=== PATIENT | male | born 1945 | race Caucasian/White ===

== ENCOUNTER → 2016-05-13 | Outpatient (CLI) | payer OTHER ==
[2016-04-17 11:00] VITALS: BP 135/79
[~2016-05-13] MED LIST: ALLO300T PO; AMLO5TAB2 PO; ASPI325T4 PO; ASPI81TA2 PO; ASPI81TA44 PO; CLOP75TA PO; COD1CAPS2 PO; ERGO500012 PO; EZET10TA3 PO; FAMO-63 PO; FURO-68 PO; FURO20TA3 PO; GABA-586 PO; GEMF600T3 PO; HYDR100E2 RC; INSU100V SQ; INSU100V8 SQ; LEVO25TA4 PO; LEVO500T38 PO; LISI-334 PO; MELO-150 PO; MESA1.2T PO; METF100010 PO; METF500T9 PO; METO25TA2 PO; METO25TA4 PO; MULT-658 PO; OMEG1CAP38 PO; POTA20TA12 PO; PRAV20TA2 PO; PRED-220 PO; REGADENOSON 0.4 MG/5 ML DISP.SYRIN. IV ONE; SIMV40TA3 PO; SULF500T7 PO; TAMS0.4C2 PO; TIZA2TAB PO; VITA400C6 PO; ZINC50TA2 PO
--- NOTE | 2016-05-13 13:18 | RAD ---
APPROVED REPORT Test Type: Pharmacological Stress Nurse/Tech: Nupur Wellington R.N. Test Indications: cad, chf Cardiac History: cad, chf, CABG x 2, last in 2003, dm, tia x 3 Medications: see attached Medical History: see ehr Resting ECG: Sr, wide qrs, old changes Resting Heart Rate: 84 bpm Resting Blood Pressure: 141/76mmHg Pretest Chest Pain: No chest pain Nurse/Tech Notes lungs cta, on Home O2 at 3L/nc, diminished, heart tones regular Consent: The procedure was explained to the patient in lay terms. Informed consent was witnessed. Claudio eout was entered into [employer]. History and Stress Test performed by Nupur Wellington R.N. Pharm. Details Pharmacologic stress testing was performed using 0.4mg per 5ml of regadenoson given intravenously ove r 7-10 seconds. Stress Symptoms No chest pain or symptoms. POST EXERCISE Reason for Termination: Infusion complete Target HR: No Max HR: 92 bpm Max Blood Pressure: 137/66mmHg Chest Pain: No. Arrhythmia: Yes. multi focal PVCs noted ST Change: No. INTERPRETATION Stress EKG Conclusion: Resting EKG shows a sinus rhythm and EKGs changes consistent with an old anter ior septal infarct. Stress EKG shows no significant changes from baseline. Abnormal baseline EKG but no EKG changes suggestive of stress-induced ischemia. Imaging Protocol IMAGE PROTOCOL: Rest Tc-99m/stress Tc-99m 1 day Rest: Stress: Viability: Radiopharm.Tc99m [id number] Sestamibi Dose10.5mCi 34.1mCi Duration 15min. 10min. Img Date 05/13/2016 05/13/2016 Inj-Img [id number]. 60min. Rest Admin Site:IV - Left AntecubitalAdministrator:RT Romario (R)(N) Stress Admin Site: IV - Left AntecubitalAdministrator: CORY Martínez STRESS DATA End Diast. Vol.191.0mlAv. Heart Rate74.0bpm End Syst. Vol.118.0mlCO Index BSA5.4L/min Myocardial Xzxp798.0gEject. Iksjwbve97.0% Stress Rates Pk. Fill Rate1.88EDV/secLVtime Pk. Fill 85.93msec Pk. Empty Rate2.41ESV/secLVtime Pk. Eject99.40msec /3 Pk. Fill1.29EDV/sec Stress Scores Regional WT2.00Summed WT30.00 Regional WM0.00Summed WM27.00 LV Perfusion The stress scans show an apical septal defect. The rest scans showed mild inferior wall thinning. Nuclear imaging is positive for reversible ischemia in the apical septal wall. Wall Motion Left ventricular ejection fraction is decreased at 38% with a septal wall motion abnormality. LV Perf. Quant 17 Seg. SSS5.00 17 Seg. SRS1.00 17 Seg. SDS5.00 Stress Defect Extent (% LAD)26.30Rest Defect Extent (% LAD)2.50Rev. Defect Extent (% LAD)25.60 Stress Defect Extent (% LCX) 0.00Rest Defect Extent (% LCX)5.00Rev. Defect Extent (% LCX)0.00 Stress Defect Extent (% RCA)0.00Rest Defect Extent (% RCA)0.00Rev. Defect Extent (% RCA)0.00 Stress Defect Extent (% CARLO)12.40Rest Defect Extent (% CARLO)2.20Rev. Defect Extent (% CARLO)12.20 Conclusion 1. No EKG evidence of stress-induced ischemia. 2. Nuclear imaging is positive for reversible ischemia in the apical septal wall. 3. Decreased ejection fraction at 38%. 4. Moderately high risk study.
== END | disposition home or self-care (01) ==
LOC: NM 08:33
PROVIDERS: ATTEND Internal Medicine Cardiovascular Disease
DX: I25.10 Atherosclerotic heart disease of native coronary artery without angina pectoris (principal); I50.22 Chronic systolic (congestive) heart failure; Z82.49 Family history of ischemic heart disease and other diseases of the circulatory system; I10 Essential (primary) hypertension; Z79.01 Long term (current) use of anticoagulants; Z86.69 Personal history of other diseases of the nervous system and sense organs; E11.9 Type 2 diabetes mellitus without complications
CPT/HCPCS: 78452; 93017; 96374; 96375; 96376; A9500; J2785

== ENCOUNTER 2016-05-20 06:32 | Observation (INO) | payer OTHER ==
[~2016-05-20] VITALS: Ht 185.4 cm; Wt 108.9 kg
[~2016-05-20 06:32] MED LIST changes: -REGADENOSON 0.4 MG/5 ML DISP.SYRIN. IV ONE
[2016-05-20 07:55] LABS: PROTHROMBIN TIME PATIENT 12.2 SEC (11.7-14.0)
[2016-05-20 08:07] LABS: CALCIUM 9.1 mg/dL (8.5-10.1); CREATININE 1.2 mg/dL (0.7-1.3); GFR 59.3; POTASSIUM 3.7 mmol/L (3.5-5.1)
[2016-05-20] MEDS ORDERED: LIDOCAINE 2% 20 ML VIAL. ONE (08:11)
[2016-05-20] MEDS ORDERED: IODIXANOL 320 MG/ML 100 ML VIAL. ONE ×2 (08:11→09:18)
[2016-05-20 08:22] VITALS: BP 141/82
[2016-05-20] MEDS ORDERED: FAMOTIDINE 20 MG/2 ML VIAL IVP ONE (08:30)
[2016-05-20] MEDS ORDERED: methylPREDNISolone SOD SUCC PF 125 MG/2 ML VIAL. IV ONE (08:30)
[2016-05-20] MEDS ORDERED: DIPHENHYDRAMINE 50 MG/ML VIAL IVP ONE (08:30)
[2016-05-20] MEDS ORDERED: FAMOTIDINE 20 MG/2 ML VIAL ONE (08:44)
[2016-05-20] MEDS ORDERED: DIPHENHYDRAMINE 50 MG/ML VIAL ONE (08:44)
[2016-05-20] MEDS ORDERED: methylPREDNISolone SOD SUCC PF 125 MG/2 ML VIAL. ONE (08:44)
[2016-05-20] MEDS ORDERED: FENTANYL PF 100 MCG/2 ML VIAL. ONE (08:50)
[2016-05-20] MEDS ORDERED: MIDAZOLAM HCL 2 MG/2 ML VIAL. ONE (08:50)
[2016-05-20] MEDS ORDERED: BIVALIRUDIN 250 MG VIAL IV ONE ×2 (09:13→09:30)
[2016-05-20] MEDS ORDERED: FENTANYL PF 100 MCG/2 ML VIAL. IV ONE (09:15)
[2016-05-20] MEDS ORDERED: MIDAZOLAM HCL 2 MG/2 ML VIAL. IV ONE (09:15)
[2016-05-20] MEDS ORDERED: CONTRAST GIVEN MC PRN (09:15)
[2016-05-20] MEDS ORDERED: IODIXANOL 320 MG/ML 100 ML VIAL. IART ONE (09:15)
[2016-05-20] MEDS ORDERED: LIDOCAINE 2% 20 ML VIAL. IJ ONE (09:15)
[2016-05-20] MEDS ORDERED: ATROPINE 0.5 MG/5 ML DISP.SYRIN. ONE (09:45)
[2016-05-20] MEDS ORDERED: CLOPIDOGREL BISULFATE 75 MG TABLET ONE (09:55)
[2016-05-20] MEDS ORDERED: CLOPIDOGREL BISULFATE 75 MG TABLET PO ONE (10:00)
[2016-05-20 10:02] VITALS: BP 141/78
[2016-05-20] MEDS: IV 1/2 NORMAL SALINE 1,000 ML IV SCH ×2 (10:12→22:12)
--- NOTE | 2016-05-20 10:12 | PDOC ---
MODERATE SEDATION ASSESSMENT RISKS/ALTERNATIVES Risks/Alternatives Risks and alternatives of this type of sedation and procedure discussed with: RISK/ALTERNATIVES: Patient H & P ON CHART H & P H & P on chart and reviewed for co-morbid conditions and appropriate labs. H&P ON CHART: Yes STATUS PREG STATUS ASSESSED: N/A MEDS/ALLERGIES REVIEWED Meds/Allergies Reviewed Medications and Allergies including time and route of recently administered narcotics and sedatives. MEDS/ALLERGIES REVIEWED: Yes ASA RATING ASA RATING: II AIRWAY ASSESSMENT Airway Assessment Airway patency, oral function limitations, presence of caps, crowns, dentures, partials, and ability to extend neck assessed. AIRWAY ASSESSMENT: Yes MALLAMPATI SCORE MALLAMPATI SCORE: II PRE-SEDATION ASSESSMENT PRE-SEDATION ASSESSMENT: Yes CORINE RUSSO MD May 20, 2016 10:12
[2016-05-20] MEDS ORDERED: NITROGLYCERIN SUBLINGUAL 0.4 MG BOTTLE OF 25. SL PRN (10:15)
[2016-05-20] MEDS ORDERED: ASPIRIN 81 MG TAB.CHEW PO ONE (10:15)
[2016-05-20] MEDS ORDERED: ACETAMINOPHEN 325 MG TABLET. PO PRN (10:15)
[2016-05-20] MEDS ORDERED: NITROGLYCERIN 200 MCG/2 ML SYRINGE FOR CATH/VASC LAB. IART ONE (10:15)
[2016-05-20 11:00] VITALS: BP 147/76
[2016-05-20] MEDS: GEMFIBROZIL 600 MG TABLET. PO SCH ×2 (11:00→17:21)
[2016-05-20] MEDS: LEVOTHYROXINE 25 MCG TABLET. PO SCH (11:00)
[2016-05-20] MEDS ORDERED: EZETIMIBE 10 MG TABLET PO SCH (11:00)
[2016-05-20] MEDS: FUROSEMIDE 40 MG TABLET PO SCH (11:00)
[2016-05-20] MEDS: METOPROLOL SUCC 24HR ER 25 MG TAB.ER.24H. PO SCH (11:00)
[2016-05-20] MEDS: GABAPENTIN 300 MG CAPSULE. PO SCH ×2 (11:00→17:22)
[2016-05-20] MEDS: AMLODIPINE BESYLATE 10 MG TABLET PO SCH (11:00)
[2016-05-20] MEDS ORDERED: INSULIN GLARGINE HUM REC ANLOG 16 UNIT SQ SCH (12:00)
[2016-05-20] MEDS: INSULIN ASPART 300 UNITS/3 ML INSULN.PEN SQ SCH ×2 (12:06→17:24)
--- NOTE | 2016-05-20 12:52 | CARD ---
APPROVED REPORT Procedure(s) performed: 1. Left heart catheterization, selective coronary angiography, selective ang iography of the bypass grafts 2. Successful PCI/drug eluting stent placement to the saphenous vein graft to the right coronary art rosalio INDICATION The indication(s) include : Unstable angina, coronary artery disease, positive stress test. PROCEDURE NARRATIVE After explaining the risks, benefits and alternative options, informed consent was obtained from stacey ent. Patient was brought to the cardiac Home Care Manager and his right groin was prepped and draped in the us ual fashion. 20 mL of 2% lidocaine was infiltrated into the skin and subcutaneous tissues for local a nesthesia. Arterial access was obtained in the right common femoral artery and a 6 Amharic sheath was inserted. 6 Amharic JL 4 and 6 Amharic JR4 catheters were used to perform selective angiography of the left and right coronary arteries. The 6 Amharic JR4 catheter was then used to perform selective angiog qi of the saphenous vein and internal mammary 'Y' graft to the ramus intermedius and left anterior descending arteries. The same catheter was used to perform selective angiography of the saphenous ve in graft to the right coronary artery and also the left internal mammary artery. LVEDP and Transaorti c gradient was measured. The following findings were noted. FINDINGS 1. Hemodynamics: Left ventricle end-diastolic pressure 30 mmHg. No pullback gradient across the aor tic valve. 2. Coronary and bypass graft angiography: a. The left main coronary artery arose from the left sinus of Valsalva, gave rise to the left anteri or descending, ramus intermedius and left circumflex arteries and showed mild diffuse disease without any significant stenosis. b. The left anterior descending artery showed 100% occlusion in the proximal segment. c. The left circumflex artery was 100% occluded proximally. d. The ramus intermedius artery showed 40% stenosis followed by 80% stenosis in the proximal segment . e. The right coronary artery arose from the right sinus of Valsalva that showed 90% stenosis in the proximal segment and 100% occlusion in the mid segment. f. The saphenous vein graft to the right coronary artery showed 90-95% stenosis in the proximal segm ent. g. Patient has a saphenous vein and internal mammary artery 'Y' graft with the saphenous vein anasto mosing with the ramus intermedius artery and internal mammary artery graft anastomosing with the left anterior descending artery, both of which were patent. Distal to the anastomosis, the ramus intermed ius artery did not show any significant stenosis. The left anterior descending artery showed moderate diffuse disease in the very apical segment. The obtuse marginal branches of left circumflex artery r econstituted from left to left collaterals and the posterolateral branch of right coronary artery rec onstituted from left to right collaterals. h. The left internal mammary artery showed signs of having been harvested for the 'Y' graft. INTERVENTION The saphenous vein graft to the right coronary artery was engaged with a 6 Amharic multipurpose guide catheter. The stenosis in the proximal segment was crossed with a Filterwire was deployed in the dist al segment of the graft for distal embolic protection. The stenosis was predilated with 3.0 x 15 mm t rek balloon following which this was successfully treated by overlapping 4.0 x 38 and 4.0 x 12 mm Ellie nce Alpine drug-eluting stents. There was slow flow noted but improved with intragraft nitroglycerin injections and successful retrieval filter wire. Final angiography showed resolution of the stenosis to 0% with FRANCISCO-3 distal flow. Patient tolerated the procedure well. Hemostasis in the right groin wa s achieved using Angio-Seal. There were no immediate complications. Conclusion 1. Severe [place] vessel disease s/p coronary artery bypass surgery with 90-95% stenosis involving th e saphenous vein graft to the right coronary artery and patent saphenous vein and internal mammary ar ashley 'Y' graft to the ramus intermedius and left anterior descending arteries 2. Successful PCI/drug eluting stents placement to the saphenous vein graft to the right coronary ar ashley. Recommendations 1. Aspirin 325 mg daily 2. Plavix 75 mg daily for preferably one year 3. Cardiovascular risk factor modification.
[2016-05-20 15:00] VITALS: BP 135/82
[2016-05-20 19:30] VITALS: BP 151/77
[2016-05-20] MEDS ORDERED: TAMSULOSIN 0.4 MG CAP.ER.24H. PO SCH (21:00)
[2016-05-20] MEDS: INSULIN DETEMIR 300 UNITS/3 ML INSULN.PEN. SQ SCH (21:00)
[2016-05-20 22:30] VITALS: BP 161/89
[2016-05-21 03:10] VITALS: BP 127/72
[2016-05-21] MEDS: LEVOTHYROXINE 25 MCG TABLET. PO SCH (06:12)
[2016-05-21] MEDS: GEMFIBROZIL 600 MG TABLET. PO SCH (06:12)
[2016-05-21] MEDS: GABAPENTIN 300 MG CAPSULE. PO SCH (06:13)
[2016-05-21 07:00] VITALS: BP 140/82
[2016-05-21] MEDS ORDERED: CLOPIDOGREL BISULFATE 75 MG TABLET PO SCH (08:00)
[2016-05-21] MEDS ORDERED: ASPIRIN ENTERIC COATED 325 MG TABLET.DR. PO SCH (08:00)
[2016-05-21] MEDS: FUROSEMIDE 40 MG TABLET PO SCH (08:10)
[2016-05-21] MEDS: METOPROLOL SUCC 24HR ER 25 MG TAB.ER.24H. PO SCH (08:10)
[2016-05-21 08:12] VITALS: BP 140/82
[2016-05-21] MEDS: AMLODIPINE BESYLATE 10 MG TABLET PO SCH (08:12)
[2016-05-21] MEDS: INSULIN DETEMIR 300 UNITS/3 ML INSULN.PEN. SQ SCH (08:20)
[2016-05-21] MEDS: INSULIN ASPART 300 UNITS/3 ML INSULN.PEN SQ SCH (08:21)
--- NOTE | 2016-05-21 10:36 | PDOC3 ---
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 chronic systolic heart failure, compensated 3. venous insufficiency 4. hypertension 5. hyperlipidemia 6. stroke, etiology unclear 7. 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 chronic systolic heart failure, compensated 3. venous insufficiency 4. hypertension 5. hyperlipidemia 6. stroke, etiology unclear 7. DM, II CONSULTS none Procedures 05/20/2016: 1. Severe redding vessel disease s/p coronary artery bypass surgery with 90-95% stenosis involving the saphenous vein graft to the right coronary artery and patent saphenous vein and internal mammary artery 'Y' graft to the ramus intermedius and left anterior descending arteries 2. Successful PCI/drug eluting stents placement to the saphenous vein graft to the right coronary artery. Brief Hospital Course Mr. Bustos is a 71 old male with a history of CAD and CABG in 1992 and 2003, as well as stroke of uncertain etiology and chronic venous insufficiency with previous RF ablation of greater and lesser saphenous veins. He was hospitalized in early April with CHF exacerbation and noted to have wall motion abnormalities on echo. He subsequently underwent MPI as an outpatient and was found to have reversible ischemia in the apical septal wall. Cardiac catheterization was advised and patient was agreeable with procedure which was completed on 05/20/2016. Monitored overnight without cardiac dysrhythmias or anginal symptoms. LINQ interrogated without significant findings. Discharge on DAPT for the next 12 months. Disposition/Orders: D/C to Home CONDITION AT DISCHARGE: Improved Diet: Cardiac (& diabetic) Scheduled Allopurinol (Allopurinol) 300 MG PO BID (Reported) Amlodipine Besylate (Amlodipine Besylate) 10 MG PO DAILY Aspirin (Aspirin) 1 TAB PO DAILY (Reported) Clopidogrel Bisulfate (Clopidogrel) 75 MG PO DAILY (Reported) Cod Liver Oil (Cod Liver Oil) 1 EACH PO BID76 (Reported) Ergocalciferol (Vitamin D2) (Vitamin D2) 50,000 UNIT PO WEEKLY (Reported) Ezetimibe (Zetia) 10 MG PO QODAY (Reported) Famotidine (Pepcid) 20 MG PO BID76 (Reported) Furosemide (Lasix) 1 TAB PO DAILY Gabapentin (Gabapentin) 600 MG PO BID76 (Reported) Gemfibrozil (Gemfibrozil) 600 MG PO BID76 (Reported) Insulin Glargine,Hum.rec.anlog (Lantus) 16 UNIT SQ TIDWMEALS (Reported) Insulin Glargine,Hum.rec.anlog (Lantus) 25 UNIT SQ BID76 (Reported) Insulin Lispro (Humalog) 16 UNIT SQ TIDAC (Reported) Levothyroxine Sodium (Levothyroxine Sodium) 25 MCG PO DAILYAC (Reported) Metformin Hcl (Metformin Hcl Er) 1 TAB PO BID76 (Reported) Metoprolol Succinate (Toprol Xl) 25 MG PO DAILY (Reported) Multivits-Min/Fa/Lycopene/Lut (Centrum Silver Tablet) 1 EACH PO DAILY (Reported ) [place]-3 Fatty Acids/Fish Oil ([place] 3 Fish Oil Softgel) 1 EACH PO DAILY ( Reported) Prednisone (Prednisone) 10 MG PO BID (Reported) Sulfasalazine (Sulfasalazine) 1,000 MG PO BID (Reported) Tamsulosin Hcl (Tamsulosin Hcl) 0.4 MG PO HS (Reported) Tizanidine Hcl (Tizanidine Hcl) 4 MG PO HS (Reported) Vitamin E (Dl,Tocopheryl Acet) (Vitamin E) 400 UNIT PO DAILY18 (Reported) Zinc Gluconate (Zinc) 50 MG PO DAILY (Reported) FOLLOW UP APPOINTMENT: as scheduled with Dr. Long on 06/19/2016 PCP 7-10 days Time Spent Total time spent with patient 30 minutes for coordination of care, counseling, and education. NINOSKA SALDANA APRN May 21, 2016 10:36
[2016-05-21 11:25] LABS: CREATININE 1.1 mg/dL (0.7-1.3); GFR 65.6; POTASSIUM 3.1 mmol/L (3.5-5.1)
== END 2016-05-21 11:30 | disposition home or self-care (01) ==
LOC: CCL 06:32 → 2 NORTH 09:42 → INTOOBSV 09:42
PROVIDERS: ADMIT Internal Medicine Cardiovascular Disease; ATTEND Internal Medicine Cardiovascular Disease
DX: I25.110 Atherosclerotic heart disease of native coronary artery with unstable angina pectoris (principal); I50.22 Chronic systolic (congestive) heart failure; I87.2 Venous insufficiency (chronic) (peripheral); I11.0 Hypertensive heart disease with heart failure; E78.5 Hyperlipidemia, unspecified; E11.9 Type 2 diabetes mellitus without complications; I63.9 Cerebral infarction, unspecified
CPT/HCPCS: 36415; 80048; 82947; 85610; 85730; 92937; 93458; 96372; 96374; 96375; C1725; C1769; C1771; C1874; C1887; C1892; G0269; G0378; G0379; J0583; J1200; J1815; J2250; J2930; J3010; J3490; S0028

== ENCOUNTER 2017-02-01 14:04 | Inpatient (IN) | payer OTHER ==
[~2017-02-01] VITALS: Ht 185.4 cm; Wt 107.1 kg
[~2017-02-01 14:04] MED LIST changes: +ASPI-630 PO; -ASPI325T4 PO; +ASPI325T8 PO; -ASPI81TA2 PO; -ERGO500012 PO; +ERGO500027 PO; +EZET10TA18 PO; -EZET10TA3 PO; -LEVO500T38 PO; +LEVO500T59 PO; -MELO-150 PO; +MELO15TA23 PO
[2017-02-01 14:27] LABS: BASO # 0.2 x10^3/uL (0.0-0.2); BASO % 2 % (0-3); EOS % 3 % (0-3); HEMATOCRIT 40.7 % (39.0-53.0); HEMOGLOBIN 13.1 g/dL (13.0-17.5); LYMPH # 1.1 x10^3/uL (1.0-4.8); LYMPH % 10 % (24-48); MEAN CORPUSCULAR HEMOGLOBIN 31 pg (25-35); MEAN CORPUSCULAR HGB CONC 32 g/dL (31-37); MEAN CORPUSCULAR VOLUME 97 fL (79-100); MONO % 7 % (0-9); NEUT % 77 % (31-73); PLATELET COUNT 254 x10^3/uL (140-400); RED BLOOD COUNT 4.21 x10^6/uL (4.30-5.70); RED CELL DISTRIBUTION WIDTH 17.3 % (11.5-14.5); WHITE BLOOD COUNT 10.4 x10^3/uL (4.0-11.0)
[2017-02-01 14:38] LABS: CALCIUM 9.1 mg/dL (8.5-10.1); CREATININE 1.4 mg/dL (0.7-1.3); GFR 49.7; POTASSIUM 4.3 mmol/L (3.5-5.1)
[2017-02-01 14:43] LABS: ALBUMIN 3.7 g/dL (3.4-5.0); ALBUMIN/GLOBULIN RATIO 1.1 (1.0-1.7); TOTAL BILIRUBIN 0.3 mg/dL (0.2-1.0); TOTAL PROTEIN 7.2 g/dL (6.4-8.2)
--- NOTE | 2017-02-01 14:47 | RAD ---
AP PORTABLE CHEST Clinical Indication: SOA. CHF. Comparison: 2 view chest 04/15/2016. Findings: Median sternotomy wires and changes of CABG. There is left chest cardiac event monitor. Stable cardiomegaly. Trace bilateral pleural effusions. Mild pulmonary vascular congestion, less apparent than on prior study. Lungs are clear. There is no pneumothorax. There is no acute bone abnormality. IMPRESSION: 1. Mild pulmonary vascular congestion. 2. Trace bilateral pleural effusions. 3. Stable cardiomegaly.
[2017-02-01] MEDS ORDERED: IPRATRPIUM/ALBUTEROL 0.5/2.5MG 3 ML NEBU. NEB ONE (15:00)
[2017-02-01] MEDS ORDERED: FUROSEMIDE 40 MG/4 ML VIAL. IVP ONE ×2 (15:15→16:15)
[2017-02-01] MEDS ORDERED: ASPIRIN CHEWABLE 81 MG TABLET. PO ONE (15:30)
--- NOTE | 2017-02-01 15:50 | PHYS DOC ---
Past Medical History Past Medical History: Arrhythmia, CAD, CHF, Diabetes-Type II, High Cholesterol , Hypertension, Hypothyroid Additional Past Medical Histor: gout, left hip pain, prostate, ulcerative colitis Past Surgical History: Appendectomy, Cholecystectomy, Coronary Bypass Surgery, Other Additional Past Surgical Histo: 2 open heart surgeries, bilat lower extremity "ablasions" 08/2015 Additional Information: quit smoking 1993 Alcohol Use: Occasionally Drug Use: None Adult General Chief Complaint Chief Complaint: SHORTNESS OF BREATH HPI HPI Patient is a 71 year old male with history of CAD, congestive heart failure who presents with progressive dyspnea for the past 3 days with weight gain over night. Patient reports orthopnea and dyspnea with exertion. States he is increased peripheral edema. Patient took an extra dose of Lasix yesterday without improvement. Denies chest pain, chest tightness. No nausea vomiting or sweats. No other acute symptoms or complaints. [] Review of Systems Review of Systems ROS as per HPI. [] All other systems were reviewed and found to be within normal limits, except as documented in this note. Current Medications Current Medications Current Medications Medications (Trade) Dose Ordered Sig/Nickie Start Time Stop Time Status Last Admin Dose Admin Albuterol/ Ipratropium (Duoneb) 3 ml 1X ONCE 02/01/17 15:00 02/01/17 15:01 DC 02/01/17 15:34 3 ML Aspirin (Children'S Aspirin) 162 mg 1X ONCE 02/01/17 15:30 02/01/17 15:31 DC Furosemide (Lasix) 40 mg 1X ONCE 02/01/17 15:15 02/01/17 15:16 DC 02/01/17 15:15 40 MG Allergies Allergies Allergies Coded Allergies Type Severity Reaction Last Updated Verified Iodinated Contrast- Oral and IV Dye Allergy Intermediate Hives 09/14/13 Yes pravastatin Allergy Intermediate 01/06/14 Yes Tmfyrly-Mzh-Yre Reductase Inhibitor Adverse Reaction Intermediate 05/20/16 No Physical Exam Physical Exam Constitutional: Well developed, well nourished, no acute distress, non-toxic appearance. [] HENT: Normocephalic, atraumatic, bilateral external ears normal, oropharynx moist, no oral exudates, nose normal. [] Eyes: PERRLA, EOMI, conjunctiva normal, no discharge. [] Neck: Normal range of motion, no tenderness, supple, no stridor. [] Cardiovascular:Heart rate regular rhythm, no murmur [] Lungs & Thorax: Respirations nonlabored, coarse lung sounds in bases. [] Extremities: No tenderness, ROM intact, peripheral edema.[] Neurologic: Alert and oriented X 3, normal motor function, normal sensory function, no focal deficits noted. [] Psychologic: Affect normal, judgement normal, mood normal. [] Current Patient Data Vital Signs Vital Signs Date Time Temp Pulse Resp B/P (MAP) Pulse Ox O2 Delivery O2 Flow Rate FiO2 02/01/17 15:13 73 20 122/70 (87) 93 Nasal Cannula 2.0 02/01/17 14:08 97.5 97.5 Lab Values Laboratory Tests Test 02/01/17 14:15 White Blood Count 10.4 x10^3/uL (4.0-11.0) Red Blood Count 4.21 x10^6/uL (4.30-5.70) L Hemoglobin 13.1 g/dL (13.0-17.5) Hematocrit 40.7 % (39.0-53.0) Mean Corpuscular Volume 97 fL (79-100) Mean Corpuscular Hemoglobin 31 pg (25-35) Mean Corpuscular Hemoglobin Concent 32 g/dL (31-37) Red Cell Distribution Width 17.3 % (11.5-14.5) H Platelet Count 254 x10^3/uL (140-400) Neutrophils (%) (Auto) 77 % (31-73) H Lymphocytes (%) (Auto) 10 % (24-48) L Monocytes (%) (Auto) 7 % (0-9) Eosinophils (%) (Auto) 3 % (0-3) Basophils (%) (Auto) 2 % (0-3) Neutrophils # (Auto) 8.1 x10^3uL (1.8-7.7) H Lymphocytes # (Auto) 1.1 x10^3/uL (1.0-4.8) Monocytes # (Auto) 0.8 x10^3/uL (0.0-1.1) Eosinophils # (Auto) 0.3 x10^3/uL (0.0-0.7) Basophils # (Auto) 0.2 x10^3/uL (0.0-0.2) Sodium Level 141 mmol/L (136-145) Potassium Level 4.3 mmol/L (3.5-5.1) Chloride Level 102 mmol/L (98-107) Carbon Dioxide Level 30 mmol/L (21-32) Anion Gap 9 (6-14) Blood Urea Nitrogen 24 mg/dL (8-26) Creatinine 1.4 mg/dL (0.7-1.3) H Estimated GFR (Cockcroft-Gault) 49.7 BUN/Creatinine Ratio 17 (6-20) Glucose Level 53 mg/dL (70-99) L Calcium Level 9.1 mg/dL (8.5-10.1) Total Bilirubin 0.3 mg/dL (0.2-1.0) Aspartate Amino Transferase (AST) 23 U/L (15-37) Alanine Aminotransferase (ALT) 23 U/L (16-63) Alkaline Phosphatase 133 U/L (46-116) H Creatine Kinase 69 U/L (39-308) Troponin I Quantitative 0.568 ng/mL (0.000-0.055) NS-Niy-F-Type Natriuretic Peptide 5121 pg/mL (0-124) H Total Protein 7.2 g/dL (6.4-8.2) Albumin 3.7 g/dL (3.4-5.0) Albumin/Globulin Ratio 1.1 (1.0-1.7) Laboratory Tests 02/01/17 14:15 Laboratory Tests 02/01/17 14:15 EKG EKG [EKG: A. fib, rate, 79, no acute ST-T wave changes, QTC 439. Interpretation by this physician.] Radiology/Procedures Radiology/Procedures [Chest x-ray: Pulmonary edema per radiology report.] Course & Med Decision Making Course & Med Decision Making Pertinent Labs and Imaging studies reviewed. (See chart for details) [Patient acute congestive heart failure. Noted to be hypoxic on ED arrival. Patient placed on oxygen, breathing treatment and Lasix given with symptomatic improvement. Patient denies chest pain/chest tightness. EKG has A. fib but otherwise nondiagnostic. Troponin elevated but likely to be acting very due to supply demand mismatch. Dr. Hoffman to admit. Cardiology consulted.] Dragon Disclaimer Dragon Disclaimer This electronic medical record was generated, in whole or in part, using a voice recognition dictation system. Departure Departure Impression: Primary Impression: CHF exacerbation Additional Impression: Elevated troponin Disposition: 09 ADMITTED INPATIENT Admitting Physician: Jane Hoffman Condition: STABLE Referrals: GARCÍA CONTI MD (PCP) Problem Qualifiers YARIEL ADAME DO Feb 01, 2017 15:50
[2017-02-01] MEDS ORDERED: ONDANSETRON PF 4 MG/2 ML VIAL. IV PRN (16:00)
[2017-02-01] MEDS: IPRATRPIUM/ALBUTEROL 0.5/2.5MG 3 ML NEBU. NEB SCH ×2 (16:00→20:24)
[2017-02-01 17:00] VITALS: BP 140/70
[2017-02-01] MEDS: FUROSEMIDE 40 MG/4 ML VIAL. IVP SCH (17:56)
[2017-02-01] MEDS: HEPARIN for IV BOLUS 10,000 UNIT/10 ML VIAL. IV PRN (17:59)
[2017-02-01] MEDS: HEPARIN 25,000UTS/500ML PREMIX 500 ML IV PRN (18:04)
[2017-02-01] MEDS ORDERED: VITA400C36 PO (18:25)
[2017-02-01] MEDS ORDERED: PRED-220 PO (18:25)
[2017-02-01] MEDS ORDERED: COD1CAPS2 PO (18:29)
[2017-02-01] MEDS ORDERED: ZINC50TA29 PO (18:29)
[2017-02-01] MEDS ORDERED: INSU100I17 SQ (18:30)
--- NOTE | 2017-02-01 18:56 | PDOC1 ---
History and Physical Date of Admission Date of Admission DATE: 02/01/17 TIME: 18:54 Identification/Chief Complaint Chief Complaint orthopnea, " I cant lie flat" Problems: Source Source: Chart review, Patient History of Present Illness History of Present Illness Mr. Bustos, is a 71 year old male admit from ER, for marked and progressive dyspnea for the past 3 days with weight gain over night. 2 lbs weight gain yesterday, 4 lbs gained the day before that. he doubled up his Lasix, minimal change in urine output he could not sleep last night, marked Patient reports orthopnea and dyspnea with exertion no travel, no new leg pain, swelling is symmetrical, IV lasix given in the ER , he reports not much substantial output Past Medical History Past Medical History CAD, congestive heart failure Cardiovascular: CAD, CHF, HTN, Hyperlipidemia, Other Pulmonary: COPD CENTRAL NERVOUS SYSTEM: CVA GI: GERD, Irritable bowel disease Heme/Onc: No pertinent hx Hepatobiliary: No pertinent hx Psych: No pertinent hx Musculoskeletal: Osteoarthritis Rheumatologic: Gout Infectious disease: No pertinent hx Renal/: Chronic renal insuff Endocrine: Diabetes, Hypothyroidism Past Surgical History Past Surgical History: Cholecystectomy, CABG Family History Family History: Coronary Artery Disease, Hypertension, Stroke Social History ALCOHOL: none Drugs: None Current Problem List Problem List Problems Medical Problems: (1) CHF exacerbation Status: Acute (2) Elevated troponin Status: Acute Problems: Current Medications Current Medications Current Medications Albuterol/ Ipratropium (Duoneb) 3 ml 1X ONCE NEB Last administered on 15:34; Start 02/01/17 at 15:00; Stop 02/01/17 at 15:01; Status DC Furosemide (Lasix) 40 mg 1X ONCE IVP Last administered on 02/01/17 15:15; Start 02/01/17 at 15:15; Stop 02/01/17 at 15:16; Status DC Aspirin (Children'S Aspirin) 162 mg 1X ONCE PO Last administered on 16:42; Start 02/01/17 at 15:30; Stop 02/01/17 at 15:31; Status DC Ondansetron HCl (Zofran) 4 mg PRN Q8HRS PRN IV NAUSEA/VOMITING; Start at 16:00; Stop 02/02/17 at 15:59 Albuterol/ Ipratropium (Duoneb) 3 ml RTQID NEB ; Start 02/01/17 at 16:00; Stop 02/02/17 at 15:59 Furosemide (Lasix) 40 mg BID92 IVP Last administered on 02/01/17 17:56; Start 02/02/17 at 16:30 Furosemide (Lasix) 40 mg 1X ONCE IVP Last administered on 02/01/17 16:39; Start 02/01/17 at 16:15; Stop 02/01/17 at 16:16; Status DC Heparin Sodium/ Dextrose 500 ml @ 0 mls/hr CONT PRN IV SEE I/O RECORD Last administered on 02/01/17 18:04; Start 02/01/17 at 16:30 Heparin Sodium (Porcine) (Heparin Sodium) 2,700 unit PRN Q6HRS PRN IV FOR UFH LEVEL LESS THAN 0.2 Last administered on 02/01/17 17:59; Start 02/01/17 at 16 :30 Active Scripts Active Lasix (Furosemide) 40 Mg Tablet 1 Tab PO DAILY Amlodipine Besylate 5 Mg Tablet 10 Mg PO DAILY Reported Novolog Flexpen (Insulin Aspart) 100 Unit/1 Ml Insuln.pen 20 Unit SQ TIDACHC Zinc 50 Mg Tablet 50 Mg PO DAILY08 Cod Liver Oil 1 Each Capsule 1 Each PO DAILY08 Vitamin E (Vitamin E Mixed) 400 Unit Capsule 400 Unit PO DAILY16 Prednisone 10 Mg Tablet 10 Mg PO BID Sulfasalazine 500 Mg Tablet 1,000 Mg PO BID Aspirin 81 Mg Tab.chew 1 Tab PO DAILY Clopidogrel (Clopidogrel Bisulfate) 75 Mg Tablet 75 Mg PO DAILY Brightwood 3 Fish Oil Softgel (Brightwood-3 Fatty Acids/Fish Oil) 1 Each Capsule.dr 1 Each PO DAILY Vitamin D2 (Ergocalciferol (Vitamin D2)) 50,000 Unit Capsule 50,000 Unit PO WEEKLY Toprol Xl (Metoprolol Succinate) 25 Mg Tab.er.24h 25 Mg PO DAILY Metformin Hcl Er (Metformin Hcl) 500 Mg Tab.er.24h 1 Tab PO BID76 Lantus (Insulin Glargine,Hum.rec.anlog) 100 Unit/1 Ml Vial 25 Unit SQ BID76 Centrum Silver Tablet (Multivits-Min/Fa/Lycopene/Lut) 1 Each Tablet 1 Each PO DAILY Pepcid (Famotidine) 20 Mg Tablet 20 Mg PO BID76 Tamsulosin Hcl 0.4 Mg Cap.er.24h 0.4 Mg PO HS Allopurinol 300 Mg Tablet 300 Mg PO BID Zetia (Ezetimibe) 10 Mg Tablet 10 Mg PO QODAY Levothyroxine Sodium 25 Mcg Tablet 25 Mcg PO DAILYAC Allergies Allergies: Coded Allergies: Iodinated Contrast- Oral and IV Dye (Verified Allergy, Intermediate, Hives , 09/14/13) pravastatin (Verified Allergy, Intermediate, 01/06/14) Eadgtfu-Oic-Oji Reductase Inhibitor (Unverified Adverse Reaction, Intermediate, 05/20/16) ROS General: No: Chills, Night Sweats, Fatigue, Malaise, Appetite, Other PSYCHOLOGICAL ROS: No: Anxiety, Behavioral Disorder, Concentration difficultie , Decreased libido, Depression, Disorientation, Hallucinations, Hostility, Irritablity, Memory difficulties, Mood Swings, Obsessive thoughts, Physical abuse, Sexual abuse, Sleep disturbances, Suicidal ideation, Other Eyes: No Blurry vision, No Decreased vision, No Double vision, No Dry eyes, No Excessive tearing, No Eye Pain, No Itchy Eyes, No Loss of vision, No Photophobia , No Scotomata, No Uses contacts, No Uses glasses, No Other HEENT: No: Heacaches, Visual Changes, Hearing change, Nasal congestion, Nasal discharge, Oral lesions, Sinus pain, Sore Throat, Epistaxis, Sneezing, Snoring, Tinnitus, Vertigo, Vocal changes, Other Respiratory: No: Cough, Hemoptysis, Orthopnea, Pleuritic Pain, Shortness of breath, SOB with excertion, Sputum Changes, Stridor, Tachypnea, Wheezing, Other Cardiovascular: No Chest Pain, No Palpitations, No Orthopnea, No Paroxysmal Noc. Dyspnea, No Edema, No Lt Headedness, No Other Gastrointestinal: No Nausea, No Vomiting, No Abdominal Pain, No Diarrhea, No Constipation, No Melena, No Hematochezia, No Other Genitourinary: No Dysuria, No Frequency, No Incontinence, No Hematuria, No Retention, No Discharge, No Urgency, No Pain, No Flank Pain, No Other, No , No , No , No , No , No , No Musculoskeletal: No Gait Disturbance, No Joint Pain, No Joint Stiffness, No Joint Swelling, No Muscle Pain, No Muscular Weakness, No Pain In:, No Swelling In:, No Other Neurological: No Behavorial Changes, No Bowel/Bladder ControlChng, No Confusion , No Dizziness, No Gait Disturbance, No Headaches, No Impaired Coord/balance, No Memory Loss, No Numbness/Tingling, No Seizures, No Speech Problems, No Tremors, No Visual Changes, No Weakness, No Other Skin: No Dry Skin, No Eczema, No Hair Changes, No Lumps, No Mole Changes, No Mottling, No Nail Changes, No Pruritus, No Rash, No Skin Lesion Changes, No Other, No Acne Physical Exam General: Cooperative, No acute distress HEENT: EOMI, Mucous membr. moist/pink Lungs: Normal air movement Heart: no murmurs Abdomen: Normal bowel sounds, Soft, Other (tender LLQ, mild guarding only, no rebound) Rectal Exam: not examined Extremities: Normal pulses, Other (2+ Le edema, ) Skin: No breakdown Neuro: Normal speech, Normal tone, Sensation intact Psych/Mental Status: Mood NL Vitals Vitals Vital Signs Date Time Temp Pulse Resp B/P (MAP) Pulse Ox O2 Delivery O2 Flow Rate FiO2 02/01/17 17:00 98.2 80 20 140/70 (93) 97 Nasal Cannula 2.0 98.2 Labs Labs Laboratory Tests Test 02/01/17 14:15 White Blood Count 10.4 x10^3/uL (4.0-11.0) Red Blood Count 4.21 x10^6/uL (4.30-5.70) Hemoglobin 13.1 g/dL (13.0-17.5) Hematocrit 40.7 % (39.0-53.0) Mean Corpuscular Volume 97 fL (79-100) Mean Corpuscular Hemoglobin 31 pg (25-35) Mean Corpuscular Hemoglobin Concent 32 g/dL (31-37) Red Cell Distribution Width 17.3 % (11.5-14.5) Platelet Count 254 x10^3/uL (140-400) Neutrophils (%) (Auto) 77 % (31-73) Lymphocytes (%) (Auto) 10 % (24-48) Monocytes (%) (Auto) 7 % (0-9) Eosinophils (%) (Auto) 3 % (0-3) Basophils (%) (Auto) 2 % (0-3) Neutrophils # (Auto) 8.1 x10^3uL (1.8-7.7) Lymphocytes # (Auto) 1.1 x10^3/uL (1.0-4.8) Monocytes # (Auto) 0.8 x10^3/uL (0.0-1.1) Eosinophils # (Auto) 0.3 x10^3/uL (0.0-0.7) Basophils # (Auto) 0.2 x10^3/uL (0.0-0.2) Sodium Level 141 mmol/L (136-145) Potassium Level 4.3 mmol/L (3.5-5.1) Chloride Level 102 mmol/L (98-107) Carbon Dioxide Level 30 mmol/L (21-32) Anion Gap 9 (6-14) Blood Urea Nitrogen 24 mg/dL (8-26) Creatinine 1.4 mg/dL (0.7-1.3) Estimated GFR (Cockcroft-Gault) 49.7 BUN/Creatinine Ratio 17 (6-20) Glucose Level 53 mg/dL (70-99) Calcium Level 9.1 mg/dL (8.5-10.1) Total Bilirubin 0.3 mg/dL (0.2-1.0) Aspartate Amino Transf (AST/SGOT) 23 U/L (15-37) Alanine Aminotransferase (ALT/SGPT) 23 U/L (16-63) Alkaline Phosphatase 133 U/L (46-116) Creatine Kinase 69 U/L (39-308) Troponin I Quantitative 0.568 ng/mL (0.000-0.055) TE-Pbu-B-Type Natriuretic Peptide 5121 pg/mL (0-124) Total Protein 7.2 g/dL (6.4-8.2) Albumin 3.7 g/dL (3.4-5.0) Albumin/Globulin Ratio 1.1 (1.0-1.7) Laboratory Tests Test 02/01/17 14:15 White Blood Count 10.4 x10^3/uL (4.0-11.0) Red Blood Count 4.21 x10^6/uL (4.30-5.70) Hemoglobin 13.1 g/dL (13.0-17.5) Hematocrit 40.7 % (39.0-53.0) Mean Corpuscular Volume 97 fL (79-100) Mean Corpuscular Hemoglobin 31 pg (25-35) Mean Corpuscular Hemoglobin Concent 32 g/dL (31-37) Red Cell Distribution Width 17.3 % (11.5-14.5) Platelet Count 254 x10^3/uL (140-400) Neutrophils (%) (Auto) 77 % (31-73) Lymphocytes (%) (Auto) 10 % (24-48) Monocytes (%) (Auto) 7 % (0-9) Eosinophils (%) (Auto) 3 % (0-3) Basophils (%) (Auto) 2 % (0-3) Neutrophils # (Auto) 8.1 x10^3uL (1.8-7.7) Lymphocytes # (Auto) 1.1 x10^3/uL (1.0-4.8) Monocytes # (Auto) 0.8 x10^3/uL (0.0-1.1) Eosinophils # (Auto) 0.3 x10^3/uL (0.0-0.7) Basophils # (Auto) 0.2 x10^3/uL (0.0-0.2) Sodium Level 141 mmol/L (136-145) Potassium Level 4.3 mmol/L (3.5-5.1) Chloride Level 102 mmol/L (98-107) Carbon Dioxide Level 30 mmol/L (21-32) Anion Gap 9 (6-14) Blood Urea Nitrogen 24 mg/dL (8-26) Creatinine 1.4 mg/dL (0.7-1.3) Estimated GFR (Cockcroft-Gault) 49.7 BUN/Creatinine Ratio 17 (6-20) Glucose Level 53 mg/dL (70-99) Calcium Level 9.1 mg/dL (8.5-10.1) Total Bilirubin 0.3 mg/dL (0.2-1.0) Aspartate Amino Transf (AST/SGOT) 23 U/L (15-37) Alanine Aminotransferase (ALT/SGPT) 23 U/L (16-63) Alkaline Phosphatase 133 U/L (46-116) Creatine Kinase 69 U/L (39-308) Troponin I Quantitative 0.568 ng/mL (0.000-0.055) CL-Crq-R-Type Natriuretic Peptide 5121 pg/mL (0-124) Total Protein 7.2 g/dL (6.4-8.2) Albumin 3.7 g/dL (3.4-5.0) Albumin/Globulin Ratio 1.1 (1.0-1.7) VTE Prophylaxis Ordered VTE Prophylaxis Devices: Yes VTE Pharmacological Prophylaxi: Yes Assessment/Plan Assessment/Plan CHF, acute systolic exacerbation LE edema, IV lasix consult CV angina, r/o ACS, troponin elevation of unstable angina, heparin gtt started CKD 3 abd pain, some Ulcerative colitis symptoms of exacerbation, pt of Dr. Menchaca, cont prednisone and sulfasalazine concern for blood with blood thinner and anti platelet meds given symptoms reported are constipation JACK VALENTINE MD Feb 01, 2017 18:56
[2017-02-01 19:25] VITALS: BP 121/72
[2017-02-01] MEDS: predniSONE 10 MG TABLET PO SCH (20:02)
[2017-02-01] MEDS: INSULIN ASPART 300 UNITS/3 ML INSULN.PEN SQ SCH (20:56)
[2017-02-01] MEDS: sulfaSALAzine 500 MG TABLET PO SCH (20:57)
[2017-02-01] MEDS: TAMSULOSIN 0.4 MG CAP.ER.24H. PO SCH (20:57)
[2017-02-01] MEDS: ALLOPURINOL 300 MG TABLET. PO SCH (20:57)
[2017-02-01 23:00] VITALS: BP 134/71
[2017-02-02] VITALS (7 sets, daily range): BP systolic 124–154; BP diastolic 71–82
[2017-02-02 03:32] LABS: BASO # 0.1 x10^3/uL (0.0-0.2); BASO % 1 % (0-3); EOS % 3 % (0-3); HEMOGLOBIN 12.1 g/dL (13.0-17.5); LYMPH # 0.9 x10^3/uL (1.0-4.8); LYMPH % 11 % (24-48); MEAN CORPUSCULAR HEMOGLOBIN 31 pg (25-35); MEAN CORPUSCULAR HGB CONC 32 g/dL (31-37); MEAN CORPUSCULAR VOLUME 97 fL (79-100); MONO % 6 % (0-9); NEUT % 80 % (31-73); PLATELET COUNT 200 x10^3/uL (140-400); RED BLOOD COUNT 3.94 x10^6/uL (4.30-5.70); RED CELL DISTRIBUTION WIDTH 16.4 % (11.5-14.5); WHITE BLOOD COUNT 8.3 x10^3/uL (4.0-11.0)
[2017-02-02 03:47] LABS: CALCIUM 8.7 mg/dL (8.5-10.1); CREATININE 1.4 mg/dL (0.7-1.3); GFR 49.7; POTASSIUM 3.9 mmol/L (3.5-5.1)
[2017-02-02] MEDS: HEPARIN for IV BOLUS 10,000 UNIT/10 ML VIAL. IV PRN (04:01)
[2017-02-02] MEDS: CLOPIDOGREL BISULFATE 75 MG TABLET PO SCH (06:38)
[2017-02-02] MEDS: predniSONE 10 MG TABLET PO SCH (06:38)
[2017-02-02] MEDS: FAMOTIDINE 20 MG TABLET. PO SCH ×2 (06:38→17:38)
[2017-02-02] MEDS: INSULIN DETEMIR 300 UNITS/3 ML INSULN.PEN. SQ SCH ×2 (06:40→17:43)
[2017-02-02] MEDS: metFORMIN XR 500 MG TAB.ER.24H PO SCH ×2 (06:44→17:37)
[2017-02-02] MEDS: IPRATRPIUM/ALBUTEROL 0.5/2.5MG 3 ML NEBU. NEB SCH ×3 (08:10→19:25)
[2017-02-02] MEDS: LEVOTHYROXINE 25 MCG TABLET. PO SCH (08:23)
[2017-02-02] MEDS: ASPIRIN CHEWABLE 81 MG TABLET. PO SCH (08:23)
[2017-02-02] MEDS: sulfaSALAzine 500 MG TABLET PO SCH ×2 (08:24→21:26)
[2017-02-02] MEDS: INSULIN ASPART 300 UNITS/3 ML INSULN.PEN SQ SCH ×4 (08:26→21:31)
--- NOTE | 2017-02-02 08:49 | EKG ---
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
[2017-02-02] MEDS: ALLOPURINOL 300 MG TABLET. PO SCH ×2 (09:52→21:25)
[2017-02-02] MEDS: METOPROLOL SUCC 24HR ER 25 MG TAB.ER.24H. PO SCH (09:52)
[2017-02-02] MEDS: amLODIPine BESYLATE 10 MG TABLET PO SCH (09:52)
[2017-02-02] MEDS ORDERED: ANTI-COAG MONITOR BY PHARMACY. MC PRN (10:15)
--- NOTE | 2017-02-02 13:14 | PDOC2 ---
CONSULT Date of Consult Date of Consult DATE: 02/02/17 TIME: 13:12 Reason for Consult Reason for Consult: Ulcerative colitis/change in bowel habits Past Medical History Cardiovascular: CAD, CHF, HTN, Hyperlipidemia, Other Pulmonary: COPD CENTRAL NERVOUS SYSTEM: CVA GI: GERD, Irritable bowel disease Heme/Onc: No pertinent hx Hepatobiliary: No pertinent hx Psych: No pertinent hx Musculoskeletal: Osteoarthritis Rheumatologic: Gout Infectious disease: No pertinent hx Renal/: Chronic renal insuff Endocrine: Diabetes, Hypothyroidism Past Surgical History Past Surgical History: Cholecystectomy, CABG Family History Family History: Coronary Artery Disease, Hypertension, Stroke Social History ALCOHOL: none Drugs: None Lives: with Family Domestic Violence: Neg Current Problem List Problem List Problems Medical Problems: (1) CHF exacerbation Status: Acute (2) Elevated troponin Status: Acute Current Medications Current Medications Current Medications Albuterol/ Ipratropium (Duoneb) 3 ml 1X ONCE NEB Last administered on 15:34; Start 02/01/17 at 15:00; Stop 02/01/17 at 15:01; Status DC Furosemide (Lasix) 40 mg 1X ONCE IVP Last administered on 02/01/17 15:15; Start 02/01/17 at 15:15; Stop 02/01/17 at 15:16; Status DC Aspirin (Children'S Aspirin) 162 mg 1X ONCE PO Last administered on 16:42; Start 02/01/17 at 15:30; Stop 02/01/17 at 15:31; Status DC Ondansetron HCl (Zofran) 4 mg PRN Q8HRS PRN IV NAUSEA/VOMITING; Start at 16:00; Stop 02/02/17 at 15:59 Albuterol/ Ipratropium (Duoneb) 3 ml RTQID NEB Last administered on 02/02/17 11:39; Start 02/01/17 at 16:00; Stop 02/02/17 at 15:59 Furosemide (Lasix) 40 mg BID92 IVP Last administered on 02/01/17 17:56; Start 02/02/17 at 16:30 Furosemide (Lasix) 40 mg 1X ONCE IVP Last administered on 02/01/17 16:39; Start 02/01/17 at 16:15; Stop 02/01/17 at 16:16; Status DC Heparin Sodium/ Dextrose 500 ml @ 0 mls/hr CONT PRN IV SEE I/O RECORD Last administered on 02/01/17 18:04; Start 02/01/17 at 16:30 Heparin Sodium (Porcine) (Heparin Sodium) 2,700 unit PRN Q6HRS PRN IV FOR UFH LEVEL LESS THAN 0.2 Last administered on 02/02/17 04:01; Start 02/01/17 at 16 :30 Allopurinol (Zyloprim) 300 mg BID PO Last administered on 02/02/17 09:52; Start 02/01/17 at 21:00 Amlodipine Besylate (Norvasc) 10 mg DAILY PO Last administered on 02/02/17 09 :52; Start 02/02/17 at 09:00 Aspirin (Children'S Aspirin) 81 mg DAILY08 PO Last administered on 02/02/17 08:23; Start 02/02/17 at 08:00 Clopidogrel Bisulfate (Plavix) 75 mg DAILY07 PO Last administered on 06:38; Start 02/02/17 at 07:00 EZETIMIBE (Zetia) 10 mg QODAY PO ; Start 02/03/17 at 09:00 Famotidine (Pepcid) 20 mg BID76 PO Last administered on 02/02/17 06:38; Start 02/02/17 at 07:00 Insulin Aspart (NovoLOG) 20 units TIDACHC SQ Last administered on 02/02/17 08 :26; Start 02/01/17 at 21:00 Levothyroxine Sodium (Synthroid) 25 mcg DAILYAC PO Last administered on 08:23; Start 02/02/17 at 07:30 Metformin HCl (Glucophage Xr) 500 mg BID76 PO ; Start 02/02/17 at 07:00 Metoprolol Succinate (Toprol Xl) 25 mg DAILY PO Last administered on 09:52; Start 02/02/17 at 09:00 Prednisone (Prednisone) 10 mg BID76 PO Last administered on 02/02/17 06:38; Start 02/01/17 at 19:30 Sulfasalazine (Azulfidine) 1,000 mg BID PO Last administered on 02/02/17 08: 24; Start 02/01/17 at 21:00 Tamsulosin HCl (Flomax) 0.4 mg HS PO Last administered on 02/01/17 20:57; Start 02/01/17 at 21:00 Insulin Detemir (Levemir) 25 units BID76 SQ Last administered on 02/02/17 06: 40; Start 02/02/17 at 07:00 Info (Anti-Coagulation Monitoring By Pharmacy) 1 each PRN DAILY PRN MC SEE COMMENTS Last administered on 02/02/17 10:19; Start 02/02/17 at 10:15 Active Scripts Active Lasix (Furosemide) 40 Mg Tablet 1 Tab PO DAILY Amlodipine Besylate 5 Mg Tablet 10 Mg PO DAILY Reported Novolog Flexpen (Insulin Aspart) 100 Unit/1 Ml Insuln.pen 20 Unit SQ TIDACHC Zinc 50 Mg Tablet 50 Mg PO DAILY08 Cod Liver Oil 1 Each Capsule 1 Each PO DAILY08 Vitamin E (Vitamin E Mixed) 400 Unit Capsule 400 Unit PO DAILY16 Prednisone 10 Mg Tablet 10 Mg PO BID Sulfasalazine 500 Mg Tablet 1,000 Mg PO BID Aspirin 81 Mg Tab.chew 1 Tab PO DAILY Clopidogrel (Clopidogrel Bisulfate) 75 Mg Tablet 75 Mg PO DAILY Bison 3 Fish Oil Softgel (Bison-3 Fatty Acids/Fish Oil) 1 Each Capsule. 1 Each PO DAILY Vitamin D2 (Ergocalciferol (Vitamin D2)) 50,000 Unit Capsule 50,000 Unit PO WEEKLY Toprol Xl (Metoprolol Succinate) 25 Mg Tab.er.24h 25 Mg PO DAILY Metformin Hcl Er (Metformin Hcl) 500 Mg Tab.er.24h 1 Tab PO BID76 Lantus (Insulin Glargine,Hum.rec.anlog) 100 Unit/1 Ml Vial 25 Unit SQ BID76 Centrum Silver Tablet (Multivits-Min/Fa/Lycopene/Lut) 1 Each Tablet 1 Each PO DAILY Pepcid (Famotidine) 20 Mg Tablet 20 Mg PO BID76 Tamsulosin Hcl 0.4 Mg Cap.er.24h 0.4 Mg PO HS Allopurinol 300 Mg Tablet 300 Mg PO BID Zetia (Ezetimibe) 10 Mg Tablet 10 Mg PO QODAY Levothyroxine Sodium 25 Mcg Tablet 25 Mcg PO DAILYAC Allergies Allergies: Coded Allergies: Iodinated Contrast- Oral and IV Dye (Verified Allergy, Intermediate, Hives , 09/14/13) pravastatin (Verified Allergy, Intermediate, 01/06/14) Fnwvypj-Upu-Isy Reductase Inhibitor (Unverified Adverse Reaction, Intermediate, 05/20/16) Vitals VITALS Vital Signs Date Time Temp Pulse Resp B/P (MAP) Pulse Ox O2 Delivery O2 Flow Rate FiO2 02/02/17 11:40 Nasal Cannula 2.0 02/02/17 11:00 97.8 95 19 154/82 (106) 92 97.8 Labs Labs Laboratory Tests Test 02/01/17 14:15 02/01/17 20:41 02/01/17 22:30 02/02/17 03:15 White Blood Count 10.4 x10^3/uL (4.0-11.0) 8.3 x10^3/uL (4.0-11.0) Red Blood Count 4.21 x10^6/uL (4.30-5.70) 3.94 x10^6/uL (4.30-5.70) Hemoglobin 13.1 g/dL (13.0-17.5) 12.1 g/dL (13.0-17.5) Hematocrit 40.7 % (39.0-53.0) 38.0 % (39.0-53.0) Mean Corpuscular Volume 97 fL (79-100) 97 fL (79-100) Mean Corpuscular Hemoglobin 31 pg (25-35) 31 pg (25-35) Mean Corpuscular Hemoglobin Concent 32 g/dL (31-37) 32 g/dL (31-37) Red Cell Distribution Width 17.3 % (11.5-14.5) 16.4 % (11.5-14.5) Platelet Count 254 x10^3/uL (140-400) 200 x10^3/uL (140-400) Neutrophils (%) (Auto) 77 % (31-73) 80 % (31-73) Lymphocytes (%) (Auto) 10 % (24-48) 11 % (24-48) Monocytes (%) (Auto) 7 % (0-9) 6 % (0-9) Eosinophils (%) (Auto) 3 % (0-3) 3 % (0-3) Basophils (%) (Auto) 2 % (0-3) 1 % (0-3) Neutrophils # (Auto) 8.1 x10^3uL (1.8-7.7) 6.6 x10^3uL (1.8-7.7) Lymphocytes # (Auto) 1.1 x10^3/uL (1.0-4.8) 0.9 x10^3/uL (1.0-4.8) Monocytes # (Auto) 0.8 x10^3/uL (0.0-1.1) 0.5 x10^3/uL (0.0-1.1) Eosinophils # (Auto) 0.3 x10^3/uL (0.0-0.7) 0.2 x10^3/uL (0.0-0.7) Basophils # (Auto) 0.2 x10^3/uL (0.0-0.2) 0.1 x10^3/uL (0.0-0.2) Sodium Level 141 mmol/L (136-145) 139 mmol/L (136-145) Potassium Level 4.3 mmol/L (3.5-5.1) 3.9 mmol/L (3.5-5.1) Chloride Level 102 mmol/L (98-107) 101 mmol/L (98-107) Carbon Dioxide Level 30 mmol/L (21-32) 28 mmol/L (21-32) Anion Gap 9 (6-14) 10 (6-14) Blood Urea Nitrogen 24 mg/dL (8-26) 25 mg/dL (8-26) Creatinine 1.4 mg/dL (0.7-1.3) 1.4 mg/dL (0.7-1.3) Estimated GFR (Cockcroft-Gault) 49.7 49.7 BUN/Creatinine Ratio 17 (6-20) Glucose Level 53 mg/dL (70-99) 164 mg/dL (70-99) Calcium Level 9.1 mg/dL (8.5-10.1) 8.7 mg/dL (8.5-10.1) Total Bilirubin 0.3 mg/dL (0.2-1.0) Aspartate Amino Transf (AST/SGOT) 23 U/L (15-37) Alanine Aminotransferase (ALT/SGPT) 23 U/L (16-63) Alkaline Phosphatase 133 U/L (46-116) Creatine Kinase 69 U/L (39-308) Troponin I Quantitative 0.568 ng/mL (0.000-0.055) 0.517 ng/mL (0.000-0.055) 0.480 ng/mL (0.000-0.055) XJ-Mtk-Y-Type Natriuretic Peptide 5121 pg/mL (0-124) Total Protein 7.2 g/dL (6.4-8.2) Albumin 3.7 g/dL (3.4-5.0) Albumin/Globulin Ratio 1.1 (1.0-1.7) Glucose (Fingerstick) 101 mg/dL (70-99) Heparin Anti-Xa Act, Unfractionated 0.15 IU/mL (0.30-0.70) Test 02/02/17 07:50 02/02/17 08:55 02/02/17 12:13 Glucose (Fingerstick) 184 mg/dL (70-99) 170 mg/dL (70-99) Heparin Anti-Xa Act, Unfractionated 0.37 IU/mL (0.30-0.70) Laboratory Tests Test 02/01/17 14:15 02/01/17 20:41 02/01/17 22:30 02/02/17 03:15 White Blood Count 10.4 x10^3/uL (4.0-11.0) 8.3 x10^3/uL (4.0-11.0) Red Blood Count 4.21 x10^6/uL (4.30-5.70) 3.94 x10^6/uL (4.30-5.70) Hemoglobin 13.1 g/dL (13.0-17.5) 12.1 g/dL (13.0-17.5) Hematocrit 40.7 % (39.0-53.0) 38.0 % (39.0-53.0) Mean Corpuscular Volume 97 fL (79-100) 97 fL (79-100) Mean Corpuscular Hemoglobin 31 pg (25-35) 31 pg (25-35) Mean Corpuscular Hemoglobin Concent 32 g/dL (31-37) 32 g/dL (31-37) Red Cell Distribution Width 17.3 % (11.5-14.5) 16.4 % (11.5-14.5) Platelet Count 254 x10^3/uL (140-400) 200 x10^3/uL (140-400) Neutrophils (%) (Auto) 77 % (31-73) 80 % (31-73) Lymphocytes (%) (Auto) 10 % (24-48) 11 % (24-48) Monocytes (%) (Auto) 7 % (0-9) 6 % (0-9) Eosinophils (%) (Auto) 3 % (0-3) 3 % (0-3) Basophils (%) (Auto) 2 % (0-3) 1 % (0-3) Neutrophils # (Auto) 8.1 x10^3uL (1.8-7.7) 6.6 x10^3uL (1.8-7.7) Lymphocytes # (Auto) 1.1 x10^3/uL (1.0-4.8) 0.9 x10^3/uL (1.0-4.8) Monocytes # (Auto) 0.8 x10^3/uL (0.0-1.1) 0.5 x10^3/uL (0.0-1.1) Eosinophils # (Auto) 0.3 x10^3/uL (0.0-0.7) 0.2 x10^3/uL (0.0-0.7) Basophils # (Auto) 0.2 x10^3/uL (0.0-0.2) 0.1 x10^3/uL (0.0-0.2) Sodium Level 141 mmol/L (136-145) 139 mmol/L (136-145) Potassium Level 4.3 mmol/L (3.5-5.1) 3.9 mmol/L (3.5-5.1) Chloride Level 102 mmol/L (98-107) 101 mmol/L (98-107) Carbon Dioxide Level 30 mmol/L (21-32) 28 mmol/L (21-32) Anion Gap 9 (6-14) 10 (6-14) Blood Urea Nitrogen 24 mg/dL (8-26) 25 mg/dL (8-26) Creatinine 1.4 mg/dL (0.7-1.3) 1.4 mg/dL (0.7-1.3) Estimated GFR (Cockcroft-Gault) 49.7 49.7 BUN/Creatinine Ratio 17 (6-20) Glucose Level 53 mg/dL (70-99) 164 mg/dL (70-99) Calcium Level 9.1 mg/dL (8.5-10.1) 8.7 mg/dL (8.5-10.1) Total Bilirubin 0.3 mg/dL (0.2-1.0) Aspartate Amino Transf (AST/SGOT) 23 U/L (15-37) Alanine Aminotransferase (ALT/SGPT) 23 U/L (16-63) Alkaline Phosphatase 133 U/L (46-116) Creatine Kinase 69 U/L (39-308) Troponin I Quantitative 0.568 ng/mL (0.000-0.055) 0.517 ng/mL (0.000-0.055) 0.480 ng/mL (0.000-0.055) NF-Toj-T-Type Natriuretic Peptide 5121 pg/mL (0-124) Total Protein 7.2 g/dL (6.4-8.2) Albumin 3.7 g/dL (3.4-5.0) Albumin/Globulin Ratio 1.1 (1.0-1.7) Glucose (Fingerstick) 101 mg/dL (70-99) Heparin Anti-Xa Act, Unfractionated 0.15 IU/mL (0.30-0.70) Test 02/02/17 07:50 02/02/17 08:55 02/02/17 12:13 Glucose (Fingerstick) 184 mg/dL (70-99) 170 mg/dL (70-99) Heparin Anti-Xa Act, Unfractionated 0.37 IU/mL (0.30-0.70) Assessment/Plan Assessment/Plan Ulcerative colitis- with constipation on medical therpay with prednisone and sulfasalazine, etiology to be determined. Plan hold prednisone but continue sulfasalazine consider o/p colonoscopy if symptoms don't improve with above Full note dictated JOSE HUA MD Feb 02, 2017 13:14
[2017-02-02] MEDS: HEPARIN 25,000UTS/500ML PREMIX 500 ML IV PRN (13:25)
--- NOTE | 2017-02-02 14:11 | PDOC2 ---
CONSULT Date of Consult Date of Consult DATE: 02/02/17 TIME: 14:11 Reason for Consult Reason for Consult: Congestive heart failure and atrial fibrillation Referring Physician Referring Physician: Dr. Hoffman Identification/Chief Complaint Chief Complaint Dyspnea Problems: Source Source: Chart review, Patient History of Present Illness Reason for Visit: 71-year-old male with history of coronary artery disease s/p coronary artery bypass surgery and PCI thereafter presented complaining of progressive shortness of breath, orthopnea and lower extremity edema since one week. He had one episode of retrosternal chest pressure but denied any palpitations or syncope. He claimed compliance with medications and oral fluids/salt intake. Past Medical History Cardiovascular: CAD (s/p coronary artery bypass surgery twice in 1992 and 2003 and PCI/stent to SVG to RCA in May 2016.), CHF, HTN, Hyperlipidemia, Other ( chronic venous insufficiency s/p RF ablation of bilateral greater and lesser saphenous veins.) Pulmonary: COPD CENTRAL NERVOUS SYSTEM: CVA GI: GERD, Irritable bowel disease Heme/Onc: No pertinent hx Hepatobiliary: No pertinent hx Psych: No pertinent hx Musculoskeletal: Osteoarthritis Rheumatologic: Gout Infectious disease: No pertinent hx Renal/: Chronic renal insuff Endocrine: Diabetes, Hypothyroidism Past Surgical History Past Surgical History: Cholecystectomy, CABG, Other (Linq loop recorder implantation) Family History Family History: Coronary Artery Disease, Hypertension, Stroke Social History ALCOHOL: none Drugs: None Lives: with Family Domestic Violence: Neg Current Problem List Problem List Problems Medical Problems: (1) CHF exacerbation Status: Acute (2) Elevated troponin Status: Acute Current Medications Current Medications Current Medications Albuterol/ Ipratropium (Duoneb) 3 ml 1X ONCE NEB Last administered on 15:34; Start 02/01/17 at 15:00; Stop 02/01/17 at 15:01; Status DC Furosemide (Lasix) 40 mg 1X ONCE IVP Last administered on 02/01/17 15:15; Start 02/01/17 at 15:15; Stop 02/01/17 at 15:16; Status DC Aspirin (Children'S Aspirin) 162 mg 1X ONCE PO Last administered on 16:42; Start 02/01/17 at 15:30; Stop 02/01/17 at 15:31; Status DC Ondansetron HCl (Zofran) 4 mg PRN Q8HRS PRN IV NAUSEA/VOMITING; Start at 16:00; Stop 02/02/17 at 15:59 Albuterol/ Ipratropium (Duoneb) 3 ml RTQID NEB Last administered on 02/02/17 11:39; Start 02/01/17 at 16:00; Stop 02/02/17 at 15:59 Furosemide (Lasix) 40 mg BID92 IVP Last administered on 02/01/17 17:56; Start 02/02/17 at 16:30 Furosemide (Lasix) 40 mg 1X ONCE IVP Last administered on 02/01/17 16:39; Start 02/01/17 at 16:15; Stop 02/01/17 at 16:16; Status DC Heparin Sodium/ Dextrose 500 ml @ 0 mls/hr CONT PRN IV SEE I/O RECORD Last administered on 02/02/17 13:25; Start 02/01/17 at 16:30 Heparin Sodium (Porcine) (Heparin Sodium) 2,700 unit PRN Q6HRS PRN IV FOR UFH LEVEL LESS THAN 0.2 Last administered on 02/02/17 04:01; Start 02/01/17 at 16 :30 Allopurinol (Zyloprim) 300 mg BID PO Last administered on 02/02/17 09:52; Start 02/01/17 at 21:00 Amlodipine Besylate (Norvasc) 10 mg DAILY PO Last administered on 02/02/17 09 :52; Start 02/02/17 at 09:00 Aspirin (Children'S Aspirin) 81 mg DAILY08 PO Last administered on 02/02/17 08:23; Start 02/02/17 at 08:00 Clopidogrel Bisulfate (Plavix) 75 mg DAILY07 PO Last administered on 06:38; Start 02/02/17 at 07:00 EZETIMIBE (Zetia) 10 mg QODAY PO ; Start 02/03/17 at 09:00 Famotidine (Pepcid) 20 mg BID76 PO Last administered on 02/02/17 06:38; Start 02/02/17 at 07:00 Insulin Aspart (NovoLOG) 20 units TIDACHC SQ Last administered on 02/02/17 13 :18; Start 02/01/17 at 21:00 Levothyroxine Sodium (Synthroid) 25 mcg DAILYAC PO Last administered on 08:23; Start 02/02/17 at 07:30 Metformin HCl (Glucophage Xr) 500 mg BID76 PO ; Start 02/02/17 at 07:00 Metoprolol Succinate (Toprol Xl) 25 mg DAILY PO Last administered on 09:52; Start 02/02/17 at 09:00 Prednisone (Prednisone) 10 mg BID76 PO Last administered on 02/02/17 06:38; Start 02/01/17 at 19:30; Stop 02/02/17 at 13:12; Status DC Sulfasalazine (Azulfidine) 1,000 mg BID PO Last administered on 02/02/17 08: 24; Start 02/01/17 at 21:00 Tamsulosin HCl (Flomax) 0.4 mg HS PO Last administered on 02/01/17 20:57; Start 02/01/17 at 21:00 Insulin Detemir (Levemir) 25 units BID76 SQ Last administered on 02/02/17 06: 40; Start 02/02/17 at 07:00 Info (Anti-Coagulation Monitoring By Pharmacy) 1 each PRN DAILY PRN MC SEE COMMENTS Last administered on 02/02/17 10:19; Start 02/02/17 at 10:15 Active Scripts Active Lasix (Furosemide) 40 Mg Tablet 1 Tab PO DAILY Amlodipine Besylate 5 Mg Tablet 10 Mg PO DAILY Reported Novolog Flexpen (Insulin Aspart) 100 Unit/1 Ml Insuln.pen 20 Unit SQ TIDACHC Zinc 50 Mg Tablet 50 Mg PO DAILY08 Cod Liver Oil 1 Each Capsule 1 Each PO DAILY08 Vitamin E (Vitamin E Mixed) 400 Unit Capsule 400 Unit PO DAILY16 Prednisone 10 Mg Tablet 10 Mg PO BID Sulfasalazine 500 Mg Tablet 1,000 Mg PO BID Aspirin 81 Mg Tab.chew 1 Tab PO DAILY Clopidogrel (Clopidogrel Bisulfate) 75 Mg Tablet 75 Mg PO DAILY [place] 3 Fish Oil Softgel ([place]-3 Fatty Acids/Fish Oil) 1 Each Capsule.dr 1 Each PO DAILY Vitamin D2 (Ergocalciferol (Vitamin D2)) 50,000 Unit Capsule 50,000 Unit PO WEEKLY Toprol Xl (Metoprolol Succinate) 25 Mg Tab.er.24h 25 Mg PO DAILY Metformin Hcl Er (Metformin Hcl) 500 Mg Tab.er.24h 1 Tab PO BID76 Lantus (Insulin Glargine,Hum.rec.anlog) 100 Unit/1 Ml Vial 25 Unit SQ BID76 Centrum Silver Tablet (Multivits-Min/Fa/Lycopene/Lut) 1 Each Tablet 1 Each PO DAILY Pepcid (Famotidine) 20 Mg Tablet 20 Mg PO BID76 Tamsulosin Hcl 0.4 Mg Cap.er.24h 0.4 Mg PO HS Allopurinol 300 Mg Tablet 300 Mg PO BID Zetia (Ezetimibe) 10 Mg Tablet 10 Mg PO QODAY Levothyroxine Sodium 25 Mcg Tablet 25 Mcg PO DAILYAC Allergies Allergies: Coded Allergies: Iodinated Contrast- Oral and IV Dye (Verified Allergy, Intermediate, Hives , 09/14/13) pravastatin (Verified Allergy, Intermediate, 01/06/14) Tvstuyp-Rzd-Dor Reductase Inhibitor (Unverified Adverse Reaction, Intermediate, 05/20/16) ROS PSYCHOLOGICAL ROS: No: Hallucinations Eyes: No Loss of vision HEENT: No: Epistaxis Respiratory: YES: Orthopnea, Shortness of breath, No: Hemoptysis Cardiovascular: yes Chest Pain, No Palpitations Gastrointestinal: No Vomiting, No Diarrhea Genitourinary: No Hematuria Neurological: No Memory Loss, No Seizures Skin: No Rash Physical Exam General: Alert, mild distress HEENT: Atraumatic, PERRLA Lungs: Other (bilateral basal crepitations) Heart: Regular rate Abdomen: Soft, No tenderness Extremities: Other (1-2+ pitting pedal edema) Vitals VITALS Vital Signs Date Time Temp Pulse Resp B/P (MAP) Pulse Ox O2 Delivery O2 Flow Rate FiO2 02/02/17 11:40 Nasal Cannula 2.0 02/02/17 11:00 97.8 95 19 154/82 (106) 92 97.8 Labs Labs Laboratory Tests Test 02/01/17 14:15 02/01/17 20:41 02/01/17 22:30 02/02/17 03:15 White Blood Count 10.4 x10^3/uL (4.0-11.0) 8.3 x10^3/uL (4.0-11.0) Red Blood Count 4.21 x10^6/uL (4.30-5.70) 3.94 x10^6/uL (4.30-5.70) Hemoglobin 13.1 g/dL (13.0-17.5) 12.1 g/dL (13.0-17.5) Hematocrit 40.7 % (39.0-53.0) 38.0 % (39.0-53.0) Mean Corpuscular Volume 97 fL (79-100) 97 fL (79-100) Mean Corpuscular Hemoglobin 31 pg (25-35) 31 pg (25-35) Mean Corpuscular Hemoglobin Concent 32 g/dL (31-37) 32 g/dL (31-37) Red Cell Distribution Width 17.3 % (11.5-14.5) 16.4 % (11.5-14.5) Platelet Count 254 x10^3/uL (140-400) 200 x10^3/uL (140-400) Neutrophils (%) (Auto) 77 % (31-73) 80 % (31-73) Lymphocytes (%) (Auto) 10 % (24-48) 11 % (24-48) Monocytes (%) (Auto) 7 % (0-9) 6 % (0-9) Eosinophils (%) (Auto) 3 % (0-3) 3 % (0-3) Basophils (%) (Auto) 2 % (0-3) 1 % (0-3) Neutrophils # (Auto) 8.1 x10^3uL (1.8-7.7) 6.6 x10^3uL (1.8-7.7) Lymphocytes # (Auto) 1.1 x10^3/uL (1.0-4.8) 0.9 x10^3/uL (1.0-4.8) Monocytes # (Auto) 0.8 x10^3/uL (0.0-1.1) 0.5 x10^3/uL (0.0-1.1) Eosinophils # (Auto) 0.3 x10^3/uL (0.0-0.7) 0.2 x10^3/uL (0.0-0.7) Basophils # (Auto) 0.2 x10^3/uL (0.0-0.2) 0.1 x10^3/uL (0.0-0.2) Sodium Level 141 mmol/L (136-145) 139 mmol/L (136-145) Potassium Level 4.3 mmol/L (3.5-5.1) 3.9 mmol/L (3.5-5.1) Chloride Level 102 mmol/L (98-107) 101 mmol/L (98-107) Carbon Dioxide Level 30 mmol/L (21-32) 28 mmol/L (21-32) Anion Gap 9 (6-14) 10 (6-14) Blood Urea Nitrogen 24 mg/dL (8-26) 25 mg/dL (8-26) Creatinine 1.4 mg/dL (0.7-1.3) 1.4 mg/dL (0.7-1.3) Estimated GFR (Cockcroft-Gault) 49.7 49.7 BUN/Creatinine Ratio 17 (6-20) Glucose Level 53 mg/dL (70-99) 164 mg/dL (70-99) Calcium Level 9.1 mg/dL (8.5-10.1) 8.7 mg/dL (8.5-10.1) Total Bilirubin 0.3 mg/dL (0.2-1.0) Aspartate Amino Transf (AST/SGOT) 23 U/L (15-37) Alanine Aminotransferase (ALT/SGPT) 23 U/L (16-63) Alkaline Phosphatase 133 U/L (46-116) Creatine Kinase 69 U/L (39-308) Troponin I Quantitative 0.568 ng/mL (0.000-0.055) 0.517 ng/mL (0.000-0.055) 0.480 ng/mL (0.000-0.055) TT-Ycb-Y-Type Natriuretic Peptide 5121 pg/mL (0-124) Total Protein 7.2 g/dL (6.4-8.2) Albumin 3.7 g/dL (3.4-5.0) Albumin/Globulin Ratio 1.1 (1.0-1.7) Glucose (Fingerstick) 101 mg/dL (70-99) Heparin Anti-Xa Act, Unfractionated 0.15 IU/mL (0.30-0.70) Test 02/02/17 07:50 02/02/17 08:55 02/02/17 12:13 Glucose (Fingerstick) 184 mg/dL (70-99) 170 mg/dL (70-99) Heparin Anti-Xa Act, Unfractionated 0.37 IU/mL (0.30-0.70) Laboratory Tests Test 02/01/17 14:15 02/01/17 20:41 02/01/17 22:30 02/02/17 03:15 White Blood Count 10.4 x10^3/uL (4.0-11.0) 8.3 x10^3/uL (4.0-11.0) Red Blood Count 4.21 x10^6/uL (4.30-5.70) 3.94 x10^6/uL (4.30-5.70) Hemoglobin 13.1 g/dL (13.0-17.5) 12.1 g/dL (13.0-17.5) Hematocrit 40.7 % (39.0-53.0) 38.0 % (39.0-53.0) Mean Corpuscular Volume 97 fL (79-100) 97 fL (79-100) Mean Corpuscular Hemoglobin 31 pg (25-35) 31 pg (25-35) Mean Corpuscular Hemoglobin Concent 32 g/dL (31-37) 32 g/dL (31-37) Red Cell Distribution Width 17.3 % (11.5-14.5) 16.4 % (11.5-14.5) Platelet Count 254 x10^3/uL (140-400) 200 x10^3/uL (140-400) Neutrophils (%) (Auto) 77 % (31-73) 80 % (31-73) Lymphocytes (%) (Auto) 10 % (24-48) 11 % (24-48) Monocytes (%) (Auto) 7 % (0-9) 6 % (0-9) Eosinophils (%) (Auto) 3 % (0-3) 3 % (0-3) Basophils (%) (Auto) 2 % (0-3) 1 % (0-3) Neutrophils # (Auto) 8.1 x10^3uL (1.8-7.7) 6.6 x10^3uL (1.8-7.7) Lymphocytes # (Auto) 1.1 x10^3/uL (1.0-4.8) 0.9 x10^3/uL (1.0-4.8) Monocytes # (Auto) 0.8 x10^3/uL (0.0-1.1) 0.5 x10^3/uL (0.0-1.1) Eosinophils # (Auto) 0.3 x10^3/uL (0.0-0.7) 0.2 x10^3/uL (0.0-0.7) Basophils # (Auto) 0.2 x10^3/uL (0.0-0.2) 0.1 x10^3/uL (0.0-0.2) Sodium Level 141 mmol/L (136-145) 139 mmol/L (136-145) Potassium Level 4.3 mmol/L (3.5-5.1) 3.9 mmol/L (3.5-5.1) Chloride Level 102 mmol/L (98-107) 101 mmol/L (98-107) Carbon Dioxide Level 30 mmol/L (21-32) 28 mmol/L (21-32) Anion Gap 9 (6-14) 10 (6-14) Blood Urea Nitrogen 24 mg/dL (8-26) 25 mg/dL (8-26) Creatinine 1.4 mg/dL (0.7-1.3) 1.4 mg/dL (0.7-1.3) Estimated GFR (Cockcroft-Gault) 49.7 49.7 BUN/Creatinine Ratio 17 (6-20) Glucose Level 53 mg/dL (70-99) 164 mg/dL (70-99) Calcium Level 9.1 mg/dL (8.5-10.1) 8.7 mg/dL (8.5-10.1) Total Bilirubin 0.3 mg/dL (0.2-1.0) Aspartate Amino Transf (AST/SGOT) 23 U/L (15-37) Alanine Aminotransferase (ALT/SGPT) 23 U/L (16-63) Alkaline Phosphatase 133 U/L (46-116) Creatine Kinase 69 U/L (39-308) Troponin I Quantitative 0.568 ng/mL (0.000-0.055) 0.517 ng/mL (0.000-0.055) 0.480 ng/mL (0.000-0.055) DD-Kdu-P-Type Natriuretic Peptide 5121 pg/mL (0-124) Total Protein 7.2 g/dL (6.4-8.2) Albumin 3.7 g/dL (3.4-5.0) Albumin/Globulin Ratio 1.1 (1.0-1.7) Glucose (Fingerstick) 101 mg/dL (70-99) Heparin Anti-Xa Act, Unfractionated 0.15 IU/mL (0.30-0.70) Test 02/02/17 07:50 02/02/17 08:55 02/02/17 12:13 Glucose (Fingerstick) 184 mg/dL (70-99) 170 mg/dL (70-99) Heparin Anti-Xa Act, Unfractionated 0.37 IU/mL (0.30-0.70) Assessment/Plan Assessment/Plan 1. Acute on chronic systolic heart failure. LVEF 40-45%. Symptoms improving with diuresis. 2. Atrial fibrillation, newly diagnosed. Presently back in sinus rhythm. Stop heparin and start Eliquis for stroke prophylaxis 3. CAD s/p CABG twice 1992 and redo 2003 and PCI/stent to SVG to RCA 05/2016, appears stable. Patient had one episode of chest pain last week that appears to be atypical. Continue current secondary prevention measures. 4. Hyperlipidemia: Continue statin therapy 5. Diabetes mellitus type 2: Treated per IM 6. Venous insufficiency: s/p RF ablation of bilateral greater and lesser saphenous veins 7. History of CVA s/p Linq loop recorder implantation. Since we have a diagnosis of atrial fibrillation that could have, contributed to his CVA, we will consider explantation prior to discharge. Thank you for your consultation. CORINE RUSSO MD Feb 02, 2017 14:11
[2017-02-02 16:09] LABS: BILIRUBIN,URINE NEGATIVE (NEG); GLUCOSE,URINE NEGATIVE (NEG); NITRITE,URINE NEGATIVE (NEG); PROTEIN,URINE 100 mg/dL (NEG-TRACE); UROBILINOGEN,URINE 0.2 mg/dL (0.2 mg/dL)
[2017-02-02 16:35] LABS: BACTERIA,URINE 0 /HPF (0-FEW); RBC,URINE 0 /HPF (0-2); SQUAMOUS EPITHELIAL CELL,UR OCC /LPF; WBC,URINE 0 /HPF (0-4)
[2017-02-02] MEDS: APIXABAN 5 MG TABLET. PO SCH (17:38)
[2017-02-02] MEDS: TAMSULOSIN 0.4 MG CAP.ER.24H. PO SCH (21:26)
--- NOTE | 2017-02-03 03:10 | CONS ---
DATE OF CONSULTATION: 02/02/2017 GASTROENTEROLOGY CONSULTATION REASON FOR CONSULTATION: Ulcerative colitis, change in bowel habits. HISTORY OF PRESENT ILLNESS: A 71-year-old male who is admitted to [facility] with congestive heart failure, CAD, was found to have progressive dyspnea and orthopnea, has been on prednisone 10 mg b.i.d. and sulfasalazine 1 g p.o. b.i.d. for his ulcerative colitis. He presently is having hard small stools without evidence of bleeding and/or flare of the ulcerative colitis. Therefore, we will continue sulfasalazine and discontinue the prednisone and assess for complications, i.e., either steroid withdrawal and/or brief flare of his colitis. He is concerned that he may need an interval colonoscopy due to potential obstruction; however, ____ dyspnea at the present time, he is not a candidate for this. PAST MEDICAL HISTORY: Heart disease, CHF, CAD, diabetes, hyperlipidemia, hypertension, status post appendectomy, cholecystectomy, CABG. MEDICATIONS: IODINE, HMG-COA REDUCTASE INHIBITORS, PRAVASTATIN. FAMILY AND SOCIAL HISTORY: He is a drinker. He is retired. He is a former smoker. MEDICATIONS: Presently include Zetia, Lasix, metoprolol, Norvasc, aspirin, Synthroid, Levemir, Glucophage, Pepcid, Plavix, Flomax, Azulfidine, ____, prednisone, heparin. REVIEW OF SYSTEMS: Per records. PHYSICAL EXAMINATION: GENERAL: Reveals a heavyset male. VITAL SIGNS: Temperature is 97.8, pulse 95, respirations 19, blood pressure 154/82. HEENT: Normocephalic and atraumatic head. Pupils and extraocular muscles are not tested. Sclerae anicteric. EXTREMITIES not tested. Anicteric. NECK: Supple. LUNGS: Reveals decreased breath sounds. CARDIOVASCULAR: Reveals S1, S2 without S3, S4 or appreciable murmur. ABDOMEN: Soft abdomen, normal bowel sounds without appreciable hepatosplenomegaly. EXTREMITIES: Reveals 1+ edema. LABORATORY STUDIES: Sodium is 139, potassium 3.9, chloride 101, bicarb 28, BUN 25, creatinine 1.4, glucose 164. Troponin is 0.517, 0.488. Hemoglobin is 12.1, hematocrit 38.0, white count is 8.3, platelet count is 200,000. Chest x-ray reveals mild pulmonary vascular congestion and trace bilateral pleural effusion, stable cardiomegaly. IMPRESSION: Ulcerative colitis, change in bowel habits with near constipation. Discontinue the prednisone and continue the sulfasalazine 1 g b.i.d. If no improvement in symptoms, interval colonoscopy would be recommended once the patient's congestive heart failure with dyspnea is improved. JOSE HUA MD DR: COLEMAN/dave JOB#: [id number] / [id number] JACK Manzo MD
[2017-02-03 03:13] VITALS: BP 170/81
[2017-02-03 07:00] VITALS: BP 136/86
[2017-02-03] MEDS: sulfaSALAzine 500 MG TABLET PO SCH ×2 (08:37→20:04)
[2017-02-03] MEDS: LEVOTHYROXINE 25 MCG TABLET. PO SCH (08:37)
[2017-02-03] MEDS: metFORMIN XR 500 MG TAB.ER.24H PO SCH ×2 (08:38→17:35)
[2017-02-03] MEDS: FAMOTIDINE 20 MG TABLET. PO SCH ×2 (08:39→17:35)
[2017-02-03] MEDS: CLOPIDOGREL BISULFATE 75 MG TABLET PO SCH (08:39)
[2017-02-03] MEDS: ALLOPURINOL 300 MG TABLET. PO SCH ×2 (08:40→20:04)
[2017-02-03] MEDS: amLODIPine BESYLATE 10 MG TABLET PO SCH (08:40)
[2017-02-03] MEDS: FUROSEMIDE 40 MG/4 ML VIAL. IVP SCH ×2 (08:40→14:33)
[2017-02-03] MEDS: EZETIMIBE 10 MG TABLET. PO SCH (08:40)
[2017-02-03] MEDS: APIXABAN 5 MG TABLET. PO SCH ×2 (08:41→20:04)
[2017-02-03] MEDS: METOPROLOL SUCC 24HR ER 25 MG TAB.ER.24H. PO SCH (08:41)
[2017-02-03] MEDS: ASPIRIN CHEWABLE 81 MG TABLET. PO SCH (08:41)
[2017-02-03] MEDS: INSULIN DETEMIR 300 UNITS/3 ML INSULN.PEN. SQ SCH ×2 (08:54→17:37)
[2017-02-03] MEDS: INSULIN ASPART 300 UNITS/3 ML INSULN.PEN SQ SCH ×4 (08:55→20:07)
--- NOTE | 2017-02-03 09:29 | PDOC ---
Subjective: Subjective: A little discomfort/"upset stomach" No BM (last on Sat), would like something for constipation. No n/v. Objective: Vital Signs: Vital Signs Date Time Temp Pulse Resp B/P (MAP) Pulse Ox O2 Delivery O2 Flow Rate FiO2 02/03/17 08:41 91 136/86 02/03/17 07:00 97.4 20 93 Nasal Cannula 2.0 97.4 Labs: Laboratory Tests Test 02/02/17 12:13 02/02/17 13:00 02/02/17 14:52 02/02/17 16:26 Glucose (Fingerstick) 170 mg/dL 223 mg/dL Urine Collection Type Unknown Urine Color Yellow Urine Clarity Clear Urine pH 6.0 Urine Specific [place] 1.010 Urine Protein 100 mg/dL Urine Glucose (UA) Negative mg/dL Urine Ketones (Stick) Negative mg/dL Urine Blood Negative Urine Nitrite Negative Urine Bilirubin Negative Urine Urobilinogen Dipstick 0.2 mg/dL Urine Leukocyte Esterase Negative Urine RBC 0 /HPF Urine WBC 0 /HPF Urine Squamous Epithelial Cells Occ /LPF Urine Bacteria 0 /HPF Urine Mucus Slight /LPF Heparin Anti-Xa Act, Unfractionated 0.25 IU/mL Test 02/02/17 20:54 02/03/17 07:51 Glucose (Fingerstick) 164 mg/dL 127 mg/dL PE: GEN: NAD, sitting on edge of bed LUNGS: off nasal cannula when I saw HEART: tachycardic ABD: BS+, soft, non-tender NEURO/PSYCH: A & O 3, flat A/P: UC w/ constipation -prednisone stopped, on sulfasalazine 1g BID CHF, CKD A Fib, CAD s/p CABG, h/o CVA -now on Eliquis, Plavix, ASA -on H2 marion BID -- Add Miralax PRN, consider outpt colonoscopy. 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 TWILA FREEMAN Feb 03, 2017 09:29
[2017-02-03] MEDS ORDERED: POLYETHYLENE GLYCOL 3350 17 GM PACKET. PO PRN (09:30)
[2017-02-03 11:00] VITALS: BP 124/84
--- NOTE | 2017-02-03 11:43 | PDOC2 ---
CONSULT Date of Consult Date of Consult DATE: 02/03/17 TIME: 11:43 Reason for Consult Reason for Consult: CKD III Referring Physician Referring Physician: Dr Hoffman Identification/Chief Complaint Chief Complaint SOB, CHF Exac Problems: Source Source: Chart review, Patient History of Present Illness Reason for Visit: as dictated Past Medical History Cardiovascular: CAD (s/p coronary artery bypass surgery twice in 1992 and 2003 and PCI/stent to SVG to RCA in May 2016.), CHF, HTN, Hyperlipidemia, Other ( chronic venous insufficiency s/p RF ablation of bilateral greater and lesser saphenous veins.) Pulmonary: COPD CENTRAL NERVOUS SYSTEM: CVA GI: GERD, Irritable bowel disease Heme/Onc: No pertinent hx Hepatobiliary: No pertinent hx Psych: No pertinent hx Musculoskeletal: Osteoarthritis Rheumatologic: Gout Infectious disease: No pertinent hx Renal/: Chronic renal insuff Endocrine: Diabetes, Hypothyroidism Past Surgical History Past Surgical History: Cholecystectomy, CABG, Other (Linq loop recorder implantation) Family History Family History: Coronary Artery Disease, Hypertension, Stroke Social History ALCOHOL: none Drugs: None Lives: with Family Domestic Violence: Neg Current Problem List Problem List Problems Medical Problems: (1) CHF exacerbation Status: Acute (2) Elevated troponin Status: Acute Current Medications Current Medications Current Medications Albuterol/ Ipratropium (Duoneb) 3 ml 1X ONCE NEB Last administered on 15:34; Start 02/01/17 at 15:00; Stop 02/01/17 at 15:01; Status DC Furosemide (Lasix) 40 mg 1X ONCE IVP Last administered on 02/01/17 15:15; Start 02/01/17 at 15:15; Stop 02/01/17 at 15:16; Status DC Aspirin (Children'S Aspirin) 162 mg 1X ONCE PO Last administered on 16:42; Start 02/01/17 at 15:30; Stop 02/01/17 at 15:31; Status DC Ondansetron HCl (Zofran) 4 mg PRN Q8HRS PRN IV NAUSEA/VOMITING; Start at 16:00; Stop 02/02/17 at 15:59; Status DC Albuterol/ Ipratropium (Duoneb) 3 ml RTQID NEB Last administered on 02/02/17 19:25; Start 02/01/17 at 16:00; Stop 02/02/17 at 15:59; Status DC Furosemide (Lasix) 40 mg BID92 IVP Last administered on 02/03/17 08:40; Start 02/02/17 at 16:30 Furosemide (Lasix) 40 mg 1X ONCE IVP Last administered on 02/01/17 16:39; Start 02/01/17 at 16:15; Stop 02/01/17 at 16:16; Status DC Heparin Sodium/ Dextrose 500 ml @ 0 mls/hr CONT PRN IV SEE I/O RECORD Last administered on 02/02/17 13:25; Start 02/01/17 at 16:30; Stop 02/02/17 at 15 :51; Status DC Heparin Sodium (Porcine) (Heparin Sodium) 2,700 unit PRN Q6HRS PRN IV FOR UFH LEVEL LESS THAN 0.2 Last administered on 02/02/17 04:01; Start 02/01/17 at 16 :30; Stop 02/02/17 at 15:51; Status DC Allopurinol (Zyloprim) 300 mg BID PO Last administered on 02/03/17 08:40; Start 02/01/17 at 21:00 Amlodipine Besylate (Norvasc) 10 mg DAILY PO Last administered on 02/03/17 08 :40; Start 02/02/17 at 09:00 Aspirin (Children'S Aspirin) 81 mg DAILY08 PO Last administered on 02/03/17 08:41; Start 02/02/17 at 08:00 Clopidogrel Bisulfate (Plavix) 75 mg DAILY07 PO Last administered on 08:39; Start 02/02/17 at 07:00 EZETIMIBE (Zetia) 10 mg QODAY PO Last administered on 02/03/17 08:40; Start 02/03/17 at 09:00 Famotidine (Pepcid) 20 mg BID76 PO Last administered on 02/03/17 08:39; Start 02/02/17 at 07:00 Insulin Aspart (NovoLOG) 20 units TIDACHC SQ Last administered on 02/03/17 08 :55; Start 02/01/17 at 21:00 Levothyroxine Sodium (Synthroid) 25 mcg DAILYAC PO Last administered on 08:37; Start 02/02/17 at 07:30 Metformin HCl (Glucophage Xr) 500 mg BID76 PO Last administered on 02/03/17 08:38; Start 02/02/17 at 07:00 Metoprolol Succinate (Toprol Xl) 25 mg DAILY PO Last administered on 08:41; Start 02/02/17 at 09:00 Prednisone (Prednisone) 10 mg BID76 PO Last administered on 02/02/17 06:38; Start 02/01/17 at 19:30; Stop 02/02/17 at 13:12; Status DC Sulfasalazine (Azulfidine) 1,000 mg BID PO Last administered on 02/03/17 08: 37; Start 02/01/17 at 21:00 Tamsulosin HCl (Flomax) 0.4 mg HS PO Last administered on 02/02/17 21:26; Start 02/01/17 at 21:00 Insulin Detemir (Levemir) 25 units BID76 SQ Last administered on 02/03/17 08: 54; Start 02/02/17 at 07:00 Info (Anti-Coagulation Monitoring By Pharmacy) 1 each PRN DAILY PRN MC SEE COMMENTS Last administered on 02/02/17 10:19; Start 02/02/17 at 10:15 Apixaban (Eliquis) 5 mg BID PO Last administered on 02/03/17 08:41; Start at 17:00 Polyethylene Glycol (miraLAX PACKET) 17 gm PRN DAILY PRN PO CONSTIPATION; Start 02/03/17 at 09:30 Active Scripts Active Lasix (Furosemide) 40 Mg Tablet 1 Tab PO DAILY Amlodipine Besylate 5 Mg Tablet 10 Mg PO DAILY Reported Novolog Flexpen (Insulin Aspart) 100 Unit/1 Ml Insuln.pen 20 Unit SQ TIDACHC Zinc 50 Mg Tablet 50 Mg PO DAILY08 Cod Liver Oil 1 Each Capsule 1 Each PO DAILY08 Vitamin E (Vitamin E Mixed) 400 Unit Capsule 400 Unit PO DAILY16 Prednisone 10 Mg Tablet 10 Mg PO BID Sulfasalazine 500 Mg Tablet 1,000 Mg PO BID Aspirin 81 Mg Tab.chew 1 Tab PO DAILY Clopidogrel (Clopidogrel Bisulfate) 75 Mg Tablet 75 Mg PO DAILY [place] 3 Fish Oil Softgel ([place]-3 Fatty Acids/Fish Oil) 1 Each Capsule.dr 1 Each PO DAILY Vitamin D2 (Ergocalciferol (Vitamin D2)) 50,000 Unit Capsule 50,000 Unit PO WEEKLY Toprol Xl (Metoprolol Succinate) 25 Mg Tab.er.24h 25 Mg PO DAILY Metformin Hcl Er (Metformin Hcl) 500 Mg Tab.er.24h 1 Tab PO BID76 Lantus (Insulin Glargine,Hum.rec.anlog) 100 Unit/1 Ml Vial 25 Unit SQ BID76 Centrum Silver Tablet (Multivits-Min/Fa/Lycopene/Lut) 1 Each Tablet 1 Each PO DAILY Pepcid (Famotidine) 20 Mg Tablet 20 Mg PO BID76 Tamsulosin Hcl 0.4 Mg Cap.er.24h 0.4 Mg PO HS Allopurinol 300 Mg Tablet 300 Mg PO BID Zetia (Ezetimibe) 10 Mg Tablet 10 Mg PO QODAY Levothyroxine Sodium 25 Mcg Tablet 25 Mcg PO DAILYAC Allergies Allergies: Coded Allergies: Iodinated Contrast- Oral and IV Dye (Verified Allergy, Intermediate, Hives , 09/14/13) pravastatin (Verified Allergy, Intermediate, 01/06/14) Rxlwprw-Gef-Sjm Reductase Inhibitor (Verified Adverse Reaction, Intermediate, 02/03/17) ROS Review of System GEN: no Fevers no Chills EYES: no Visual Complaints ENT: no EN Drainage no Hearing deficiets CVS: ? Orthopnea no CP RESP: + SOB + AZAR GI: occ Nausea no Vomiting : no Dysuria no Urgency HEME: no easy bruising no Palp Ly Nodes NEURO no Focal Weakness no Sz PSYCH: no Suicidal Ideation no Depression SKIN: no Rashes ENDO: no Polyuria or Polydipsia no Hot/Cold Intolerance MU SK: Ch Arthraigia on Myalgia Physical Exam Physical Exam General Appearance: Awake Alert Oriented x 3 In no Distress Eyes: VIsion Unchanged Conjunctiva Normal EN: No EN Drainage Mucous Memb. moist Neck: no JVD no JVP Supple no Thyromegaly CVS: S1 S2 soft Murmur No Gallop No Rub no Edema Resp: no Rales no Rhonchi no Acc. Muscle use GI: BAS +ve NO Bruit Non Tender Non Distended : no CVA tenderness; no Suprapubic Tenderness SKIN: no Rashes Breast Exam deferred Mu.Sk: Adequate ROM no Muscle Atrophy Heme: Unable to palpate Obvious LAD no Splenomegaly NEURO: Good Strength and Tone Cranial Nerves II - XII grossly intact Psych: no Depressed no Active hallucination Vital Signs Vital Signs Date Time Temp Pulse Resp B/P (MAP) Pulse Ox O2 Delivery O2 Flow Rate FiO2 02/03/17 11:00 98.0 82 20 124/84 (97) 92 Nasal Cannula 2.0 98.0 Assessment & Plan CKD III - stable creat. Labs for today pending. Current FLuid and E-lyte status does not necessitate emergent need for Dialysis. Will re-evaluate for Dialysis in am DM nephropathy - (Insulin use care home) - ? Try RAAS Blockade instead of CCB Proteinuria - RAAS Blockade trial as above Ac/ Ch Sys CHF - better with Diuresis - await cardio eval HTN: Current BP meds reviewed. See orders for changes. Discussed Plan of Care and prognosis etc. at length with family. Labs Labs Laboratory Tests Test 02/01/17 14:15 02/01/17 20:41 02/01/17 22:30 02/02/17 03:15 White Blood Count 10.4 x10^3/uL (4.0-11.0) 8.3 x10^3/uL (4.0-11.0) Red Blood Count 4.21 x10^6/uL (4.30-5.70) 3.94 x10^6/uL (4.30-5.70) Hemoglobin 13.1 g/dL (13.0-17.5) 12.1 g/dL (13.0-17.5) Hematocrit 40.7 % (39.0-53.0) 38.0 % (39.0-53.0) Mean Corpuscular Volume 97 fL (79-100) 97 fL (79-100) Mean Corpuscular Hemoglobin 31 pg (25-35) 31 pg (25-35) Mean Corpuscular Hemoglobin Concent 32 g/dL (31-37) 32 g/dL (31-37) Red Cell Distribution Width 17.3 % (11.5-14.5) 16.4 % (11.5-14.5) Platelet Count 254 x10^3/uL (140-400) 200 x10^3/uL (140-400) Neutrophils (%) (Auto) 77 % (31-73) 80 % (31-73) Lymphocytes (%) (Auto) 10 % (24-48) 11 % (24-48) Monocytes (%) (Auto) 7 % (0-9) 6 % (0-9) Eosinophils (%) (Auto) 3 % (0-3) 3 % (0-3) Basophils (%) (Auto) 2 % (0-3) 1 % (0-3) Neutrophils # (Auto) 8.1 x10^3uL (1.8-7.7) 6.6 x10^3uL (1.8-7.7) Lymphocytes # (Auto) 1.1 x10^3/uL (1.0-4.8) 0.9 x10^3/uL (1.0-4.8) Monocytes # (Auto) 0.8 x10^3/uL (0.0-1.1) 0.5 x10^3/uL (0.0-1.1) Eosinophils # (Auto) 0.3 x10^3/uL (0.0-0.7) 0.2 x10^3/uL (0.0-0.7) Basophils # (Auto) 0.2 x10^3/uL (0.0-0.2) 0.1 x10^3/uL (0.0-0.2) Sodium Level 141 mmol/L (136-145) 139 mmol/L (136-145) Potassium Level 4.3 mmol/L (3.5-5.1) 3.9 mmol/L (3.5-5.1) Chloride Level 102 mmol/L (98-107) 101 mmol/L (98-107) Carbon Dioxide Level 30 mmol/L (21-32) 28 mmol/L (21-32) Anion Gap 9 (6-14) 10 (6-14) Blood Urea Nitrogen 24 mg/dL (8-26) 25 mg/dL (8-26) Creatinine 1.4 mg/dL (0.7-1.3) 1.4 mg/dL (0.7-1.3) Estimated GFR (Cockcroft-Gault) 49.7 49.7 BUN/Creatinine Ratio 17 (6-20) Glucose Level 53 mg/dL (70-99) 164 mg/dL (70-99) Calcium Level 9.1 mg/dL (8.5-10.1) 8.7 mg/dL (8.5-10.1) Total Bilirubin 0.3 mg/dL (0.2-1.0) Aspartate Amino Transf (AST/SGOT) 23 U/L (15-37) Alanine Aminotransferase (ALT/SGPT) 23 U/L (16-63) Alkaline Phosphatase 133 U/L (46-116) Creatine Kinase 69 U/L (39-308) Troponin I Quantitative 0.568 ng/mL (0.000-0.055) 0.517 ng/mL (0.000-0.055) 0.480 ng/mL (0.000-0.055) MY-Jcs-K-Type Natriuretic Peptide 5121 pg/mL (0-124) Total Protein 7.2 g/dL (6.4-8.2) Albumin 3.7 g/dL (3.4-5.0) Albumin/Globulin Ratio 1.1 (1.0-1.7) Glucose (Fingerstick) 101 mg/dL (70-99) Heparin Anti-Xa Act, Unfractionated 0.15 IU/mL (0.30-0.70) Test 02/02/17 07:50 02/02/17 08:55 02/02/17 12:13 02/02/17 13:00 Glucose (Fingerstick) 184 mg/dL (70-99) 170 mg/dL (70-99) Heparin Anti-Xa Act, Unfractionated 0.37 IU/mL (0.30-0.70) Urine Collection Type Unknown Urine Color Yellow Urine Clarity Clear Urine pH 6.0 Urine Specific [place] 1.010 Urine Protein 100 mg/dL (NEG-TRACE) Urine Glucose (UA) Negative mg/dL (NEG) Urine Ketones (Stick) Negative mg/dL (NEG) Urine Blood Negative (NEG) Urine Nitrite Negative (NEG) Urine Bilirubin Negative (NEG) Urine Urobilinogen Dipstick 0.2 mg/dL (0.2 mg/dL) Urine Leukocyte Esterase Negative (NEG) Urine RBC 0 /HPF (0-2) Urine WBC 0 /HPF (0-4) Urine Squamous Epithelial Cells Occ /LPF Urine Bacteria 0 /HPF (0-FEW) Urine Mucus Slight /LPF Test 02/02/17 14:52 02/02/17 16:26 02/02/17 20:54 02/03/17 07:51 Heparin Anti-Xa Act, Unfractionated 0.25 IU/mL (0.30-0.70) Glucose (Fingerstick) 223 mg/dL (70-99) 164 mg/dL (70-99) 127 mg/dL (70-99) Laboratory Tests Test 02/02/17 12:13 02/02/17 13:00 02/02/17 14:52 02/02/17 16:26 Glucose (Fingerstick) 170 mg/dL (70-99) 223 mg/dL (70-99) Urine Collection Type Unknown Urine Color Yellow Urine Clarity Clear Urine pH 6.0 Urine Specific [place] 1.010 Urine Protein 100 mg/dL (NEG-TRACE) Urine Glucose (UA) Negative mg/dL (NEG) Urine Ketones (Stick) Negative mg/dL (NEG) Urine Blood Negative (NEG) Urine Nitrite Negative (NEG) Urine Bilirubin Negative (NEG) Urine Urobilinogen Dipstick 0.2 mg/dL (0.2 mg/dL) Urine Leukocyte Esterase Negative (NEG) Urine RBC 0 /HPF (0-2) Urine WBC 0 /HPF (0-4) Urine Squamous Epithelial Cells Occ /LPF Urine Bacteria 0 /HPF (0-FEW) Urine Mucus Slight /LPF Heparin Anti-Xa Act, Unfractionated 0.25 IU/mL (0.30-0.70) Test 02/02/17 20:54 02/03/17 07:51 Glucose (Fingerstick) 164 mg/dL (70-99) 127 mg/dL (70-99) Images Images Renal ultrasound Indication: Reason: ACUTE KIDNEY FAILURE / Spl. Instructions: / History: TECHNIQUE Multiple real-time grayscale sonographic images were obtained over the kidneys and bladder. FINDINGS The right kidney is normal in size measuring 13.1 x 5.7 x 6.9centimeters. There is no evidence for mass, hydronephrosis, or nephrolithiasis. The left kidney is normal in size measuring 13.2 x 6.8 x 5.5 centimeters. There is a cyst arising from the superior pole measuring 1.6 centimeters. Urinary bladder is within normal limits. The prostate gland is mildly enlarged. IMPRESSION Normal appearance of the kidneys. Prostate gland hypertrophy. Electronically signed by: Quinn Dennis (Oct 06, 2015 16:11:36) IMPRESSION: CXR OA 1. Mild pulmonary vascular congestion. 2. Trace bilateral pleural effusions. 3. Stable cardiomegaly. ANNA GOMEZ MD Feb 03, 2017 11:43
[2017-02-03 12:16] LABS: BASO # 0.1 x10^3/uL (0.0-0.2); BASO % 1 % (0-3); EOS % 5 % (0-3); HEMATOCRIT 42.2 % (39.0-53.0); HEMOGLOBIN 13.4 g/dL (13.0-17.5); LYMPH # 1.1 x10^3/uL (1.0-4.8); LYMPH % 10 % (24-48); MEAN CORPUSCULAR HEMOGLOBIN 31 pg (25-35); MEAN CORPUSCULAR HGB CONC 32 g/dL (31-37); MEAN CORPUSCULAR VOLUME 97 fL (79-100); MONO % 10 % (0-9); NEUT % 75 % (31-73); PLATELET COUNT 252 x10^3/uL (140-400); RED BLOOD COUNT 4.34 x10^6/uL (4.30-5.70); RED CELL DISTRIBUTION WIDTH 16.9 % (11.5-14.5); WHITE BLOOD COUNT 11.5 x10^3/uL (4.0-11.0)
[2017-02-03 12:25] LABS: CALCIUM 9.6 mg/dL (8.5-10.1); CREATININE 1.2 mg/dL (0.7-1.3); GFR 59.3; POTASSIUM 3.7 mmol/L (3.5-5.1)
--- NOTE | 2017-02-03 13:17 | PDOC ---
PROGRESS NOTES Chief Complaint Chief Complaint Dyspnea Arrhythmia CAD CHF Diabetes-Type II High Cholesterol Hypertension Hypothyroid Gout Left hip pain Ulcerative colitis Vitals Vitals Vital Signs Date Time Temp Pulse Resp B/P (MAP) Pulse Ox O2 Delivery O2 Flow Rate FiO2 02/03/17 11:00 98.0 82 20 124/84 (97) 92 Nasal Cannula 2.0 98.0 Physical Exam General: Alert, mild distress Labs LABS Laboratory Tests Test 02/02/17 14:52 02/02/17 16:26 02/02/17 20:54 02/03/17 07:51 Heparin Anti-Xa Act, Unfractionated 0.25 IU/mL (0.30-0.70) Glucose (Fingerstick) 223 mg/dL (70-99) 164 mg/dL (70-99) 127 mg/dL (70-99) Test 02/03/17 11:51 02/03/17 12:05 Glucose (Fingerstick) 77 mg/dL (70-99) White Blood Count 11.5 x10^3/uL (4.0-11.0) Red Blood Count 4.34 x10^6/uL (4.30-5.70) Hemoglobin 13.4 g/dL (13.0-17.5) Hematocrit 42.2 % (39.0-53.0) Mean Corpuscular Volume 97 fL (79-100) Mean Corpuscular Hemoglobin 31 pg (25-35) Mean Corpuscular Hemoglobin Concent 32 g/dL (31-37) Red Cell Distribution Width 16.9 % (11.5-14.5) Platelet Count 252 x10^3/uL (140-400) Neutrophils (%) (Auto) 75 % (31-73) Lymphocytes (%) (Auto) 10 % (24-48) Monocytes (%) (Auto) 10 % (0-9) Eosinophils (%) (Auto) 5 % (0-3) Basophils (%) (Auto) 1 % (0-3) Neutrophils # (Auto) 8.6 x10^3uL (1.8-7.7) Lymphocytes # (Auto) 1.1 x10^3/uL (1.0-4.8) Monocytes # (Auto) 1.1 x10^3/uL (0.0-1.1) Eosinophils # (Auto) 0.5 x10^3/uL (0.0-0.7) Basophils # (Auto) 0.1 x10^3/uL (0.0-0.2) Sodium Level 143 mmol/L (136-145) Potassium Level 3.7 mmol/L (3.5-5.1) Chloride Level 101 mmol/L (98-107) Carbon Dioxide Level 35 mmol/L (21-32) Anion Gap 7 (6-14) Blood Urea Nitrogen 16 mg/dL (8-26) Creatinine 1.2 mg/dL (0.7-1.3) Estimated GFR (Cockcroft-Gault) 59.3 Glucose Level 62 mg/dL (70-99) Calcium Level 9.6 mg/dL (8.5-10.1) Assessment and Plan Assessmemt and Plan Problems Medical Problems: (1) CHF exacerbation Status: Acute (2) Elevated troponin Status: Acute ASSESSMENT Dyspnea Arrhythmia CAD CHF Diabetes-Type II High Cholesterol Hypertension Hypothyroid Gout Left hip pain Ulcerative colitis PLAN Continue diuresis Continue cardiac monitoring Await cardiac input on dyspnea Await GI input on diarrhea Continue home meds after discharge Followup with PCP after discharge Problems: Comment Review of Relevant I have reviewed the following items margarita (where applicable) has been applied. Labs Laboratory Tests Test 02/01/17 14:15 02/01/17 20:41 02/01/17 22:30 02/02/17 03:15 White Blood Count 10.4 x10^3/uL (4.0-11.0) 8.3 x10^3/uL (4.0-11.0) Red Blood Count 4.21 x10^6/uL (4.30-5.70) 3.94 x10^6/uL (4.30-5.70) Hemoglobin 13.1 g/dL (13.0-17.5) 12.1 g/dL (13.0-17.5) Hematocrit 40.7 % (39.0-53.0) 38.0 % (39.0-53.0) Mean Corpuscular Volume 97 fL (79-100) 97 fL (79-100) Mean Corpuscular Hemoglobin 31 pg (25-35) 31 pg (25-35) Mean Corpuscular Hemoglobin Concent 32 g/dL (31-37) 32 g/dL (31-37) Red Cell Distribution Width 17.3 % (11.5-14.5) 16.4 % (11.5-14.5) Platelet Count 254 x10^3/uL (140-400) 200 x10^3/uL (140-400) Neutrophils (%) (Auto) 77 % (31-73) 80 % (31-73) Lymphocytes (%) (Auto) 10 % (24-48) 11 % (24-48) Monocytes (%) (Auto) 7 % (0-9) 6 % (0-9) Eosinophils (%) (Auto) 3 % (0-3) 3 % (0-3) Basophils (%) (Auto) 2 % (0-3) 1 % (0-3) Neutrophils # (Auto) 8.1 x10^3uL (1.8-7.7) 6.6 x10^3uL (1.8-7.7) Lymphocytes # (Auto) 1.1 x10^3/uL (1.0-4.8) 0.9 x10^3/uL (1.0-4.8) Monocytes # (Auto) 0.8 x10^3/uL (0.0-1.1) 0.5 x10^3/uL (0.0-1.1) Eosinophils # (Auto) 0.3 x10^3/uL (0.0-0.7) 0.2 x10^3/uL (0.0-0.7) Basophils # (Auto) 0.2 x10^3/uL (0.0-0.2) 0.1 x10^3/uL (0.0-0.2) Sodium Level 141 mmol/L (136-145) 139 mmol/L (136-145) Potassium Level 4.3 mmol/L (3.5-5.1) 3.9 mmol/L (3.5-5.1) Chloride Level 102 mmol/L (98-107) 101 mmol/L (98-107) Carbon Dioxide Level 30 mmol/L (21-32) 28 mmol/L (21-32) Anion Gap 9 (6-14) 10 (6-14) Blood Urea Nitrogen 24 mg/dL (8-26) 25 mg/dL (8-26) Creatinine 1.4 mg/dL (0.7-1.3) 1.4 mg/dL (0.7-1.3) Estimated GFR (Cockcroft-Gault) 49.7 49.7 BUN/Creatinine Ratio 17 (6-20) Glucose Level 53 mg/dL (70-99) 164 mg/dL (70-99) Calcium Level 9.1 mg/dL (8.5-10.1) 8.7 mg/dL (8.5-10.1) Total Bilirubin 0.3 mg/dL (0.2-1.0) Aspartate Amino Transf (AST/SGOT) 23 U/L (15-37) Alanine Aminotransferase (ALT/SGPT) 23 U/L (16-63) Alkaline Phosphatase 133 U/L (46-116) Creatine Kinase 69 U/L (39-308) Troponin I Quantitative 0.568 ng/mL (0.000-0.055) 0.517 ng/mL (0.000-0.055) 0.480 ng/mL (0.000-0.055) DI-Obg-S-Type Natriuretic Peptide 5121 pg/mL (0-124) Total Protein 7.2 g/dL (6.4-8.2) Albumin 3.7 g/dL (3.4-5.0) Albumin/Globulin Ratio 1.1 (1.0-1.7) Glucose (Fingerstick) 101 mg/dL (70-99) Heparin Anti-Xa Act, Unfractionated 0.15 IU/mL (0.30-0.70) Test 02/02/17 07:50 02/02/17 08:55 02/02/17 12:13 02/02/17 13:00 Glucose (Fingerstick) 184 mg/dL (70-99) 170 mg/dL (70-99) Heparin Anti-Xa Act, Unfractionated 0.37 IU/mL (0.30-0.70) Urine Collection Type Unknown Urine Color Yellow Urine Clarity Clear Urine pH 6.0 Urine Specific [place] 1.010 Urine Protein 100 mg/dL (NEG-TRACE) Urine Glucose (UA) Negative mg/dL (NEG) Urine Ketones (Stick) Negative mg/dL (NEG) Urine Blood Negative (NEG) Urine Nitrite Negative (NEG) Urine Bilirubin Negative (NEG) Urine Urobilinogen Dipstick 0.2 mg/dL (0.2 mg/dL) Urine Leukocyte Esterase Negative (NEG) Urine RBC 0 /HPF (0-2) Urine WBC 0 /HPF (0-4) Urine Squamous Epithelial Cells Occ /LPF Urine Bacteria 0 /HPF (0-FEW) Urine Mucus Slight /LPF Test 02/02/17 14:52 02/02/17 16:26 02/02/17 20:54 02/03/17 07:51 Heparin Anti-Xa Act, Unfractionated 0.25 IU/mL (0.30-0.70) Glucose (Fingerstick) 223 mg/dL (70-99) 164 mg/dL (70-99) 127 mg/dL (70-99) Test 02/03/17 11:51 02/03/17 12:05 Glucose (Fingerstick) 77 mg/dL (70-99) White Blood Count 11.5 x10^3/uL (4.0-11.0) Red Blood Count 4.34 x10^6/uL (4.30-5.70) Hemoglobin 13.4 g/dL (13.0-17.5) Hematocrit 42.2 % (39.0-53.0) Mean Corpuscular Volume 97 fL (79-100) Mean Corpuscular Hemoglobin 31 pg (25-35) Mean Corpuscular Hemoglobin Concent 32 g/dL (31-37) Red Cell Distribution Width 16.9 % (11.5-14.5) Platelet Count 252 x10^3/uL (140-400) Neutrophils (%) (Auto) 75 % (31-73) Lymphocytes (%) (Auto) 10 % (24-48) Monocytes (%) (Auto) 10 % (0-9) Eosinophils (%) (Auto) 5 % (0-3) Basophils (%) (Auto) 1 % (0-3) Neutrophils # (Auto) 8.6 x10^3uL (1.8-7.7) Lymphocytes # (Auto) 1.1 x10^3/uL (1.0-4.8) Monocytes # (Auto) 1.1 x10^3/uL (0.0-1.1) Eosinophils # (Auto) 0.5 x10^3/uL (0.0-0.7) Basophils # (Auto) 0.1 x10^3/uL (0.0-0.2) Sodium Level 143 mmol/L (136-145) Potassium Level 3.7 mmol/L (3.5-5.1) Chloride Level 101 mmol/L (98-107) Carbon Dioxide Level 35 mmol/L (21-32) Anion Gap 7 (6-14) Blood Urea Nitrogen 16 mg/dL (8-26) Creatinine 1.2 mg/dL (0.7-1.3) Estimated GFR (Cockcroft-Gault) 59.3 Glucose Level 62 mg/dL (70-99) Calcium Level 9.6 mg/dL (8.5-10.1) Laboratory Tests Test 02/02/17 14:52 02/02/17 16:26 02/02/17 20:54 02/03/17 07:51 Heparin Anti-Xa Act, Unfractionated 0.25 IU/mL (0.30-0.70) Glucose (Fingerstick) 223 mg/dL (70-99) 164 mg/dL (70-99) 127 mg/dL (70-99) Test 02/03/17 11:51 02/03/17 12:05 Glucose (Fingerstick) 77 mg/dL (70-99) White Blood Count 11.5 x10^3/uL (4.0-11.0) Red Blood Count 4.34 x10^6/uL (4.30-5.70) Hemoglobin 13.4 g/dL (13.0-17.5) Hematocrit 42.2 % (39.0-53.0) Mean Corpuscular Volume 97 fL (79-100) Mean Corpuscular Hemoglobin 31 pg (25-35) Mean Corpuscular Hemoglobin Concent 32 g/dL (31-37) Red Cell Distribution Width 16.9 % (11.5-14.5) Platelet Count 252 x10^3/uL (140-400) Neutrophils (%) (Auto) 75 % (31-73) Lymphocytes (%) (Auto) 10 % (24-48) Monocytes (%) (Auto) 10 % (0-9) Eosinophils (%) (Auto) 5 % (0-3) Basophils (%) (Auto) 1 % (0-3) Neutrophils # (Auto) 8.6 x10^3uL (1.8-7.7) Lymphocytes # (Auto) 1.1 x10^3/uL (1.0-4.8) Monocytes # (Auto) 1.1 x10^3/uL (0.0-1.1) Eosinophils # (Auto) 0.5 x10^3/uL (0.0-0.7) Basophils # (Auto) 0.1 x10^3/uL (0.0-0.2) Sodium Level 143 mmol/L (136-145) Potassium Level 3.7 mmol/L (3.5-5.1) Chloride Level 101 mmol/L (98-107) Carbon Dioxide Level 35 mmol/L (21-32) Anion Gap 7 (6-14) Blood Urea Nitrogen 16 mg/dL (8-26) Creatinine 1.2 mg/dL (0.7-1.3) Estimated GFR (Cockcroft-Gault) 59.3 Glucose Level 62 mg/dL (70-99) Calcium Level 9.6 mg/dL (8.5-10.1) Medications Current Medications Albuterol/ Ipratropium (Duoneb) 3 ml 1X ONCE NEB Last administered on 15:34; Start 02/01/17 at 15:00; Stop 02/01/17 at 15:01; Status DC Furosemide (Lasix) 40 mg 1X ONCE IVP Last administered on 02/01/17 15:15; Start 02/01/17 at 15:15; Stop 02/01/17 at 15:16; Status DC Aspirin (Children'S Aspirin) 162 mg 1X ONCE PO Last administered on 16:42; Start 02/01/17 at 15:30; Stop 02/01/17 at 15:31; Status DC Ondansetron HCl (Zofran) 4 mg PRN Q8HRS PRN IV NAUSEA/VOMITING; Start at 16:00; Stop 02/02/17 at 15:59; Status DC Albuterol/ Ipratropium (Duoneb) 3 ml RTQID NEB Last administered on 02/02/17 19:25; Start 02/01/17 at 16:00; Stop 02/02/17 at 15:59; Status DC Furosemide (Lasix) 40 mg BID92 IVP Last administered on 02/03/17 08:40; Start 02/02/17 at 16:30 Furosemide (Lasix) 40 mg 1X ONCE IVP Last administered on 02/01/17 16:39; Start 02/01/17 at 16:15; Stop 02/01/17 at 16:16; Status DC Heparin Sodium/ Dextrose 500 ml @ 0 mls/hr CONT PRN IV SEE I/O RECORD Last administered on 02/02/17 13:25; Start 02/01/17 at 16:30; Stop 02/02/17 at 15 :51; Status DC Heparin Sodium (Porcine) (Heparin Sodium) 2,700 unit PRN Q6HRS PRN IV FOR UFH LEVEL LESS THAN 0.2 Last administered on 02/02/17 04:01; Start 02/01/17 at 16 :30; Stop 02/02/17 at 15:51; Status DC Allopurinol (Zyloprim) 300 mg BID PO Last administered on 02/03/17 08:40; Start 02/01/17 at 21:00 Amlodipine Besylate (Norvasc) 10 mg DAILY PO Last administered on 02/03/17 08 :40; Start 02/02/17 at 09:00 Aspirin (Children'S Aspirin) 81 mg DAILY08 PO Last administered on 02/03/17 08:41; Start 02/02/17 at 08:00 Clopidogrel Bisulfate (Plavix) 75 mg DAILY07 PO Last administered on 08:39; Start 02/02/17 at 07:00 EZETIMIBE (Zetia) 10 mg QODAY PO Last administered on 02/03/17 08:40; Start 02/03/17 at 09:00 Famotidine (Pepcid) 20 mg BID76 PO Last administered on 02/03/17 08:39; Start 02/02/17 at 07:00 Insulin Aspart (NovoLOG) 20 units TIDACHC SQ Last administered on 02/03/17 08 :55; Start 02/01/17 at 21:00 Levothyroxine Sodium (Synthroid) 25 mcg DAILYAC PO Last administered on 08:37; Start 02/02/17 at 07:30 Metformin HCl (Glucophage Xr) 500 mg BID76 PO Last administered on 02/03/17 08:38; Start 02/02/17 at 07:00 Metoprolol Succinate (Toprol Xl) 25 mg DAILY PO Last administered on 08:41; Start 02/02/17 at 09:00 Prednisone (Prednisone) 10 mg BID76 PO Last administered on 02/02/17 06:38; Start 02/01/17 at 19:30; Stop 02/02/17 at 13:12; Status DC Sulfasalazine (Azulfidine) 1,000 mg BID PO Last administered on 02/03/17 08: 37; Start 02/01/17 at 21:00 Tamsulosin HCl (Flomax) 0.4 mg HS PO Last administered on 02/02/17 21:26; Start 02/01/17 at 21:00 Insulin Detemir (Levemir) 25 units BID76 SQ Last administered on 02/03/17 08: 54; Start 02/02/17 at 07:00 Info (Anti-Coagulation Monitoring By Pharmacy) 1 each PRN DAILY PRN MC SEE COMMENTS Last administered on 02/02/17 10:19; Start 02/02/17 at 10:15 Apixaban (Eliquis) 5 mg BID PO Last administered on 02/03/17 08:41; Start at 17:00 Polyethylene Glycol (miraLAX PACKET) 17 gm PRN DAILY PRN PO CONSTIPATION Last administered on 02/03/17 11:58; Start 02/03/17 at 09:30 Active Scripts Active Lasix (Furosemide) 40 Mg Tablet 1 Tab PO DAILY Amlodipine Besylate 5 Mg Tablet 10 Mg PO DAILY Reported Novolog Flexpen (Insulin Aspart) 100 Unit/1 Ml Insuln.pen 20 Unit SQ TIDACHC Zinc 50 Mg Tablet 50 Mg PO DAILY08 Cod Liver Oil 1 Each Capsule 1 Each PO DAILY08 Vitamin E (Vitamin E Mixed) 400 Unit Capsule 400 Unit PO DAILY16 Prednisone 10 Mg Tablet 10 Mg PO BID Sulfasalazine 500 Mg Tablet 1,000 Mg PO BID Aspirin 81 Mg Tab.chew 1 Tab PO DAILY Clopidogrel (Clopidogrel Bisulfate) 75 Mg Tablet 75 Mg PO DAILY [place] 3 Fish Oil Softgel ([place]-3 Fatty Acids/Fish Oil) 1 Each Capsule.dr 1 Each PO DAILY Vitamin D2 (Ergocalciferol (Vitamin D2)) 50,000 Unit Capsule 50,000 Unit PO WEEKLY Toprol Xl (Metoprolol Succinate) 25 Mg Tab.er.24h 25 Mg PO DAILY Metformin Hcl Er (Metformin Hcl) 500 Mg Tab.er.24h 1 Tab PO BID76 Lantus (Insulin Glargine,Hum.rec.anlog) 100 Unit/1 Ml Vial 25 Unit SQ BID76 Centrum Silver Tablet (Multivits-Min/Fa/Lycopene/Lut) 1 Each Tablet 1 Each PO DAILY Pepcid (Famotidine) 20 Mg Tablet 20 Mg PO BID76 Tamsulosin Hcl 0.4 Mg Cap.er.24h 0.4 Mg PO HS Allopurinol 300 Mg Tablet 300 Mg PO BID Zetia (Ezetimibe) 10 Mg Tablet 10 Mg PO QODAY Levothyroxine Sodium 25 Mcg Tablet 25 Mcg PO DAILYAC Vitals/I & O Vital Sign - Last 24 Hours 02/02/17 02/02/17 02/02/17 02/02/17 15:00 16:09 19:20 19:26 Temp 97.9 97.9 Pulse 91 Resp 19 B/P (MAP) 136/78 (97) Pulse Ox 92 97 O2 Delivery Nasal Cannula Nasal Cannula Room Air Nasal Cannula O2 Flow Rate 2.0 2.0 2.0 02/02/17 02/02/17 02/03/17 02/03/17 19:45 22:45 03:13 07:00 Temp 97.2 97.6 98.1 97.4 97.2 97.6 98.1 97.4 Pulse 100 106 98 91 Resp 20 20 20 B/P (MAP) 128/79 (95) 124/82 (96) 170/81 (110) 136/86 (103) Pulse Ox 93 93 93 93 O2 Delivery Nasal Cannula Nasal Cannula Nasal Cannula Nasal Cannula O2 Flow Rate 2.0 2.0 2.0 2.0 02/03/17 02/03/17 02/03/17 02/03/17 08:10 08:30 08:40 08:41 Pulse 91 91 B/P (MAP) 136/86 136/86 O2 Delivery Nasal Cannula Nasal Cannula O2 Flow Rate 2.0 2.0 02/03/17 11:00 Temp 98.0 98.0 Pulse 82 Resp 20 B/P (MAP) 124/84 (97) Pulse Ox 92 O2 Delivery Nasal Cannula O2 Flow Rate 2.0 Intake and Output 02/02/17 02/02/17 02/03/17 15:00 23:00 07:00 Intake Total 1250 ml 1953 ml 500 ml Output Total 0 ml 950 ml 600 ml Balance 1250 ml 1003 ml -100 ml RAFI KOHLER III DO Feb 03, 2017 13:17
--- NOTE | 2017-02-03 13:30 | PDOC ---
KESHAI FERNANDEZ DINING ROOM HOST/HOSTESS 02/03/17 1330: CARDIO Progress Notes Date and Time Date of Service 02/03/2017 Time of Evaluation 1330 Subjective Subjective: No Chest Pain, No Palpitations, No Dizziness, Other (SOA much better today) Vitals Vitals Vital Signs Date Time Temp Pulse Resp B/P (MAP) Pulse Ox O2 Delivery O2 Flow Rate FiO2 02/03/17 11:00 98.0 82 20 124/84 (97) 92 Nasal Cannula 2.0 98.0 Weight Weight [ ] Input and Output Intake and Output Intake and Output 02/03/17 07:00 Intake Total 3703 ml Output Total 1550 ml Balance 2153 ml Intake Oral 3075 ml IV Total 628 ml Output Urine Total 1550 ml # Voids 1 Laboratory Labs Laboratory Tests Test 02/02/17 14:52 02/02/17 16:26 02/02/17 20:54 02/03/17 07:51 Heparin Anti-Xa Act, Unfractionated 0.25 IU/mL (0.30-0.70) Glucose (Fingerstick) 223 mg/dL (70-99) 164 mg/dL (70-99) 127 mg/dL (70-99) Test 02/03/17 11:51 02/03/17 12:05 Glucose (Fingerstick) 77 mg/dL (70-99) White Blood Count 11.5 x10^3/uL (4.0-11.0) Red Blood Count 4.34 x10^6/uL (4.30-5.70) Hemoglobin 13.4 g/dL (13.0-17.5) Hematocrit 42.2 % (39.0-53.0) Mean Corpuscular Volume 97 fL (79-100) Mean Corpuscular Hemoglobin 31 pg (25-35) Mean Corpuscular Hemoglobin Concent 32 g/dL (31-37) Red Cell Distribution Width 16.9 % (11.5-14.5) Platelet Count 252 x10^3/uL (140-400) Neutrophils (%) (Auto) 75 % (31-73) Lymphocytes (%) (Auto) 10 % (24-48) Monocytes (%) (Auto) 10 % (0-9) Eosinophils (%) (Auto) 5 % (0-3) Basophils (%) (Auto) 1 % (0-3) Neutrophils # (Auto) 8.6 x10^3uL (1.8-7.7) Lymphocytes # (Auto) 1.1 x10^3/uL (1.0-4.8) Monocytes # (Auto) 1.1 x10^3/uL (0.0-1.1) Eosinophils # (Auto) 0.5 x10^3/uL (0.0-0.7) Basophils # (Auto) 0.1 x10^3/uL (0.0-0.2) Sodium Level 143 mmol/L (136-145) Potassium Level 3.7 mmol/L (3.5-5.1) Chloride Level 101 mmol/L (98-107) Carbon Dioxide Level 35 mmol/L (21-32) Anion Gap 7 (6-14) Blood Urea Nitrogen 16 mg/dL (8-26) Creatinine 1.2 mg/dL (0.7-1.3) Estimated GFR (Cockcroft-Gault) 59.3 Glucose Level 62 mg/dL (70-99) Calcium Level 9.6 mg/dL (8.5-10.1) Physical Exam HEENT: Neck Supple W Full Motion Chest: Symmetric LUNGS: Other (basilar crackles) Heart: S1S2, RRR (SR with PACs), no murmurs Extremities: No Calf Tenderness Neurology: alert, oriented, follow commands Assessment Assessment 1. Acute on chronic systolic heart failure. LVEF 40-45%. better 2. PAFIB: presently SR. New. 3. CAD s/p CABG twice 1992 and redo 2003 and PCI/stent to SVG to RCA 05/2016. Stable 4. NSTEMI: type 2. Peaked trop at 0.5 with underlying PAFIB, renal insufficiency and CHF. 5. DM2/HLP 6. Venous insufficiency: s/p RF ablation of bilateral greater and lesser saphenous veins 7. HTN: controlled 8. CKD3 Recommendations 1. Continue with eliquis (hold tonight and may resume tomorrow night), Continue toprol. Plan for LINQ explantation tomorrow 2. Continue with secondary prevention including DAPT. 3. Continue with diuretic therapy, will transition to po tomorrow. CORINE RUSSO MD 02/03/17 2679: CARDIO Progress Notes Assessment Assessment Patient seen and examined. Agree with GASOLINE DRAGLINE OPERATOR's assessment and plan. Acute on chronic systolic heart failure better compensated. CAD status clinically stable. Maintaining sinus rhythm. Hold Senait chase for loop recorder explantation tomorrow. Possible discharge home tomorrow. KESHIA FERNANDEZ APRN Feb 03, 2017 13:30 CORINE RUSSO MD Feb 03, 2017 16:49
--- NOTE | 2017-02-03 14:01 | CONS ---
DATE OF CONSULTATION: HISTORY OF PRESENT ILLNESS: The patient is a pleasant 71-year-old gentleman who presented to the ER with complaints of shortness of breath and I cannot lay flat, suggestive of orthopnea. He is not orthopneic anymore. He did have some shortness of breath, dyspnea on exertion, which worsened over the past 3 days. He had gained some weight and had taken extra Lasix, but that did not help. He is known to have underlying cardiomyopathy. He also has diabetes with proteinuria and CKD with baseline creatinine approximately around 1.4 by our systems. We were asked to see him to follow along for his CKD while he was being diuresed. He has had a brisk diuresis with IV Lasix and is feeling much better. Weights from today are not available at this time. Labs from this morning are also not available. He denies fevers, chills, nausea, vomiting at this time. He is known to be a longstanding diabetic and hypertensive with other foci of vascular disease. Denies difficulty urinating. No NSAID use. ANNA GOMEZ MD DR: MIREILLE/dave JOB#: [id number] / [id number]
[2017-02-03 15:00] VITALS: BP 131/87
[2017-02-03 18:50] VITALS: BP 129/73
[2017-02-03] MEDS: TAMSULOSIN 0.4 MG CAP.ER.24H. PO SCH (20:03)
[2017-02-03 22:50] VITALS: BP 139/75
[2017-02-04 03:15] VITALS: BP 123/61
[2017-02-04 07:00] VITALS: BP 133/78
[2017-02-04] MEDS: APIXABAN 5 MG TABLET. PO SCH (07:18)
[2017-02-04] MEDS: FUROSEMIDE 40 MG/4 ML VIAL. IVP SCH (09:00)
[2017-02-04] MEDS ORDERED: LIDOCAINE 2%/EPI 1:100,000 20 ML VIAL. ONE (09:02)
--- NOTE | 2017-02-04 09:12 | PDOC ---
SUBJECTIVE ROS CKD III Doing better this am ; going to confectionery laboratory manager for loop recorder removal CVS: no Orthopnea, no CP RESP: no SOB, no AZAR GI: no Nausea, no Vomiting : no Dysuria, no Urgency OBJECTIVE Vital Signs Vital Signs Date Time Temp Pulse Resp B/P (MAP) Pulse Ox O2 Delivery O2 Flow Rate FiO2 02/04/17 07:00 98.3 92 18 133/78 (96) 93 Nasal Cannula 2.0 98.3 I & 0 Intake and Output 02/04/17 06:59 Intake Total 720 ml Output Total 2475 ml Balance -1755 ml Intake Oral 720 ml Output Urine Total 2475 ml # Bowel Movements 2 PHYSICAL EXAM Physical Exam General Appearance: Awake Alert Oriented x 3 In no Distress Eyes: VIsion Unchanged Conjunctiva Normal EN: No EN Drainage Mucous Memb. moist Neck: no JVD no JVP Supple no Thyromegaly CVS: S1 S2 soft Murmur No Gallop No Rub no Edema Resp: no Rales no Rhonchi no Acc. Muscle use GI: BAS +ve NO Bruit Non Tender Non Distended : no CVA tenderness; no Suprapubic Tenderness Assessment & Plan CKD III - Creat is better. Current FLuid and E-lyte status does not necessitate emergent need for Dialysis. Will re-evaluate for Dialysis in am DM nephropathy - (Insulin use terminologist) - ? Try RAAS Blockade instead of CCB; await Cardiology eval Proteinuria - RAAS Blockade trial as above Ac/ Ch Sys CHF - better with Diuresis - await cardio eval HTN: Current BP meds reviewed. See orders for changes. Discussed Plan of Care and prognosis etc. at length with family. F/up as OP in 4-6 weeks Will be available prn - pl call COMMENT/RELEVANT DATA Meds Current Medications Medications (Trade) Dose Ordered Sig/Nickie Start Time Stop Time Status Last Admin Dose Admin Albuterol/ Ipratropium (Duoneb) 3 ml RTQID 02/01/17 16:00 02/02/17 15:59 DC 02/02/17 19:25 3 ML Allopurinol (Zyloprim) 300 mg BID 02/01/17 21:00 02/03/17 20:04 300 MG Amlodipine Besylate (Norvasc) 10 mg DAILY 02/02/17 09:00 02/03/17 08:40 10 MG Apixaban (Eliquis) 5 mg BID 02/03/17 21:00 Aspirin (Children'S Aspirin) 81 mg DAILY08 02/02/17 08:00 02/03/17 08:41 81 MG Clopidogrel Bisulfate (Plavix) 75 mg DAILY07 02/02/17 07:00 02/03/17 08:39 75 MG EZETIMIBE (Zetia) 10 mg QODAY 02/03/17 09:00 02/03/17 08:40 10 MG Famotidine (Pepcid) 20 mg BID76 02/02/17 07:00 02/03/17 17:35 20 MG Furosemide (Lasix) 40 mg 1X ONCE 02/01/17 16:15 02/01/17 16:16 DC 02/01/17 16:39 40 MG Heparin Sodium (Porcine) (Heparin Sodium) 2,700 unit PRN Q6HRS PRN 02/01/17 16:30 02/02/17 15:51 DC 02/02/17 04:01 2,700 UNIT Heparin Sodium/ Dextrose 500 ml @ 0 mls/hr CONT PRN 02/01/17 16:30 02/02/17 15:51 DC 02/02/17 13:25 32.4 MLS/HR Info (Anti-Coagulation Monitoring By Pharmacy) 1 each PRN DAILY PRN 02/02/17 10:15 02/02/17 10:19 1 EACH Insulin Aspart (NovoLOG) 20 units TIDACHC 02/01/17 21:00 02/03/17 20:07 20 UNITS Insulin Detemir (Levemir) 25 units BID76 02/02/17 07:00 02/03/17 17:37 25 UNITS Levothyroxine Sodium (Synthroid) 25 mcg DAILYAC 02/02/17 07:30 02/03/17 08:37 25 MCG Lidocaine/ Epinephrine (Xylocaine 2%-Epi 1:100,000) 20 ml STK-MED ONCE 02/04/17 09:02 02/04/17 09:03 DC Metformin HCl (Glucophage Xr) 500 mg [id number] 02/02/17 07:00 02/03/17 17:35 500 MG Metoprolol Succinate (Toprol Xl) 25 mg DAILY 02/02/17 09:00 02/03/17 08:41 25 MG Ondansetron HCl (Zofran) 4 mg PRN Q8HRS PRN 02/01/17 16:00 02/02/17 15:59 DC Polyethylene Glycol (miraLAX PACKET) 17 gm PRN DAILY PRN 02/03/17 09:30 02/03/17 11:58 17 GM Prednisone (Prednisone) 10 mg [id number] 02/01/17 19:30 02/02/17 13:12 DC 02/02/17 06:38 10 MG Sulfasalazine (Azulfidine) 1,000 mg BID 02/01/17 21:00 02/03/17 20:04 1,000 MG Tamsulosin HCl (Flomax) 0.4 mg HS 02/01/17 21:00 02/03/17 20:03 0.4 MG Lab Laboratory Tests Test 02/03/17 11:51 02/03/17 12:05 02/03/17 16:48 02/03/17 20:02 Glucose (Fingerstick) 77 mg/dL (70-99) 113 mg/dL (70-99) 226 mg/dL (70-99) White Blood Count 11.5 x10^3/uL (4.0-11.0) Red Blood Count 4.34 x10^6/uL (4.30-5.70) Hemoglobin 13.4 g/dL (13.0-17.5) Hematocrit 42.2 % (39.0-53.0) Mean Corpuscular Volume 97 fL (79-100) Mean Corpuscular Hemoglobin 31 pg (25-35) Mean Corpuscular Hemoglobin Concent 32 g/dL (31-37) Red Cell Distribution Width 16.9 % (11.5-14.5) Platelet Count 252 x10^3/uL (140-400) Neutrophils (%) (Auto) 75 % (31-73) Lymphocytes (%) (Auto) 10 % (24-48) Monocytes (%) (Auto) 10 % (0-9) Eosinophils (%) (Auto) 5 % (0-3) Basophils (%) (Auto) 1 % (0-3) Neutrophils # (Auto) 8.6 x10^3uL (1.8-7.7) Lymphocytes # (Auto) 1.1 x10^3/uL (1.0-4.8) Monocytes # (Auto) 1.1 x10^3/uL (0.0-1.1) Eosinophils # (Auto) 0.5 x10^3/uL (0.0-0.7) Basophils # (Auto) 0.1 x10^3/uL (0.0-0.2) Sodium Level 143 mmol/L (136-145) Potassium Level 3.7 mmol/L (3.5-5.1) Chloride Level 101 mmol/L (98-107) Carbon Dioxide Level 35 mmol/L (21-32) Anion Gap 7 (6-14) Blood Urea Nitrogen 16 mg/dL (8-26) Creatinine 1.2 mg/dL (0.7-1.3) Estimated GFR (Cockcroft-Gault) 59.3 Glucose Level 62 mg/dL (70-99) Calcium Level 9.6 mg/dL (8.5-10.1) Test 02/04/17 07:32 Glucose (Fingerstick) 114 mg/dL (70-99) ANNA GOMEZ MD Feb 04, 2017 09:12
--- NOTE | 2017-02-04 09:14 | PDOC ---
Subjective: Subjective: Feels better. +BM yesterday Objective: Objective: Per RN - loop recorder explantation today, then possible DC. Vital Signs: Vital Signs Date Time Temp Pulse Resp B/P (MAP) Pulse Ox O2 Delivery O2 Flow Rate FiO2 02/04/17 07:00 98.3 92 18 133/78 (96) 93 Nasal Cannula 2.0 98.3 Labs: Laboratory Tests Test 02/03/17 11:51 02/03/17 12:05 02/03/17 16:48 02/03/17 20:02 Glucose (Fingerstick) 77 mg/dL 113 mg/dL 226 mg/dL White Blood Count 11.5 x10^3/uL Red Blood Count 4.34 x10^6/uL Hemoglobin 13.4 g/dL Hematocrit 42.2 % Mean Corpuscular Volume 97 fL Mean Corpuscular Hemoglobin 31 pg Mean Corpuscular Hemoglobin Concent 32 g/dL Red Cell Distribution Width 16.9 % Platelet Count 252 x10^3/uL Neutrophils (%) (Auto) 75 % Lymphocytes (%) (Auto) 10 % Monocytes (%) (Auto) 10 % Eosinophils (%) (Auto) 5 % Basophils (%) (Auto) 1 % Neutrophils # (Auto) 8.6 x10^3uL Lymphocytes # (Auto) 1.1 x10^3/uL Monocytes # (Auto) 1.1 x10^3/uL Eosinophils # (Auto) 0.5 x10^3/uL Basophils # (Auto) 0.1 x10^3/uL Sodium Level 143 mmol/L Potassium Level 3.7 mmol/L Chloride Level 101 mmol/L Carbon Dioxide Level 35 mmol/L Anion Gap 7 Blood Urea Nitrogen 16 mg/dL Creatinine 1.2 mg/dL Estimated GFR (Cockcroft-Gault) 59.3 Glucose Level 62 mg/dL Calcium Level 9.6 mg/dL Test 02/04/17 07:32 Glucose (Fingerstick) 114 mg/dL PE: GEN: NAD LUNGS: clear, off nasal cannula when I saw HEART: tachy ABD: S/ND/NT NEURO/PSYCH: A & O 3 A/P: UC w/ constipation -prednisone stopped, on sulfasalazine 1g BID -Miralax PRN CHF, CKD, A Fib, CAD s/p CABG, h/o CVA -on Eliquis, Plavix, ASA -on H2 marion BID -- Improved GI-brandt. DC per primary, consider outpt colonoscopy. TWILA FREEMAN Feb 04, 2017 09:13
[2017-02-04] MEDS ORDERED: LIDOCAINE 2%/EPI 1:100,000 20 ML VIAL. IJ ONE (09:45)
[2017-02-04] MEDS ORDERED: LIDOCAINE 2% 20 ML VIAL. IJ ONE (09:45)
--- NOTE | 2017-02-04 09:53 | CARD ---
APPROVED REPORT Procedure(s) performed: Successful explantation of Medtronic Linq loop recorder No moderate sedation INDICATION The indication(s) include : History of CVA of previously undetermined etiology s/p loop recorder impl antation with recent diagnosis of atrial fibrillation. PROCEDURE NARRATIVE An informed consent was obtained from patient. 10 cc of 2% lidocaine was infiltrated into the skin an d subcutaneous tissues for local anesthesia. An incision was made over the previous scar and using bl unt dissection the previously placed Medtronic Linq loop recorder was removed. Hemostasis was secured . Patient tolerated the procedure well. There were no immediate complications.
[2017-02-04] MEDS: sulfaSALAzine 500 MG TABLET PO SCH (10:10)
[2017-02-04] MEDS: METOPROLOL SUCC 24HR ER 25 MG TAB.ER.24H. PO SCH (10:11)
[2017-02-04] MEDS: EZETIMIBE 10 MG TABLET. PO SCH (10:11)
[2017-02-04] MEDS: LEVOTHYROXINE 25 MCG TABLET. PO SCH (10:11)
[2017-02-04] MEDS: CLOPIDOGREL BISULFATE 75 MG TABLET PO SCH (10:11)
[2017-02-04] MEDS: amLODIPine BESYLATE 10 MG TABLET PO SCH (10:12)
[2017-02-04] MEDS: FAMOTIDINE 20 MG TABLET. PO SCH (10:12)
[2017-02-04] MEDS: ALLOPURINOL 300 MG TABLET. PO SCH (10:12)
[2017-02-04] MEDS: metFORMIN XR 500 MG TAB.ER.24H PO SCH (10:12)
[2017-02-04] MEDS: ASPIRIN CHEWABLE 81 MG TABLET. PO SCH (10:12)
[2017-02-04] MEDS: INSULIN DETEMIR 300 UNITS/3 ML INSULN.PEN. SQ SCH (10:19)
[2017-02-04] MEDS: INSULIN ASPART 300 UNITS/3 ML INSULN.PEN SQ SCH ×2 (10:20→12:33)
[2017-02-04 11:00] VITALS: BP 123/58
--- NOTE | 2017-02-04 12:26 | PDOC ---
KESHIA FERNANDEZ MILLINERY SALESPERSON 02/04/17 1226: CARDIO Progress Notes Date and Time Date of Service 02/04/2017 Time of Evaluation 1215 Subjective Subjective: No Chest Pain, No shortness of breath, No Palpitations, No Dizziness Vitals Vitals Vital Signs Date Time Temp Pulse Resp B/P (MAP) Pulse Ox O2 Delivery O2 Flow Rate FiO2 02/04/17 11:00 98.6 92 18 123/58 (79) 96 Nasal Cannula 2.0 98.6 Weight Weight [ ] Input and Output Intake and Output Intake and Output 02/04/17 07:00 Intake Total 720 ml Output Total 2475 ml Balance -1755 ml Intake Oral 720 ml Output Urine Total 2475 ml # Bowel Movements 2 Laboratory Labs Laboratory Tests Test 02/03/17 16:48 02/03/17 20:02 02/04/17 07:32 02/04/17 11:33 Glucose (Fingerstick) 113 mg/dL (70-99) 226 mg/dL (70-99) 114 mg/dL (70-99) 182 mg/dL (70-99) Physical Exam HEENT: Neck Supple W Full Motion Chest: Symmetric LUNGS: Other (faint right basilar crackles) Heart: S1S2, RRR (SR rate at 90s) Extremities: No Calf Tenderness, Other (trace LE edema) Neurology: alert, oriented, follow commands Assessment Assessment 1. Acute on chronic systolic heart failure. LVEF 40-45%. Compensated 2. PAFIB: presently SR. New. No further episodes overnight. HR maintaining at 90s 3. CAD s/p CABG twice 1992 and redo 2003 and PCI/stent to SVG to RCA 05/2016. Stable 4. NSTEMI: type 2. Peaked trop at 0.5 with underlying PAFIB, renal insufficiency and CHF. 5. DM2/HLP 6. Venous insufficiency: s/p RF ablation of bilateral greater and lesser saphenous veins 7. HTN: controlled 8. CKD3 9. S/P LINQ explanation Recommendations 1. Resume eliquis tonight. Continue 81 mg ECASA and plavix. 2. Decrease amlodipine. Restart po lasix, start low dose lisinopril and increase toprol XL 3. Discussed with RN regarding CHF prevention. Daily wt, daily home BP monitoring 4. Follow up in office in 4 weeks. CORINE RUSSO MD 02/04/17 1635: CARDIO Progress Notes Assessment Assessment Patient seen and examined. Agree with SORT LINE's assessment and plan. Acute on chronic systolic heart failure better compensated. Maintaining sinus rhythm. Continue current medical regimen. Loop recorder explanted successfully earlier today. Follow-up with our office in 1 month. KESHIA FERNANDEZ APRN Feb 04, 2017 12:26 CORINE RUSSO MD Feb 04, 2017 16:35
--- NOTE | 2017-02-04 12:34 | PDOC ---
PROGRESS NOTES Chief Complaint Chief Complaint Dyspnea Arrhythmia CAD CHF with orthopnea Diabetes-Type II High Cholesterol Hypertension Hypothyroid Gout Left hip pain Ulcerative colitis History of Present Illness History of Present Illness Pt was resting with NAD. Vitals Vitals Vital Signs Date Time Temp Pulse Resp B/P (MAP) Pulse Ox O2 Delivery O2 Flow Rate FiO2 02/04/17 11:00 98.6 92 18 123/58 (79) 96 Nasal Cannula 2.0 98.6 Physical Exam General: Alert, Cooperative, No acute distress Heart: Regular rate, Normal S1, Normal S2, No murmurs Lungs: Clear Labs LABS Laboratory Tests Test 02/03/17 16:48 02/03/17 20:02 02/04/17 07:32 02/04/17 11:33 Glucose (Fingerstick) 113 mg/dL (70-99) 226 mg/dL (70-99) 114 mg/dL (70-99) 182 mg/dL (70-99) Review of Systems Review of Systems Unobtainable (asleep). Assessment and Plan Assessmemt and Plan Problems Medical Problems: (1) CHF exacerbation Status: Acute (2) Elevated troponin Status: Acute ASSESSMENT: Dyspnea Arrhythmia CAD CHF with orthopnea Diabetes-Type II High Cholesterol Hypertension Hypothyroid Gout Left hip pain Ulcerative colitis PLAN: Continue diuresis Continue DVT ppx PT/OT consult Discharge when ok with cardiology Follow up with PCP after discharge Problems: Comment Review of Relevant I have reviewed the following items margarita (where applicable) has been applied. Labs Laboratory Tests Test 02/02/17 13:00 02/02/17 14:52 02/02/17 16:26 02/02/17 20:54 Urine Collection Type Unknown Urine Color Yellow Urine Clarity Clear Urine pH 6.0 Urine Specific [place] 1.010 Urine Protein 100 mg/dL (NEG-TRACE) Urine Glucose (UA) Negative mg/dL (NEG) Urine Ketones (Stick) Negative mg/dL (NEG) Urine Blood Negative (NEG) Urine Nitrite Negative (NEG) Urine Bilirubin Negative (NEG) Urine Urobilinogen Dipstick 0.2 mg/dL (0.2 mg/dL) Urine Leukocyte Esterase Negative (NEG) Urine RBC 0 /HPF (0-2) Urine WBC 0 /HPF (0-4) Urine Squamous Epithelial Cells Occ /LPF Urine Bacteria 0 /HPF (0-FEW) Urine Mucus Slight /LPF Heparin Anti-Xa Act, Unfractionated 0.25 IU/mL (0.30-0.70) Glucose (Fingerstick) 223 mg/dL (70-99) 164 mg/dL (70-99) Test 02/03/17 07:51 02/03/17 11:51 02/03/17 12:05 02/03/17 16:48 Glucose (Fingerstick) 127 mg/dL (70-99) 77 mg/dL (70-99) 113 mg/dL (70-99) White Blood Count 11.5 x10^3/uL (4.0-11.0) Red Blood Count 4.34 x10^6/uL (4.30-5.70) Hemoglobin 13.4 g/dL (13.0-17.5) Hematocrit 42.2 % (39.0-53.0) Mean Corpuscular Volume 97 fL (79-100) Mean Corpuscular Hemoglobin 31 pg (25-35) Mean Corpuscular Hemoglobin Concent 32 g/dL (31-37) Red Cell Distribution Width 16.9 % (11.5-14.5) Platelet Count 252 x10^3/uL (140-400) Neutrophils (%) (Auto) 75 % (31-73) Lymphocytes (%) (Auto) 10 % (24-48) Monocytes (%) (Auto) 10 % (0-9) Eosinophils (%) (Auto) 5 % (0-3) Basophils (%) (Auto) 1 % (0-3) Neutrophils # (Auto) 8.6 x10^3uL (1.8-7.7) Lymphocytes # (Auto) 1.1 x10^3/uL (1.0-4.8) Monocytes # (Auto) 1.1 x10^3/uL (0.0-1.1) Eosinophils # (Auto) 0.5 x10^3/uL (0.0-0.7) Basophils # (Auto) 0.1 x10^3/uL (0.0-0.2) Sodium Level 143 mmol/L (136-145) Potassium Level 3.7 mmol/L (3.5-5.1) Chloride Level 101 mmol/L (98-107) Carbon Dioxide Level 35 mmol/L (21-32) Anion Gap 7 (6-14) Blood Urea Nitrogen 16 mg/dL (8-26) Creatinine 1.2 mg/dL (0.7-1.3) Estimated GFR (Cockcroft-Gault) 59.3 Glucose Level 62 mg/dL (70-99) Calcium Level 9.6 mg/dL (8.5-10.1) Test 02/03/17 20:02 02/04/17 07:32 02/04/17 11:33 Glucose (Fingerstick) 226 mg/dL (70-99) 114 mg/dL (70-99) 182 mg/dL (70-99) Laboratory Tests Test 02/03/17 16:48 02/03/17 20:02 02/04/17 07:32 02/04/17 11:33 Glucose (Fingerstick) 113 mg/dL (70-99) 226 mg/dL (70-99) 114 mg/dL (70-99) 182 mg/dL (70-99) Medications Current Medications Albuterol/ Ipratropium (Duoneb) 3 ml 1X ONCE NEB Last administered on 15:34; Start 02/01/17 at 15:00; Stop 02/01/17 at 15:01; Status DC Furosemide (Lasix) 40 mg 1X ONCE IVP Last administered on 02/01/17 15:15; Start 02/01/17 at 15:15; Stop 02/01/17 at 15:16; Status DC Aspirin (Children'S Aspirin) 162 mg 1X ONCE PO Last administered on 16:42; Start 02/01/17 at 15:30; Stop 02/01/17 at 15:31; Status DC Ondansetron HCl (Zofran) 4 mg PRN Q8HRS PRN IV NAUSEA/VOMITING; Start at 16:00; Stop 02/02/17 at 15:59; Status DC Albuterol/ Ipratropium (Duoneb) 3 ml RTQID NEB Last administered on 02/02/17 19:25; Start 02/01/17 at 16:00; Stop 02/02/17 at 15:59; Status DC Furosemide (Lasix) 40 mg BID92 IVP Last administered on 02/03/17 14:33; Start 02/02/17 at 16:30; Stop 02/04/17 at 12:18; Status DC Furosemide (Lasix) 40 mg 1X ONCE IVP Last administered on 02/01/17 16:39; Start 02/01/17 at 16:15; Stop 02/01/17 at 16:16; Status DC Heparin Sodium/ Dextrose 500 ml @ 0 mls/hr CONT PRN IV SEE I/O RECORD Last administered on 02/02/17 13:25; Start 02/01/17 at 16:30; Stop 02/02/17 at 15 :51; Status DC Heparin Sodium (Porcine) (Heparin Sodium) 2,700 unit PRN Q6HRS PRN IV FOR UFH LEVEL LESS THAN 0.2 Last administered on 02/02/17 04:01; Start 02/01/17 at 16 :30; Stop 02/02/17 at 15:51; Status DC Allopurinol (Zyloprim) 300 mg BID PO Last administered on 02/04/17 10:12; Start 02/01/17 at 21:00 Amlodipine Besylate (Norvasc) 10 mg DAILY PO Last administered on 02/04/17 10 :12; Start 02/02/17 at 09:00; Stop 02/04/17 at 12:18; Status DC Aspirin (Children'S Aspirin) 81 mg DAILY08 PO Last administered on 02/04/17 10:12; Start 02/02/17 at 08:00 Clopidogrel Bisulfate (Plavix) 75 mg DAILY07 PO Last administered on 10:11; Start 02/02/17 at 07:00 EZETIMIBE (Zetia) 10 mg QODAY PO Last administered on 02/04/17 10:11; Start 02/03/17 at 09:00 Famotidine (Pepcid) 20 mg BID76 PO Last administered on 02/04/17 10:12; Start 02/02/17 at 07:00 Insulin Aspart (NovoLOG) 20 units TIDACHC SQ Last administered on 02/04/17 10 :20; Start 02/01/17 at 21:00 Levothyroxine Sodium (Synthroid) 25 mcg DAILYAC PO Last administered on 10:11; Start 02/02/17 at 07:30 Metformin HCl (Glucophage Xr) 500 mg BID76 PO Last administered on 02/04/17 10:12; Start 02/02/17 at 07:00 Metoprolol Succinate (Toprol Xl) 25 mg DAILY PO Last administered on 10:11; Start 02/02/17 at 09:00; Stop 02/04/17 at 12:18; Status DC Prednisone (Prednisone) 10 mg BID76 PO Last administered on 02/02/17 06:38; Start 02/01/17 at 19:30; Stop 02/02/17 at 13:12; Status DC Sulfasalazine (Azulfidine) 1,000 mg BID PO Last administered on 02/04/17 10: 10; Start 02/01/17 at 21:00 Tamsulosin HCl (Flomax) 0.4 mg HS PO Last administered on 02/03/17 20:03; Start 02/01/17 at 21:00 Insulin Detemir (Levemir) 25 units BID76 SQ Last administered on 02/04/17 10: 19; Start 02/02/17 at 07:00 Info (Anti-Coagulation Monitoring By Pharmacy) 1 each PRN DAILY PRN MC SEE COMMENTS Last administered on 02/02/17 10:19; Start 02/02/17 at 10:15 Apixaban (Eliquis) 5 mg BID PO Last administered on 02/03/17 08:41; Start at 17:00; Stop 02/03/17 at 15:31; Status DC Polyethylene Glycol (miraLAX PACKET) 17 gm PRN DAILY PRN PO CONSTIPATION Last administered on 02/03/17 11:58; Start 02/03/17 at 09:30 Apixaban (Eliquis) 5 mg BID PO ; Start 02/03/17 at 21:00 Lidocaine/ Epinephrine (Xylocaine 2%-Epi 1:100,000) 20 ml STK-MED ONCE .ROUTE ; Start 02/04/17 at 09:02; Stop 02/04/17 at 09:03; Status DC Lidocaine HCl 7 ml 1X ONCE IJ ; Start 02/04/17 at 09:45; Stop 02/04/17 at 09: 46; Status Cancel Lidocaine/ Epinephrine (Xylocaine 2%-Epi 1:100,000) 7 ml 1X ONCE IJ Last administered on 11/21/17at 09:30; Start 02/04/17 at 09:45; Stop 02/04/17 at 09 :48; Status DC Amlodipine Besylate (Norvasc) 5 mg DAILY PO ; Start 02/05/17 at 09:00 Metoprolol Succinate (Toprol Xl) 50 mg DAILY PO ; Start 02/05/17 at 09:00 Furosemide (Lasix) 40 mg DAILY PO ; Start 02/05/17 at 09:00 Lisinopril (Prinivil) 5 mg DAILY PO ; Start 02/04/17 at 13:00 Active Scripts Active Lasix (Furosemide) 40 Mg Tablet 1 Tab PO DAILY Amlodipine Besylate 5 Mg Tablet 10 Mg PO DAILY Reported Novolog Flexpen (Insulin Aspart) 100 Unit/1 Ml Insuln.pen 20 Unit SQ TIDACHC Zinc 50 Mg Tablet 50 Mg PO DAILY08 Cod Liver Oil 1 Each Capsule 1 Each PO DAILY08 Vitamin E (Vitamin E Mixed) 400 Unit Capsule 400 Unit PO DAILY16 Prednisone 10 Mg Tablet 10 Mg PO BID Sulfasalazine 500 Mg Tablet 1,000 Mg PO BID Aspirin 81 Mg Tab.chew 1 Tab PO DAILY Clopidogrel (Clopidogrel Bisulfate) 75 Mg Tablet 75 Mg PO DAILY [place] 3 Fish Oil Softgel ([place]umas-3 Fatty Acids/Fish Oil) 1 Each Capsule. 1 Each PO DAILY Vitamin D2 (Ergocalciferol (Vitamin D2)) 50,000 Unit Capsule 50,000 Unit PO WEEKLY Toprol Xl (Metoprolol Succinate) 25 Mg Tab.er.24h 25 Mg PO DAILY Metformin Hcl Er (Metformin Hcl) 500 Mg Tab.er.24h 1 Tab PO BID76 Lantus (Insulin Glargine,Hum.rec.anlog) 100 Unit/1 Ml Vial 25 Unit SQ BID76 Centrum Silver Tablet (Multivits-Min/Fa/Lycopene/Lut) 1 Each Tablet 1 Each PO DAILY Pepcid (Famotidine) 20 Mg Tablet 20 Mg PO BID76 Tamsulosin Hcl 0.4 Mg Cap.er.24h 0.4 Mg PO HS Allopurinol 300 Mg Tablet 300 Mg PO BID Zetia (Ezetimibe) 10 Mg Tablet 10 Mg PO QODAY Levothyroxine Sodium 25 Mcg Tablet 25 Mcg PO DAILYAC Vitals/I & O Vital Sign - Last 24 Hours 02/03/17 02/03/17 02/03/17 02/03/17 15:00 18:50 19:00 22:50 Temp 97.4 98.1 97.4 98.1 Pulse 92 101 93 Resp 20 22 20 B/P (MAP) 131/87 (102) 129/73 (91) 139/75 (96) Pulse Ox 100 92 O2 Delivery Nasal Cannula Room Air Room Air Nasal Cannula O2 Flow Rate 2.0 2.0 02/04/17 02/04/17 02/04/17 02/04/17 03:15 03:20 07:00 08:00 Temp 98.2 98.3 98.2 98.3 Pulse 97 92 Resp 20 18 B/P (MAP) 123/61 (81) 133/78 (96) Pulse Ox 86 93 93 O2 Delivery Room Air Nasal Cannula Nasal Cannula Nasal Cannula O2 Flow Rate 2.0 2.0 2.0 02/04/17 02/04/17 02/04/17 10:11 10:12 11:00 Temp 98.6 98.6 Pulse 92 92 92 Resp 18 B/P (MAP) 133/78 133/78 123/58 (79) Pulse Ox 96 O2 Delivery Nasal Cannula O2 Flow Rate 2.0 Intake and Output 02/03/17 02/03/17 02/04/17 15:00 23:00 07:00 Intake Total 500 ml 220 ml Output Total 1225 ml 1000 ml 250 ml Balance -1225 ml -500 ml -30 ml RAFI KOHLER III DO Feb 04, 2017 12:34
[2017-02-04] MEDS ORDERED: LISINOPRIL 5 MG TABLET. PO SCH (13:00)
[2017-02-04] MEDS ORDERED: LISI-338 PO (14:40)
[2017-02-04] MEDS ORDERED: METO-269 PO (14:41)
[2017-02-04] MEDS ORDERED: APIX5TAB PO (14:41)
[2017-02-04] MEDS ORDERED: AMLO5TAB2 PO (14:53)
[2017-02-04 14:57] VITALS: BP 119/61
[2017-02-05] MEDS ORDERED: amLODIPine BESYLATE 5 MG TABLET PO SCH (09:00)
[2017-02-05] MEDS ORDERED: FUROSEMIDE 40 MG TABLET. PO SCH (09:00)
[2017-02-05] MEDS ORDERED: METOPROLOL SUCC 24HR ER 25 MG TAB.ER.24H. PO SCH (09:00)
--- NOTE | 2017-03-05 22:59 | DS ---
DATE OF DISCHARGE: 02/04/2017 DISCHARGE DIAGNOSIS: Acute on chronic systolic and diastolic heart failure. DISCHARGE DIAGNOSES: 1. Resolving heart failure. 2. Diabetes. 3. Hypertension. 4. Hyperlipidemia. 5. Gout. 6. Ulcerative colitis. 7. Left hip pain. HOSPITAL COURSE: The patient is a pleasant elderly male who presented with heart failure. He was admitted. We diuresed him. We consulted cardiology, did serial enzymes, serial EKGs and did physical therapy. Basically returned to his baseline and we discharged home. DISPOSITION: Home. ACTIVITY: As tolerated. DIET: Low sodium. MEDICATIONS: Please see the MRAD. TOTAL TIME: 32 minutes. RAFI KOHLER DO DR: ONEIDA/dave JOB#: [id number] / [id number]
== END 2017-02-04 15:25 | disposition home or self-care (01) | DRG 280 ==
LOC: ER 14:30 → 2 NORTH 15:41
PROVIDERS: ADMIT Internal Medicine; ATTEND Internal Medicine
PROC: 0JPT02Z Removal of Monitoring Device from Trunk Subcutaneous Tissue and Fascia, Open Approach (ICD-10-PCS; principal; 2017-02-04)
DX: I13.0 Hypertensive heart and chronic kidney disease with heart failure and stage 1 through stage 4 chronic kidney disease, or unspecified chronic kidney disease (principal); I21.A1 Myocardial infarction type 2; I50.23 Acute on chronic systolic (congestive) heart failure; N17.9 Acute kidney failure, unspecified; K51.918 Ulcerative colitis, unspecified with other complication; I42.9 Cardiomyopathy, unspecified; E11.22 Type 2 diabetes mellitus with diabetic chronic kidney disease; J44.9 Chronic obstructive pulmonary disease, unspecified; E03.9 Hypothyroidism, unspecified; E78.5 Hyperlipidemia, unspecified; I25.10 Atherosclerotic heart disease of native coronary artery without angina pectoris; I48.91 Unspecified atrial fibrillation; I87.2 Venous insufficiency (chronic) (peripheral); K21.9 Gastro-esophageal reflux disease without esophagitis; M10.9 Gout, unspecified; M19.90 Unspecified osteoarthritis, unspecified site; N18.3 Chronic kidney disease, stage 3 (moderate); Z82.3 Family history of stroke; Z82.49 Family history of ischemic heart disease and other diseases of the circulatory system; Z86.73 Personal history of transient ischemic attack (TIA), and cerebral infarction without residual deficits; Z90.49 Acquired absence of other specified parts of digestive tract; Z95.1 Presence of aortocoronary bypass graft; Z88.8 Allergy status to other drugs, medicaments and biological substances
CPT/HCPCS: 33233; 36415; 71010; 80048; 80053; 81001; 82550; 82962; 83880; 84484; 85025; 85520; 93005; 94250; 94640; 96374; J1644; J1815; J1940; J3490; J7512; J7620; 99285-25

== ENCOUNTER 2017-02-05 18:00 | Inpatient (IN) | payer OTHER ==
[~2017-02-05] VITALS: Ht 185.4 cm; Wt 108.4 kg
[~2017-02-05 18:00] MED LIST changes: +APIX5TAB PO; +INSU100I17 SQ; +LISI-338 PO; +METO-269 PO; +VITA400C36 PO; +ZINC50TA29 PO
[2017-02-05] MEDS ORDERED: IV NORMAL SALINE 1000ML BAG 1,000 ML IV SCH (18:26)
--- NOTE | 2017-02-05 18:52 | PHYS DOC ---
Past Medical History Past Medical History: Arrhythmia, CAD, CHF, Diabetes-Type II, High Cholesterol , Hypertension, Hypothyroid Additional Past Medical Histor: gout, left hip pain, prostate, ulcerative colitis Past Surgical History: Appendectomy, Cholecystectomy, Coronary Bypass Surgery, Other Additional Past Surgical Histo: 2 open heart surgeries, bilat lower extremity "ablasions" 08/2015 Alcohol Use: Occasionally Drug Use: None Adult General Chief Complaint Chief Complaint: SHORTNESS OF BREATH HPI HPI Patient is a 71 year old male who presents with complaint of shortness of breath. The patient states that he was recently admitted to the hospital on February 01, 2017 for treatment of congestive heart failure. Patient was released from the hospital yesterday. Patient states since his release he has been having worsening symptoms of shortness of breath especially with exertion. Patient was noted to have decreased oxygen levels upon arrival in the emergency department and was started on supplemental oxygen. Patient denies any pain or known fever. Patient states that he has been taking furosemide as prescribed from his previous visit. Patient follows a Dr. Long for primary care and Dr. Richard Conti for primary care. Patient states that he is unable to walk across his room without getting severely short of breath in his current state. Review of Systems Review of Systems Constitutional: Denies fever or chills [] Eyes: Denies change in visual acuity, redness, or eye pain [] HENT: Denies nasal congestion or sore throat [] Respiratory: Shortness of breath[] Cardiovascular: Orthopnea, dyspnea on exertion, denies chest pain[] GI: Denies abdominal pain, nausea, vomiting, bloody stools or diarrhea [] : Denies dysuria or hematuria [] Musculoskeletal: Denies back pain or joint pain [] Integument: Denies rash or skin lesions [] Neurologic: Denies headache, focal weakness or sensory changes [] All other systems were reviewed and found to be within normal limits, except as documented in this note. Current Medications Current Medications Current Medications Medications (Trade) Dose Ordered Sig/Nickie Start Time Stop Time Status Last Admin Dose Admin Sodium Chloride 1,000 ml @ 125 mls/hr Q8H 02/05/17 18:26 02/06/17 02:25 02/05/17 19:18 125 MLS/HR Allergies Allergies Allergies Coded Allergies Type Severity Reaction Last Updated Verified Iodinated Contrast- Oral and IV Dye Allergy Intermediate Hives 09/14/13 Yes pravastatin Allergy Intermediate 01/06/14 Yes Ibxtvpn-Smj-Hvq Reductase Inhibitor Adverse Reaction Intermediate 02/03/17 Yes Physical Exam Physical Exam Constitutional: Alert, afebrile, appears in mild to moderate respiratory distress. [] HENT: Normocephalic, atraumatic, bilateral external ears normal, oropharynx moist, no oral exudates, nose normal. [] Eyes: PERRLA, EOMI, conjunctiva normal, no discharge. [] Neck: Normal range of motion, no tenderness, supple, no stridor. [] Cardiovascular:Heart rate regular rhythm, no murmur [] Lungs & Thorax: Bilateral breath sounds clear to auscultation [] Abdomen: Bowel sounds normal, soft, no tenderness, no masses, no pulsatile masses. [] Skin: Warm, dry, no erythema, no rash. [] Back: No tenderness, no CVA tenderness. [] Extremities: No tenderness, no cyanosis, no clubbing, ROM intact, trace pedal edema bilaterally. [] Neurologic: Alert and oriented X 3, normal motor function, normal sensory function, no focal deficits noted. [] Current Patient Data Vital Signs Vital Signs Date Time Temp Pulse Resp B/P (MAP) Pulse Ox O2 Delivery O2 Flow Rate FiO2 02/05/17 18:10 97.8 79 20 105/55 (72) 91 Room Air 97.8 Lab Values Laboratory Tests Test 02/05/17 18:55 White Blood Count 10.5 x10^3/uL (4.0-11.0) Red Blood Count 4.03 x10^6/uL (4.30-5.70) L Hemoglobin 12.6 g/dL (13.0-17.5) L Hematocrit 39.3 % (39.0-53.0) Mean Corpuscular Volume 98 fL (79-100) Mean Corpuscular Hemoglobin 31 pg (25-35) Mean Corpuscular Hemoglobin Concent 32 g/dL (31-37) Red Cell Distribution Width 17.2 % (11.5-14.5) H Platelet Count 241 x10^3/uL (140-400) Neutrophils (%) (Auto) 77 % (31-73) H Lymphocytes (%) (Auto) 9 % (24-48) L Monocytes (%) (Auto) 9 % (0-9) Eosinophils (%) (Auto) 4 % (0-3) H Basophils (%) (Auto) 1 % (0-3) Neutrophils # (Auto) 8.1 x10^3uL (1.8-7.7) H Lymphocytes # (Auto) 1.0 x10^3/uL (1.0-4.8) Monocytes # (Auto) 0.9 x10^3/uL (0.0-1.1) Eosinophils # (Auto) 0.4 x10^3/uL (0.0-0.7) Basophils # (Auto) 0.1 x10^3/uL (0.0-0.2) Sodium Level 142 mmol/L (136-145) Potassium Level 4.0 mmol/L (3.5-5.1) Chloride Level 102 mmol/L (98-107) Carbon Dioxide Level 32 mmol/L (21-32) Anion Gap 8 (6-14) Blood Urea Nitrogen 23 mg/dL (8-26) Creatinine 1.5 mg/dL (0.7-1.3) H Estimated GFR (Cockcroft-Gault) 45.9 BUN/Creatinine Ratio 15 (6-20) Glucose Level 123 mg/dL (70-99) H Calcium Level 9.1 mg/dL (8.5-10.1) Total Bilirubin 0.4 mg/dL (0.2-1.0) Aspartate Amino Transferase (AST) 17 U/L (15-37) Alanine Aminotransferase (ALT) 17 U/L (16-63) Alkaline Phosphatase 145 U/L (46-116) H Creatine Kinase 42 U/L (39-308) Creatine Kinase MB (Mass) < 0.5 ng/mL (0.0-3.6) Creatine Kinase MB Relative Index % (0-4) Troponin I Quantitative 0.212 ng/mL (0.000-0.055) QO-Nbg-G-Type Natriuretic Peptide 4040 pg/mL (0-124) H Total Protein 6.9 g/dL (6.4-8.2) Albumin 3.2 g/dL (3.4-5.0) L Albumin/Globulin Ratio 0.9 (1.0-1.7) L Influenza Type A Antigen Negative (NEGATIVE) Influenza Type B Antigen Negative (NEGATIVE) Laboratory Tests 02/05/17 18:55 Laboratory Tests 02/05/17 18:55 EKG EKG Interpreted by me: Heart rate 81, atrial fibrillation, left axis deviation, left anterior fascicular block, no acute ST elevations or depressions[] Radiology/Procedures Radiology/Procedures One view AP chest x-ray interpreted by me: Small left lower lobe infiltrate versus atelectasis, stable effusion and left lower lobe, cardiomegaly[] Course & Med Decision Making Course & Med Decision Making Pertinent Labs and Imaging studies reviewed. (See chart for details) Patient remained stable on supplemental oxygen with O2 sats remaining above 92% . The patient's troponin level is noted to be elevated though this has decreased from his previous troponin level drawn 3 days ago. This likely represents continued trending down of troponin from previous myocardial ischemia. The patient's blood pressure was noted to be on the lower side of normal. For this reason the patient was started on slow IV fluids for support. The patient's symptoms however do remain consistent with acute on chronic congestive heart failure. Due to hypoxia, the patient will be admitted to the hospital for further treatment. I spoke with Dr. Sethi of cardiology who agreed with initial treatment and will follow with patient in hospital. Patient was admitted to Dr. Ray. Dragon Disclaimer Dragon Disclaimer This electronic medical record was generated, in whole or in part, using a voice recognition dictation system. Departure Departure Impression: Primary Impression: Acute respiratory failure with hypoxia Additional Impressions: Acute on chronic congestive heart failure Elevated troponin Stage III chronic kidney disease Disposition: ADMITTED INPATIENT Admitting Physician: Other Condition: GUARDED Referrals: GARCÍA CONTI MD (PCP) Problem Qualifiers Additional Impressions: Acute on chronic congestive heart failure Congestive heart failure type: unspecified congestive heart failure type Qualified Codes: I50.9 - Heart failure, unspecified EDMOND RODRGIUEZ MD Feb 05, 2017 18:52
[2017-02-05 19:01] LABS: BASO # 0.1 x10^3/uL (0.0-0.2); BASO % 1 % (0-3); EOS % 4 % (0-3); HEMATOCRIT 39.3 % (39.0-53.0); HEMOGLOBIN 12.6 g/dL (13.0-17.5); LYMPH % 9 % (24-48); MEAN CORPUSCULAR HEMOGLOBIN 31 pg (25-35); MEAN CORPUSCULAR HGB CONC 32 g/dL (31-37); MEAN CORPUSCULAR VOLUME 98 fL (79-100); MONO % 9 % (0-9); NEUT % 77 % (31-73); PLATELET COUNT 241 x10^3/uL (140-400); RED BLOOD COUNT 4.03 x10^6/uL (4.30-5.70); RED CELL DISTRIBUTION WIDTH 17.2 % (11.5-14.5); WHITE BLOOD COUNT 10.5 x10^3/uL (4.0-11.0)
[2017-02-05 19:13] LABS: CALCIUM 9.1 mg/dL (8.5-10.1); CREATININE 1.5 mg/dL (0.7-1.3); GFR 45.9
[2017-02-05 19:19] LABS: ALBUMIN 3.2 g/dL (3.4-5.0); ALBUMIN/GLOBULIN RATIO 0.9 (1.0-1.7); OBC FLU VALID; TOTAL BILIRUBIN 0.4 mg/dL (0.2-1.0); TOTAL PROTEIN 6.9 g/dL (6.4-8.2)
[2017-02-05 19:31] LABS: CKMB MASS < 0.5 ng/mL (0.0-3.6); CREATINE KINASE 42 U/L (39-308)
[2017-02-05] MEDS: IV NORMAL SALINE 1000ML BAG 1,000 ML IV SCH (20:06)
[2017-02-05] MEDS ORDERED: ACETAMINOPHEN 325 MG TABLET. PO PRN (20:15)
[2017-02-05] MEDS ORDERED: ONDANSETRON PF 4 MG/2 ML VIAL. IV PRN (20:15)
[2017-02-05 21:36] VITALS: BP 118/56
[2017-02-05 22:45] VITALS: BP 121/61
[2017-02-06 03:25] VITALS: BP 111/69
[2017-02-06 05:10] LABS: BASO # 0.1 x10^3/uL (0.0-0.2); BASO % 1 % (0-3); EOS % 4 % (0-3); HEMATOCRIT 35.3 % (39.0-53.0); HEMOGLOBIN 11.4 g/dL (13.0-17.5); LYMPH # 0.9 x10^3/uL (1.0-4.8); LYMPH % 10 % (24-48); MEAN CORPUSCULAR HEMOGLOBIN 32 pg (25-35); MEAN CORPUSCULAR HGB CONC 32 g/dL (31-37); MEAN CORPUSCULAR VOLUME 98 fL (79-100); MONO % 9 % (0-9); NEUT % 76 % (31-73); PLATELET COUNT 199 x10^3/uL (140-400); RED BLOOD COUNT 3.62 x10^6/uL (4.30-5.70); RED CELL DISTRIBUTION WIDTH 16.8 % (11.5-14.5); WHITE BLOOD COUNT 8.8 x10^3/uL (4.0-11.0)
[2017-02-06 05:44] LABS: CALCIUM 8.5 mg/dL (8.5-10.1); CREATININE 1.4 mg/dL (0.7-1.3); GFR 49.7; POTASSIUM 3.6 mmol/L (3.5-5.1)
[2017-02-06 07:00] VITALS: BP 99/60
--- NOTE | 2017-02-06 08:08 | RAD ---
Single view chest History:shortness of breath An AP view of the chest is submitted. Comparison: 02/01/2017. Findings: There again has been a median sternotomy. Pericardial cardiac silhouette is enlarged although stable. There is no pneumothorax. There is suggestion of some hazy opacity of the left lung base. Small left pleural effusion is difficult to exclude. Impression: 1. Mild hazy opacity left lung base could be due to mild edema or atelectasis, infiltrate difficult to exclude. Small left pleural effusion is also not excluded.
[2017-02-06] MEDS: IV NORMAL SALINE 1000ML BAG 1,000 ML IV SCH (09:26)
[2017-02-06 11:00] VITALS: BP 126/59
[2017-02-06] MEDS ORDERED: APIXABAN 5 MG TABLET. PO SCH (11:30)
[2017-02-06] MEDS: predniSONE 10 MG TABLET PO SCH ×2 (11:30→21:00)
--- NOTE | 2017-02-06 11:34 | EKG ---
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
--- NOTE | 2017-02-06 11:49 | HP ---
ADMIT DATE: 02/06/2017 CHIEF COMPLAINT: Shortness of breath. HISTORY OF PRESENT ILLNESS: The patient is a pleasant 71-year-old male who we diuresed last week after admission for shortness of breath and congestive heart failure. We got him home. He was doing well. Then, he ate cheese burgers, Albanian fries, had ketchup and mustard and I suspect he got quite thirsty. He had to drink quite a bit of fluid. Now, he is back in heart failure. I have discussed the case with the ER physician, we got to readmit him and diurese him again. PAST MEDICAL HISTORY: Heart failure, coronary artery disease, arrhythmias, diabetes, hyperlipidemia, noncompliance, hypertension, hypothyroidism, gout, BPH, ulcerative colitis, appendectomy, cholecystectomy, coronary artery bypass grafting, bilateral lower extremity ablations. ALLERGIES: IODINE, STATINS. FAMILY HISTORY: Coronary artery disease. SOCIAL HISTORY: He is . He does not drink, smoke or take drugs. MEDICATIONS: Reviewed. REVIEW OF SYSTEMS: GENERAL: No history of weight change, weakness or fevers. SKIN: No bruising, hair changes or rashes. EYES: No blurred, double or loss of vision. NOSE AND THROAT: No history of nosebleeds, hoarseness or sore throat. HEART: No history of palpitations, chest pain or shortness of breath on exertion. LUNGS: Shortness of breath, although it is improving. GASTROINTESTINAL: Denies changes in appetite, nausea, vomiting, diarrhea or constipation. GENITOURINARY: No history of frequency, urgency, hesitancy or nocturia. NEUROLOGIC: Denies history of numbness, tingling, tremor or weakness. PSYCHIATRIC: No history of panic, anxiety or depression. ENDOCRINE: No history of heat or cold intolerance, polyuria or polydipsia. EXTREMITIES: Denies muscle weakness, joint pain, pain on walking or stiffness. PHYSICAL EXAMINATION: VITAL SIGNS: Temperature afebrile, pulse 92, respirations 18, blood pressure 144/67. GENERAL: He is alert, cooperative. HEART: Normal S1, S2. LUNGS: Clear with slight crackles. ABDOMEN: Soft, it is a little distended. EXTREMITIES: 1+ edema. SKIN: No rashes. ENDOCRINE: No thyromegaly. LYMPHATICS: No cervical nodes. HEMATOPOIETIC: No bruising. ASSESSMENT AND PLAN: Acute on chronic systolic and diastolic heart failure. The patient has been admitted. We will consult Cardiology, diuresing, PT, OT. Continue home medicines. Long-term prognosis guarded. I did educate him about being compliant with his diet. RAFI KOHLER DO DR: ONEIDA/dave JOB#: [id number] / [id number]
[2017-02-06] MEDS ORDERED: DEXTROSE 50% 25 GM / 50ML DISP.SYRIN. IV PRN (12:00)
[2017-02-06] MEDS: FAMOTIDINE 20 MG TABLET. PO SCH ×2 (12:00→16:40)
[2017-02-06] MEDS: LEVOTHYROXINE 25 MCG TABLET. PO SCH (12:00)
[2017-02-06] MEDS: ASPIRIN CHEWABLE 81 MG TABLET. PO SCH (12:01)
[2017-02-06] MEDS: ZINC SULFATE 220 MG CAPSULE. PO SCH (12:01)
[2017-02-06] MEDS: CLOPIDOGREL BISULFATE 75 MG TABLET PO SCH (12:01)
[2017-02-06] MEDS: MULTIVITAMIN with MINERAL TABLET. PO SCH (12:01)
[2017-02-06] MEDS: OMEGA-3 FATTY ACIDS/FISH OIL 1,000 MG CAPSULE. PO SCH (12:01)
[2017-02-06] MEDS: LISINOPRIL 5 MG TABLET. PO SCH (12:01)
[2017-02-06] MEDS: ALLOPURINOL 300 MG TABLET. PO SCH ×2 (12:01→20:43)
[2017-02-06] MEDS: sulfaSALAzine 500 MG TABLET PO SCH ×2 (12:01→20:44)
[2017-02-06] MEDS: EZETIMIBE 10 MG TABLET. PO SCH (12:02)
[2017-02-06] MEDS: FUROSEMIDE 40 MG TABLET. PO SCH (12:02)
[2017-02-06] MEDS: metFORMIN XR 500 MG TAB.ER.24H PO SCH ×2 (12:02→16:40)
[2017-02-06] MEDS: amLODIPine BESYLATE 5 MG TABLET PO SCH (12:02)
[2017-02-06] MEDS: METOPROLOL SUCC 24HR ER 50 MG TAB.ER.24H. PO SCH (12:02)
[2017-02-06] MEDS: INSULIN DETEMIR 300 UNITS/3 ML INSULN.PEN. SQ SCH ×2 (12:08→18:00)
[2017-02-06] MEDS: INSULIN ASPART 300 UNITS/3 ML INSULN.PEN SQ SCH ×3 (12:08→21:00)
[2017-02-06] MEDS: ANTI-COAG MONITOR BY PHARMACY. MC PRN (14:06)
[2017-02-06 15:00] VITALS: BP 103/44
--- NOTE | 2017-02-06 15:34 | PDOC ---
CARDIOLOGY PROGRESS NOTE SUBJECTIVE: Please see prior notes. Continuity of care note. 71 y.o man well known to our service. Has a past medical history of cAD s/p CABG and PCI. S/p C in 2017 with PCI to the SVG to RCA. Was recently here for acute on chronic heart failure, new diagnosis of atrial fibrillation and went home 48 hours ago. Returned with profound dyspnea that concerned him. Upon arrival to the hospital, he was hypoxic, mildly hypotensive and therefore admitted for further evaluation. He was recently started on eliquis due to afib diagnosis and prior CVA history. Currently no angina but he has dyspnea. Denies any syncope or palpitations. His biggest issue is dyspnea today. Prior he was limited but lower ext pain when ambulating. OBJECTIVE: Vital SIgns: Vital Signs Date Time Temp Pulse Resp B/P (MAP) Pulse Ox O2 Delivery O2 Flow Rate FiO2 02/06/17 15:00 97.6 65 18 103/44 (63) 94 Room Air 97.6 02/06/17 11:00 2.0 I & O Intake and Output 02/06/17 07:00 Intake Total 400 ml Balance 400 ml Intake Oral 400 ml Objective: GEN.: No apparent distress. Alert and oriented. HEENT: Head is normocephalic, atraumatic NECK: Supple. LUNGS: Clear to auscultation. HEART: RRR, S1, S2 present. Peripheral pulses intact ABDOMEN: Soft, nontender. Positive bowel sounds. EXTREMITIES: Without any cyanosis. NEUROLOGIC: Normal speech, normal tone PSYCHIATRIC: Normal affect, normal mood. SKIN: No ulcerations CURRENT MEDICATIONS: Current Medications Medications (Trade) Dose Ordered Sig/Nickie Start Time Stop Time Status Last Admin Dose Admin Acetaminophen (Tylenol) 650 mg PRN Q4HRS PRN 02/05/17 20:15 02/06/17 20:14 Allopurinol (Zyloprim) 300 mg BID 02/06/17 11:30 02/06/17 12:01 300 MG Amlodipine Besylate (Norvasc) 5 mg DAILY 02/06/17 11:30 02/06/17 12:02 5 MG Apixaban (Eliquis) 5 mg BID 02/06/17 11:30 02/06/17 15:26 DC 02/06/17 12:00 5 MG Aspirin (Children'S Aspirin) 81 mg DAILY 02/06/17 11:30 02/06/17 12:01 81 MG Clopidogrel Bisulfate (Plavix) 75 mg DAILY 02/06/17 11:30 02/06/17 12:01 75 MG Dextrose (Dextrose 50%-Water Syringe) 12.5 gm PRN Q15MIN PRN 02/06/17 12:00 Ergocalciferol (Vitamin D2) 50,000 unit WEEKLY 02/13/17 09:00 EZETIMIBE (Zetia) 10 mg QODAY 02/06/17 11:30 02/06/17 12:02 10 MG Famotidine (Pepcid) 20 mg BID76 02/06/17 11:30 02/06/17 12:00 20 MG Fish Oil (Fish Oil) 1,000 mg DAILY 02/06/17 11:30 02/06/17 12:01 1,000 MG Furosemide (Lasix) 40 mg DAILY 02/06/17 11:30 02/06/17 12:02 40 MG Info (Anti-Coagulation Monitoring By Pharmacy) 1 each PRN DAILY PRN 02/06/17 11:00 02/06/17 14:06 1 EACH Insulin Aspart (NovoLOG) 20 units TIDACHC 02/06/17 11:30 02/06/17 12:08 20 UNITS Insulin Detemir (Levemir) 25 units BID76 02/06/17 11:30 02/06/17 12:08 25 UNITS Levothyroxine Sodium (Synthroid) 25 mcg DAILYAC 02/06/17 11:30 02/06/17 12:00 25 MCG Lisinopril (Prinivil) 5 mg DAILY 02/06/17 11:30 02/06/17 12:01 5 MG Metformin HCl (Glucophage Xr) 500 mg BID76 02/06/17 11:30 02/06/17 12:02 500 MG Metoprolol Succinate (Toprol Xl) 50 mg DAILY 02/06/17 11:30 02/06/17 12:02 50 MG Multivitamins (Thera M Plus) 1 tab DAILY 02/06/17 11:30 02/06/17 12:01 1 TAB Non-Formulary Medication 1 each DAILY08 02/07/17 08:00 UNV Ondansetron HCl (Zofran) 4 mg PRN Q8HRS PRN 02/05/17 20:15 02/06/17 20:14 Prednisone (Prednisone) 10 mg BID 02/06/17 11:30 Sodium Chloride 1,000 ml @ 75 mls/hr [id number] 02/05/17 20:06 02/06/17 20:05 Sulfasalazine (Azulfidine) 1,000 mg BID 02/06/17 11:30 02/06/17 12:01 1,000 MG Tamsulosin HCl (Flomax) 0.4 mg HS 02/06/17 21:00 Vitamin E 400 unit DAILY16 02/06/17 16:00 Zinc Sulfate (Orazinc) 220 mg DAILY 02/06/17 11:30 02/06/17 12:01 220 MG DIAGNOSTIC TESTING: Trop minimally elevated BNP > 4000k ASSESSMENT: 1. Acute on chronic systolic and diastolic HF. Last EF of 40-45% by echo in early 2016 2. PAF, recently started on eliquis 3. RACH - Creat 1.4, may be related to recent HF 4. Dyspnea - Etiology unclear. Although patient had mild dietary indiscretion at home, he has a normal cardiac exam, no lower ext edema. His lungs are clear. Weight has been stable since recent discharge. His BNP remains elevated. He has not yet had a previous pulmonary evaluation. Problems: PLAN: 1. 6[facility] today 2. Check V/Q scan 3. Consider RHC based on above testing to determine need for further aggressive diuresis. 4. Hold Eliquis and lisinopril for now. 5. Continue b-marion, asa, plavix. (allergic to statins) 6. Will need outpt PFT's Thanks. Will follow. ADY RIBEIRO MD Feb 06, 2017 15:34
[2017-02-06] MEDS: VITAMIN E 200 UNIT CAPSULE. PO SCH (16:41)
[2017-02-06 19:08] VITALS: BP 113/53
[2017-02-06] MEDS: TAMSULOSIN 0.4 MG CAP.ER.24H. PO SCH (20:44)
[2017-02-06] MEDS ORDERED: MAGNESIUM HYDROXIDE 2,400 MG/30 ML ORAL.SUSP. PO PRN (21:00)
[2017-02-06 23:22] VITALS: BP 118/71
[2017-02-07 03:46] VITALS: BP 121/58
[2017-02-07 07:00] VITALS: BP 116/64
[2017-02-07] MEDS: metFORMIN XR 500 MG TAB.ER.24H PO SCH ×2 (07:00→17:18)
[2017-02-07] MEDS: INSULIN DETEMIR 300 UNITS/3 ML INSULN.PEN. SQ SCH ×2 (07:00→17:26)
[2017-02-07] MEDS: INSULIN ASPART 300 UNITS/3 ML INSULN.PEN SQ SCH ×4 (07:30→22:01)
[2017-02-07] MEDS ORDERED: NON FORMULARY ITEM (Cod Liver Oil 1 EACH) PO SCH (08:00)
--- NOTE | 2017-02-07 08:26 | PDOC ---
PROGRESS NOTES Chief Complaint Chief Complaint Shortness of breath Arrhythmia CAD CHF Diabetes-Type II High Cholesterol Hypertension Hypothyroid Gout Left hip pain Prostate Ulcerative colitis History of Present Illness History of Present Illness Pt was seen at bedside. He was sitting up, dressed in hospital attire. Vitals Vitals Vital Signs Date Time Temp Pulse Resp B/P (MAP) Pulse Ox O2 Delivery O2 Flow Rate FiO2 02/07/17 07:00 98.1 90 18 116/64 (81) 92 Nasal Cannula 2.0 98.1 Physical Exam Physical Exam Psych: Mood stated as "good". Affect is mood-congruent. HENT: MMM, no throat erythema Neuro: director of medical services grossly intact b/l General: Alert, Cooperative, No acute distress Heart: Regular rate, Normal S1, Normal S2, No murmurs, Other (CR<2sec) Lungs: Clear, Other (no wheezing, rales, rhonchi) Extremities: No clubbing, Other (3+ pitting edema) Skin: No rashes, No significant lesion Labs LABS Laboratory Tests Test 02/06/17 08:25 02/06/17 11:50 02/06/17 16:41 02/06/17 20:29 Glucose (Fingerstick) 160 mg/dL (70-99) 283 mg/dL (70-99) 277 mg/dL (70-99) 42 mg/dL (70-99) Test 02/06/17 21:05 02/07/17 07:43 Glucose (Fingerstick) 96 mg/dL (70-99) 97 mg/dL (70-99) Review of Systems Review of Systems Admits to cough. Denies shortness of air. Assessment and Plan Assessmemt and Plan Problems Medical Problems: (1) Acute on chronic congestive heart failure Status: Acute (2) Acute respiratory failure with hypoxia Status: Acute (3) Elevated troponin Status: Acute (4) Stage III chronic kidney disease Status: Acute ASSESSMENT: Shortness of breath Arrhythmia CAD CHF Diabetes-Type II High Cholesterol Hypertension Hypothyroid Gout Left hip pain Prostate Ulcerative colitis PLAN: Consult pulmonology PT/OT consult Recheck meds Discharge when ok with cardiology Follow up with PCP after discharge Problems: Comment Review of Relevant I have reviewed the following items margarita (where applicable) has been applied. Labs Laboratory Tests Test 02/05/17 18:55 02/06/17 04:10 02/06/17 08:25 02/06/17 11:50 White Blood Count 10.5 x10^3/uL (4.0-11.0) 8.8 x10^3/uL (4.0-11.0) Red Blood Count 4.03 x10^6/uL (4.30-5.70) 3.62 x10^6/uL (4.30-5.70) Hemoglobin 12.6 g/dL (13.0-17.5) 11.4 g/dL (13.0-17.5) Hematocrit 39.3 % (39.0-53.0) 35.3 % (39.0-53.0) Mean Corpuscular Volume 98 fL (79-100) 98 fL (79-100) Mean Corpuscular Hemoglobin 31 pg (25-35) 32 pg (25-35) Mean Corpuscular Hemoglobin Concent 32 g/dL (31-37) 32 g/dL (31-37) Red Cell Distribution Width 17.2 % (11.5-14.5) 16.8 % (11.5-14.5) Platelet Count 241 x10^3/uL (140-400) 199 x10^3/uL (140-400) Neutrophils (%) (Auto) 77 % (31-73) 76 % (31-73) Lymphocytes (%) (Auto) 9 % (24-48) 10 % (24-48) Monocytes (%) (Auto) 9 % (0-9) 9 % (0-9) Eosinophils (%) (Auto) 4 % (0-3) 4 % (0-3) Basophils (%) (Auto) 1 % (0-3) 1 % (0-3) Neutrophils # (Auto) 8.1 x10^3uL (1.8-7.7) 6.7 x10^3uL (1.8-7.7) Lymphocytes # (Auto) 1.0 x10^3/uL (1.0-4.8) 0.9 x10^3/uL (1.0-4.8) Monocytes # (Auto) 0.9 x10^3/uL (0.0-1.1) 0.8 x10^3/uL (0.0-1.1) Eosinophils # (Auto) 0.4 x10^3/uL (0.0-0.7) 0.3 x10^3/uL (0.0-0.7) Basophils # (Auto) 0.1 x10^3/uL (0.0-0.2) 0.1 x10^3/uL (0.0-0.2) Sodium Level 142 mmol/L (136-145) 141 mmol/L (136-145) Potassium Level 4.0 mmol/L (3.5-5.1) 3.6 mmol/L (3.5-5.1) Chloride Level 102 mmol/L (98-107) 102 mmol/L (98-107) Carbon Dioxide Level 32 mmol/L (21-32) 28 mmol/L (21-32) Anion Gap 8 (6-14) 11 (6-14) Blood Urea Nitrogen 23 mg/dL (8-26) 26 mg/dL (8-26) Creatinine 1.5 mg/dL (0.7-1.3) 1.4 mg/dL (0.7-1.3) Estimated GFR (Cockcroft-Gault) 45.9 49.7 BUN/Creatinine Ratio 15 (6-20) Glucose Level 123 mg/dL (70-99) 148 mg/dL (70-99) Calcium Level 9.1 mg/dL (8.5-10.1) 8.5 mg/dL (8.5-10.1) Total Bilirubin 0.4 mg/dL (0.2-1.0) Aspartate Amino Transf (AST/SGOT) 17 U/L (15-37) Alanine Aminotransferase (ALT/SGPT) 17 U/L (16-63) Alkaline Phosphatase 145 U/L (46-116) Creatine Kinase 42 U/L (39-308) Creatine Kinase MB (Mass) < 0.5 ng/mL (0.0-3.6) Creatine Kinase MB Relative Index % (0-4) Troponin I Quantitative 0.212 ng/mL (0.000-0.055) 0.169 ng/mL (0.000-0.055) SD-Nwa-I-Type Natriuretic Peptide 4040 pg/mL (0-124) Total Protein 6.9 g/dL (6.4-8.2) Albumin 3.2 g/dL (3.4-5.0) Albumin/Globulin Ratio 0.9 (1.0-1.7) Influenza Type A Antigen Negative (NEGATIVE) Influenza Type B Antigen Negative (NEGATIVE) Glucose (Fingerstick) 160 mg/dL (70-99) 283 mg/dL (70-99) Test 02/06/17 16:41 02/06/17 20:29 02/06/17 21:05 02/07/17 07:43 Glucose (Fingerstick) 277 mg/dL (70-99) 42 mg/dL (70-99) 96 mg/dL (70-99) 97 mg/dL (70-99) Laboratory Tests Test 02/06/17 08:25 02/06/17 11:50 02/06/17 16:41 02/06/17 20:29 Glucose (Fingerstick) 160 mg/dL (70-99) 283 mg/dL (70-99) 277 mg/dL (70-99) 42 mg/dL (70-99) Test 02/06/17 21:05 02/07/17 07:43 Glucose (Fingerstick) 96 mg/dL (70-99) 97 mg/dL (70-99) Medications Current Medications Sodium Chloride 1,000 ml @ 125 mls/hr Q8H IV Last administered on 02/05/17 19:18; Start 02/05/17 at 18:26; Stop 02/06/17 at 02:25; Status DC Ondansetron HCl (Zofran) 4 mg PRN Q8HRS PRN IV NAUSEA/VOMITING Last administered on 02/06/17 16:41; Start 02/05/17 at 20:15; Stop 02/06/17 at 20 :14; Status DC Sodium Chloride 1,000 ml @ 75 mls/hr [id number] IV ; Start 02/05/17 at 20:06; Stop 02/06/17 at 20:05; Status DC Acetaminophen (Tylenol) 650 mg PRN Q4HRS PRN PO FEVER; Start 02/05/17 at 20:15 ; Stop 02/06/17 at 20:14; Status DC Allopurinol (Zyloprim) 300 mg BID PO Last administered on 02/06/17 20:43; Start 02/06/17 at 11:30 Amlodipine Besylate (Norvasc) 5 mg DAILY PO Last administered on 02/06/17 12: 02; Start 02/06/17 at 11:30 Aspirin (Children'S Aspirin) 81 mg DAILY PO Last administered on 02/06/17 12: 01; Start 02/06/17 at 11:30 Ergocalciferol (Vitamin D2) 50,000 unit WEEKLY PO ; Start 02/13/17 at 09:00 EZETIMIBE (Zetia) 10 mg QODAY PO Last administered on 02/06/17 12:02; Start 02/06/17 at 11:30 Famotidine (Pepcid) 20 mg BID76 PO Last administered on 02/06/17 16:40; Start 02/06/17 at 11:30 Furosemide (Lasix) 40 mg DAILY PO Last administered on 02/06/17 12:02; Start 02/06/17 at 11:30 Insulin Aspart (NovoLOG) 20 units TIDACHC SQ Last administered on 02/06/17 16 :48; Start 02/06/17 at 11:30 Levothyroxine Sodium (Synthroid) 25 mcg DAILYAC PO Last administered on 12:00; Start 02/06/17 at 11:30 Lisinopril (Prinivil) 5 mg DAILY PO Last administered on 02/06/17 12:01; Start 02/06/17 at 11:30 Metformin HCl (Glucophage Xr) 500 mg BID76 PO Last administered on 02/06/17 16:40; Start 02/06/17 at 11:30 Prednisone (Prednisone) 10 mg BID PO ; Start 02/06/17 at 11:30 Sulfasalazine (Azulfidine) 1,000 mg BID PO Last administered on 02/06/17 20: 44; Start 02/06/17 at 11:30 Tamsulosin HCl (Flomax) 0.4 mg HS PO Last administered on 02/06/17 20:44; Start 02/06/17 at 21:00 Non-Formulary Medication 1 each DAILY08 PO ; Start 02/07/17 at 08:00; Status UNV Insulin Detemir (Levemir) 25 units BID76 SQ Last administered on 02/06/17 18: 00; Start 02/06/17 at 11:30 Metoprolol Succinate (Toprol Xl) 50 mg DAILY PO Last administered on 12:02; Start 02/06/17 at 11:30 Multivitamins (Thera M Plus) 1 tab DAILY PO Last administered on 02/06/17 12: 01; Start 02/06/17 at 11:30 Fish Oil (Fish Oil) 1,000 mg DAILY PO Last administered on 02/06/17 12:01; Start 02/06/17 at 11:30 Vitamin E 400 unit DAILY16 PO Last administered on 02/06/17 16:41; Start at 16:00 Zinc Sulfate (Orazinc) 220 mg DAILY PO Last administered on 02/06/17 12:01; Start 02/06/17 at 11:30 Apixaban (Eliquis) 5 mg BID PO Last administered on 02/06/17 12:00; Start at 11:30; Stop 02/06/17 at 15:26; Status DC Clopidogrel Bisulfate (Plavix) 75 mg DAILY PO Last administered on 02/06/17 12:01; Start 02/06/17 at 11:30 Info (Anti-Coagulation Monitoring By Pharmacy) 1 each PRN DAILY PRN MC SEE COMMENTS Last administered on 02/06/17 14:06; Start 02/06/17 at 11:00 Dextrose (Dextrose 50%-Water Syringe) 12.5 gm PRN Q15MIN PRN IV SEE COMMENTS Last administered on 02/06/17 20:36; Start 02/06/17 at 12:00 Polyethylene Glycol (miraLAX PACKET) 17 gm DAILY PO ; Start 02/07/17 at 09:00 Magnesium Hydroxide (Milk Of Magnesia) 2,400 mg PRN DAILY PRN PO CONSTIPATION; Start 02/06/17 at 21:00 Docusate Sodium (Colace) 100 mg DAILY PO ; Start 02/07/17 at 09:00 Active Scripts Active Lasix (Furosemide) 40 Mg Tablet 1 Tab PO DAILY Reported Amlodipine Besylate 5 Mg Tablet 5 Mg PO DAILY Toprol Xl (Metoprolol Succinate) 50 Mg Tab.er.24h 1 Tab PO DAILY Eliquis (Apixaban) 5 Mg Tablet 5 Mg PO BID Lisinopril 5 Mg Tablet 1 Tab PO DAILY Novolog Flexpen (Insulin Aspart) 100 Unit/1 Ml Insuln.pen 20 Unit SQ TIDACHC Zinc 50 Mg Tablet 50 Mg PO DAILY08 Cod Liver Oil 1 Each Capsule 1 Each PO DAILY08 Vitamin E (Vitamin E Mixed) 400 Unit Capsule 400 Unit PO DAILY16 Prednisone 10 Mg Tablet 10 Mg PO BID Sulfasalazine 500 Mg Tablet 1,000 Mg PO BID Aspirin 81 Mg Tab.chew 1 Tab PO DAILY Clopidogrel (Clopidogrel Bisulfate) 75 Mg Tablet 75 Mg PO DAILY Heartwell 3 Fish Oil Softgel (Heartwell-3 Fatty Acids/Fish Oil) 1 Each Capsule.dr 1 Each PO DAILY Vitamin D2 (Ergocalciferol (Vitamin D2)) 50,000 Unit Capsule 50,000 Unit PO WEEKLY Metformin Hcl Er (Metformin Hcl) 500 Mg Tab.er.24h 1 Tab PO BID76 Lantus (Insulin Glargine,Hum.rec.anlog) 100 Unit/1 Ml Vial 25 Unit SQ BID76 Centrum Silver Tablet (Multivits-Min/Fa/Lycopene/Lut) 1 Each Tablet 1 Each PO DAILY Pepcid (Famotidine) 20 Mg Tablet 20 Mg PO BID76 Tamsulosin Hcl 0.4 Mg Cap.er.24h 0.4 Mg PO HS Allopurinol 300 Mg Tablet 300 Mg PO BID Zetia (Ezetimibe) 10 Mg Tablet 10 Mg PO QODAY Levothyroxine Sodium 25 Mcg Tablet 25 Mcg PO DAILYAC Vitals/I & O Vital Sign - Last 24 Hours 02/06/17 02/06/17 02/06/17 02/06/17 11:00 12:01 12:02 12:02 Temp 97.5 97.5 Pulse 81 81 81 81 Resp 20 B/P (MAP) 126/59 (81) 126/59 126/59 126/59 Pulse Ox 94 O2 Delivery Nasal Cannula O2 Flow Rate 2.0 02/06/17 02/06/17 02/06/17 02/06/17 15:00 19:08 20:00 23:22 Temp 97.6 99.2 98.4 97.6 99.2 98.4 Pulse 65 69 80 Resp 18 20 20 B/P (MAP) 103/44 (63) 113/53 (73) 118/71 (87) Pulse Ox 94 93 90 O2 Delivery Room Air Nasal Cannula Nasal Cannula Room Air O2 Flow Rate 2.0 2.0 02/07/17 02/07/17 03:46 07:00 Temp 97.6 98.1 97.6 98.1 Pulse 82 90 Resp 18 B/P (MAP) 121/58 (79) 116/64 (81) Pulse Ox 91 92 O2 Delivery Nasal Cannula Nasal Cannula O2 Flow Rate 2.0 2.0 Intake and Output 02/06/17 02/06/17 02/07/17 14:59 22:59 06:59 Intake Total 530 ml 150 ml Output Total 300 ml 400 ml Balance 230 ml -250 ml RAFI KOHLER III DO Feb 07, 2017 08:25
[2017-02-07] MEDS: ZINC SULFATE 220 MG CAPSULE. PO SCH (08:41)
[2017-02-07] MEDS: sulfaSALAzine 500 MG TABLET PO SCH ×2 (08:41→21:49)
[2017-02-07] MEDS: LEVOTHYROXINE 25 MCG TABLET. PO SCH (08:41)
[2017-02-07] MEDS: CLOPIDOGREL BISULFATE 75 MG TABLET PO SCH (08:41)
[2017-02-07] MEDS: OMEGA-3 FATTY ACIDS/FISH OIL 1,000 MG CAPSULE. PO SCH (08:41)
[2017-02-07] MEDS: FAMOTIDINE 20 MG TABLET. PO SCH ×2 (08:42→17:18)
[2017-02-07] MEDS: ASPIRIN CHEWABLE 81 MG TABLET. PO SCH (08:42)
[2017-02-07] MEDS: FUROSEMIDE 40 MG TABLET. PO SCH (08:42)
[2017-02-07] MEDS: ALLOPURINOL 300 MG TABLET. PO SCH ×2 (08:42→21:49)
[2017-02-07] MEDS: MULTIVITAMIN with MINERAL TABLET. PO SCH (08:42)
[2017-02-07] MEDS: METOPROLOL SUCC 24HR ER 50 MG TAB.ER.24H. PO SCH (08:42)
[2017-02-07] MEDS: amLODIPine BESYLATE 5 MG TABLET PO SCH (08:43)
[2017-02-07] MEDS: predniSONE 10 MG TABLET PO SCH (08:43)
[2017-02-07] MEDS: LISINOPRIL 5 MG TABLET. PO SCH (08:45)
--- NOTE | 2017-02-07 10:14 | PDOC ---
CARDIOLOGY PROGRESS NOTE SUBJECTIVE: No new events overnight. OBJECTIVE: Vital SIgns: Vital Signs Date Time Temp Pulse Resp B/P (MAP) Pulse Ox O2 Delivery O2 Flow Rate FiO2 02/07/17 08:43 90 116/64 02/07/17 08:15 Nasal Cannula 2.0 02/07/17 07:00 98.1 18 92 98.1 I & O Intake and Output 02/07/17 06:59 Intake Total 680 ml Output Total 700 ml Balance -20 ml Intake Oral 680 ml Output Urine Total 700 ml Objective: a/o x 3. no significant changes on exam. CURRENT MEDICATIONS: Current Medications Medications (Trade) Dose Ordered Sig/Nickie Start Time Stop Time Status Last Admin Dose Admin Acetaminophen (Tylenol) 650 mg PRN Q4HRS PRN 02/05/17 20:15 02/06/17 20:14 DC Allopurinol (Zyloprim) 300 mg BID 02/06/17 11:30 02/07/17 08:42 300 MG Alprazolam (Xanax) 0.5 mg 1X ONCE 02/07/17 10:15 02/07/17 10:16 Amlodipine Besylate (Norvasc) 5 mg DAILY 02/06/17 11:30 02/07/17 08:43 5 MG Apixaban (Eliquis) 5 mg BID 02/06/17 11:30 02/06/17 15:26 DC 02/06/17 12:00 5 MG Aspirin (Children'S Aspirin) 81 mg DAILY 02/06/17 11:30 02/07/17 08:42 81 MG Clopidogrel Bisulfate (Plavix) 75 mg DAILY 02/06/17 11:30 02/07/17 08:41 75 MG Dextrose (Dextrose 50%-Water Syringe) 12.5 gm PRN Q15MIN PRN 02/06/17 12:00 02/06/17 20:36 12.5 GM Docusate Sodium (Colace) 100 mg DAILY 02/07/17 09:00 Ergocalciferol (Vitamin D2) 50,000 unit WEEKLY 02/13/17 09:00 EZETIMIBE (Zetia) 10 mg QODAY 02/06/17 11:30 02/06/17 12:02 10 MG Famotidine (Pepcid) 20 mg BID76 02/06/17 11:30 02/07/17 08:42 20 MG Fish Oil (Fish Oil) 1,000 mg DAILY 02/06/17 11:30 02/07/17 08:41 1,000 MG Furosemide (Lasix) 40 mg 1X ONCE 02/07/17 10:30 02/07/17 10:31 Info (Anti-Coagulation Monitoring By Pharmacy) 1 each PRN DAILY PRN 02/06/17 11:00 02/06/17 14:06 1 EACH Insulin Aspart (NovoLOG) 20 units TIDACHC 02/06/17 11:30 02/06/17 16:48 20 UNITS Insulin Detemir (Levemir) 25 units BID76 02/06/17 11:30 02/06/17 18:00 25 UNITS Levothyroxine Sodium (Synthroid) 25 mcg DAILYAC 02/06/17 11:30 02/07/17 08:41 25 MCG Lisinopril (Prinivil) 5 mg DAILY 02/06/17 11:30 02/06/17 12:01 5 MG Magnesium Hydroxide (Milk Of Magnesia) 2,400 mg PRN DAILY PRN 02/06/17 21:00 Metformin HCl (Glucophage Xr) 500 mg BID76 02/06/17 11:30 02/06/17 16:40 500 MG Metoprolol Succinate (Toprol Xl) 50 mg DAILY 02/06/17 11:30 02/07/17 08:42 50 MG Multivitamins (Thera M Plus) 1 tab DAILY 02/06/17 11:30 02/07/17 08:42 1 TAB Non-Formulary Medication 1 each DAILY08 02/07/17 08:00 UNV Ondansetron HCl (Zofran) 4 mg PRN Q8HRS PRN 02/05/17 20:15 02/06/17 20:14 DC 02/06/17 16:41 4 MG Polyethylene Glycol (miraLAX PACKET) 17 gm DAILY 02/07/17 09:00 Prednisone (Prednisone) 10 mg BID 02/06/17 11:30 Sodium Chloride 1,000 ml @ 75 mls/hr [id number] 02/05/17 20:06 02/06/17 20:05 DC Sulfasalazine (Azulfidine) 1,000 mg BID 02/06/17 11:30 02/07/17 08:41 1,000 MG Tamsulosin HCl (Flomax) 0.4 mg HS 02/06/17 21:00 02/06/17 20:44 0.4 MG Vitamin E 400 unit DAILY16 02/06/17 16:00 02/06/17 16:41 400 UNIT Zinc Sulfate (Orazinc) 220 mg DAILY 02/06/17 11:30 02/07/17 08:41 220 MG DIAGNOSTIC TESTING: tele - new onset afib. ASSESSMENT: 1. PAF 2. Mixed ischemic/NICM 3. Dyspnea - 4. Mild RACH Problems: PLAN: 1. Will plan for trial of lasix 40mg IVP today 2. Awaiting pulmonary eval with 6[facility] and V/Q scan 3. Supportive care for now. 4. Lovenox for interim treatment of PAF. Rate controlled. Reports dyspnea worsens after eating, ? angina in the setting of severe disease after eating? Repeat echo pending ADY RIBEIRO MD Feb 07, 2017 10:14
[2017-02-07] MEDS ORDERED: ALPRAZolam 0.5 MG TABLET PO ONE (10:15)
[2017-02-07 10:19] VITALS: BP 120/63
[2017-02-07] MEDS ORDERED: FUROSEMIDE 40 MG/4 ML VIAL. IVP ONE (10:30)
[2017-02-07] MEDS: DOCUSATE SODIUM 100 MG CAPSULE. PO SCH (11:52)
[2017-02-07] MEDS: POLYETHYLENE GLYCOL 3350 17 GM PACKET. PO SCH (11:52)
--- NOTE | 2017-02-07 12:01 | RAD ---
Ventilation perfusion imaging 02/07/2017 Indication: Shortness of breath. Dyspnea. Comparison study: Chest radiograph, earlier today Discussion: Ventilatory imaging of the chest was performed following the inhalation of 17 mCi of xenon-133 gas. Inspiration, equilibrium and washout imaging was performed. Also performed was perfusion imaging following the intravenous administration of 5.8 mCi of technetium 99 labeled MAA. No ventilation perfusion mismatches are identified. No definitive segmental perfusion defects are appreciated. Mild air trapping appears to be present in the left upper lobe on ventilation imaging. Correlate with evidence of obstructive lung disease. Impression: Low probability for pulmonary embolism
--- NOTE | 2017-02-07 12:10 | RAD ---
2 views of the Chest 02/07/2017 2:00 AM Indication: SHORT OF BREATH, LUNG SCAN Comparison: Chest radiograph February 05, 2017 Findings: There is no pneumothorax. A small amount of pleural effusion is present. The heart is enlarged. Central vascular congestion and mild interstitial thickening is seen. Prior median sternotomy noted. No acute osseous changes are seen. Impression: Cardiomegaly, central vascular congestion, mild interstitial thickening, and small pleural effusions. Findings most likely reflect mild pulmonary edema, possibly in the setting of congestive failure
[2017-02-07] MEDS: ANTI-COAG MONITOR BY PHARMACY. MC PRN (14:49)
[2017-02-07 15:05] VITALS: BP 116/64
[2017-02-07] MEDS: VITAMIN E 200 UNIT CAPSULE. PO SCH (17:18)
--- NOTE | 2017-02-07 17:56 | PDOC ---
PULMONARY PROGRESS NOTES Vitals Vital Signs Date Time Temp Pulse Resp B/P (MAP) Pulse Ox O2 Delivery O2 Flow Rate FiO2 02/07/17 15:05 97.5 82 18 116/64 (81) 95 Nasal Cannula 2.0 97.5 General: Alert Lungs: Clear, Other (no wheezing, rales, rhonchi) Cardiovascular: S1, S2 Abdomen: Soft Extremities: Other Labs Laboratory Tests Test 02/05/17 18:55 02/06/17 04:10 02/06/17 08:25 02/06/17 11:50 White Blood Count 10.5 x10^3/uL (4.0-11.0) 8.8 x10^3/uL (4.0-11.0) Red Blood Count 4.03 x10^6/uL (4.30-5.70) 3.62 x10^6/uL (4.30-5.70) Hemoglobin 12.6 g/dL (13.0-17.5) 11.4 g/dL (13.0-17.5) Hematocrit 39.3 % (39.0-53.0) 35.3 % (39.0-53.0) Mean Corpuscular Volume 98 fL (79-100) 98 fL (79-100) Mean Corpuscular Hemoglobin 31 pg (25-35) 32 pg (25-35) Mean Corpuscular Hemoglobin Concent 32 g/dL (31-37) 32 g/dL (31-37) Red Cell Distribution Width 17.2 % (11.5-14.5) 16.8 % (11.5-14.5) Platelet Count 241 x10^3/uL (140-400) 199 x10^3/uL (140-400) Neutrophils (%) (Auto) 77 % (31-73) 76 % (31-73) Lymphocytes (%) (Auto) 9 % (24-48) 10 % (24-48) Monocytes (%) (Auto) 9 % (0-9) 9 % (0-9) Eosinophils (%) (Auto) 4 % (0-3) 4 % (0-3) Basophils (%) (Auto) 1 % (0-3) 1 % (0-3) Neutrophils # (Auto) 8.1 x10^3uL (1.8-7.7) 6.7 x10^3uL (1.8-7.7) Lymphocytes # (Auto) 1.0 x10^3/uL (1.0-4.8) 0.9 x10^3/uL (1.0-4.8) Monocytes # (Auto) 0.9 x10^3/uL (0.0-1.1) 0.8 x10^3/uL (0.0-1.1) Eosinophils # (Auto) 0.4 x10^3/uL (0.0-0.7) 0.3 x10^3/uL (0.0-0.7) Basophils # (Auto) 0.1 x10^3/uL (0.0-0.2) 0.1 x10^3/uL (0.0-0.2) Sodium Level 142 mmol/L (136-145) 141 mmol/L (136-145) Potassium Level 4.0 mmol/L (3.5-5.1) 3.6 mmol/L (3.5-5.1) Chloride Level 102 mmol/L (98-107) 102 mmol/L (98-107) Carbon Dioxide Level 32 mmol/L (21-32) 28 mmol/L (21-32) Anion Gap 8 (6-14) 11 (6-14) Blood Urea Nitrogen 23 mg/dL (8-26) 26 mg/dL (8-26) Creatinine 1.5 mg/dL (0.7-1.3) 1.4 mg/dL (0.7-1.3) Estimated GFR (Cockcroft-Gault) 45.9 49.7 BUN/Creatinine Ratio 15 (6-20) Glucose Level 123 mg/dL (70-99) 148 mg/dL (70-99) Calcium Level 9.1 mg/dL (8.5-10.1) 8.5 mg/dL (8.5-10.1) Total Bilirubin 0.4 mg/dL (0.2-1.0) Aspartate Amino Transf (AST/SGOT) 17 U/L (15-37) Alanine Aminotransferase (ALT/SGPT) 17 U/L (16-63) Alkaline Phosphatase 145 U/L (46-116) Creatine Kinase 42 U/L (39-308) Creatine Kinase MB (Mass) < 0.5 ng/mL (0.0-3.6) Creatine Kinase MB Relative Index % (0-4) Troponin I Quantitative 0.212 ng/mL (0.000-0.055) 0.169 ng/mL (0.000-0.055) NF-[place]-X-Type Natriuretic Peptide 4040 pg/mL (0-124) Total Protein 6.9 g/dL (6.4-8.2) Albumin 3.2 g/dL (3.4-5.0) Albumin/Globulin Ratio 0.9 (1.0-1.7) Influenza Type A Antigen Negative (NEGATIVE) Influenza Type B Antigen Negative (NEGATIVE) Glucose (Fingerstick) 160 mg/dL (70-99) 283 mg/dL (70-99) Test 02/06/17 16:41 02/06/17 20:29 02/06/17 21:05 02/07/17 07:43 Glucose (Fingerstick) 277 mg/dL (70-99) 42 mg/dL (70-99) 96 mg/dL (70-99) 97 mg/dL (70-99) Test 02/07/17 11:35 02/07/17 16:05 Glucose (Fingerstick) 114 mg/dL (70-99) 279 mg/dL (70-99) Laboratory Tests Test 02/06/17 20:29 02/06/17 21:05 02/07/17 07:43 02/07/17 11:35 Glucose (Fingerstick) 42 mg/dL (70-99) 96 mg/dL (70-99) 97 mg/dL (70-99) 114 mg/dL (70-99) Test 02/07/17 16:05 Glucose (Fingerstick) 279 mg/dL (70-99) Medications Active Scripts Medications Dose Route/Sig Max Daily Dose Days Date Category Amlodipine Besylate 5 Mg Tablet 5 Mg PO DAILY 02/04/17 Reported Toprol Xl (Metoprolol Succinate) 50 Mg Tab.er.24h 1 Tab PO DAILY 02/04/17 Reported Eliquis (Apixaban) 5 Mg Tablet 5 Mg PO BID 02/04/17 Reported Lisinopril 5 Mg Tablet 1 Tab PO DAILY 02/04/17 Reported Novolog Flexpen (Insulin Aspart) 100 Unit/1 Ml Insuln.pen 20 Unit SQ TIDACHC 02/01/17 Reported Zinc 50 Mg Tablet 50 Mg PO DAILY08 02/01/17 Reported Cod Liver Oil 1 Each Capsule 1 Each PO DAILY08 02/01/17 Reported Vitamin E (Vitamin E Mixed) 400 Unit Capsule 400 Unit PO DAILY16 02/01/17 Reported Prednisone 10 Mg Tablet 10 Mg PO BID 02/01/17 Reported Lasix (Furosemide) 40 Mg Tablet 1 Tab PO DAILY 04/17/16 Rx Sulfasalazine 500 Mg Tablet 1,000 Mg PO BID 04/15/16 Reported Aspirin 81 Mg Tab.chew 1 Tab PO DAILY 04/15/16 Reported Clopidogrel (Clopidogrel Bisulfate) 75 Mg Tablet 75 Mg PO DAILY 04/15/16 Reported [place] 3 Fish Oil Softgel ([place]-3 Fatty Acids/Fish Oil) 1 Each Capsule. 1 Each PO DAILY 09/13/15 Reported Vitamin D2 (Ergocalciferol (Vitamin D2)) 50,000 Unit Capsule 50,000 Unit PO WEEKLY 02/28/15 Reported Metformin Hcl Er (Metformin Hcl) 500 Mg Tab.er.24h 1 Tab PO BID76 01/06/14 Reported Lantus (Insulin Glargine,Hum.rec.anlog) 100 Unit/1 Ml Vial 25 Unit SQ BID76 09/14/13 Reported Centrum Silver Tablet (Multivits-Min/Fa/Lycopene/Lut) 1 Each Tablet 1 Each PO DAILY 09/14/13 Reported Pepcid (Famotidine) 20 Mg Tablet 20 Mg PO BID76 09/14/13 Reported Tamsulosin Hcl 0.4 Mg Cap.er.24h 0.4 Mg PO HS 09/14/13 Reported Allopurinol 300 Mg Tablet 300 Mg PO BID 09/14/13 Reported Zetia (Ezetimibe) 10 Mg Tablet 10 Mg PO QODAY 09/14/13 Reported Levothyroxine Sodium 25 Mcg Tablet 25 Mcg PO DAILYAC 09/14/13 Reported Impression . RESP DISTRESS IS SEC TO CHF EAXC AND AECOPD NO PE SEE FULL REPORT THANKS JENNIFER JARQUIN MD Feb 07, 2017 17:56
[2017-02-07 19:05] VITALS: BP 111/62
[2017-02-07] MEDS: predniSONE 20 MG TABLET PO SCH (21:00)
[2017-02-07] MEDS: TAMSULOSIN 0.4 MG CAP.ER.24H. PO SCH (21:50)
--- NOTE | 2017-02-07 22:54 | CONS ---
DATE OF CONSULTATION: 02/07/2017 ATTENDING PHYSICIAN: Concepcion Llamas DO CONSULTING PHYSICIAN: Jennifer Jarquin MD REASON FOR CONSULTATION: The patient seen in Pulmonary consultation at the request of Dr. Llamas for abnormal x-ray, increasing shortness of air. HISTORY OF PRESENT ILLNESS: The patient is a 71-year-old with a history of coronary artery disease status post coronary artery bypass grafting, actually had stenting of the saphenous vein graft back in 05/2016. He presented with increasing shortness of breath, new diagnosis of AFib. Chest x-ray was reviewed. There were bilateral pulmonary infiltrates compatible with edema. The patient underwent VQ scan, which I personally reviewed. There are no unmatched perfusion defects. He quit tobacco several years ago in 2003. He does not utilize oxygen or metered dose inhalers. I queried him regarding the exacerbation of COPD. I believe he has COPD, which is undiagnosed. He has had 2 rounds of Z-THERON in the last several months. He also states that he battles chronic bronchitis. He had a cold prior to admission. He was coughing up some discolored sputum. No chest pain or pressure. No fever, chills or night sweats. PAST MEDICAL HISTORY: Coronary artery disease with previous coronary artery bypass grafting; paroxysmal AFib; mvily-vy-hkuxlvi systolic and diastolic heart failure, previous echocardiogram, 40-45%; undiagnosed COPD; gout; hypothyroidism; hypertension. He has ulcerative colitis and BPH. PAST SURGICAL HISTORY: Status post cholecystectomy, appendectomy, coronary artery bypass grafting. ALLERGIES: IODINE AND STATIN. FAMILY HISTORY: Positive for coronary artery disease. 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 REVIEW OF SYSTEMS: CONSTITUTIONAL: No fever or chills. EYES: No changes in visual acuity. HENT: No nasal congestion, no sore throat. RESPIRATORY: As indicated above. CARDIOVASCULAR: As indicated above. GASTROINTESTINAL: No nausea, vomiting, diarrhea. GENITOURINARY: No dysuria or frequency. MUSCULOSKELETAL: No localized muscle aches or joint pains. SKIN: No new skin rashes. NEUROLOGIC: No headaches, diplopia or blurred vision. PHYSICAL EXAMINATION: GENERAL: The patient appeared to be his stated age. VITAL SIGNS: Stable. He is currently on 2 L of oxygen supplementation, saturation greater than 92%. HEENT: Eyes: The sclerae were nonicteric. NECK: Jugular venous distention was not elevated. No lymphadenopathy. CHEST: Full expansion. LUNGS: Poor airway flow with no wheezes. CARDIOVASCULAR: Regular rate and rhythm with S1, S2, no S3. ABDOMEN: Soft, nontender, nondistended. EXTREMITIES: No clubbing, cyanosis. Some edema. NEUROLOGIC: The patient was awake, alert, following commands. A detailed neuro exam was not performed. LABORATORY DATA: Reviewed. White count was normal, hemoglobin and hematocrit chronically low. Electrolytes were noted. BNP was elevated. Albumin was slightly low. Chest x-ray was reviewed. There are bilateral pulmonary infiltrates compatible with CHF. V/Q scan was reviewed. There were no unmatched perfusion defects. IMPRESSION: 1. Acute respiratory failure secondary to [id number] systolic and diastolic heart failure. 2. Acute bronchitis/acute exacerbation of chronic obstructive pulmonary disease. 3. Hypertension. 4. Coronary artery disease with previous coronary artery bypass grafting, recent stenting to the saphenous vein graft to right coronary artery back in 05/2016. 5. Possible obstructive sleep apnea. 6. Hyperlipidemia. 7. Hypertension. 8. Paroxysmal atrial fibrillation. PLAN: 1. Recommend continue diuresis. 2. Treat acute bronchitis. 3. A 6-minute walk prior to discharge. 4. Once heart failure has resolved, we will obtain nocturnal desaturation study, possibly outpatient polysomnogram. 5. The patient and instructed on the importance of monitoring the sodium intake, I do not believe they are doing an adequate job at this time. I do appreciate the privilege in sharing in the patient's care. JENNIFER JARQUIN MD DR: SUE/dave JOB#: [id number] / [id number]
[2017-02-07 23:10] VITALS: BP 125/56
[2017-02-08 03:10] VITALS: BP 117/49
[2017-02-08 05:12] LABS: BASO # 0.1 x10^3/uL (0.0-0.2); BASO % 1 % (0-3); EOS % 2 % (0-3); HEMATOCRIT 36.5 % (39.0-53.0); HEMOGLOBIN 11.6 g/dL (13.0-17.5); LYMPH # 0.9 x10^3/uL (1.0-4.8); LYMPH % 9 % (24-48); MEAN CORPUSCULAR HEMOGLOBIN 31 pg (25-35); MEAN CORPUSCULAR HGB CONC 32 g/dL (31-37); MEAN CORPUSCULAR VOLUME 97 fL (79-100); MONO % 12 % (0-9); NEUT % 76 % (31-73); PLATELET COUNT 245 x10^3/uL (140-400); RED BLOOD COUNT 3.76 x10^6/uL (4.30-5.70); RED CELL DISTRIBUTION WIDTH 16.5 % (11.5-14.5); WHITE BLOOD COUNT 10.1 x10^3/uL (4.0-11.0)
[2017-02-08 05:52] LABS: ALBUMIN 3.1 g/dL (3.4-5.0); ALBUMIN/GLOBULIN RATIO 0.8 (1.0-1.7); CALCIUM 9.2 mg/dL (8.5-10.1); CREATININE 1.6 mg/dL (0.7-1.3); GFR 42.6; POTASSIUM 3.9 mmol/L (3.5-5.1); TOTAL BILIRUBIN 0.3 mg/dL (0.2-1.0)
[2017-02-08 07:00] VITALS: BP 142/74
[2017-02-08] MEDS: INSULIN DETEMIR 300 UNITS/3 ML INSULN.PEN. SQ SCH (07:00)
[2017-02-08] MEDS: metFORMIN XR 500 MG TAB.ER.24H PO SCH (07:00)
[2017-02-08] MEDS: INSULIN ASPART 300 UNITS/3 ML INSULN.PEN SQ SCH ×2 (07:30→11:30)
[2017-02-08] MEDS: sulfaSALAzine 500 MG TABLET PO SCH (08:25)
[2017-02-08] MEDS: MULTIVITAMIN with MINERAL TABLET. PO SCH (08:25)
[2017-02-08] MEDS: CLOPIDOGREL BISULFATE 75 MG TABLET PO SCH (08:26)
[2017-02-08] MEDS: OMEGA-3 FATTY ACIDS/FISH OIL 1,000 MG CAPSULE. PO SCH (08:26)
[2017-02-08] MEDS: ASPIRIN CHEWABLE 81 MG TABLET. PO SCH (08:26)
[2017-02-08] MEDS: ZINC SULFATE 220 MG CAPSULE. PO SCH (08:26)
[2017-02-08] MEDS: FUROSEMIDE 40 MG TABLET. PO SCH (08:26)
[2017-02-08] MEDS: ALLOPURINOL 300 MG TABLET. PO SCH (08:26)
[2017-02-08] MEDS: LEVOTHYROXINE 25 MCG TABLET. PO SCH (08:26)
[2017-02-08] MEDS: METOPROLOL SUCC 24HR ER 50 MG TAB.ER.24H. PO SCH (08:26)
[2017-02-08] MEDS: amLODIPine BESYLATE 5 MG TABLET PO SCH (08:27)
[2017-02-08] MEDS: LISINOPRIL 5 MG TABLET. PO SCH (08:29)
[2017-02-08] MEDS: EZETIMIBE 10 MG TABLET. PO SCH (08:30)
[2017-02-08] MEDS: DOCUSATE SODIUM 100 MG CAPSULE. PO SCH (09:38)
[2017-02-08] MEDS: predniSONE 20 MG TABLET PO SCH (09:38)
[2017-02-08] MEDS: FAMOTIDINE 20 MG TABLET. PO SCH (09:38)
[2017-02-08] MEDS: POLYETHYLENE GLYCOL 3350 17 GM PACKET. PO SCH (09:39)
--- NOTE | 2017-02-08 10:39 | PDOC ---
CARDIOLOGY PROGRESS NOTE SUBJECTIVE: No new changes overnight. OBJECTIVE: Vital SIgns: Vital Signs Date Time Temp Pulse Resp B/P (MAP) Pulse Ox O2 Delivery O2 Flow Rate FiO2 02/08/17 08:27 80 142/74 02/08/17 08:00 Nasal Cannula 1.0 02/08/17 07:00 97.4 20 93 97.4 I & O Intake and Output 02/08/17 07:00 Intake Total 1600 ml Output Total 175 ml Balance 1425 ml Intake Oral 1600 ml Output Urine Total 175 ml # Voids 5 Objective: Gen: A/O x 3. NAD CVS: Irr irr. NO m/r/g PULM: CTAB Obese, protrubent abdomen EXT: 1+ pitting edema. CURRENT MEDICATIONS: Current Medications Medications (Trade) Dose Ordered Sig/Nickie Start Time Stop Time Status Last Admin Dose Admin Acetaminophen (Tylenol) 650 mg PRN Q4HRS PRN 02/05/17 20:15 02/06/17 20:14 DC Allopurinol (Zyloprim) 300 mg BID 02/06/17 11:30 02/08/17 08:26 300 MG Alprazolam (Xanax) 0.5 mg 1X ONCE 02/07/17 10:15 02/07/17 10:16 DC 02/07/17 10:14 0.5 MG Amlodipine Besylate (Norvasc) 5 mg DAILY 02/06/17 11:30 02/08/17 08:27 5 MG Apixaban (Eliquis) 5 mg BID 02/06/17 11:30 02/06/17 15:26 DC 02/06/17 12:00 5 MG Aspirin (Children'S Aspirin) 81 mg DAILY 02/06/17 11:30 02/08/17 08:26 81 MG Clopidogrel Bisulfate (Plavix) 75 mg DAILY 02/06/17 11:30 02/08/17 08:26 75 MG Dextrose (Dextrose 50%-Water Syringe) 12.5 gm PRN Q15MIN PRN 02/06/17 12:00 02/06/17 20:36 12.5 GM Docusate Sodium (Colace) 100 mg DAILY 02/07/17 09:00 02/08/17 09:38 100 MG Enoxaparin Sodium (Lovenox 100mg Syringe) 100 mg Q12HR 02/07/17 11:00 02/08/17 09:39 100 MG Ergocalciferol (Vitamin D2) 50,000 unit WEEKLY 02/13/17 09:00 EZETIMIBE (Zetia) 10 mg QODAY 02/06/17 11:30 02/08/17 08:30 10 MG Famotidine (Pepcid) 20 mg BID76 02/06/17 11:30 02/08/17 09:38 20 MG Fish Oil (Fish Oil) 1,000 mg DAILY 02/06/17 11:30 02/08/17 08:26 1,000 MG Furosemide (Lasix) 40 mg 1X ONCE 02/07/17 10:30 02/07/17 10:31 DC 02/07/17 11:52 40 MG Info (Anti-Coagulation Monitoring By Pharmacy) 1 each PRN DAILY PRN 02/06/17 11:00 02/07/17 14:49 1 EACH Insulin Aspart (NovoLOG) 20 units TIDACHC 02/06/17 11:30 02/07/17 22:01 20 UNITS Insulin Detemir (Levemir) 25 units BID76 02/06/17 11:30 02/07/17 17:26 25 UNITS Levothyroxine Sodium (Synthroid) 25 mcg DAILYAC 02/06/17 11:30 02/08/17 08:26 25 MCG Lisinopril (Prinivil) 5 mg DAILY 02/06/17 11:30 02/06/17 12:01 5 MG Magnesium Hydroxide (Milk Of Magnesia) 2,400 mg PRN DAILY PRN 02/06/17 21:00 Metformin HCl (Glucophage Xr) 500 mg BID76 02/06/17 11:30 02/07/17 17:18 500 MG Metoprolol Succinate (Toprol Xl) 50 mg DAILY 02/06/17 11:30 02/08/17 08:26 50 MG Multivitamins (Thera M Plus) 1 tab DAILY 02/06/17 11:30 02/08/17 08:25 1 TAB Non-Formulary Medication 1 each DAILY08 02/07/17 08:00 UNV Ondansetron HCl (Zofran) 4 mg PRN Q8HRS PRN 02/05/17 20:15 02/06/17 20:14 DC 02/06/17 16:41 4 MG Polyethylene Glycol (miraLAX PACKET) 17 gm DAILY 02/07/17 09:00 02/08/17 09:39 17 GM Prednisone (Prednisone) 20 mg BID 02/07/17 21:00 02/08/17 09:38 20 MG Sodium Chloride 1,000 ml @ 75 mls/hr [id number] 02/05/17 20:06 02/06/17 20:05 DC Sulfasalazine (Azulfidine) 1,000 mg BID 02/06/17 11:30 02/08/17 08:25 1,000 MG Tamsulosin HCl (Flomax) 0.4 mg HS 02/06/17 21:00 02/07/17 21:50 0.4 MG Vitamin E 400 unit DAILY16 02/06/17 16:00 02/07/17 17:18 400 UNIT Zinc Sulfate (Orazinc) 220 mg DAILY 02/06/17 11:30 02/08/17 08:26 220 MG DIAGNOSTIC TESTING: Cr increased to 1.6. from baseline of 1.2. ASSESSMENT: 1. Dyspnea - etiology unclear 2. Abnormal 6MHW 3. CAD 4. Mixed ischemic/NICM CMP 5. PAF 6. RACH Problems: PLAN: 1. hold lisinopril and continue oral lasix on discharge 2. follow up with Dr. Long early next week. 3. Repeat labs next week prior to office visit. 4. Restart eliquis at home. Supportive care. Patient reports that he feels better and wants to go home. Given mildly elevated cr, hold lisinopril upon discharge. Continue other meds except for ASA as he will be on eliquis and plavix. Thanks. ADY RIBEIRO MD Feb 08, 2017 10:39
[2017-02-08 11:00] VITALS: BP 129/63
[2017-02-08] MEDS: ANTI-COAG MONITOR BY PHARMACY. MC PRN (11:07)
--- NOTE | 2017-02-08 12:39 | PDOC ---
PROGRESS NOTES Chief Complaint Chief Complaint Shortness of breath Arrhythmia CAD CHF Diabetes-Type II High Cholesterol Hypertension Hypothyroid Gout Left hip pain Prostate Ulcerative colitis History of Present Illness History of Present Illness Pt was seen at bedside. He was sitting up, dressed in hospital attire. He states that he slept well, has a good appetite, had a bowel movement today, and a bladder movement today also. Vitals Vitals Vital Signs Date Time Temp Pulse Resp B/P (MAP) Pulse Ox O2 Delivery O2 Flow Rate FiO2 02/08/17 11:00 98.2 85 18 129/63 (85) 91 Nasal Cannula 98.2 02/08/17 08:00 1.0 Physical Exam Physical Exam Psych: Mood stated as "good". Affect is mood-congruent. 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 General: Alert, Cooperative, No acute distress Heart: Regular rate, Normal S1, Normal S2, No murmurs, Other (CR<2sec) Lungs: Clear, Other (no wheezing, rales, rhonchi) Abdomen: Normal bowel sounds, No tenderness Skin: No significant lesion, Other (some petechiae on left arm) Labs LABS Laboratory Tests Test 02/07/17 16:05 02/07/17 20:50 02/08/17 04:10 02/08/17 07:38 Glucose (Fingerstick) 279 mg/dL (70-99) 172 mg/dL (70-99) 69 mg/dL (70-99) White Blood Count 10.1 x10^3/uL (4.0-11.0) Red Blood Count 3.76 x10^6/uL (4.30-5.70) Hemoglobin 11.6 g/dL (13.0-17.5) Hematocrit 36.5 % (39.0-53.0) Mean Corpuscular Volume 97 fL (79-100) Mean Corpuscular Hemoglobin 31 pg (25-35) Mean Corpuscular Hemoglobin Concent 32 g/dL (31-37) Red Cell Distribution Width 16.5 % (11.5-14.5) Platelet Count 245 x10^3/uL (140-400) Neutrophils (%) (Auto) 76 % (31-73) Lymphocytes (%) (Auto) 9 % (24-48) Monocytes (%) (Auto) 12 % (0-9) Eosinophils (%) (Auto) 2 % (0-3) Basophils (%) (Auto) 1 % (0-3) Neutrophils # (Auto) 7.7 x10^3uL (1.8-7.7) Lymphocytes # (Auto) 0.9 x10^3/uL (1.0-4.8) Monocytes # (Auto) 1.2 x10^3/uL (0.0-1.1) Eosinophils # (Auto) 0.2 x10^3/uL (0.0-0.7) Basophils # (Auto) 0.1 x10^3/uL (0.0-0.2) Sodium Level 140 mmol/L (136-145) Potassium Level 3.9 mmol/L (3.5-5.1) Chloride Level 102 mmol/L (98-107) Carbon Dioxide Level 30 mmol/L (21-32) Anion Gap 8 (6-14) Blood Urea Nitrogen 31 mg/dL (8-26) Creatinine 1.6 mg/dL (0.7-1.3) Estimated GFR (Cockcroft-Gault) 42.6 BUN/Creatinine Ratio 19 (6-20) Glucose Level 49 mg/dL (70-99) Calcium Level 9.2 mg/dL (8.5-10.1) Total Bilirubin 0.3 mg/dL (0.2-1.0) Aspartate Amino Transf (AST/SGOT) 25 U/L (15-37) Alanine Aminotransferase (ALT/SGPT) 27 U/L (16-63) Alkaline Phosphatase 219 U/L (46-116) Total Protein 7.0 g/dL (6.4-8.2) Albumin 3.1 g/dL (3.4-5.0) Albumin/Globulin Ratio 0.8 (1.0-1.7) Review of Systems Review of Systems Admits to cough. Denies fever, chills, chest pain, wheezing, shortness of breath, nausea, vomiting, diarrhea, constipation Assessment and Plan Assessmemt and Plan Problems Medical Problems: (1) Acute on chronic congestive heart failure Status: Acute (2) Acute respiratory failure with hypoxia Status: Acute (3) Elevated troponin Status: Acute (4) Stage III chronic kidney disease Status: Acute ASSESSMENT: Shortness of breath Arrhythmia CAD CHF Diabetes-Type II High Cholesterol Hypertension Hypothyroid Gout Left hip pain Prostate Ulcerative colitis PLAN: Hold ASA and lisinopril on home meds PT/OT Appreciate input from cardiology and pulmonology Monitor labs Discharge if ok with cardiology and pulmonology Problems: Comment Review of Relevant I have reviewed the following items margarita (where applicable) has been applied. Labs Laboratory Tests Test 02/06/17 16:41 02/06/17 20:29 02/06/17 21:05 02/07/17 07:43 Glucose (Fingerstick) 277 mg/dL (70-99) 42 mg/dL (70-99) 96 mg/dL (70-99) 97 mg/dL (70-99) Test 02/07/17 11:35 02/07/17 16:05 02/07/17 20:50 02/08/17 04:10 Glucose (Fingerstick) 114 mg/dL (70-99) 279 mg/dL (70-99) 172 mg/dL (70-99) White Blood Count 10.1 x10^3/uL (4.0-11.0) Red Blood Count 3.76 x10^6/uL (4.30-5.70) Hemoglobin 11.6 g/dL (13.0-17.5) Hematocrit 36.5 % (39.0-53.0) Mean Corpuscular Volume 97 fL (79-100) Mean Corpuscular Hemoglobin 31 pg (25-35) Mean Corpuscular Hemoglobin Concent 32 g/dL (31-37) Red Cell Distribution Width 16.5 % (11.5-14.5) Platelet Count 245 x10^3/uL (140-400) Neutrophils (%) (Auto) 76 % (31-73) Lymphocytes (%) (Auto) 9 % (24-48) Monocytes (%) (Auto) 12 % (0-9) Eosinophils (%) (Auto) 2 % (0-3) Basophils (%) (Auto) 1 % (0-3) Neutrophils # (Auto) 7.7 x10^3uL (1.8-7.7) Lymphocytes # (Auto) 0.9 x10^3/uL (1.0-4.8) Monocytes # (Auto) 1.2 x10^3/uL (0.0-1.1) Eosinophils # (Auto) 0.2 x10^3/uL (0.0-0.7) Basophils # (Auto) 0.1 x10^3/uL (0.0-0.2) Sodium Level 140 mmol/L (136-145) Potassium Level 3.9 mmol/L (3.5-5.1) Chloride Level 102 mmol/L (98-107) Carbon Dioxide Level 30 mmol/L (21-32) Anion Gap 8 (6-14) Blood Urea Nitrogen 31 mg/dL (8-26) Creatinine 1.6 mg/dL (0.7-1.3) Estimated GFR (Cockcroft-Gault) 42.6 BUN/Creatinine Ratio 19 (6-20) Glucose Level 49 mg/dL (70-99) Calcium Level 9.2 mg/dL (8.5-10.1) Total Bilirubin 0.3 mg/dL (0.2-1.0) Aspartate Amino Transf (AST/SGOT) 25 U/L (15-37) Alanine Aminotransferase (ALT/SGPT) 27 U/L (16-63) Alkaline Phosphatase 219 U/L (46-116) Total Protein 7.0 g/dL (6.4-8.2) Albumin 3.1 g/dL (3.4-5.0) Albumin/Globulin Ratio 0.8 (1.0-1.7) Test 02/08/17 07:38 Glucose (Fingerstick) 69 mg/dL (70-99) Laboratory Tests Test 02/07/17 16:05 02/07/17 20:50 02/08/17 04:10 02/08/17 07:38 Glucose (Fingerstick) 279 mg/dL (70-99) 172 mg/dL (70-99) 69 mg/dL (70-99) White Blood Count 10.1 x10^3/uL (4.0-11.0) Red Blood Count 3.76 x10^6/uL (4.30-5.70) Hemoglobin 11.6 g/dL (13.0-17.5) Hematocrit 36.5 % (39.0-53.0) Mean Corpuscular Volume 97 fL (79-100) Mean Corpuscular Hemoglobin 31 pg (25-35) Mean Corpuscular Hemoglobin Concent 32 g/dL (31-37) Red Cell Distribution Width 16.5 % (11.5-14.5) Platelet Count 245 x10^3/uL (140-400) Neutrophils (%) (Auto) 76 % (31-73) Lymphocytes (%) (Auto) 9 % (24-48) Monocytes (%) (Auto) 12 % (0-9) Eosinophils (%) (Auto) 2 % (0-3) Basophils (%) (Auto) 1 % (0-3) Neutrophils # (Auto) 7.7 x10^3uL (1.8-7.7) Lymphocytes # (Auto) 0.9 x10^3/uL (1.0-4.8) Monocytes # (Auto) 1.2 x10^3/uL (0.0-1.1) Eosinophils # (Auto) 0.2 x10^3/uL (0.0-0.7) Basophils # (Auto) 0.1 x10^3/uL (0.0-0.2) Sodium Level 140 mmol/L (136-145) Potassium Level 3.9 mmol/L (3.5-5.1) Chloride Level 102 mmol/L (98-107) Carbon Dioxide Level 30 mmol/L (21-32) Anion Gap 8 (6-14) Blood Urea Nitrogen 31 mg/dL (8-26) Creatinine 1.6 mg/dL (0.7-1.3) Estimated GFR (Cockcroft-Gault) 42.6 BUN/Creatinine Ratio 19 (6-20) Glucose Level 49 mg/dL (70-99) Calcium Level 9.2 mg/dL (8.5-10.1) Total Bilirubin 0.3 mg/dL (0.2-1.0) Aspartate Amino Transf (AST/SGOT) 25 U/L (15-37) Alanine Aminotransferase (ALT/SGPT) 27 U/L (16-63) Alkaline Phosphatase 219 U/L (46-116) Total Protein 7.0 g/dL (6.4-8.2) Albumin 3.1 g/dL (3.4-5.0) Albumin/Globulin Ratio 0.8 (1.0-1.7) Medications Current Medications Sodium Chloride 1,000 ml @ 125 mls/hr Q8H IV Last administered on 02/05/17 19:18; Start 02/05/17 at 18:26; Stop 02/06/17 at 02:25; Status DC Ondansetron HCl (Zofran) 4 mg PRN Q8HRS PRN IV NAUSEA/VOMITING Last administered on 02/06/17 16:41; Start 02/05/17 at 20:15; Stop 02/06/17 at 20 :14; Status DC Sodium Chloride 1,000 ml @ 75 mls/hr [id number] IV ; Start 02/05/17 at 20:06; Stop 02/06/17 at 20:05; Status DC Acetaminophen (Tylenol) 650 mg PRN Q4HRS PRN PO FEVER; Start 02/05/17 at 20:15 ; Stop 02/06/17 at 20:14; Status DC Allopurinol (Zyloprim) 300 mg BID PO Last administered on 02/08/17 08:26; Start 02/06/17 at 11:30 Amlodipine Besylate (Norvasc) 5 mg DAILY PO Last administered on 02/08/17 08: 27; Start 02/06/17 at 11:30 Aspirin (Children'S Aspirin) 81 mg DAILY PO Last administered on 02/08/17 08: 26; Start 02/06/17 at 11:30 Ergocalciferol (Vitamin D2) 50,000 unit WEEKLY PO ; Start 02/13/17 at 09:00 EZETIMIBE (Zetia) 10 mg QODAY PO Last administered on 02/08/17 08:30; Start 02/06/17 at 11:30 Famotidine (Pepcid) 20 mg BID76 PO Last administered on 02/08/17 09:38; Start 02/06/17 at 11:30 Furosemide (Lasix) 40 mg DAILY PO Last administered on 02/08/17 08:26; Start 02/06/17 at 11:30 Insulin Aspart (NovoLOG) 20 units TIDACHC SQ Last administered on 02/07/17 22 :01; Start 02/06/17 at 11:30 Levothyroxine Sodium (Synthroid) 25 mcg DAILYAC PO Last administered on 08:26; Start 02/06/17 at 11:30 Lisinopril (Prinivil) 5 mg DAILY PO Last administered on 02/06/17 12:01; Start 02/06/17 at 11:30 Metformin HCl (Glucophage Xr) 500 mg BID76 PO Last administered on 02/07/17 17:18; Start 02/06/17 at 11:30 Prednisone (Prednisone) 10 mg BID PO ; Start 02/06/17 at 11:30; Stop 02/07/17 at 17:56; Status DC Sulfasalazine (Azulfidine) 1,000 mg BID PO Last administered on 02/08/17 08: 25; Start 02/06/17 at 11:30 Tamsulosin HCl (Flomax) 0.4 mg HS PO Last administered on 02/07/17 21:50; Start 02/06/17 at 21:00 Non-Formulary Medication 1 each DAILY08 PO ; Start 02/07/17 at 08:00; Status UNV Insulin Detemir (Levemir) 25 units BID76 SQ Last administered on 02/07/17 17: 26; Start 02/06/17 at 11:30 Metoprolol Succinate (Toprol Xl) 50 mg DAILY PO Last administered on 08:26; Start 02/06/17 at 11:30 Multivitamins (Thera M Plus) 1 tab DAILY PO Last administered on 02/08/17 08: 25; Start 02/06/17 at 11:30 Fish Oil (Fish Oil) 1,000 mg DAILY PO Last administered on 02/08/17 08:26; Start 02/06/17 at 11:30 Vitamin E 400 unit DAILY16 PO Last administered on 02/07/17 17:18; Start at 16:00 Zinc Sulfate (Orazinc) 220 mg DAILY PO Last administered on 02/08/17 08:26; Start 02/06/17 at 11:30 Apixaban (Eliquis) 5 mg BID PO Last administered on 02/06/17 12:00; Start at 11:30; Stop 02/06/17 at 15:26; Status DC Clopidogrel Bisulfate (Plavix) 75 mg DAILY PO Last administered on 02/08/17 08:26; Start 02/06/17 at 11:30 Info (Anti-Coagulation Monitoring By Pharmacy) 1 each PRN DAILY PRN MC SEE COMMENTS Last administered on 02/08/17 11:07; Start 02/06/17 at 11:00 Dextrose (Dextrose 50%-Water Syringe) 12.5 gm PRN Q15MIN PRN IV SEE COMMENTS Last administered on 02/06/17 20:36; Start 02/06/17 at 12:00 Polyethylene Glycol (miraLAX PACKET) 17 gm DAILY PO Last administered on 09:39; Start 02/07/17 at 09:00 Magnesium Hydroxide (Milk Of Magnesia) 2,400 mg PRN DAILY PRN PO CONSTIPATION; Start 02/06/17 at 21:00 Docusate Sodium (Colace) 100 mg DAILY PO Last administered on 02/08/17 09:38 ; Start 02/07/17 at 09:00 Alprazolam (Xanax) 0.5 mg 1X ONCE PO Last administered on 02/07/17 10:14; Start 02/07/17 at 10:15; Stop 02/07/17 at 10:16; Status DC Furosemide (Lasix) 40 mg 1X ONCE IVP Last administered on 02/07/17 11:52; Start 02/07/17 at 10:30; Stop 02/07/17 at 10:31; Status DC Enoxaparin Sodium (Lovenox 100mg Syringe) 100 mg Q12HR SQ Last administered on 02/08/17 09:39; Start 02/07/17 at 11:00 Prednisone (Prednisone) 20 mg BID PO Last administered on 02/08/17 09:38; Start 02/07/17 at 21:00 Active Scripts Active Lasix (Furosemide) 40 Mg Tablet 1 Tab PO DAILY Reported Amlodipine Besylate 5 Mg Tablet 5 Mg PO DAILY Toprol Xl (Metoprolol Succinate) 50 Mg Tab.er.24h 1 Tab PO DAILY Eliquis (Apixaban) 5 Mg Tablet 5 Mg PO BID Novolog Flexpen (Insulin Aspart) 100 Unit/1 Ml Insuln.pen 20 Unit SQ TIDACHC Zinc 50 Mg Tablet 50 Mg PO DAILY08 Cod Liver Oil 1 Each Capsule 1 Each PO DAILY08 Vitamin E (Vitamin E Mixed) 400 Unit Capsule 400 Unit PO DAILY16 Prednisone 10 Mg Tablet 10 Mg PO BID Sulfasalazine 500 Mg Tablet 1,000 Mg PO BID Clopidogrel (Clopidogrel Bisulfate) 75 Mg Tablet 75 Mg PO DAILY Eugene 3 Fish Oil Softgel ([place]ugene-3 Fatty Acids/Fish Oil) 1 Each Capsule. 1 Each PO DAILY Vitamin D2 (Ergocalciferol (Vitamin D2)) 50,000 Unit Capsule 50,000 Unit PO WEEKLY Metformin Hcl Er (Metformin Hcl) 500 Mg Tab.er.24h 1 Tab PO BID76 Lantus (Insulin Glargine,Hum.rec.anlog) 100 Unit/1 Ml Vial 25 Unit SQ BID76 Centrum Silver Tablet (Multivits-Min/Fa/Lycopene/Lut) 1 Each Tablet 1 Each PO DAILY Pepcid (Famotidine) 20 Mg Tablet 20 Mg PO BID76 Tamsulosin Hcl 0.4 Mg Cap.er.24h 0.4 Mg PO HS Allopurinol 300 Mg Tablet 300 Mg PO BID Zetia (Ezetimibe) 10 Mg Tablet 10 Mg PO QODAY Levothyroxine Sodium 25 Mcg Tablet 25 Mcg PO DAILYAC Vitals/I & O Vital Sign - Last 24 Hours 02/07/17 02/07/17 02/07/17 02/07/17 15:05 19:05 20:00 23:10 Temp 97.5 97.7 98.1 97.5 97.7 98.1 Pulse 82 83 82 Resp 18 20 22 B/P (MAP) 116/64 (81) 111/62 (78) 125/56 (79) Pulse Ox 95 92 93 O2 Delivery Nasal Cannula Nasal Cannula Nasal Cannula Nasal Cannula O2 Flow Rate 2.0 2.0 1.0 1.0 02/08/17 02/08/17 02/08/17 02/08/17 03:10 07:00 08:00 08:26 Temp 97.9 97.4 97.9 97.4 Pulse 84 80 80 Resp 20 20 B/P (MAP) 117/49 (71) 142/74 (96) 142/74 Pulse Ox 94 93 O2 Delivery Nasal Cannula Room Air Nasal Cannula O2 Flow Rate 2.0 1.0 02/08/17 02/08/17 08:27 11:00 Temp 98.2 98.2 Pulse 80 85 Resp 18 B/P (MAP) 142/74 129/63 (85) Pulse Ox 91 O2 Delivery Nasal Cannula Intake and Output 02/07/17 02/07/17 02/08/17 14:59 22:59 06:59 Intake Total 1600 ml Output Total 175 ml Balance 1600 ml -175 ml RAFI KOHLER III DO Feb 08, 2017 12:39
[2017-02-13] MEDS ORDERED: ERGOCALCIFEROL (VITAMIN D2) 50,000 UNIT CAPSULE. PO SCH (09:00)
--- NOTE | 2017-03-12 20:13 | DS ---
DATE OF DISCHARGE: 02/08/2017 ADMISSION DIAGNOSIS: Heart failure. DISCHARGE DIAGNOSES: Resolving acute on chronic systolic and diastolic heart failure, arrhythmias, coronary artery disease, congestive heart failure, diabetes, hyperlipidemia, hypertension, hypothyroidism, gout, left hip pain, benign prostatic hypertrophy, and ulcerative colitis. HOSPITAL COURSE: The patient is a pleasant middle-aged male basically presented with acute on chronic systolic and diastolic heart failure. He has multiple comorbidities. Please see above. Basically, he was admitted, we consulted Cardiology. We did cardiac monitoring, serial enzymes, serial EKGs. We diuresed him, he did well. We discharged to home. DISPOSITION: Home. ACTIVITY: As tolerated. DIET: Low sodium. MEDICATIONS: Please see the MRAD. TOTAL TIME: 32 minutes. RAFI KHOLER DO DR: ONEIDA/dave JOB#: [id number] / [id number]
== END 2017-02-08 13:00 | disposition home or self-care (01) | DRG 291 ==
LOC: ER 18:00 → 2 SOUTH 19:42
PROVIDERS: ADMIT Family Medicine; ATTEND Internal Medicine
DX: I50.43 Acute on chronic combined systolic (congestive) and diastolic (congestive) heart failure (principal); J96.01 Acute respiratory failure with hypoxia; N17.9 Acute kidney failure, unspecified; K51.90 Ulcerative colitis, unspecified, without complications; J44.0 Chronic obstructive pulmonary disease with (acute) lower respiratory infection; E11.22 Type 2 diabetes mellitus with diabetic chronic kidney disease; I13.0 Hypertensive heart and chronic kidney disease with heart failure and stage 1 through stage 4 chronic kidney disease, or unspecified chronic kidney disease; J44.1 Chronic obstructive pulmonary disease with (acute) exacerbation; I42.9 Cardiomyopathy, unspecified; E03.9 Hypothyroidism, unspecified; E78.00 Pure hypercholesterolemia, unspecified; E78.5 Hyperlipidemia, unspecified; I25.10 Atherosclerotic heart disease of native coronary artery without angina pectoris; I48.0 Paroxysmal atrial fibrillation; J20.9 Acute bronchitis, unspecified; M10.9 Gout, unspecified; N18.3 Chronic kidney disease, stage 3 (moderate); Z85.46 Personal history of malignant neoplasm of prostate; Z82.49 Family history of ischemic heart disease and other diseases of the circulatory system; Z86.73 Personal history of transient ischemic attack (TIA), and cerebral infarction without residual deficits; Z90.49 Acquired absence of other specified parts of digestive tract; Z87.891 Personal history of nicotine dependence; Z91.19 Patient's noncompliance with other medical treatment and regimen; Z95.1 Presence of aortocoronary bypass graft; Z95.5 Presence of coronary angioplasty implant and graft; Z91.041 Radiographic dye allergy status; Z91.09 Other allergy status, other than to drugs and biological substances
CPT/HCPCS: 36415; 71010; 71020; 78582; 80048; 80053; 82553; 82962; 83880; 84484; 85025; 87804; 93005; 94620; 96360; 96374; A9540; A9558; J1650; J1815; J1940; J2405; J7030; J7042; J7512; 99285-25

== ENCOUNTER → 2017-02-10 | Outpatient (CLI) | payer OTHER ==
[2017-02-08 11:00] VITALS: BP 129/63
[2017-02-10 14:54] LABS: CALCIUM 9.1 mg/dL (8.5-10.1); CREATININE 1.6 mg/dL (0.7-1.3); GFR 42.6; POTASSIUM 4.3 mmol/L (3.5-5.1)
== END | disposition home or self-care (01) ==
LOC: LAB 14:20
PROVIDERS: ATTEND Internal Medicine Cardiovascular Disease
DX: N17.9 Acute kidney failure, unspecified (principal); N18.9 Chronic kidney disease, unspecified
CPT/HCPCS: 36415; 80048

== ENCOUNTER 2017-03-22 03:45 | Inpatient (IN) | payer OTHER ==
[2017-03-22 04:38] LABS: TROPONIN BY ISTAT 0.03 ng/ml (<0.08)
[2017-03-22] MEDS: NITROGLYCERIN SUBLINGUAL 0.4 MG BOTTLE OF 25. SL (04:53)
[2017-03-22 05:05] LABS: ADD MAN DIFF? NO
[2017-03-22 05:09] LABS: BASO # 0.1 x10^3/uL (0.0-0.2); BASO % 1 % (0-3); EOS # 0.1 x10^3/uL (0.0-0.7); EOS % 1 % (0-3); HEMATOCRIT 39.8 % (39.0-53.0); HEMOGLOBIN 12.6 g/dL (13.0-17.5); LYMPH % 15 % (24-48); MEAN CORPUSCULAR HEMOGLOBIN 29 pg (25-35); MEAN CORPUSCULAR HGB CONC 32 g/dL (31-37); MEAN CORPUSCULAR VOLUME 91 fL (79-100); MONO # 0.6 x10^3/uL (0.0-1.1); MONO % 9 % (0-9); NEUT # 5.3 x10^3uL (1.8-7.7); NEUT % 75 % (31-73); PLATELET COUNT 228 x10^3/uL (140-400); RED BLOOD COUNT 4.39 x10^6/uL (4.30-5.70); RED CELL DISTRIBUTION WIDTH 17.2 % (11.5-14.5); WHITE BLOOD COUNT 7.1 x10^3/uL (4.0-11.0)
[2017-03-22] MEDS: MORPHINE SULFATE 4 MG/ML DISP.SYRIN. IV (05:27)
[2017-03-22 05:30] LABS: ANION GAP 12 (6-14); BLOOD UREA NITROGEN 22 mg/dL (8-26); BUN/CREATININE RATIO 20 (6-20); CALCIUM 8.8 mg/dL (8.5-10.1); CARBON DIOXIDE 26 mmol/L (21-32); CHLORIDE 103 mmol/L (98-107); CREATININE 1.1 mg/dL (0.7-1.3); GFR 65.4; GLUCOSE 90 mg/dL (70-99); POTASSIUM 4.9 mmol/L (3.5-5.1); SODIUM 141 mmol/L (136-145)
[2017-03-22 05:37] LABS: ALBUMIN 3.7 g/dL (3.4-5.0); ALK PHOS 130 U/L (46-116); ALT (SGPT) 19 U/L (16-63); AST (SGOT) 28 U/L (15-37); TOTAL BILIRUBIN 0.3 mg/dL (0.2-1.0); TOTAL PROTEIN 7.5 g/dL (6.4-8.2)
[2017-03-22 05:38] LABS: TROPONINI 0.035 ng/mL (0.000-0.055)
[2017-03-22 05:39] LABS: D-DIMER 2.52 ug/mlFEU (0.00-0.50)
[2017-03-22 05:44] LABS: NT-PRO BNP 6262 pg/mL (0-124)
[2017-03-22 05:44] LABS: CKMB MASS 0.9 ng/mL (0.0-3.6); CREATINE KINASE 86 U/L (39-308)
[2017-03-22 05:52] LABS: LACTIC ACID 1.9 mmol/L (0.4-2.0)
[2017-03-22] MEDS ORDERED: MORPHINE SULFATE 2 MG/ML DISP.SYRIN. IV (06:00)
[2017-03-22] MEDS ORDERED: ONDANSETRON PF 4 MG/2 ML VIAL. IV (06:00)
[2017-03-22 07:12] LABS: POC GLUCOSE 93 mg/dL (70-99)
[2017-03-22] MEDS ORDERED: ANTI-COAG MONITOR BY PHARMACY. MC (09:45)
[2017-03-22] MEDS: NITROGLYCERIN OINT 1 GM PACKET. TP (10:14)
[2017-03-22] MEDS ORDERED: NITROGLYCERIN OINT 1 GM PACKET. TP (10:30)
[2017-03-22] MEDS: sulfaSALAzine 500 MG TABLET PO ×2 (11:01→20:45)
[2017-03-22] MEDS: predniSONE 10 MG TABLET PO ×2 (11:01→20:45)
[2017-03-22] MEDS: METOPROLOL SUCC 24HR ER 50 MG TAB.ER.24H. PO (11:02)
[2017-03-22] MEDS: valACYclovir 500 MG TABLET. PO ×3 (11:02→20:46)
[2017-03-22] MEDS: EZETIMIBE 10 MG TABLET. PO (11:03)
[2017-03-22] MEDS: amLODIPine BESYLATE 5 MG TABLET PO (11:03)
[2017-03-22] MEDS: APIXABAN 5 MG TABLET. PO ×2 (11:03→20:45)
[2017-03-22] MEDS: CLOPIDOGREL BISULFATE 75 MG TABLET PO (11:03)
[2017-03-22] MEDS: FUROSEMIDE 40 MG TABLET. PO (11:03)
[2017-03-22] MEDS: LEVOTHYROXINE 25 MCG TABLET. PO (11:03)
[2017-03-22] MEDS: ALLOPURINOL 300 MG TABLET. PO ×2 (11:03→20:46)
[2017-03-22] MEDS: HYDROcodone/APAP 5/325MG 1 TAB TABLET PO ×2 (11:09→20:44)
[2017-03-22 11:12] LABS: POC GLUCOSE 188 mg/dL (70-99)
[2017-03-22] MEDS: INSULIN DETEMIR 300 UNITS/3 ML INSULN.PEN. SQ ×2 (11:14→20:54)
[2017-03-22] MEDS: LIDOCAINE (700MG/PATCH) PATCH. TD (12:11)
[2017-03-22] MEDS: INSULIN ASPART 300 UNITS/3 ML INSULN.PEN SQ ×2 (12:18→17:28)
[2017-03-22 12:51] LABS: TROPONINI 0.041 ng/mL (0.000-0.055)
[2017-03-22 16:48] LABS: TROPONINI 0.038 ng/mL (0.000-0.055)
[2017-03-22 16:51] LABS: POC GLUCOSE 143 mg/dL (70-99)
[2017-03-22] MEDS: FAMOTIDINE 20 MG TABLET. PO (17:21)
[2017-03-22] MEDS: metFORMIN XR 500 MG TAB.ER.24H PO (17:21)
[2017-03-22] MEDS: LORazepam 0.5 MG TABLET PO (20:45)
[2017-03-22] MEDS: TAMSULOSIN 0.4 MG CAP.ER.24H. PO (20:46)
[2017-03-22 20:51] LABS: POC GLUCOSE 103 mg/dL (70-99)
[2017-03-22] MEDS: MORPHINE SULFATE 2 MG/ML DISP.SYRIN. IV (22:33)
[2017-03-23] MEDS: HYDROcodone/APAP 5/325MG 1 TAB TABLET PO ×2 (04:00→09:48)
[2017-03-23] MEDS: FAMOTIDINE 20 MG TABLET. PO (06:14)
[2017-03-23] MEDS: CLOPIDOGREL BISULFATE 75 MG TABLET PO (06:14)
[2017-03-23 07:14] LABS: POC GLUCOSE 116 mg/dL (70-99)
[2017-03-23] MEDS: LEVOTHYROXINE 25 MCG TABLET. PO (09:48)
[2017-03-23] MEDS: predniSONE 10 MG TABLET PO (09:48)
[2017-03-23] MEDS: amLODIPine BESYLATE 5 MG TABLET PO (09:48)
[2017-03-23] MEDS: LIDOCAINE (700MG/PATCH) PATCH. TD (09:48)
[2017-03-23] MEDS: sulfaSALAzine 500 MG TABLET PO (09:49)
[2017-03-23] MEDS: metFORMIN XR 500 MG TAB.ER.24H PO (09:49)
[2017-03-23] MEDS: APIXABAN 5 MG TABLET. PO (09:49)
[2017-03-23] MEDS: METOPROLOL SUCC 24HR ER 50 MG TAB.ER.24H. PO (09:49)
[2017-03-23] MEDS: FUROSEMIDE 40 MG TABLET. PO (09:49)
[2017-03-23] MEDS: valACYclovir 500 MG TABLET. PO (09:49)
[2017-03-23] MEDS: ALLOPURINOL 300 MG TABLET. PO (09:49)
[2017-03-23] MEDS: EZETIMIBE 10 MG TABLET. PO (09:51)
[2017-03-23] MEDS: INSULIN ASPART 300 UNITS/3 ML INSULN.PEN SQ ×2 (10:00→12:09)
[2017-03-23] MEDS: INSULIN DETEMIR 300 UNITS/3 ML INSULN.PEN. SQ (10:00)
[2017-03-23 11:30] LABS: POC GLUCOSE 180 mg/dL (70-99)
== END 2017-03-23 14:01 | disposition home or self-care (01) | DRG 303 ==
LOC: ER 03:45 → ED HOLD 04:30 → 5 SOUTH 05:25
DX: I25.119 Atherosclerotic heart disease of native coronary artery with unspecified angina pectoris (principal); B02.9 Zoster without complications; E11.22 Type 2 diabetes mellitus with diabetic chronic kidney disease; I48.0 Paroxysmal atrial fibrillation; K51.90 Ulcerative colitis, unspecified, without complications; I13.0 Hypertensive heart and chronic kidney disease with heart failure and stage 1 through stage 4 chronic kidney disease, or unspecified chronic kidney disease; I50.22 Chronic systolic (congestive) heart failure; N40.0 Benign prostatic hyperplasia without lower urinary tract symptoms; Z99.81 Dependence on supplemental oxygen; M10.9 Gout, unspecified; J44.9 Chronic obstructive pulmonary disease, unspecified; E78.00 Pure hypercholesterolemia, unspecified; I87.2 Venous insufficiency (chronic) (peripheral); R79.1 Abnormal coagulation profile; M19.90 Unspecified osteoarthritis, unspecified site; E03.9 Hypothyroidism, unspecified; N18.2 Chronic kidney disease, stage 2 (mild); E78.5 Hyperlipidemia, unspecified; K21.9 Gastro-esophageal reflux disease without esophagitis; Z79.01 Long term (current) use of anticoagulants; Z86.711 Personal history of pulmonary embolism; Z86.73 Personal history of transient ischemic attack (TIA), and cerebral infarction without residual deficits; Z95.1 Presence of aortocoronary bypass graft; Z90.49 Acquired absence of other specified parts of digestive tract; Z82.49 Family history of ischemic heart disease and other diseases of the circulatory system; Z82.3 Family history of stroke; Z95.5 Presence of coronary angioplasty implant and graft; Z88.8 Allergy status to other drugs, medicaments and biological substances; Z91.041 Radiographic dye allergy status
CPT/HCPCS: 36415; 71045; 78582; 80053; 82553; 82962; 83605; 83880; 84484; 85025; 85379; 87040; 93005; 96374; 99291; 99291-25; A9540; A9558; J1815; J2270; J7512

== ENCOUNTER → 2017-11-13 | Outpatient (CLI) | payer OTHER ==
[2017-03-23 11:02] VITALS: BP 138/76
[~2017-11-13] MED LIST changes: -ASPI81TA44 PO; +ASPI81TA59 PO; +HYDR-2758 PO; +INSU100C4 SQ; +INSU100V13 SQ; +LIDO700A39 TD; +LORA0.5T PO; +VALA500T PO
--- NOTE | 2017-11-13 11:48 | CARD ---
MR#: [id number] Date of Study: 11/13/2017 Ordering Physician: CORINE RUSSO, Referring Physician: CORINE RUSSO Tech: Ila Green RDCS APPROVED REPORT EXAM: Two-dimensional and M-mode echocardiogram with Doppler and color Doppler. Other Information Quality : Fair INDICATION Congestive Heart Failure Surgery/Intervention CABG: Date: 2003 2D DIMENSIONS RVDd2.8 (2.9-3.5cm)Left Atrium(2D)4.6 (1.6-4.0cm) IVSd1.0 (0.7-1.1cm)Aortic Root(2D)3.6 (2.0-3.7cm) LVDd6.5 (3.9-5.9cm)LVOT Diameter2.5 (1.8-2.4cm) PWd1.0 (0.7-1.1cm)LVDs5.8 (2.5-4.0cm) FS (%) 11.5 %SV52.8 ml Aortic Valve AoV Peak Emile.109.2cm/sAoV VTI18.4cm AO Peak GR.4.8mmHgLVOT Peak Emile.91.6cm/s AO Mean GR.3mmHgAVA (VMAX)4.10cm2 MARIELLA (VTI)4.40cm2 Tricuspid Valve TR P. [id number]/sRAP [id number] TR Peak Gr.97xyGdPVSD93keAl Pulmonary Vein S1 Iaqpvdqq46.2cm/sD2 Ifdvuirf64.6cm/s LEFT VENTRICLE The Left Ventricle is mildly dilated. There is normal left ventricular wall thickness. Left ventricle systolic function is severely impaired. The Ejection Fraction is 15-20%. There is severe global hypo kinesis of the left ventricle. RIGHT VENTRICLE The right ventricle is normal size. The right ventricular systolic function is normal. ATRIA The left atrium is mildly dilated. The right atrium is mildly dilated. The interatrial septum is inta ct with no evidence for an atrial septal defect or patent foramen ovale as noted on 2-D or Doppler im aging. AORTIC VALVE The aortic valve is calcified but opens well. Doppler and Color Flow revealed trace aortic regurgitat ion. There is no significant aortic valvular stenosis. MITRAL VALVE The mitral valve is calcified but opens well. There is no evidence of mitral valve prolapse. There is no mitral valve stenosis. Doppler and Color-flow revealed moderate mitral regurgitation. TRICUSPID VALVE The tricuspid valve is normal in structure and function. Doppler and Color Flow revealed mild tricusp id regurgitation. There is moderate pulmonary hypertension. The PA pressure was estimated at 45 mmHg. There is no tricuspid valve stenosis. PULMONIC VALVE The pulmonic valve is not well visualized. Doppler and Color Flow revealed trace to mild pulmonic lucy vular regurgitation. There is no pulmonic valvular stenosis. GREAT VESSELS The aortic root is normal in size. The ascending aorta is milldy dilated at 3.5 cm. The IVC is normal in size and collapses >50% with inspiration. PERICARDIAL EFFUSION There is no evidence of significant pericardial effusion. Critical Notification Critical Value: No <Conclusion> The Left Ventricle is mildly dilated. Left ventricle systolic function is severely impaired. The Ejection Fraction is 15-20%. There is severe global hypokinesis of the left ventricle. There is no significant aortic valvular stenosis. Doppler and Color Flow revealed trace aortic regurgitation. Doppler and Color-flow revealed moderate mitral regurgitation. Doppler and Color Flow revealed mild tricuspid regurgitation. There is moderate pulmonary hypertension. The PA pressure was estimated at 45 mmHg. The ascending aorta is milldy dilated at 3.5 cm. Signed by : Anastacio Whittington MD Electronically Approved : 11/13/2017 11:47:47
== END | disposition home or self-care (01) ==
LOC: ECHO 09:49
PROVIDERS: ATTEND Internal Medicine Cardiovascular Disease
DX: I08.8 Other rheumatic multiple valve diseases (principal); I27.20 Pulmonary hypertension, unspecified; I25.2 Old myocardial infarction; I13.0 Hypertensive heart and chronic kidney disease with heart failure and stage 1 through stage 4 chronic kidney disease, or unspecified chronic kidney disease; E11.22 Type 2 diabetes mellitus with diabetic chronic kidney disease; I50.23 Acute on chronic systolic (congestive) heart failure; N18.3 Chronic kidney disease, stage 3 (moderate); K21.9 Gastro-esophageal reflux disease without esophagitis; I25.10 Atherosclerotic heart disease of native coronary artery without angina pectoris; E78.00 Pure hypercholesterolemia, unspecified; E78.5 Hyperlipidemia, unspecified; J44.9 Chronic obstructive pulmonary disease, unspecified; E03.9 Hypothyroidism, unspecified; Z95.5 Presence of coronary angioplasty implant and graft; Z86.73 Personal history of transient ischemic attack (TIA), and cerebral infarction without residual deficits; Z90.49 Acquired absence of other specified parts of digestive tract; Z79.4 Long term (current) use of insulin; Z80.0 Family history of malignant neoplasm of digestive organs; Z83.3 Family history of diabetes mellitus; Z82.49 Family history of ischemic heart disease and other diseases of the circulatory system
CPT/HCPCS: 93306

== ENCOUNTER 2017-11-25 06:31 | Observation (INO) | payer OTHER ==
[~2017-11-25] VITALS: Ht 185.4 cm; Wt 101.6 kg
[2017-11-25] VITALS (13 sets, daily range): BP systolic 107–138; BP diastolic 55–78
[~2017-11-25 06:31] MED LIST changes: -AMLO5TAB2 PO; +AMLO5TAB7 PO; -GEMF600T3 PO; +GEMF600T4 PO
[2017-11-25] MEDS ORDERED: EVOL140S SQ (06:57)
[2017-11-25] MEDS ORDERED: LISI-338 PO (06:57)
[2017-11-25] MEDS ORDERED: KRIL1CAP23 PO (06:57)
[2017-11-25] MEDS ORDERED: METO2.5T PO (06:57)
[2017-11-25] MEDS ORDERED: methylPREDNISolone SOD SUCC PF 125 MG/2 ML VIAL. IV ONE (07:15)
[2017-11-25] MEDS ORDERED: diphenhydrAMINE 50 MG/ML VIAL IVP ONE (07:15)
[2017-11-25] MEDS ORDERED: FAMOTIDINE 20 MG/2 ML VIAL IVP ONE (07:15)
[2017-11-25] MEDS ORDERED: LIDOCAINE 1% PF 2 ML VIAL. ONE (07:16)
[2017-11-25] MEDS ORDERED: IODIXANOL 320 MG/ML 100 ML VIAL. ONE (07:16)
[2017-11-25] MEDS ORDERED: LIDOCAINE 1% PF 30 ML VIAL. ONE (07:23)
[2017-11-25 07:27] LABS: HEMATOCRIT 35.8 % (39.0-53.0); HEMOGLOBIN 11.7 g/dL (13.0-17.5); RED BLOOD COUNT 3.67 x10^6/uL (4.30-5.70); RED CELL DISTRIBUTION WIDTH 18.3 % (11.5-14.5); WHITE BLOOD COUNT 9.7 x10^3/uL (4.0-11.0)
[2017-11-25 07:32] LABS: CALCIUM 8.8 mg/dL (8.5-10.1); CREATININE 1.8 mg/dL (0.7-1.3); GFR 37.1; POTASSIUM 4.5 mmol/L (3.5-5.1)
[2017-11-25] MEDS ORDERED: MIDAZOLAM HCL/PF 2 MG/2 ML VIAL. ONE (07:33)
[2017-11-25] MEDS ORDERED: fentaNYL PF VIAL 100 MCG/2 ML VIAL ONE (07:33)
[2017-11-25 07:36] LABS: PROTHROMBIN TIME PATIENT 13.7 SEC (11.7-14.0)
[2017-11-25] MEDS ORDERED: FAMOTIDINE 20 MG/2 ML VIAL ONE (07:42)
[2017-11-25] MEDS ORDERED: diphenhydrAMINE 50 MG/ML VIAL ONE (07:42)
[2017-11-25] MEDS ORDERED: methylPREDNISolone SOD SUCC PF 125 MG/2 ML VIAL. ONE (07:42)
[2017-11-25] MEDS ORDERED: BIVALIRUDIN 250 MG VIAL. IV ONE ×2 (08:41→09:00)
[2017-11-25] MEDS ORDERED: IODIXANOL 320 MG/ML 100 ML VIAL. IART ONE (09:00)
[2017-11-25] MEDS ORDERED: LIDOCAINE 1% PF 30 ML VIAL. INJ ONE (09:00)
[2017-11-25] MEDS ORDERED: LIDOCAINE 1% PF 2 ML VIAL. INJ ONE (09:00)
[2017-11-25] MEDS ORDERED: fentaNYL PF VIAL 100 MCG/2 ML VIAL IV ONE (09:00)
[2017-11-25] MEDS ORDERED: CONTRAST GIVEN. MC PRN (09:00)
[2017-11-25] MEDS ORDERED: MIDAZOLAM HCL/PF 2 MG/2 ML VIAL. IV ONE (09:00)
[2017-11-25] MEDS ORDERED: NITROGLYCERIN 200 MCG/2 ML SYRINGE FOR CATH/VASC LAB. IART ONE (09:15)
[2017-11-25] MEDS ORDERED: NITROGLYCERIN 200 MCG/2 ML SYRINGE FOR CATH/VASC LAB. ONE (09:44)
[2017-11-25] MEDS ORDERED: ACETAMINOPHEN 325 MG TABLET. PO PRN (10:00)
[2017-11-25] MEDS ORDERED: IV 1/2 NORMAL SALINE 1,000 ML IV SCH (10:00)
[2017-11-25] MEDS ORDERED: CLOPIDOGREL BISULFATE 75 MG TABLET PO SCH (10:00)
[2017-11-25] MEDS ORDERED: NITROGLYCERIN SUBLINGUAL 0.4 MG BOTTLE OF 25. SL PRN (10:00)
--- NOTE | 2017-11-25 10:00 | PDOC ---
MODERATE SEDATION ASSESSMENT RISKS/ALTERNATIVES Risks/Alternatives Risks and alternatives of this type of sedation and procedure discussed with: RISK/ALTERNATIVES: Patient H & P ON CHART H & P H & P on chart and reviewed for co-morbid conditions and appropriate labs. H&P ON CHART: Yes STATUS PREG STATUS ASSESSED: N/A MEDS/ALLERGIES REVIEWED Meds/Allergies Reviewed Medications and Allergies including time and route of recently administered narcotics and sedatives. MEDS/ALLERGIES REVIEWED: Yes ASA RATING ASA RATING: II AIRWAY ASSESSMENT Airway Assessment Airway patency, oral function limitations, presence of caps, crowns, dentures, partials, and ability to extend neck assessed. AIRWAY ASSESSMENT: Yes MALLAMPATI SCORE MALLAMPATI SCORE: II PRE-SEDATION ASSESSMENT PRE-SEDATION ASSESSMENT: Yes CORINE RUSSO MD Nov 25, 2017 10:00
--- NOTE | 2017-11-25 13:08 | CARD ---
MR#: [id number] Date of Study: 11/25/2017 Ordering Physician: CORINE LONG, Referring Physician: CORINE LONG Tech: RT Geovanna (R) APPROVED REPORT Technologist: RT Geovanna (R) Nurse: Procedure(s) performed: 1. Left heart catheterization, selective coronary angiography and selective angiography of the bypass grafts 2. Successful PCI/drug eluting stents placement to the saphenous vein graft to the right coronary ar ashley with distal embolic protection using filter wire Moderate sedation: 75 Minutes INDICATION The indication(s) include : Acute on chronic systolic heart failure, Cardiomyopathy, unstable angina. PROCEDURE NARRATIVE After explaining the risks, benefits and alternative options, informed consent was obtained from stacey ent. Patient was brought to the cardiac [employer] and his right groin was prepped and draped in the us ual fashion. 20 mL of 2% lidocaine was infiltrated into the skin and subcutaneous tissues for local a nesthesia. Arterial access was obtained in the right common femoral artery and a 6 [place] sheath was inserted. 6 [place] JL4 and 6 [place] JR4 catheters placed to perform selective angiography of the left and right coronary arteries. The 6 [place] JR4 catheter was used to perform selective angiography of the saphenous vein/DON 'Y' graft to ramus intermedius and left anterior descending arteries. A 6 Rhys nch multipurpose catheter was used to perform selective angiography of the saphenous vein graft to th e right coronary artery. The left internal mammary artery was harvested for the Y graft and hence was not engaged. LVEDP and transaortic gradients remeasured. Left ventriculography was not performed due to availability of recent 2-D echo and elevated creatinine level. The following findings were noted. FINDINGS 1. Hemodynamics: Elevated left ventricle end-diastolic pressure of 27 mmHg. No pullback gradient ac ross the aortic valve. 2. Coronary and bypass graft angiography: a. The left main coronary artery arose from the left sinus of Valsalva, gave rise to the left anteri or descending, ramus intermedius and left circumflex arteries and did not show any significant stenos is. b. The left anterior descending artery showed 100% occlusion in the proximal segment. c. The ramus intermedius artery showed 70% stenosis in the proximal segment and 90% stenosis in the midsegment. d. The left circumflex artery showed 100% chronic occlusion in the proximal to midsegment. There is distal reconstitution of obtuse marginal branches from left to left collaterals. e. The right coronary artery showed 90% stenosis in the proximal segment followed by 100% occlusion in the midsegment. f. The saphenous vein/left internal mammary artery 'Y' graft to ramus intermedius/LAD did not show an y significant stenosis. The ramus intermedius artery distal to the anastomosis did not show any signi ficant stenosis. The left anterior descending artery distal to the anastomosis showed moderate diffus e disease in the very distal/apical segment. g. The saphenous vein graft to the right coronary artery showed 60% in-stent restenosis in the proxi mal segment, 90% stenosis in the midsegment and 90-95% stenosis in the distal segment. INTERVENTION The saphenous vein graft to the right coronary artery was engaged with a 6 [place] multipurpose guide catheter. The lesions in the graft were crossed with [employer] Filterwire and the filter was deployed in the very distal segment for distal embolic protection. The distal lesion was then treated with a 3.5 x 12 mm resolute yonyn drug-eluting stent, the bid segment lesion treated with a 4.0 x 12 mm resolute yonny drug-eluting stent. The in-stent restenosis was dilated with the 4.0 x 12 mm stent b alloon. The filter wire was then retrieved successfully. Follow-up angiography showed resolution of a ll the lesions to 0% with FRANCISCO-3 distal flow. Patient tolerated the procedure well. Hemostasis in the right groin was achieved using Angio-Seal. There were no immediate complications. Conclusion 1. Severe [place] vessel coronary artery disease s/p CABG with patent SVG/DON Y graft ramus intermed ius/LAD and significant stenoses involving the saphenous vein graft to the right coronary artery as d escribed above 2. Successful PCI/drug eluting stents placement to the mid and distal segments of the saphenous vein graft to the right coronary artery with distal embolic protection using filter wire Recommendations 1. Aspirin 325 mg daily 2. Plavix 75 mg daily for preferably one year 3. Cardiovascular risk factor modification 4. Repeat 2-D echo in 3 months to evaluate the need for biventricular ICD/INSPECTOR PAWNSHOP DETAIL-D implantation Signed by : Corine Long, Electronically Approved : 11/25/2017 13:07:56
[2017-11-25] MEDS ORDERED: HYDROcodone/APAP 5/325MG 1 TAB TABLET PO PRN (13:15)
[2017-11-25] MEDS ORDERED: ANTI-COAG MONITOR BY PHARMACY. MC PRN (14:00)
[2017-11-25] MEDS: ASPIRIN ENTERIC COATED 325 MG TABLET.DR. PO SCH (14:22)
[2017-11-25] MEDS: metOLazone 2.5 MG TABLET PO SCH (14:23)
[2017-11-25] MEDS: FAMOTIDINE 20 MG TABLET. PO SCH (14:23)
[2017-11-25] MEDS: LISINOPRIL 5 MG TABLET. PO SCH (14:24)
[2017-11-25] MEDS: METOPROLOL SUCC 24HR ER 50 MG TAB.ER.24H. PO SCH (14:24)
[2017-11-25] MEDS: INSULIN LISPRO 300 UNITS/3 ML INSULN.PEN. SQ SCH (17:48)
[2017-11-25] MEDS ORDERED: APIXABAN 5 MG TABLET. PO SCH (21:00)
[2017-11-25] MEDS ORDERED: TAMSULOSIN 0.4 MG CAP.ER.24H. PO SCH (21:00)
[2017-11-25] MEDS: sulfaSALAzine 500 MG TABLET PO SCH (21:43)
[2017-11-25] MEDS: predniSONE 10 MG TABLET PO SCH (21:43)
[2017-11-25] MEDS: ALLOPURINOL 300 MG TABLET. PO SCH (21:44)
[2017-11-25] MEDS: INSULIN GLARGINE 300 UNITS/3 ML INSULN.PEN. SQ SCH (22:29)
[2017-11-26 03:13] VITALS: BP 117/73
[2017-11-26 06:45] VITALS: BP 116/68
[2017-11-26] MEDS ORDERED: LEVOTHYROXINE 25 MCG TABLET. PO SCH (07:00)
[2017-11-26] MEDS: sulfaSALAzine 500 MG TABLET PO SCH (08:41)
[2017-11-26] MEDS: ASPIRIN ENTERIC COATED 325 MG TABLET.DR. PO SCH (08:41)
[2017-11-26] MEDS: FAMOTIDINE 20 MG TABLET. PO SCH (08:41)
[2017-11-26] MEDS: METOPROLOL SUCC 24HR ER 50 MG TAB.ER.24H. PO SCH (08:43)
[2017-11-26] MEDS: ALLOPURINOL 300 MG TABLET. PO SCH (08:43)
[2017-11-26] MEDS: predniSONE 10 MG TABLET PO SCH (08:43)
[2017-11-26] MEDS: metOLazone 2.5 MG TABLET PO SCH (08:43)
[2017-11-26 08:44] VITALS: BP 116/68
[2017-11-26] MEDS: LISINOPRIL 5 MG TABLET. PO SCH (08:44)
[2017-11-26] MEDS: INSULIN GLARGINE 300 UNITS/3 ML INSULN.PEN. SQ SCH (08:52)
[2017-11-26] MEDS: INSULIN LISPRO 300 UNITS/3 ML INSULN.PEN. SQ SCH (08:53)
[2017-11-26] MEDS ORDERED: CLOPIDOGREL BISULFATE 75 MG TABLET PO SCH (09:00)
[2017-11-26] MEDS ORDERED: FUROSEMIDE 40 MG TABLET. PO SCH (09:00)
[2017-11-26] MEDS ORDERED: amLODIPine BESYLATE 5 MG TABLET PO SCH (09:00)
[2017-11-26] MEDS ORDERED: ASPI325T11 PO (11:00)
--- NOTE | 2017-11-26 11:12 | PDOC3 ---
NINOSKA SALDANA MINE PROMOTOR 11/26/17 1112: *Discharge Summary* Date of Admission: Nov 25, 2017 Date of Discharge: Nov 26, 2017 Admitting Diagnosis 1. severe [place] CAD with atherosclerotic bypass grafts and exertional angina 2. ischemic cardiomyopathy, LVEF 15-20% 3. chronic systolic heart failure, compensated 4. PAF with anticoagulation 5. hyperlipidemia 6. DM, II 7. COPD Final Diagnosis 1. severe [place] CAD with atherosclerotic bypass grafts and exertional angina; s/p PCI/ROSIE to mid and distal portion of SVG to RCA 2. ischemic cardiomyopathy, LVEF 15-20% 3. chronic systolic heart failure, compensated 4. PAF with anticoagulation 5. hyperlipidemia 6. DM, II 7. COPD Procedures 11/25/2017: cath: 1. Hemodynamics: Elevated left ventricle end-diastolic pressure of 27 mmHg. No pullback gradient across the aortic valve. 2. Coronary and bypass graft angiography: a. The left main coronary artery arose from the left sinus of Valsalva, gave rise to the left anterior descending, ramus intermedius and left circumflex arteries and did not show any significant stenosis. b. The left anterior descending artery showed 100% occlusion in the proximal segment. c. The ramus intermedius artery showed 70% stenosis in the proximal segment and 90% stenosis in the midsegment. d. The left circumflex artery showed 100% chronic occlusion in the proximal to midsegment. There is distal reconstitution of obtuse marginal branches from left to left collaterals. e. The right coronary artery showed 90% stenosis in the proximal segment followed by 100% occlusion in the midsegment. f. The saphenous vein/left internal mammary artery 'Y' graft to ramus intermedius/LAD did not show any significant stenosis. The ramus intermedius artery distal to the anastomosis did not show any significant stenosis. The left anterior descending artery distal to the anastomosis showed moderate diffuse disease in the very distal/apical segment. g. The saphenous vein graft to the right coronary artery showed 60% in-stent restenosis in the proximal segment, 90% stenosis in the midsegment and 90-95% stenosis in the distal segment. Conclusion 1. Severe [place] vessel coronary artery disease s/p CABG with patent SVG/DON Y graft ramus intermedius/LAD and significant stenoses involving the saphenous vein graft to the right coronary artery as described above 2. Successful PCI/drug eluting stents placement to the mid and distal segments of the saphenous vein graft to the right coronary artery with distal embolic protection using filter wire Brief Hospital Course Mr. Bustos is a 72 old male evaluated in the office with complaints of AZAR and with a TTE demonstrating a LVEF of 15-20% which was a new finding for him. Known history of [place] artery CAD and previous PCI/ROSIE to RCA graft. Cardiac cath recommended to evaluate sudden drop in LVEF and completed yesterday with findings and intervention above. Monitored overnight without complications. No dysrhythmias on telemetry. 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 Ambulating without difficulty. Disposition/Orders: D/C to Home CONDITION AT DISCHARGE: Stable Diet: 2 gr sodium, Cardiac, Consistent Carbohydrate Home Meds Active Scripts Aspirin (ASPIRIN EC) 325 Mg Tablet., 325 MG PO DAILYWBKFT for 90 Days, #90 TAB.SR Prov:NINOSKA SALDANA MINE PROMOTOR 11/26/17 Hydrocodone Bit/Acetaminophen (HYDROCODONE-APAP 5-325 ) 1 Each Tablet, 1 TAB PO PRN Q4HRS PRN for PAIN, #35 TAB Prov:JACK VALENTINE MD 03/21/17 Furosemide (LASIX) 40 Mg Tablet, 1 TAB PO DAILY, #90 TAB 1 Refill Prov:MARLENA RAI MD 04/17/16 Reported Medications Evolocumab (Repatha Syringe) 140 Mg/1 Ml Syringe, 140 MG SQ, SYR 11/25/17 Krill/Om-3/Dha/Epa/Phospho/Ast (Megared [place]-3 Krill Oil Sfgl) 1 Each Capsule, 1 EACH PO DAILY, CAP 11/25/17 Metolazone (METOLAZONE) 2.5 Mg Tablet, 2.5 MG PO DAILY, #30 TAB 0 Refills 11/25/17 Lisinopril (LISINOPRIL) 5 Mg Tablet, 5 MG PO DAILY for FOR HYPERTENSION, #30 TAB 0 Refills 11/25/17 Insulin Detemir (LEVEMIR) 100 Unit/1 Ml Vial, 15 UNIT SQ BID (0800, 2100), VIAL 03/22/17 Insulin Aspart (NOVOLOG) 100 Unit/1 Ml Cartridge, 15 UNIT SQ TIDAC, EACH 03/22/17 Amlodipine Besylate (AMLODIPINE BESYLATE) 5 Mg Tablet, 10 MG PO DAILY, TAB 02/04/17 Metoprolol Succinate (TOPROL XL) 50 Mg Tab.er.24h, 1 TAB PO DAILY, #30 TAB 5 Refills 02/04/17 Apixaban (ELIQUIS) 5 Mg Tablet, 5 MG PO BID, TAB 02/04/17 Zinc (ZINC) 50 Mg Tablet, 50 MG PO DAILY08, TAB 02/01/17 Vitamin E Mixed (VITAMIN E) 400 Unit Capsule, 400 UNIT PO DAILY16, CAP 02/01/17 Prednisone (PREDNISONE ) 10 Mg Tablet, 10 MG PO BID, TAB 02/01/17 Sulfasalazine (SULFASALAZINE) 500 Mg Tablet, 1000 MG PO BID 04/15/16 Clopidogrel Bisulfate (CLOPIDOGREL) 75 Mg Tablet, 75 MG PO DAILY for TO PREVENT BLOOD CLOTS, #30 TAB 0 Refills 04/15/16 Ergocalciferol (Vitamin D2) (VITAMIN D2) 50,000 Unit Capsule, 16591 UNIT PO WEEKLY 02/28/15 Metformin Hcl (METFORMIN HCL ER) 500 Mg Tab.er.24h, 2 TAB PO BID76, #90 TAB 3 Refills 01/06/14 Multivits-Min/Fa/Lycopene/Lut (CENTRUM SILVER TABLET) 1 Each Tablet, 1 EACH PO DAILY 09/14/13 Famotidine (PEPCID) 20 Mg Tablet, 20 MG PO BID76, TAB 09/14/13 Tamsulosin Hcl (TAMSULOSIN HCL) 0.4 Mg Cap.er.24h, 0.4 MG PO HS, TAB 09/14/13 Allopurinol (ALLOPURINOL) 300 Mg Tablet, 300 MG PO BID, TAB 09/14/13 Levothyroxine Sodium (LEVOTHYROXINE SODIUM) 25 Mcg Tablet, 25 MCG PO DAILYAC for THYROID SUPPLEMENT, #30 TAB 0 Refills 09/14/13 Discontinued Reported Medications Cod Liver Oil (COD LIVER OIL) 1 Each Capsule, 1 EACH PO DAILY08, CAP 02/01/17 Discontinued Scripts Lidocaine (Lidocaine) 1 Each Adh..patch, 1 PATCH TD DAILY, #10 PATCH Prov:JACK VALENTINE MD 03/21/17 Scheduled Allopurinol (Allopurinol), 300 MG PO BID, (Reported) Amlodipine Besylate (Amlodipine Besylate), 10 MG PO DAILY, (Reported) Apixaban (Eliquis), 5 MG PO BID, (Reported) Aspirin (Aspirin Ec), 325 MG PO DAILYWBKFT Clopidogrel Bisulfate (Clopidogrel), 75 MG PO DAILY, (Reported) Ergocalciferol (Vitamin D2) (Vitamin D2), 50,000 UNIT PO WEEKLY, (Reported) Famotidine (Pepcid), 20 MG PO BID76, (Reported) Furosemide (Lasix), 1 TAB PO DAILY Insulin Aspart (Novolog), 15 UNIT SQ TIDAC, (Reported) Insulin Detemir (Levemir), 15 UNIT SQ BID (0800, 2100), (Reported) Krill/Om-3/Dha/Epa/Phospho/Ast (Megared [place]-3 Krill Oil Sfgl), 1 EACH PO DAILY , (Reported) Levothyroxine Sodium (Levothyroxine Sodium), 25 MCG PO DAILYAC, (Reported) Lisinopril (Lisinopril), 5 MG PO DAILY, (Reported) Metformin Hcl (Metformin Hcl Er), 2 TAB PO BID76, (Reported) Metolazone (Metolazone), 2.5 MG PO DAILY, (Reported) Metoprolol Succinate (Toprol Xl), 1 TAB PO DAILY, (Reported) Multivits-Min/Fa/Lycopene/Lut (Centrum Silver Tablet), 1 EACH PO DAILY, ( Reported) Prednisone (Prednisone ), 10 MG PO BID, (Reported) Sulfasalazine (Sulfasalazine), 1,000 MG PO BID, (Reported) Tamsulosin Hcl (Tamsulosin Hcl), 0.4 MG PO HS, (Reported) Vitamin E Mixed (Vitamin E), 400 UNIT PO DAILY16, (Reported) Zinc (Zinc), 50 MG PO DAILY08, (Reported) Scheduled PRN Hydrocodone Bit/Acetaminophen (Hydrocodone-Apap 5-325 ), 1 TAB PO PRN Q4HRS PRN for PAIN Miscellaneous Medications Evolocumab (Repatha Syringe), 140 MG SQ, (Reported) Discontinued Medications Cod Liver Oil (Cod Liver Oil), 1 EACH PO DAILY08, (Reported) Lidocaine (Lidocaine), 1 PATCH TD DAILY Scripts Aspirin (ASPIRIN EC) 325 Mg Tablet. 325 MG PO DAILYWBKFT for 90 Days, #90 TAB.SR Prov: NINOSKA SALDANA MINE PROMOTOR 11/26/17 FOLLOW UP APPOINTMENT: [address] Eva Long TTE in 3 months PCP 7-10 days Time Spent Total time spent with patient [ 35 ] minutes for coordination of care, counseling, and education. CORINE LONG MD 11/26/17 1614: *Discharge Summary* Brief Hospital Course Patient seen and examined. Agree with SALES PLANNING COORDINATOR's assessment and plan. Patient underwent successful PCI/ROSIE to SVG to RCA with distal embolic protection yesterday. He is presently chest pain-free, hemodynamically stable and arteriotomy site looks good. Continue dual antiplatelet therapy. Follow-up with our office in 1 month. NINOSKA SALDANA APRN Nov 26, 2017 11:12 CORINE LONG MD Nov 26, 2017 16:14
== END 2017-11-26 12:18 | disposition home or self-care (01) ==
LOC: CCL 06:31 → INTOOBSV 09:22 → 2 NORTH 09:22
PROVIDERS: ADMIT Internal Medicine Cardiovascular Disease; ATTEND Internal Medicine Cardiovascular Disease
DX: I25.119 Atherosclerotic heart disease of native coronary artery with unspecified angina pectoris (principal); T82.855A Stenosis of coronary artery stent, initial encounter; I25.82 Chronic total occlusion of coronary artery; E78.5 Hyperlipidemia, unspecified; E11.9 Type 2 diabetes mellitus without complications; I25.5 Ischemic cardiomyopathy; I48.0 Paroxysmal atrial fibrillation; I50.22 Chronic systolic (congestive) heart failure; J44.9 Chronic obstructive pulmonary disease, unspecified; Y83.1 Surgical operation with implant of artificial internal device as the cause of abnormal reaction of the patient, or of later complication, without mention of misadventure at the time of the procedure; Z91.041 Radiographic dye allergy status; Z95.1 Presence of aortocoronary bypass graft
CPT/HCPCS: 36415; 80048; 82962; 85027; 85610; 93459; 96372; 96374; 96375; C1769; C1771; C1874; C1887; C1892; C9604; G0269; G0378; G0379; J0583; J1200; J1644; J1815; J2250; J2930; J3010; J3490; J7512; S0028; 92937; 99152; 99153

== ENCOUNTER 2017-12-13 08:05 | Emergency (ER) | payer OTHER ==
[~2017-12-13] VITALS: Ht 172.7 cm; Wt 101.6 kg
[~2017-12-13 08:05] MED LIST changes: +ASPI325T11 PO; +EVOL140S SQ; +KRIL1CAP23 PO; +METO2.5T PO
--- NOTE | 2017-12-13 08:25 | PHYS DOC ---
Past Medical History Past Medical History: A-Fib, Arrhythmia, CAD, CHF, Diabetes-Type II, High Cholesterol, Hypertension, Hypothyroid Additional Past Medical Histor: gout, left hip pain, prostate, ulcerative colitis Past Surgical History: Appendectomy, Cholecystectomy, Coronary Bypass Surgery, Other Additional Past Surgical Histo: 2 open heart surgeries, bilat lower extremity "ablasions" 08/2015 Alcohol Use: Occasionally Drug Use: None Adult General Chief Complaint Chief Complaint: HEADACHE HPI HPI Patient is a 72 year old male with a history of A. fib, hypertension, high cholesterol, diabetes type 2, CHF, CAD, who presents today complaining over 10 out of 10 right sided headache that began at 2 AM. Patient states he woke up at 2 am and realized he has a headache denies this headache waking up him. He states "I just have a headache". He is also complaining of nausea with no vomiting. Patient denies this being the worst headache in his life. Denies any chest pain, denies any shortness of breath. He states he is on Eliquis, aspirin and Plavix. Patient denies any neck pain. Denies any nuchal rigidity. Denies any fever cough and congestion. Denies anything exacerbating or making his headache better. Patient states he had a cardiac cath. two weeks ago. PCP Dr. Gomez Vice President Of Procurement Dr. Long Review of Systems Review of Systems Constitutional: Denies fever or chills [] Eyes: Denies change in visual acuity, redness, or eye pain [] HENT: Denies nasal congestion or sore throat [] Respiratory: Denies cough or shortness of breath [] Cardiovascular: No additional information not addressed in HPI [] GI: Reports nausea. Denies abdominal pain, vomiting, bloody stools or diarrhea [ ] : Denies dysuria or hematuria [] Musculoskeletal: Denies back pain or joint pain [] Integument: Denies rash or skin lesions [] Neurologic: Reports headache, denies focal weakness or sensory changes [] All other systems were reviewed and found to be within normal limits, except as documented in this note. Current Medications Current Medications Current Medications Medications (Trade) Dose Ordered Sig/Nickie Start Time Stop Time Status Last Admin Dose Admin Dexamethasone Sodium Phosphate (Decadron) 10 mg 1X ONCE 12/13/17 08:30 12/13/17 08:31 DC 12/13/17 08:38 10 MG Prochlorperazine Edisylate (Compazine) 10 mg 1X ONCE 12/13/17 08:30 12/13/17 08:31 DC 12/13/17 08:39 10 MG Sodium Chloride 1,000 ml @ 1,000 mls/hr 1X ONCE 12/13/17 08:30 12/13/17 09:29 DC 12/13/17 08:38 1,000 MLS/HR Allergies Allergies Allergies Coded Allergies Type Severity Reaction Last Updated Verified Iodinated Contrast- Oral and IV Dye Allergy Intermediate Hives 09/14/13 Yes pravastatin Allergy Intermediate 01/06/14 Yes Ldfltev-Lwa-Nbv Reductase Inhibitor Adverse Reaction Intermediate 02/03/17 Yes Physical Exam Physical Exam Constitutional: Well developed, well nourished, no acute distress, non-toxic appearance. [] HENT: Normocephalic, atraumatic, bilateral external ears normal, oropharynx moist, no oral exudates, nose normal. [] Eyes: PERRLA, EOMI, conjunctiva normal, no discharge. [] Neck: Normal range of motion, no tenderness, supple, no stridor. [] Cardiovascular:Heart rate regular rhythm, old healed surgical incision noted midline chest. Lungs & Thorax: Bilateral breath sounds clear to auscultation [] Abdomen: Bowel sounds normal, soft, no tenderness, no masses, no pulsatile masses. [] Skin: Warm, dry, no erythema, no rash. [] Back: No tenderness, no CVA tenderness. [] Extremities: No tenderness, no cyanosis, no clubbing, ROM intact, chronic +1 edema to BLE Neurologic: Alert and oriented X 3, normal motor function, normal sensory function, no focal deficits noted. Cranial nerves II through XII intact. 5/5 equal strength to bilateral upper and lower extremities Psychologic: Affect normal, judgement normal, mood normal. [] Current Patient Data Vital Signs Vital Signs Date Time Temp Pulse Resp B/P (MAP) Pulse Ox O2 Delivery O2 Flow Rate FiO2 12/13/17 10:27 80 99 12/13/17 08:29 98.6 16 137/70 (92) Room Air 98.6 Lab Values Laboratory Tests Test 12/13/17 08:20 White Blood Count 8.2 x10^3/uL (4.0-11.0) Red Blood Count 3.50 x10^6/uL (4.30-5.70) L Hemoglobin 11.2 g/dL (13.0-17.5) L Hematocrit 34.3 % (39.0-53.0) L Mean Corpuscular Volume 98 fL (79-100) Mean Corpuscular Hemoglobin 32 pg (25-35) Mean Corpuscular Hemoglobin Concent 33 g/dL (31-37) Red Cell Distribution Width 18.6 % (11.5-14.5) H Platelet Count 165 x10^3/uL (140-400) Neutrophils (%) (Auto) 72 % (31-73) Lymphocytes (%) (Auto) 16 % (24-48) L Monocytes (%) (Auto) 7 % (0-9) Eosinophils (%) (Auto) 3 % (0-3) Basophils (%) (Auto) 1 % (0-3) Neutrophils # (Auto) 6.0 x10^3uL (1.8-7.7) Lymphocytes # (Auto) 1.3 x10^3/uL (1.0-4.8) Monocytes # (Auto) 0.6 x10^3/uL (0.0-1.1) Eosinophils # (Auto) 0.2 x10^3/uL (0.0-0.7) Basophils # (Auto) 0.1 x10^3/uL (0.0-0.2) Sodium Level 144 mmol/L (136-145) Potassium Level 4.0 mmol/L (3.5-5.1) Chloride Level 106 mmol/L (98-107) Carbon Dioxide Level 27 mmol/L (21-32) Anion Gap 11 (6-14) Blood Urea Nitrogen 48 mg/dL (8-26) H Creatinine 1.5 mg/dL (0.7-1.3) H Estimated GFR (Cockcroft-Gault) 45.7 BUN/Creatinine Ratio 32 (6-20) H Glucose Level 90 mg/dL (70-99) Calcium Level 9.3 mg/dL (8.5-10.1) Magnesium Level 1.9 mg/dL (1.8-2.4) Total Bilirubin 0.4 mg/dL (0.2-1.0) Aspartate Amino Transferase (AST) 16 U/L (15-37) Alanine Aminotransferase (ALT) 22 U/L (16-63) Alkaline Phosphatase 117 U/L (46-116) H Troponin I Quantitative 0.048 ng/mL (0.000-0.055) TK-Bza-P-Type Natriuretic Peptide 4403 pg/mL (0-124) H Total Protein 6.8 g/dL (6.4-8.2) Albumin 3.6 g/dL (3.4-5.0) Albumin/Globulin Ratio 1.1 (1.0-1.7) Laboratory Tests 12/13/17 08:20 Laboratory Tests 12/13/17 08:20 EKG EKG 08:[address] Lamb sinus rhythm, HR [address] changes EKG compared to the one done 03/22/2017 no changes. Radiology/Procedures Radiology/Procedures [] Course & Med Decision Making Course & Med Decision Making Pertinent Labs and Imaging studies reviewed. (See chart for details) This is a 72-year-old male patient presented to the ED today with complaints of right-sided headache with nausea that began at 2 AM. Patient is not a TPA candidate. Off note patient's is also in the ED evaluated for other illnesses. CT of the head was negative for any acute findings, chest x-ray is negative for any acute findings, patient's labs are negative for neck pain acute. Patient was given Decadron, Compazine and 1 L of IV fluids. He states his headache has improved. Spoke with Dr. Baumann, he requested we discharge patient home as he can follow-up with his clinic in 1-2 days. Dragon Disclaimer Dragon Disclaimer This electronic medical record was generated, in whole or in part, using a voice recognition dictation system. Departure Departure Impression: Primary Impression: Headache Additional Impressions: Chronic renal failure Nausea Disposition: HOME, SELF-CARE Condition: STABLE Referrals: GARCÍA GOMEZ MD (PCP) follow up next week CARLOS BAUMANN MD call his office on Friday and follow up in 1-2 days Patient Instructions: General Headache Without Cause Additional Instructions: You were evaluated in the emergency room for a headache. Take Tylenol as needed for the headache. You can take the prescribed nausea medicine as needed. Follow- up with the primary care doctor as well as the provided urologist in 1-2 days. Scripts Prochlorperazine Maleate (Compazine) 10 Mg Tablet 10 MG PO TID, #20 TAB Prov: OCTAVIO BUCKNER APRN 12/13/17 Problem Qualifiers Primary Impression: Headache Headache type: unspecified Headache chronicity pattern: acute headache Intractability: not intractable Qualified Codes: R51 - Headache Additional Impressions: Chronic renal failure Chronic kidney disease stage: unspecified stage Qualified Codes: N18.9 - Chronic kidney disease, unspecified OCTAVIO BUCKNER APRN Dec 13, 2017 08:25
[2017-12-13] MEDS ORDERED: IV NORMAL SALINE 1000ML BAG 1,000 ML IV ONE (08:30)
[2017-12-13] MEDS ORDERED: PROCHLORPERAZINE 10 MG/2 ML VIAL. IV ONE (08:30)
[2017-12-13] MEDS ORDERED: DEXAMETHASONE SOD PHOS 20 MG/5 ML VIAL. IV ONE (08:30)
[2017-12-13 08:34] LABS: BASO # 0.1 x10^3/uL (0.0-0.2); BASO % 1 % (0-3); EOS # 0.2 x10^3/uL (0.0-0.7); EOS % 3 % (0-3); HEMATOCRIT 34.3 % (39.0-53.0); HEMOGLOBIN 11.2 g/dL (13.0-17.5); LYMPH # 1.3 x10^3/uL (1.0-4.8); LYMPH % 16 % (24-48); MEAN CORPUSCULAR HEMOGLOBIN 32 pg (25-35); MEAN CORPUSCULAR HGB CONC 33 g/dL (31-37); MEAN CORPUSCULAR VOLUME 98 fL (79-100); MONO # 0.6 x10^3/uL (0.0-1.1); MONO % 7 % (0-9); NEUT % 72 % (31-73); PLATELET COUNT 165 x10^3/uL (140-400); RED CELL DISTRIBUTION WIDTH 18.6 % (11.5-14.5); WHITE BLOOD COUNT 8.2 x10^3/uL (4.0-11.0)
--- NOTE | 2017-12-13 08:37 | RAD ---
EXAM: CHEST 1 VIEW INDICATION: Headache, chest discomfort COMPARISON: 03/22/2017 TECHNIQUE: Single portable radiograph of the chest FINDINGS: Mild cardiomegaly. Minimal bibasilar lung atelectasis. The costophrenic sulci are clear and well demarcated. IMPRESSION: Minimal bibasilar lung atelectasis. Electronically signed by: Noe Olsen MD (12/13/2017 8:34 AM) [facility]
[2017-12-13 08:43] LABS: CALCIUM 9.3 mg/dL (8.5-10.1); CREATININE 1.5 mg/dL (0.7-1.3); GFR 45.7
[2017-12-13 08:49] LABS: ALBUMIN 3.6 g/dL (3.4-5.0); ALBUMIN/GLOBULIN RATIO 1.1 (1.0-1.7); MAGNESIUM 1.9 mg/dL (1.8-2.4); TOTAL BILIRUBIN 0.4 mg/dL (0.2-1.0); TOTAL PROTEIN 6.8 g/dL (6.4-8.2)
--- NOTE | 2017-12-13 09:06 | RAD ---
CT HEAD INDICATION: headache, hx of prior cva COMPARISON: 09/12/2015 TECHNIQUE: 5 mm contiguous axial images were obtained from the skull base to the vertex in both bone and soft tissue algorithm. Exposure: One or more of the following individualized dose reduction techniques were utilized for this examination: 1. Automated exposure control 2. Adjustment of the mA and/or kV according to patient size 3. Use of iterative reconstruction technique FINDINGS: Mild bilateral periventricular white matter hypodensities likely chronic small vessel ischemic disease. No evidence of acute intracranial hemorrhage. No extra-axial fluid collections. No mass effect or midline shift. Ventricular size is appropriate. Basal cisterns are patent. No fractures identified.Moreland-white differentiation is preserved.Globes and orbits are within normal limits. Paranasal sinuses and mastoid air cells are clear. IMPRESSION: No acute intracranial findings. Electronically signed by: Noe Olsen MD (12/13/2017 9:02 AM) [facility]
--- NOTE | 2017-12-13 09:11 | EKG ---
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
[2017-12-13 10:27] VITALS: BP 139/70
[2017-12-13] MEDS ORDERED: PROC10TA57 PO (10:52)
== END 2017-12-13 11:27 | disposition home or self-care (01) ==
LOC: ER 08:05
DX: R51 Headache (principal); I13.0 Hypertensive heart and chronic kidney disease with heart failure and stage 1 through stage 4 chronic kidney disease, or unspecified chronic kidney disease; E11.22 Type 2 diabetes mellitus with diabetic chronic kidney disease; N18.9 Chronic kidney disease, unspecified; R11.0 Nausea; I50.9 Heart failure, unspecified; I48.91 Unspecified atrial fibrillation; I25.10 Atherosclerotic heart disease of native coronary artery without angina pectoris; E03.9 Hypothyroidism, unspecified; E78.00 Pure hypercholesterolemia, unspecified; M10.9 Gout, unspecified; Z90.49 Acquired absence of other specified parts of digestive tract; Z90.89 Acquired absence of other organs; Z95.1 Presence of aortocoronary bypass graft; Z98.890 Other specified postprocedural states
CPT/HCPCS: 36415; 70450; 71045; 80053; 83735; 83880; 84484; 85025; 93005; 96374; 96375; 99285; J0780; J1100; J7030

== ENCOUNTER → 2018-03-19 | Outpatient (CLI) | payer OTHER ==
[~2018-03-19] MED LIST changes: -GABA-586 PO; +GABA300C18 PO; -GEMF600T4 PO; +GEMF600T8 PO; -HYDR-2758 PO; +HYDR-2761 PO; +PROC10TA57 PO; -ZINC50TA29 PO; +ZINC50TA39 PO
--- NOTE | 2018-03-19 12:44 | CARD ---
MR#: [id number] Date of Study: 03/19/2018 Ordering Physician: CORINE RUSSO, Referring Physician: CORINE RUSSO Tech: Sultana Beatty CONTRERAS APPROVED REPORT EXAM: Two-dimensional and M-mode echocardiogram with Doppler and color Doppler. Other Information Quality : AverageHR: 96bpm Rhythm : NSR INDICATION Congestive Heart Failure 2D DIMENSIONS RVDd3.1 (2.9-3.5cm)Left Atrium(2D)4.7 (1.6-4.0cm) IVSd1.2 (0.7-1.1cm)Aortic Root(2D)3.7 (2.0-3.7cm) LVDd6.0 (3.9-5.9cm)LVOT Diameter2.3 (1.8-2.4cm) PWd0.9 (0.7-1.1cm)LVDs5.0 (2.5-4.0cm) FS (%) 15.9 %SV58.2 ml LVEF(%)32.9 (>50%) M-Mode DIMENSIONS Left Atrium(MM)4.76 (2.5-4.0cm)Aortic Root3.91 (2.2-3.7cm) Aortic Valve AoV Peak Emile.137.8cm/sAoV VTI26.1cm AO Peak GR.7.6mmHgLVOT Peak Emile.87.3cm/s AO Mean GR.4mmHgAVA (VMAX)2.64cm2 MARIELLA (VTI)2.60cm2 Mitral Valve MV E Xkutoudy218.1cm/sMV DECEL CUTO370jt MV A Igzwimla244.6cm/sE/A Ratio1.0 MV A Hbochjut70wq Pulmonary Valve PV Peak Qfjhbwcz540.2cm/s Pulmonary Vein S1 Pegreylo14.2cm/sD2 Ztrcmjak61.6cm/s LEFT VENTRICLE The Left Ventricle is mildly dilated. Proximal septal thickening is noted. The systolic function is m oderately impaired. The Ejection Fraction is 30-35%. There is global hypokinesis with septal motion s uggestive of conduction defect. Tissue Doppler imaging reveals moderate left ventricular diastolic dy sfunction. No left ventricle thrombus noted on this study. RIGHT VENTRICLE The right ventricle is normal size. There is normal right ventricular wall thickness. The right ventr icular systolic function is normal. ATRIA The left atrium is moderately dilated. The right atrium is mildly dilated. The interatrial septum is intact with no evidence for an atrial septal defect or patent foramen ovale as noted on 2-D or Dopple r imaging. AORTIC VALVE The aortic valve is calcified and cannot rule out bicuspid valve. Doppler and Color Flow revealed tra ce aortic regurgitation. There is no significant aortic valvular stenosis. MITRAL VALVE Mitral annular calcification is mild. There is no evidence of mitral valve prolapse. There is no mitr al valve stenosis. Doppler and Color-flow revealed trace to mild mitral regurgitation. TRICUSPID VALVE The tricuspid valve is normal in structure and function. Doppler and Color Flow revealed no tricuspid valve regurgitation noted. There is no tricuspid valve prolapse or vegetation. There is no tricuspid valve stenosis. PULMONIC VALVE Pulmonic valve not well visualized. GREAT VESSELS The aortic root is mildly enlarged. The ascending aorta is mildly dilated at 3.7 cm. The IVC is carisa l in size and collapses >50% with inspiration. PERICARDIAL EFFUSION There is no evidence of significant pericardial effusion. Critical Notification Critical Value: No <Conclusion> The systolic function is moderately impaired. The Ejection Fraction is 30-35%. There is global hypokinesis with septal motion suggestive of conduction defect. The aortic valve is calcified and cannot rule out bicuspid valve. The ascending aorta is mildly dilated at 3.7 cm. Signed by : Roberto Sethi, Electronically Approved : 03/19/2018 12:42:58
== END | disposition home or self-care (01) ==
LOC: ECHO 09:40
PROVIDERS: ATTEND Internal Medicine Cardiovascular Disease
DX: I34.0 Nonrheumatic mitral (valve) insufficiency (principal); I25.10 Atherosclerotic heart disease of native coronary artery without angina pectoris; I11.0 Hypertensive heart disease with heart failure; I50.22 Chronic systolic (congestive) heart failure; Z87.891 Personal history of nicotine dependence; Z79.01 Long term (current) use of anticoagulants
CPT/HCPCS: 93306

== ENCOUNTER 2018-04-10 10:35 | Observation (INO) | payer OTHER ==
[2018-04-10] VITALS (10 sets, daily range): BP systolic 91–126; BP diastolic 49–64
[~2018-04-10] VITALS: Ht 185.4 cm; Wt 97.7 kg
[~2018-04-10 10:35] MED LIST changes: +AMLO5TAB10 PO; -AMLO5TAB7 PO; +HYDROmorphone 2 MG/ML VIAL IV PRN; +IODIXANOL 320 MG/ML 100 ML VIAL. ONE; +IV RINGERS,LACTATED 1000ML 1,000 ML IV SCH; +LIALDA1.2 GM PO; +LIDO700A21 TD; -LIDO700A39 TD; +LIDOCAINE 1% PF 2 ML VIAL. ID PRN; +LIDOCAINE 2%/EPI 1:100,000 20 ML VIAL. ONE; -MESA1.2T PO; +MORPHINE SULFATE 4 MG/ML VIAL. IV PRN; +ONDANSETRON PF 4 MG/2 ML VIAL. IV PRN; +PROCHLORPERAZINE 10 MG/2 ML VIAL. IV PRN; -TIZA2TAB PO; +TIZA2TAB2 PO; +fentaNYL PF VIAL 100 MCG/2 ML VIAL IV PRN
[2018-04-10] MEDS ORDERED: BACITRACIN 50,000 UNIT in IV NORMAL SALINE 250ML 250 ML IRR ONE (11:15)
--- NOTE | 2018-04-10 11:16 | EKG ---
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
[2018-04-10] MEDS ORDERED: MIDAZOLAM HCL/PF 2 MG/2 ML VIAL. ONE (11:17)
[2018-04-10] MEDS ORDERED: PROPOFOL 20 ML IV ONE (11:18)
[2018-04-10] MEDS ORDERED: KETAMINE HCL IN NACL, ISO-OSM 50 MG/5 ML SYRINGE ONE ×2 (11:18→13:10)
[2018-04-10] MEDS ORDERED: PROPOFOL 100 ML IV ONE (11:19)
[2018-04-10 11:20] LABS: HEMATOCRIT 33.9 % (39.0-53.0); HEMOGLOBIN 10.9 g/dL (13.0-17.5); RED BLOOD COUNT 3.45 x10^6/uL (4.30-5.70); RED CELL DISTRIBUTION WIDTH 18.6 % (11.5-14.5); WHITE BLOOD COUNT 7.2 x10^3/uL (4.0-11.0)
[2018-04-10 11:27] LABS: CALCIUM 9.3 mg/dL (8.5-10.1); CREATININE 2.3 mg/dL (0.7-1.3); GFR 27.9; POTASSIUM 4.5 mmol/L (3.5-5.1)
[2018-04-10 11:30] LABS: PROTHROMBIN TIME PATIENT 13.1 SEC (11.7-14.0)
[2018-04-10] MEDS ORDERED: diphenhydrAMINE 50 MG/ML VIAL IVP ONE ×2 (11:30)
[2018-04-10] MEDS ORDERED: FAMOTIDINE 20 MG/2 ML VIAL IVP ONE ×2 (11:30)
[2018-04-10] MEDS ORDERED: methylPREDNISolone SOD SUCC PF 125 MG/2 ML VIAL. IV ONE ×2 (11:30)
[2018-04-10] MEDS ORDERED: diphenhydrAMINE 50 MG/ML VIAL ONE (11:53)
[2018-04-10] MEDS ORDERED: FAMOTIDINE 20 MG/2 ML VIAL ONE (11:53)
[2018-04-10] MEDS ORDERED: methylPREDNISolone SOD SUCC PF 125 MG/2 ML VIAL. ONE (11:54)
[2018-04-10] MEDS ORDERED: LIDOCAINE 2%/EPI 1:100,000 20 ML VIAL. IJ ONE (12:00)
[2018-04-10] MEDS: IV NORMAL SALINE 1000ML BAG 1,000 ML IV SCH (12:45)
[2018-04-10] MEDS ORDERED: IODIXANOL 320 MG/ML 100 ML VIAL. IART ONE (12:45)
[2018-04-10] MEDS ORDERED: DIGOXIN IV 500 MCG/2 ML AMPUL. ONE (13:11)
[2018-04-10] MEDS ORDERED: fentaNYL PF VIAL 100 MCG/2 ML VIAL ONE (13:18)
[2018-04-10] MEDS ORDERED: IODIXANOL 320 MG/ML 100 ML VIAL. ONE (13:18)
[2018-04-10] MEDS ORDERED: DIGOXIN IV 500 MCG/2 ML AMPUL. IV ONE (13:30)
[2018-04-10] MEDS ORDERED: NO ANTICOAGULANT THERAPY. MC PRN (15:00)
--- NOTE | 2018-04-10 15:22 | CARD ---
MR#: [id number] Date of Study: 04/10/2018 Ordering Physician: CORINE LONG, Referring Physician: CORINE LONG, Tech: APPROVED REPORT EXAM Successful implantation of Biotronik biventricular implantable cardioverter defibrillator/cardiac res ynchronization therapy-defibrillor (bi-V ICD/LEVEL VIAL INSPECTOR-D) Defibrillation threshold measurement of the time of implantation INDICATIONS Primary prevention of sudden cardiac and cardiac resynchronization therapy in a patient with ch ronic systolic heart failure, ischemic cardiomyopathy, LVEF 30% and cardiac dyssynchrony as evidenced by prolonged QRS interval greater than 120 ms. PROCEDURE After explaining the risks, benefits, and alternative options, informed consent was obtained from the patient. The patient was brought to the cardiac catheterization lab and the left chest and shoulder were prepp ed and draped in the usual fashion. 30 mL of 2% lidocaine was infiltrated into the skin and subcutaneous tissues for local anesthesia. An incision was made over the left infraclavicular fossa and using blunt dissection and cautery a pocke t was created. Venous access was obtained in the left subclavian vein and 9 [place] coronary sinus she ath was inserted. Contrast injections were performed in the right atrium using CASS2 catheter and the coronary sinus ostium was engaged. Coronary sinus sheath was advanced and with the help for balloont ipped catheter inflated in the coronary sinus, venogram was performed to identify the appropriate pos terolateral vein for placement of the left ventricular lead. The posterior lateral vein had an acute angulated takeoff. Hence this was engaged with a inner catheter and with backup support from this cat heter, a Biotronik quadripolar left ventricular lead model Sentus ProMRI QP L-85, serial #[id number] wa s advanced under fluoroscopy guidance and the tip was positioned in the posterolateral vein. Subsequently, venous access was again obtained in the left subclavian vein and 8 [place] sheath was in serted. A Biotronik bipolar active fixation right ventricular lead model Plexa ProMRI DF-1 S DX seria l #[id number] was advanced under fluoroscopy guidance and the tip was positioned in the right ventricle apex. The leads were secured into place and attached to a Biotronik biventricular ICD/LEVEL VIAL INSPECTOR-D generato r model Intica 7 HF-T QP, serial #[id number]. This was placed in the pocket was subsequently closed in 3 layers. Hemostasis was secured. Ventricular fibrillation was then induced to check the defibrillation threshold. Patient successfully converted to sinus rhythm with 15 J shock therapy with a shock impedance of 72 ohms. The left ventri cular lead showed a sensing amplitude of 19.4 mV, impedance of 594 ohms and a threshold of 1.9 V. The right ventricular lead showed a sensing amplitude of 12.7 mV, impedance of 551 ohms and a threshold of 0.4 V. The right atrial sensor on the DX measured P-wave amplitude of 1.4 mV. Patient tolerated th e procedure well. There were no immediate complications. CONCLUSION Successful implantation of Biotronik biventricular ICD/LEVEL VIAL INSPECTOR-D for primary prevention of sudden cardiac and cardiac resynchronization therapy in a patient with chronic systolic heart failure, ischem ic cardio myopathy and prolonged QRS interval. Defibrillation thresholds were measured at the time of implantation. Signed by : Corine Long, Electronically Approved : 04/10/2018 15:20:20
--- NOTE | 2018-04-10 16:36 | RAD ---
PORTABLE CHEST 1V Clinical indications: Post pacemaker insertion COMPARISON: December 13, 2017. Findings: A 3-lead pacemaker has been placed via a left subclavian approach. No pneumothorax or pleural effusion is seen. Chronic interstitial lung disease is seen bilaterally. No new lung consolidation is evident. The heart size and mediastinum are stable. IMPRESSION: Placement of pacemaker without pneumothorax. Electronically signed by: Juan Peña MD (04/10/2018 4:31 PM) [id number]
[2018-04-10] MEDS ORDERED: CONTRAST GIVEN. MC PRN (17:30)
[2018-04-10] MEDS ORDERED: METFORMIN HCL PO SCH (18:00)
[2018-04-10] MEDS ORDERED: VITAMIN E 200 UNIT CAPSULE. PO SCH (18:00)
[2018-04-10] MEDS ORDERED: FAMOTIDINE 20 MG TABLET. PO SCH (18:00)
[2018-04-10] MEDS: INSULIN LISPRO 300 UNITS/3 ML INSULN.PEN. SQ SCH (18:00)
[2018-04-10] MEDS: predniSONE 10 MG TABLET PO SCH (20:51)
[2018-04-10] MEDS: sulfaSALAzine 500 MG TABLET PO SCH (20:51)
[2018-04-10] MEDS: ALLOPURINOL 300 MG TABLET. PO SCH (20:51)
[2018-04-10] MEDS: INSULIN GLARGINE 300 UNITS/3 ML INSULN.PEN. SQ SCH (20:55)
[2018-04-10] MEDS ORDERED: TAMSULOSIN 0.4 MG CAP.ER.24H. PO SCH (21:00)
[2018-04-10] MEDS: ACETAMINOPHEN 325 MG TABLET. PO PRN (23:26)
[2018-04-11] MEDS: IV NORMAL SALINE 1000ML BAG 1,000 ML IV SCH (02:05)
[2018-04-11 03:00] VITALS: BP 115/63
[2018-04-11] MEDS ORDERED: LEVOTHYROXINE 25 MCG TABLET. PO SCH (06:00)
[2018-04-11 06:03] LABS: CREATININE 1.9 mg/dL (0.7-1.3); GFR 34.7
[2018-04-11 07:15] VITALS: BP 125/63
[2018-04-11] MEDS ORDERED: ZINC SULFATE 220 MG CAPSULE. PO SCH (08:00)
[2018-04-11] MEDS ORDERED: metOLazone 2.5 MG TABLET PO SCH (09:00)
[2018-04-11] MEDS ORDERED: METOPROLOL SUCC 24HR ER 50 MG TAB.ER.24H. PO SCH (09:00)
[2018-04-11] MEDS ORDERED: OMEGA-3 FATTY ACIDS/FISH OIL 1,000 MG CAPSULE. PO SCH (09:00)
[2018-04-11] MEDS ORDERED: LISINOPRIL 5 MG TABLET. PO SCH (09:00)
[2018-04-11] MEDS ORDERED: amLODIPine BESYLATE 10 MG TABLET PO SCH (09:00)
[2018-04-11] MEDS ORDERED: FUROSEMIDE 40 MG TABLET. PO SCH (09:00)
[2018-04-11] MEDS ORDERED: MULTIVITAMIN with MINERAL TABLET. PO SCH (09:00)
[2018-04-11] MEDS ORDERED: CLOPIDOGREL BISULFATE 75 MG TABLET PO SCH (09:00)
[2018-04-11] MEDS: ACETAMINOPHEN 325 MG TABLET. PO PRN (09:46)
[2018-04-11] MEDS: sulfaSALAzine 500 MG TABLET PO SCH (09:46)
[2018-04-11] MEDS: predniSONE 10 MG TABLET PO SCH (09:48)
[2018-04-11] MEDS: ALLOPURINOL 300 MG TABLET. PO SCH (09:48)
[2018-04-11] MEDS: INSULIN GLARGINE 300 UNITS/3 ML INSULN.PEN. SQ SCH (09:53)
[2018-04-11] MEDS: INSULIN LISPRO 300 UNITS/3 ML INSULN.PEN. SQ SCH ×2 (09:54→10:17)
[2018-04-11 11:15] VITALS: BP 117/55
--- NOTE | 2018-04-11 11:28 | RAD ---
CHEST PA LATERAL Clinical indications: 1 DAY POST PACEMAKER COMPARISON: April 10, 2018. Findings: Small posterior pleural effusions are seen bilaterally in the lateral view. No acute lung infiltrate or pulmonary edema or lung mass or pneumothorax is seen. Pacemaker is again noted. Sternotomy is again noted. The heart size, pulmonary vasculature, mediastinum and both bill are stable. There is a mild compression deformity of the superior endplate of T10 which could be seen on a previous CT study of abdomen and pelvis dated March 20, 2017 and therefore is old. Impression: Small posterior pleural effusions. No acute lung infiltrate. No pneumothorax. Electronically signed by: Juan Peña MD (04/11/2018 11:23 AM) [facility]
--- NOTE | 2018-04-11 13:28 | PDOC ---
PROGRESS NOTES Subjective Subjective Patient seen and examined The patient looks and feels well today. Objective Objective Vital Signs Date Time Temp Pulse Resp B/P (MAP) Pulse Ox O2 Delivery O2 Flow Rate FiO2 04/11/18 11:15 97.9 79 24 117/55 (75) 93 Room Air 97.9 04/11/18 08:00 2.0 Intake and Output 04/11/18 07:01 Intake Total 1500 ml Output Total 300 ml Balance 1200 ml Intake Oral 200 ml IV Total 1300 ml Output Urine Total 300 ml # Voids 2 Physical Exam Abdomen: Normal bowel sounds Heart: Regular rate General: No acute distress HEENT: Atraumatic Lungs: Clear to auscultation Assessment Assessment 1. Cardiomyopathy. Status post ICD placement yesterday. Stable overnight. No pneumothorax on chest x-rays. Interrogation of the device this morning shows normal function. We'll allow the patient to go home today and continue present home medications. We'll follow-up in approximately 10 days. Comment Review of Relevant I have reviewed the following items margarita (where applicable) has been applied. Labs Laboratory Tests Test 04/10/18 11:10 04/10/18 15:15 04/10/18 17:36 04/10/18 20:45 White Blood Count 7.2 x10^3/uL (4.0-11.0) Red Blood Count 3.45 x10^6/uL (4.30-5.70) Hemoglobin 10.9 g/dL (13.0-17.5) Hematocrit 33.9 % (39.0-53.0) Mean Corpuscular Volume 98 fL (79-100) Mean Corpuscular Hemoglobin 32 pg (25-35) Mean Corpuscular Hemoglobin Concent 32 g/dL (31-37) Red Cell Distribution Width 18.6 % (11.5-14.5) Platelet Count 159 x10^3/uL (140-400) Prothrombin Time 13.1 SEC (11.7-14.0) Prothromb Time International Ratio 1.0 (0.8-1.1) Sodium Level 141 mmol/L (136-145) Potassium Level 4.5 mmol/L (3.5-5.1) Chloride Level 106 mmol/L (98-107) Carbon Dioxide Level 19 mmol/L (21-32) Anion Gap 16 (6-14) Blood Urea Nitrogen 90 mg/dL (8-26) Creatinine 2.3 mg/dL (0.7-1.3) Estimated GFR (Cockcroft-Gault) 27.9 Glucose Level 137 mg/dL (70-99) Calcium Level 9.3 mg/dL (8.5-10.1) Glucose (Fingerstick) 175 mg/dL (70-99) 202 mg/dL (70-99) 240 mg/dL (70-99) Test 04/11/18 05:20 04/11/18 07:50 04/11/18 11:18 Creatinine 1.9 mg/dL (0.7-1.3) Estimated GFR (Cockcroft-Gault) 34.7 Glucose (Fingerstick) 161 mg/dL (70-99) 140 mg/dL (70-99) Laboratory Tests Test 04/10/18 15:15 04/10/18 17:36 04/10/18 20:45 04/11/18 05:20 Glucose (Fingerstick) 175 mg/dL (70-99) 202 mg/dL (70-99) 240 mg/dL (70-99) Creatinine 1.9 mg/dL (0.7-1.3) Estimated GFR (Cockcroft-Gault) 34.7 Test 04/11/18 07:50 04/11/18 11:18 Glucose (Fingerstick) 161 mg/dL (70-99) 140 mg/dL (70-99) Medications Current Medications Methylprednisolone Sodium Succinate (SOLU-Medrol 125MG VIAL) 125 mg 1X ONCE IV Last administered on 04/10/18at 12:00; Start 04/10/18 at 11:30; Stop 04/10/18 at 11:31; Status DC Diphenhydramine HCl (Benadryl) 50 mg 1X ONCE IVP Last administered on at 12:00; Start 04/10/18 at 11:30; Stop 04/10/18 at 11:31; Status DC Famotidine (Pepcid Vial) 20 mg 1X ONCE IVP ; Start 04/10/18 at 11:30; Stop at 11:31; Status DC Ondansetron HCl (Zofran) 4 mg PRN Q6HRS PRN IV NAUSEA/VOMITING; Start 04/10/18 at 07:00; Stop 04/10/18 at 18:00; Status DC Fentanyl Citrate (Fentanyl 2ml Vial) 25 mcg PRN Q5MIN PRN IV MILD PAIN; Start 04/10/18 at 07:00; Stop 04/10/18 at 18:00; Status DC Fentanyl Citrate (Fentanyl 2ml Vial) 50 mcg PRN Q5MIN PRN IV MODERATE TO SEVERE PAIN; Start 04/10/18 at 07:00; Stop 04/10/18 at 18:00; Status DC Morphine Sulfate (Morphine Sulfate) 1 mg PRN Q10MIN PRN IV SEVERE PAIN; Start 04/10/18 at 07:00; Stop 04/10/18 at 18:00; Status DC Ringer's Solution 1,000 ml @ 30 mls/hr Q24H IV ; Start 04/10/18 at 07:00; Stop 04/10/18 at 18:59; Status DC Lidocaine HCl (Xylocaine-Mpf 1% 2ml Vial) 2 ml PRN 1X PRN ID PRIOR TO IV START ; Start 04/10/18 at 07:00; Stop 04/10/18 at 18:00; Status DC Hydromorphone HCl (Dilaudid) 0.5 mg PRN Q10MIN PRN IV SEV PAIN, Second choice; Start 04/10/18 at 07:00; Stop 04/10/18 at 18:00; Status DC Prochlorperazine Edisylate (Compazine) 5 mg PACU PRN PRN IV NAUSEA, MRX1; Start 04/10/18 at 07:00; Stop 04/10/18 at 18:00; Status DC Iodixanol (Visipaque 320) 100 ml STK-MED ONCE .ROUTE ; Start 04/10/18 at 08:26; Stop 04/10/18 at 08:27; Status DC Lidocaine/ Epinephrine (LIDOCAINE 2%-EPI 1:100,000 multi-dose) 20 ml STK-MED ONCE .ROUTE ; Start 04/10/18 at 08:26; Stop 04/10/18 at 08:28; Status DC Iodixanol (Visipaque 320) 100 ml STK-MED ONCE .ROUTE ; Start 04/10/18 at 08:26; Stop 04/10/18 at 08:28; Status DC Cefazolin Sodium/ Dextrose 50 ml @ 100 mls/hr 1X ONCE IV Last administered on 04/10/18at 11:30; Start 04/10/18 at 11:30; Stop 04/10/18 at 11:59; Status DC Bacitracin 04247 unit/Sodium Chloride 250 ml @ 250 mls/hr 1X ONCE IRR Last administered on 04/10/18at 11:15; Start 04/10/18 at 11:15; Stop 04/10/18 at 12:14 ; Status DC Midazolam HCl (Versed) 2 mg STK-MED ONCE .ROUTE ; Start 04/10/18 at 11:17; Stop 04/10/18 at 11:20; Status DC Ketamine HCl (Ketamine) 50 mg STK-MED ONCE .ROUTE ; Start 04/10/18 at 11:18; Stop 04/10/18 at 11:20; Status DC Propofol 20 ml @ As Directed STK-MED ONCE IV ; Start 04/10/18 at 11:18; Stop at 11:20; Status DC Propofol 100 ml @ As Directed STK-MED ONCE IV ; Start 04/10/18 at 11:19; Stop 04/10/18 at 11:20; Status DC Methylprednisolone Sodium Succinate (SOLU-Medrol 125MG VIAL) 125 mg 1X ONCE IV ; Start 04/10/18 at 11:30; Stop 04/10/18 at 11:31; Status DC Famotidine (Pepcid Vial) 20 mg 1X ONCE IVP Last administered on 04/10/18at 12: 00; Start 04/10/18 at 11:30; Stop 04/10/18 at 11:31; Status DC Diphenhydramine HCl (Benadryl) 50 mg 1X ONCE IVP ; Start 04/10/18 at 11:30; Stop 04/10/18 at 11:31; Status DC Diphenhydramine HCl (Benadryl) 50 mg STK-MED ONCE .ROUTE ; Start 04/10/18 at 11: 53; Stop 04/10/18 at 11:55; Status DC Famotidine (Pepcid Vial) 20 mg STK-MED ONCE .ROUTE ; Start 04/10/18 at 11:53; Stop 04/10/18 at 11:55; Status DC Methylprednisolone Sodium Succinate (SOLU-Medrol 125MG VIAL) 125 mg STK-MED ONCE .ROUTE ; Start 04/10/18 at 11:54; Stop 04/10/18 at 11:56; Status DC Lidocaine/ Epinephrine (LIDOCAINE 2%-EPI 1:100,000 multi-dose) 20 ml 1X ONCE IJ Last administered on 04/10/18at 12:00; Start 04/10/18 at 12:00; Stop at 12:34; Status DC Iodixanol (Visipaque 320) 100 ml 1X ONCE IART Last administered on 04/10/18at 12:45; Start 04/10/18 at 12:45; Stop 04/10/18 at 12:50; Status DC Sodium Chloride 1,000 ml @ 75 mls/hr [id number] IV Last administered on at 02:05; Start 04/10/18 at 12:45 Ketamine HCl (Ketamine) 50 mg STK-MED ONCE .ROUTE ; Start 04/10/18 at 13:10; Stop 04/10/18 at 13:12; Status DC Digoxin (Lanoxin) 500 mcg STK-MED ONCE .ROUTE ; Start 04/10/18 at 13:11; Stop at 13:13; Status DC Fentanyl Citrate (Fentanyl 2ml Vial) 100 mcg STK-MED ONCE .ROUTE ; Start at 13:18; Stop 04/10/18 at 13:20; Status DC Iodixanol (Visipaque 320) 100 ml STK-MED ONCE .ROUTE ; Start 04/10/18 at 13:18; Stop 04/10/18 at 13:20; Status DC Digoxin (Lanoxin) 250 mcg 1X ONCE IV Last administered on 04/10/18at 13:24; Start 04/10/18 at 13:30; Stop 04/10/18 at 13:31; Status DC Info (No Anticoagulant Therapy) 1 ea CONT PRN PRN MC PER PROTOCOL; Start at 15:00 Cefazolin Sodium/ Dextrose 50 ml @ 100 mls/hr 1X ONCE IV Last administered on 04/10/18at 17:25; Start 04/10/18 at 17:30; Stop 04/10/18 at 17:59; Status DC Allopurinol (Zyloprim) 300 mg BID PO Last administered on 04/11/18at 09:48; Start 04/10/18 at 21:00 Amlodipine Besylate (Norvasc) 10 mg DAILY PO Last administered on 04/11/18 09: 47; Start 04/11/18 at 09:00 Clopidogrel Bisulfate (Plavix) 75 mg DAILY PO Last administered on 04/11/18 09 :48; Start 04/11/18 at 09:00 Ergocalciferol (Vitamin D2) 50,000 unit WEEKLY PO ; Start 04/17/18 at 09:00 Famotidine (Pepcid) 20 mg QEVNG PO Last administered on 04/10/18 19:42; Start 04/10/18 at 18:00 Furosemide (Lasix) 40 mg DAILY PO Last administered on 04/11/18 09:48; Start 04/11/18 at 09:00 Prednisone (Prednisone) 10 mg BID PO Last administered on 04/11/18 09:48; Start 04/10/18 at 21:00 Tamsulosin HCl (Flomax) 0.8 mg HS PO Last administered on 04/10/18 20:51; Start 04/10/18 at 21:00 Insulin Human Lispro (HumaLOG) 15 units TIDWMEALS SQ Last administered on 10:17; Start 04/10/18 at 18:00 Insulin Glargine (Lantus) 15 units BID SQ Last administered on 04/11/18 09:53 ; Start 04/10/18 at 21:00 Fish Oil (Fish Oil) 1,000 mg DAILY PO Last administered on 04/11/18 09:46; Start 04/11/18 at 09:00 Levothyroxine Sodium (Synthroid) 25 mcg DAILY06 PO Last administered on 06:23; Start 04/11/18 at 06:00 Lisinopril (Prinivil) 5 mg DAILY PO Last administered on 04/11/18 09:47; Start 04/11/18 at 09:00 Non-Formulary Medication (Metformin Hcl (Metformin Hcl Er)) 2 tab BID76 PO ; Start 04/10/18 at 18:00; Status UNV Metolazone (Zaroxolyn) 2.5 mg DAILY PO Last administered on 04/11/18 09:47; Start 04/11/18 at 09:00 Metoprolol Succinate (Toprol Xl) 50 mg DAILY PO Last administered on 04/11/18at 09:47; Start 04/11/18 at 09:00 Multivitamins (Thera M Plus) 1 tab DAILY PO Last administered on 04/11/18at 09: 49; Start 04/11/18 at 09:00 Sulfasalazine (Azulfidine) 1,000 mg BID PO Last administered on 04/11/18at 09:46 ; Start 04/10/18 at 21:00 Vitamin E 400 unit DAILY16 PO Last administered on 04/10/18at 19:42; Start 04/10 at 18:00 Zinc Sulfate (Orazinc) 220 mg DAILY08 PO Last administered on 04/11/18at 09:46; Start 04/11/18 at 08:00 Info (CONTRAST GIVEN -- Rx MONITORING) 1 each PRN DAILY PRN MC SEE COMMENTS; Start 04/10/18 at 17:30; Stop 04/12/18 at 17:29 Acetaminophen (Tylenol) 650 mg PRN Q6HRS PRN PO PAIN Last administered on at 09:46; Start 04/10/18 at 23:30 Active Scripts Active Lasix (Furosemide) 40 Mg Tablet 1 Tab PO DAILY Reported Repatha Syringe (Evolocumab) 140 Mg/1 Ml Syringe 140 Mg SQ Q2WKS Megared [place]-3 Krill Oil Sfgl (Krill/Om-3/Dha/Epa/Phospho/Ast) 1 Each Capsule 1 Each PO DAILY Metolazone 2.5 Mg Tablet 2.5 Mg PO DAILY Lisinopril 5 Mg Tablet 5 Mg PO DAILY Levemir (Insulin Detemir) 100 Unit/1 Ml Vial 15 Unit SQ BID (0800, 2100) Novolog (Insulin Aspart) 100 Unit/1 Ml Cartridge 15 Unit SQ TIDAC Amlodipine Besylate 5 Mg Tablet 10 Mg PO DAILY Toprol Xl (Metoprolol Succinate) 50 Mg Tab.er.24h 1 Tab PO DAILY Eliquis (Apixaban) 5 Mg Tablet 5 Mg PO BID Zinc 50 Mg Tablet 50 Mg PO DAILY08 Vitamin E (Vitamin E Mixed) 400 Unit Capsule 400 Unit PO DAILY16 Prednisone (Prednisone) 10 Mg Tablet 10 Mg PO BID Sulfasalazine 500 Mg Tablet 1,000 Mg PO BID Clopidogrel (Clopidogrel Bisulfate) 75 Mg Tablet 75 Mg PO DAILY Vitamin D2 (Ergocalciferol (Vitamin D2)) 50,000 Unit Capsule 50,000 Unit PO WEEKLY Metformin Hcl Er (Metformin Hcl) 500 Mg Tab.er.24h 2 Tab PO BID76 Centrum Silver Tablet (Multivits-Min/Fa/Lycopene/Lut) 1 Each Tablet 1 Each PO DAILY Pepcid (Famotidine) 20 Mg Tablet 20 Mg PO BID76 Tamsulosin Hcl 0.4 Mg Cap.er.24h 0.8 Mg PO HS Allopurinol 300 Mg Tablet 300 Mg PO BID Levothyroxine Sodium 25 Mcg Tablet 25 Mcg PO DAILYAC Vitals/I & O Vital Sign - Last 24 Hours 04/10/18 04/10/18 04/10/18 04/10/18 14:55 15:01 15:01 15:16 Temp 98.6 98.6 Pulse 60 90 90 Resp 15 18 16 B/P (MAP) 89/40 91/44 Pulse Ox 97 97 97 O2 Delivery Nasal Cannula Nasal Cannula Nasal Cannula Nasal Cannula O2 Flow Rate 4.0 2 2 2 04/10/18 04/10/18 04/10/18 04/10/18 15:31 15:46 15:57 15:57 Temp 97.4 97.4 97.4 97.4 Pulse 90 90 88 92 Resp 18 20 20 20 B/P (MAP) 103/51 115/58 (77) 115/58 (77) Pulse Ox 97 95 98 98 O2 Delivery Nasal Cannula Nasal Cannula Room Air Room Air O2 Flow Rate 2 2 04/10/18 04/10/18 04/10/18 04/10/18 16:12 16:27 16:42 16:57 Pulse 86 86 86 86 B/P (MAP) 118/61 (80) 107/59 (75) 115/56 (75) 115/64 (81) 04/10/18 04/10/18 04/10/18 04/10/18 17:00 17:12 19:50 20:06 Temp 97.4 97.4 Pulse 92 90 Resp 20 B/P (MAP) 119/63 (81) 110/57 (74) Pulse Ox 97 O2 Delivery Nasal Cannula Room Air Nasal Cannula O2 Flow Rate 2.0 3.0 04/10/18 04/11/18 04/11/18 04/11/18 23:00 03:00 07:15 08:00 Temp 97.0 98.1 97.3 97.0 98.1 97.3 Pulse 100 84 89 Resp 24 20 24 B/P (MAP) 126/60 (82) 115/63 (80) 125/63 (83) Pulse Ox 95 94 93 O2 Delivery Room Air Room Air Room Air Room Air O2 Flow Rate 2.0 04/11/18 04/11/18 04/11/18 04/11/18 09:47 09:47 09:47 11:15 Temp 97.9 97.9 Pulse 89 89 89 79 Resp 24 B/P (MAP) 125/63 125/63 125/63 117/55 (75) Pulse Ox 93 O2 Delivery Room Air Intake and Output 04/10/18 04/10/18 04/11/18 15:01 23:01 07:01 Intake Total 400 ml 1100 ml Output Total 300 ml Balance 400 ml -300 ml 1100 ml SONIA DAVIS MD Apr 11, 2018 13:28
--- NOTE | 2018-04-11 14:16 | NUR ---
Discharge Note: MAGALI PHAN Discharge instructions and discharge home medications reviewed with Patient and a copy given. All questions have been answered and understanding verbalized. The following instructions and handouts were given: pacemaker care sheet Discontinued lines and drains. Patient discharged to home self care.
[2018-04-17] MEDS ORDERED: ERGOCALCIFEROL (VITAMIN D2) 50,000 UNIT CAPSULE. PO SCH (09:00)
== END 2018-04-11 14:21 | disposition home or self-care (01) ==
LOC: SURG 10:35 → 2 SOUTH 11:30
PROVIDERS: ADMIT Internal Medicine Cardiovascular Disease; ATTEND Internal Medicine Cardiovascular Disease
DX: I42.9 Cardiomyopathy, unspecified (principal); I11.0 Hypertensive heart disease with heart failure; I50.22 Chronic systolic (congestive) heart failure; I34.0 Nonrheumatic mitral (valve) insufficiency; Z95.810 Presence of automatic (implantable) cardiac defibrillator
CPT/HCPCS: 33225; 33249; 36415; 71045; 71046; 80048; 82565; 82962; 85027; 85610; 93005; 93641; 96365; 96366; 96372; 96375; C1769; C1882; C1895; C1900; G0378; G0379; J0696; J1160; J1200; J1815; J2250; J2704; J2930; J3490; J7030; J7050; J7512; 93566; Q9967

== ENCOUNTER 2018-08-04 17:16 | Inpatient (IN) | payer OTHER ==
[~2018-08-04] VITALS: Ht 190.5 cm; Wt 100.8 kg
[~2018-08-04 17:16] MED LIST changes: -HYDROmorphone 2 MG/ML VIAL IV PRN; -IODIXANOL 320 MG/ML 100 ML VIAL. ONE; -IV RINGERS,LACTATED 1000ML 1,000 ML IV SCH; -LIDO700A21 TD; +LIDO700A39 TD; -LIDOCAINE 1% PF 2 ML VIAL. ID PRN; -LIDOCAINE 2%/EPI 1:100,000 20 ML VIAL. ONE; -MORPHINE SULFATE 4 MG/ML VIAL. IV PRN; -ONDANSETRON PF 4 MG/2 ML VIAL. IV PRN; -PROCHLORPERAZINE 10 MG/2 ML VIAL. IV PRN; +TIZA2TAB PO; -TIZA2TAB2 PO; -fentaNYL PF VIAL 100 MCG/2 ML VIAL IV PRN
[2018-08-04] MEDS ORDERED: DEXTROSE 50% 25 GM / 50ML DISP.SYRIN. IV PRN (18:15)
[2018-08-04 18:43] LABS: BASO # 0.1 x10^3/uL (0.0-0.2); BASO % 1 % (0-3); EOS # 0.2 x10^3/uL (0.0-0.7); EOS % 2 % (0-3); HEMATOCRIT 31.9 % (39.0-53.0); HEMOGLOBIN 10.4 g/dL (13.0-17.5); LYMPH # 1.1 x10^3/uL (1.0-4.8); LYMPH % 11 % (24-48); MEAN CORPUSCULAR HEMOGLOBIN 33 pg (25-35); MEAN CORPUSCULAR HGB CONC 33 g/dL (31-37); MEAN CORPUSCULAR VOLUME 101 fL (79-100); MONO # 0.8 x10^3/uL (0.0-1.1); MONO % 7 % (0-9); NEUT # 8.3 x10^3uL (1.8-7.7); NEUT % 80 % (31-73); PLATELET COUNT 169 x10^3/uL (140-400); RED BLOOD COUNT 3.15 x10^6/uL (4.30-5.70); RED CELL DISTRIBUTION WIDTH 19.2 % (11.5-14.5); WHITE BLOOD COUNT 10.5 x10^3/uL (4.0-11.0)
--- NOTE | 2018-08-04 18:51 | RAD ---
Two-view chest dated 08/04/2018. Comparison made to 04/11/2018. CLINICAL INDICATION: Shortness of breath and weakness. FINDINGS: PA and lateral views of the chest were obtained. Heart and mediastinal contours are stable. There is a dual lead left subclavian pacer/AICD in place, unchanged. The patient is status post median sternotomy. There is some prominent perihilar linear markings, unchanged. No consolidation or pleural effusion. No pneumothorax. IMPRESSION: 1. No acute radiographic abnormality. Stable findings compared to 04/11/2018. Electronically signed by: Seven Kim MD (08/04/2018 6:48 PM) [facility]
[2018-08-04 18:53] LABS: CALCIUM 8.8 mg/dL (8.5-10.1); CREATININE 1.4 mg/dL (0.7-1.3); GFR 49.4; POTASSIUM 4.3 mmol/L (3.5-5.1)
--- NOTE | 2018-08-04 18:54 | PHYS DOC ---
Past Medical History Past Medical History: Diabetes-Type II, Hypertension Additional Past Medical Histor: ULCERTIVE COLITIS, GOUT, SHINGES (SEVEN NATARAJAN APRN) Past Surgical History: Appendectomy, Cholecystectomy, Pacemaker Additional Past Surgical Histo: PACEMAKER, DEFIBULATOR, CABG X2, (SEVEN NATARAJAN APRN) Alcohol Use: Occasionally Drug Use: None (SEVEN NATARAJAN APRN) Adult General Chief Complaint Chief Complaint: WEAKNESS/GENERALIZED HPI HPI Patient is a 73 year old male who presents with hypoglycemia. The patient checked his blood sugar at 5:00 PM and it was 56. The patient had associated symptoms of confusion and weakness. Family gave him 2 pepsi's which brought his sugar up to 91 on arrival. Patient ate lunch and breakfast but did not eat dinner prior to arrival. Rates chronic hip pain 06/24. No other complaints. (SEVEN NATARAJAN APRN) Review of Systems Review of Systems Constitutional: Denies fever or chills [] Eyes: Denies change in visual acuity, redness, or eye pain [] HENT: Denies nasal congestion or sore throat [] Respiratory: Denies cough or shortness of breath [] Cardiovascular: No additional information not addressed in HPI [] GI: Denies abdominal pain, nausea, vomiting, bloody stools or diarrhea [] : Denies dysuria or hematuria [] Musculoskeletal: Denies back pain or joint pain [] Integument: Denies rash or skin lesions [] Neurologic: Denies headache but reports weakness. Endocrine: Denies polyuria or polydipsia [] Complete systems were reviewed and found to be within normal limits, except as documented in this note. (SEVEN NATARAJAN APRN) Current Medications Current Medications Current Medications Medications (Trade) Dose Ordered Sig/Nickie Start Time Stop Time Status Last Admin Dose Admin Dextrose (Dextrose 50%-Water Syringe) 25 gm PRN 1X PRN 08/04/18 18:15 Sodium Chloride 500 ml @ 500 mls/hr 1X ONCE 08/04/18 20:15 08/04/18 21:14 DC 08/04/18 20:41 500 MLS/HR (JUAN YEAGER MD) Allergies Allergies Allergies Coded Allergies Type Severity Reaction Last Updated Verified Iodinated Contrast- Oral and IV Dye Allergy Intermediate Hives 09/14/13 Yes pravastatin Allergy Intermediate 01/06/14 Yes Rwfqspe-Vky-Uva Reductase Inhibitor Adverse Reaction Intermediate 02/03/17 Yes (JUAN YEAGER MD) Physical Exam Physical Exam Constitutional: Well developed, well nourished, no acute distress, non-toxic appearance. [] HENT: Normocephalic, atraumatic, bilateral external ears normal, oropharynx moist, no oral exudates, nose normal. [] Eyes: PERRLA, EOMI, conjunctiva normal, no discharge. [] Neck: Normal range of motion, no tenderness, supple, no stridor. [] Cardiovascular:Heart rate regular rhythm, no murmur [] Lungs & Thorax: Bilateral breath sounds clear to auscultation [] Abdomen: Bowel sounds normal, soft, no tenderness, no masses, no pulsatile masses. [] Skin: Warm, dry, no erythema, no rash. [] Back: No tenderness, no CVA tenderness. [] Extremities: No tenderness, no cyanosis, no clubbing, ROM intact, no edema. [] Neurologic: Alert and oriented X 3, normal motor function, normal sensory function, no focal deficits noted. [] Psychologic: Affect normal, judgement normal, mood normal. [] (SEVEN NATARAJAN APRN) Current Patient Data Vital Signs Vital Signs Date Time Temp Pulse Resp B/P (MAP) Pulse Ox O2 Delivery O2 Flow Rate FiO2 08/04/18 21:00 92 18 97 08/04/18 18:08 97.7 135/75 (95) Room Air 97.7 (JUAN YEAGER MD) Lab Values Laboratory Tests Test 08/04/18 18:07 08/04/18 18:31 08/04/18 20:36 08/04/18 20:39 Glucose (Fingerstick) 94 mg/dL (70-99) 77 mg/dL (70-99) White Blood Count 10.5 x10^3/uL (4.0-11.0) Red Blood Count 3.15 x10^6/uL (4.30-5.70) L Hemoglobin 10.4 g/dL (13.0-17.5) L Hematocrit 31.9 % (39.0-53.0) L Mean Corpuscular Volume 101 fL (79-100) H Mean Corpuscular Hemoglobin 33 pg (25-35) Mean Corpuscular Hemoglobin Concent 33 g/dL (31-37) Red Cell Distribution Width 19.2 % (11.5-14.5) H Platelet Count 169 x10^3/uL (140-400) Neutrophils (%) (Auto) 80 % (31-73) H Lymphocytes (%) (Auto) 11 % (24-48) L Monocytes (%) (Auto) 7 % (0-9) Eosinophils (%) (Auto) 2 % (0-3) Basophils (%) (Auto) 1 % (0-3) Neutrophils # (Auto) 8.3 x10^3uL (1.8-7.7) H Lymphocytes # (Auto) 1.1 x10^3/uL (1.0-4.8) Monocytes # (Auto) 0.8 x10^3/uL (0.0-1.1) Eosinophils # (Auto) 0.2 x10^3/uL (0.0-0.7) Basophils # (Auto) 0.1 x10^3/uL (0.0-0.2) Segmented Neutrophils % 72 % (35-66) H Band Neutrophils % 2 % (0-9) Lymphocytes % 13 % (24-48) L Monocytes % 10 % (0-10) Eosinophils % 1 % (0-5) Basophils % 1 % (0-3) Metamyelocytes % 1 % (0-0) H Toxic Vacuolation Slight Platelet Estimate Adequate (ADEQUATE) Anisocytosis Slight Sodium Level 140 mmol/L (136-145) Potassium Level 4.3 mmol/L (3.5-5.1) Chloride Level 105 mmol/L (98-107) Carbon Dioxide Level 25 mmol/L (21-32) Anion Gap 10 (6-14) Blood Urea Nitrogen 49 mg/dL (8-26) H Creatinine 1.4 mg/dL (0.7-1.3) H Estimated GFR (Cockcroft-Gault) 49.4 BUN/Creatinine Ratio 35 (6-20) H Glucose Level 84 mg/dL (70-99) Lactic Acid Level 2.2 mmol/L (0.4-2.0) H Calcium Level 8.8 mg/dL (8.5-10.1) Total Bilirubin 0.2 mg/dL (0.2-1.0) Aspartate Amino Transferase (AST) 18 U/L (15-37) Alanine Aminotransferase (ALT) 22 U/L (16-63) Alkaline Phosphatase 104 U/L (46-116) Troponin I Quantitative 0.041 ng/mL (0.000-0.055) Total Protein 6.5 g/dL (6.4-8.2) Albumin 3.5 g/dL (3.4-5.0) Albumin/Globulin Ratio 1.2 (1.0-1.7) Urine Collection Type Unknown Urine Color Yellow Urine Clarity Clear Urine pH 5.[address] [place] 1.015 Urine Protein 30 mg/dL (NEG-TRACE) Urine Glucose (UA) Negative mg/dL (NEG) Urine Ketones (Stick) Negative mg/dL (NEG) Urine Blood Negative (NEG) Urine Nitrite Negative (NEG) Urine Bilirubin Negative (NEG) Urine Urobilinogen Dipstick 0.2 mg/dL (0.2 mg/dL) Urine Leukocyte Esterase Negative (NEG) Urine RBC 0 /HPF (0-2) Urine WBC 0 /HPF (0-4) Urine Squamous Epithelial Cells None /LPF Urine Bacteria 0 /HPF (0-FEW) Urine Mucus Mod /LPF Laboratory Tests 08/04/18 18:31 Laboratory Tests 08/04/18 18:31 (JUAN YEAGER MD) EKG EKG EKG interpreted by Dr. Yeager No STEMI. Sinus with rate of 79.[] (SEVEN NATARAJAN APRN) Radiology/Procedures Radiology/Procedures []PATIENT: MAGALI PHAN JACCOUNT: [id number]#: [id number] : 1945 LOCATION: ER AGE: 73 SEX: M EXAM STATUS: REG ER ORD. PHYSICIAN: SEVEN NATARAJAN APRN REASON: Short of breath, weakness PROCEDURE: CHEST PA & LATERAL Two-view chest dated 08/04/2018. Comparison made to 04/11/2018. CLINICAL INDICATION: Shortness of breath and weakness. FINDINGS: PA and lateral views of the chest were obtained. Heart and mediastinal contours are stable. There is a dual lead left subclavian pacer/AICD in place, unchanged. The patient is status post median sternotomy. There is some prominent perihilar linear markings, unchanged. No consolidation or pleural effusion. No pneumothorax. IMPRESSION: 1. No acute radiographic abnormality. Stable findings compared to 04/11/2018. Electronically signed by: Seven Kim MD (08/04/2018 6:48 PM) [facility] (SEVEN NATARAJAN APRN) Course & Med Decision Making Course & Med Decision Making Pertinent Labs and Imaging studies reviewed. (See chart for details) Patient blood sugar is dropping for unknown reason. He does take insulin. I will order labs, urine, chest x-ray, and hourly blood sugars. Also ordered him dinner. Nursing will check blood sugar after dinner. Labs so far are unremarkable and seem based on comparison to other labs to be at baseline. Lactic was at 2.2 but patient does not appear to be septic based on general workup and vitals. Appears to be dry. Will order 500 mL of fluid. Imaging was negative. Dr. Ray agrees to admit the patient. He wants him admitted under observation. (SEVEN NATARAJAN APRN) Dragon Disclaimer Dragon Disclaimer This electronic medical record was generated, in whole or in part, using a voice recognition dictation system. (SEVEN NATARAJAN APRN) Departure Departure Impression: Primary Impression: Hypoglycemia Disposition: ADMITTED INPATIENT Admitting Physician: Other (david) (SEVEN NATARAJAN APRN) Condition: STABLE Referrals: GARCÍA CONTI MD (PCP) SEVEN NATARAJAN APRN August 04, 2018 18:54 JUAN YEAGER MD August 05, 2018 04:32
[2018-08-04 18:59] LABS: ALBUMIN 3.5 g/dL (3.4-5.0); ALBUMIN/GLOBULIN RATIO 1.2 (1.0-1.7); TOTAL BILIRUBIN 0.2 mg/dL (0.2-1.0); TOTAL PROTEIN 6.5 g/dL (6.4-8.2)
[2018-08-04 19:12] LABS: % BANDS 2 % (0-9); % BASOS 1 % (0-3); % EOS 1 % (0-5); % LYMPHS 13 % (24-48); % METAS 1 % (0-0); % MONOS 10 % (0-10); % SEGS 72 % (35-66); PLT ESTIMATE ADEQUATE (ADEQUATE)
[2018-08-04 19:13] LABS: ANISOCYTOSIS SLIGHT
[2018-08-04 19:14] LABS: TOXIC VACUOLATION SLIGHT
[2018-08-04] MEDS ORDERED: IV NORMAL SALINE 500ML BAG 500 ML IV ONE (20:15)
[2018-08-04 20:46] LABS: BILIRUBIN,URINE NEGATIVE (NEG); CLARITY,URINE CLEAR; COLOR,URINE YELLOW; NITRITE,URINE NEGATIVE (NEG); PH,URINE 5.5; PROTEIN,URINE 30 mg/dL (NEG-TRACE); UROBILINOGEN,URINE 0.2 mg/dL (0.2 mg/dL)
[2018-08-04 20:51] LABS: BACTERIA,URINE 0 /HPF (0-FEW); RBC,URINE 0 /HPF (0-2); WBC,URINE 0 /HPF (0-4)
[2018-08-04] MEDS ORDERED: ONDANSETRON PF 4 MG/2 ML VIAL. IV PRN (21:30)
[2018-08-04 23:10] VITALS: BP 138/66
[2018-08-05] MEDS: TAMSULOSIN 0.4 MG CAP.ER.24H. PO SCH ×2 (00:53→20:32)
[2018-08-05] MEDS ORDERED: INSU100V11 SQ ×2 (01:06→10:06)
[2018-08-05] MEDS ORDERED: NPH,100V5 SQ (01:06)
[2018-08-05 03:13] VITALS: BP 122/63
--- NOTE | 2018-08-05 06:14 | EKG ---
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
--- NOTE | 2018-08-05 07:00 | NUR ---
Pt with appears to be runs of Vtach however when reviewed with Nurse from 2nd floor and other nurses pt with SVT when ambulating to bathroom. Pt asymptomatic entered pt's room and states just went to bathroom, no complaints noted, no palpitations or complaints of chest pain. Pt back to Vpaced after ambulating. No complaints noted at this time. Notified Day nurse in report.
[2018-08-05 07:10] VITALS: BP 110/80
[2018-08-05] MEDS ORDERED: ONDANSETRON PF 4 MG/2 ML VIAL. IV PRN (08:15)
[2018-08-05] MEDS: LEVOTHYROXINE 25 MCG TABLET. PO SCH (08:32)
[2018-08-05] MEDS: metOLazone 2.5 MG TABLET PO SCH (08:32)
[2018-08-05] MEDS: FUROSEMIDE 40 MG TABLET. PO SCH (08:32)
[2018-08-05] MEDS: CLOPIDOGREL BISULFATE 75 MG TABLET PO SCH (08:32)
[2018-08-05] MEDS: ALLOPURINOL 300 MG TABLET. PO SCH ×2 (08:32→20:32)
[2018-08-05] MEDS: FAMOTIDINE 20 MG TABLET. PO SCH ×2 (08:32→17:43)
[2018-08-05] MEDS: amLODIPine BESYLATE 10 MG TABLET PO SCH (08:32)
[2018-08-05] MEDS: LISINOPRIL 5 MG TABLET. PO SCH (08:33)
[2018-08-05] MEDS: APIXABAN 5 MG TABLET. PO SCH ×2 (08:33→20:32)
[2018-08-05] MEDS: predniSONE 10 MG TABLET PO SCH ×2 (08:33→20:32)
[2018-08-05] MEDS: MULTIVITAMIN with MINERAL TABLET. PO SCH (08:33)
[2018-08-05] MEDS: OMEGA-3 FATTY ACIDS/FISH OIL 1,000 MG CAPSULE. PO SCH (08:35)
[2018-08-05] MEDS ORDERED: METOPROLOL SUCC 24HR ER 50 MG TAB.ER.24H. PO SCH (09:00)
--- NOTE | 2018-08-05 09:51 | NUR ---
Pt had a 20 beat run of v-tach while ambulating to restroom. Pt asymptomatic. Notified Dr. Alba, cardiology team consulted. Will continue to monitor.
[2018-08-05] MEDS ORDERED: METF500T9 PO (10:06)
--- NOTE | 2018-08-05 10:13 | PDOC1 ---
History and Physical Date of Admission Date of Admission DATE: 08/05/18 TIME: 10:07 Identification/Chief Complaint Chief Complaint Low blood sugars Source Source: Caregiver, Chart review, Patient History of Present Illness History of Present Illness He is a very pleasant and very knowledgeable 73-year-old white male, lives at home with , known diabetic since the maintained on the following regimen. N Insulin 15 twice a day, and regular insulin 15 units, 4 times a day. He is also on metformin 1000 twice a day. He follows with for this. He was admitted because of persistent hypoglycemia needing multiple dextrose pushes and by mouth intake. His blood sugar is now 202, feeling well. I did explain the different kinds of insulin, the duration and onset of action. And what to do if his blood sugars are high or low pending blood sugar checks at home. He does have a glucometer and glucose reji's and he is checking his blood sugar. He claims he has a decent A1c/. This regimen of his he has been using for very long time. He did not miss a meal, he denies knowledge of overdosing inadvertently himself with insulin. In any case extensive education at least 35 minutes in the room done with this pleasant couple. If blood sugars remain stable throughout the day he can discharge home later with revisions of his insulin regimen as I have instructed pending on what his blood sugars are at home. I did advise him to see his PCP or whoever manages his DM in 2-4 weeks time regarding his recent sugar logs. He went As low as blood sugar 50s at home Past Medical History Cardiovascular: CAD, CHF, HTN, Hyperlipidemia, Other Pulmonary: COPD CENTRAL NERVOUS SYSTEM: CVA GI: GERD, Irritable bowel disease Heme/Onc: No pertinent hx Hepatobiliary: No pertinent hx Psych: No pertinent hx Musculoskeletal: Osteoarthritis Rheumatologic: Gout Infectious disease: No pertinent hx Renal/: Chronic renal insuff Endocrine: Diabetes, Hypothyroidism Past Surgical History Past Surgical History: Cholecystectomy, CABG, Other Family History Family History: Coronary Artery Disease, Hypertension, Stroke Social History Smoke: No ALCOHOL: none Drugs: None Current Medications Current Medications Current Medications Dextrose (Dextrose 50%-Water Syringe) 25 gm PRN 1X PRN IV bs less than 70; Start 08/04/18 at 18:15 Sodium Chloride 500 ml @ 500 mls/hr 1X ONCE IV Last administered on 08/04/18at 20:41; Start 08/04/18 at 20:15; Stop 08/04/18 at 21:14; Status DC Ondansetron HCl (Zofran) 4 mg PRN Q8HRS PRN IV NAUSEA/VOMITING; Start 08/04/18 at 21:30; Stop 08/05/18 at 08:16; Status DC Tamsulosin HCl (Flomax) 0.8 mg HS PO ; Start 08/05/18 at 21:00; Stop 08/05/18 at 21:00; Status DC Tamsulosin HCl (Flomax) 0.8 mg HS PO Last administered on 08/05/18at 00:53; Start 08/05/18 at 01:00 Ondansetron HCl (Zofran) 4 mg PRN Q6HRS PRN IV NAUSEA/VOMITING; Start 08/05/18 at 08:15 Allopurinol (Zyloprim) 300 mg BID PO Last administered on 08/05/18 08:32; Start 08/05/18 at 09:00 Amlodipine Besylate (Norvasc) 10 mg DAILY PO Last administered on 08/05/18 08:32; Start 08/05/18 at 09:00 Apixaban (Eliquis) 5 mg BID PO Last administered on 08/05/18 08:33; Start 08/05/18 at 09:00 Clopidogrel Bisulfate (Plavix) 75 mg DAILY PO Last administered on 08/05/18 08:32; Start 08/05/18 at 09:00 Ergocalciferol (Vitamin D2) 50,000 unit Acharya PO ; Start 08/09/18 at 09:00 Famotidine (Pepcid) 20 mg BID76 PO Last administered on 08/05/18 08:32; Start 08/05/18 at 09:00 Furosemide (Lasix) 40 mg DAILY PO Last administered on 08/05/18 08:32; Start 08/05/18 at 09:00 Prednisone (Prednisone) 10 mg BID PO Last administered on 08/05/18 08:33; Start 08/05/18 at 09:00 Non-Formulary Medication (Evolocumab (Repatha Syringe)) 140 mg Q2WKS SQ ; Start 08/07/18 at 09:00; Status UNV Fish Oil (Fish Oil) 1,000 mg DAILY PO Last administered on 08/05/18 08:35; Start 08/05/18 at 09:00 Levothyroxine Sodium (Synthroid) 25 mcg DAILY06 PO Last administered on 08/05/18 08:32; Start 08/05/18 at 09:00 Lisinopril (Prinivil) 5 mg DAILY PO Last administered on 08/05/18 08:33; Start 08/05/18 at 09:00 Metolazone (Zaroxolyn) 2.5 mg DAILY PO Last administered on 08/05/18 08:32; Start 08/05/18 at 09:00 Metoprolol Succinate (Toprol Xl) 50 mg DAILY PO Last administered on 08/05/18 08:33; Start 08/05/18 at 09:00 Multivitamins (Thera M Plus) 1 tab DAILY PO Last administered on 08/05/18 08:33; Start 08/05/18 at 09:00 Sulfasalazine (Azulfidine) 1,000 mg BID PO ; Start 08/05/18 at 09:00 Vitamin E 400 unit DAILY16 PO ; Start 08/05/18 at 16:00 Zinc Sulfate (Orazinc) 220 mg DAILY PO ; Start 08/05/18 at 09:00 Active Scripts Active Novolin R (Insulin Regular, Human) 100 Unit/1 Ml Vial 8 Unit SQ TIDWMEALS 30 Days hold if BS at home < 110 Metformin Hcl Er (Metformin Hcl) 500 Mg Tab.er.24h 1 Tab PO BID76 Lasix (Furosemide) 40 Mg Tablet 1 Tab PO DAILY Reported Novolin N (Nph, Human Insulin Isophane) 100 Unit/1 Ml Vial 15 Unit SQ BID at breakfast and bedtime Repatha Syringe (Evolocumab) 140 Mg/1 Ml Syringe 140 Mg SQ Q2WKS [place]-3 Krill Oil Sfgl (Krill/Om-3/Dha/Epa/Phospho/Ast) 1 Each Capsule 1 Each PO DAILY Metolazone 2.5 Mg Tablet 2.5 Mg PO DAILY Lisinopril 5 Mg Tablet 5 Mg PO DAILY Amlodipine Besylate 5 Mg Tablet 10 Mg PO DAILY Toprol Xl (Metoprolol Succinate) 50 Mg Tab.er.24h 1 Tab PO DAILY Eliquis (Apixaban) 5 Mg Tablet 5 Mg PO BID Zinc 50 Mg Tablet 50 Mg PO DAILY08 Vitamin E (Vitamin E Mixed) 400 Unit Capsule 400 Unit PO DAILY16 Prednisone (Prednisone) 10 Mg Tablet 10 Mg PO BID Sulfasalazine 500 Mg Tablet 1,000 Mg PO BID Clopidogrel (Clopidogrel Bisulfate) 75 Mg Tablet 75 Mg PO DAILY Vitamin D2 (Ergocalciferol (Vitamin D2)) 50,000 Unit Capsule 50,000 Unit PO WEEKLY Centrum Silver Tablet (Multivits-Min/Fa/Lycopene/Lut) 1 Each Tablet 1 Each PO DAILY Pepcid (Famotidine) 20 Mg Tablet 20 Mg PO BID76 Tamsulosin Hcl 0.4 Mg Cap.er.24h 0.8 Mg PO HS Allopurinol 300 Mg Tablet 300 Mg PO BID Levothyroxine Sodium 25 Mcg Tablet 25 Mcg PO DAILYAC Allergies Allergies: Coded Allergies: Iodinated Contrast- Oral and IV Dye (Verified Allergy, Intermediate, Hives, 09/14/13) pravastatin (Verified Allergy, Intermediate, 01/06/14) Gvnkqhf-Bbu-Izn Reductase Inhibitor (Verified Adverse Reaction, Intermediate, 02/03/17) ROS Review of System A 14 point ROS was completed with the following noted as positive: Other systems reviewed and negative. \CONSTITUTIONAL: No fever or chills EYES: No recent changes SKIN: No rash or itching CARDIOVASCULAR: No chest pain, syncope, palpitations, or edema RESPIRATORY: No SOB or cough GASTROINTESTINAL: No nausea, vomiting or abdominal pain NEUROLOGICAL: No headaches or weakness ENDOCRINE: No cold or heat intolerance GENITOURINARY: No urgency or frequency of urination MUSCULOSKELETAL: No back pain or joint pain LYMPHATICS: No enlarged lymph nodes PSYCHIATRIC: No anxiety or depression Physical Exam General: Alert, Oriented X3, Cooperative, No acute distress HEENT: Atraumatic, PERRLA, EOMI Lungs: Clear to auscultation, Normal air movement Heart: S1S2, RRR, no thrills, no rubs, no gallops, no murmurs Cardiovascular: S1, S2 Abdomen: Normal bowel sounds, Soft, No tenderness, No hepatosplenomegaly, No masses Male Genitals Exam: normal genitalia, normal prostate Rectal Exam: not examined PELVIC: Nml ext genitalia Extremities: No clubbing, No cyanosis, No edema, Normal pulses, No tenderness/swelling Skin: No rashes, No breakdown, No significant lesion Neuro: Normal gait, Normal speech, Strength at 5/5 X4 ext, Normal tone, Sensation intact, Cranial nerves 3-12 NL, Reflexes 2+ Psych/Mental Status: Mental status NL, Mood NL Vitals Vitals Vital Signs Date Time Temp Pulse Resp B/P (MAP) Pulse Ox O2 Delivery O2 Flow Rate FiO2 08/05/18 08:33 96 110/80 08/05/18 07:10 97.8 20 94 Room Air 97.8 Labs Labs Laboratory Tests Test 08/04/18 18:07 08/04/18 18:31 08/04/18 20:36 08/04/18 20:39 Glucose (Fingerstick) 94 mg/dL (70-99) 77 mg/dL (70-99) White Blood Count 10.5 x10^3/uL (4.0-11.0) Red Blood Count 3.15 x10^6/uL (4.30-5.70) Hemoglobin 10.4 g/dL (13.0-17.5) Hematocrit 31.9 % (39.0-53.0) Mean Corpuscular Volume 101 fL (79-100) Mean Corpuscular Hemoglobin 33 pg (25-35) Mean Corpuscular Hemoglobin Concent 33 g/dL (31-37) Red Cell Distribution Width 19.2 % (11.5-14.5) Platelet Count 169 x10^3/uL (140-400) Neutrophils (%) (Auto) 80 % (31-73) Lymphocytes (%) (Auto) 11 % (24-48) Monocytes (%) (Auto) 7 % (0-9) Eosinophils (%) (Auto) 2 % (0-3) Basophils (%) (Auto) 1 % (0-3) Neutrophils # (Auto) 8.3 x10^3uL (1.8-7.7) Lymphocytes # (Auto) 1.1 x10^3/uL (1.0-4.8) Monocytes # (Auto) 0.8 x10^3/uL (0.0-1.1) Eosinophils # (Auto) 0.2 x10^3/uL (0.0-0.7) Basophils # (Auto) 0.1 x10^3/uL (0.0-0.2) Segmented Neutrophils % 72 % (35-66) Band Neutrophils % 2 % (0-9) Lymphocytes % 13 % (24-48) Monocytes % 10 % (0-10) Eosinophils % 1 % (0-5) Basophils % 1 % (0-3) Metamyelocytes % 1 % (0-0) Toxic Vacuolation Slight Platelet Estimate Adequate (ADEQUATE) Anisocytosis Slight Sodium Level 140 mmol/L (136-145) Potassium Level 4.3 mmol/L (3.5-5.1) Chloride Level 105 mmol/L (98-107) Carbon Dioxide Level 25 mmol/L (21-32) Anion Gap 10 (6-14) Blood Urea Nitrogen 49 mg/dL (8-26) Creatinine 1.4 mg/dL (0.7-1.3) Estimated GFR (Cockcroft-Gault) 49.4 BUN/Creatinine Ratio 35 (6-20) Glucose Level 84 mg/dL (70-99) Lactic Acid Level 2.2 mmol/L (0.4-2.0) Calcium Level 8.8 mg/dL (8.5-10.1) Total Bilirubin 0.2 mg/dL (0.2-1.0) Aspartate Amino Transf (AST/SGOT) 18 U/L (15-37) Alanine Aminotransferase (ALT/SGPT) 22 U/L (16-63) Alkaline Phosphatase 104 U/L (46-116) Troponin I Quantitative 0.041 ng/mL (0.000-0.055) Total Protein 6.5 g/dL (6.4-8.2) Albumin 3.5 g/dL (3.4-5.0) Albumin/Globulin Ratio 1.2 (1.0-1.7) Urine Collection Type Unknown Urine Color Yellow Urine Clarity Clear Urine pH 5.5 Urine Specific [place] 1.015 Urine Protein 30 mg/dL (NEG-TRACE) Urine Glucose (UA) Negative mg/dL (NEG) Urine Ketones (Stick) Negative mg/dL (NEG) Urine Blood Negative (NEG) Urine Nitrite Negative (NEG) Urine Bilirubin Negative (NEG) Urine Urobilinogen Dipstick 0.2 mg/dL (0.2 mg/dL) Urine Leukocyte Esterase Negative (NEG) Urine RBC 0 /HPF (0-2) Urine WBC 0 /HPF (0-4) Urine Squamous Epithelial Cells None /LPF Urine Bacteria 0 /HPF (0-FEW) Urine Mucus Mod /LPF Test 08/04/18 21:33 08/04/18 22:42 08/05/18 00:07 08/05/18 04:06 Glucose (Fingerstick) 86 mg/dL (70-99) 120 mg/dL (70-99) 114 mg/dL (70-99) 109 mg/dL (70-99) Test 08/05/18 08:03 Glucose (Fingerstick) 202 mg/dL (70-99) Laboratory Tests Test 08/04/18 18:07 08/04/18 18:31 08/04/18 20:36 08/04/18 20:39 Glucose (Fingerstick) 94 mg/dL (70-99) 77 mg/dL (70-99) White Blood Count 10.5 x10^3/uL (4.0-11.0) Red Blood Count 3.15 x10^6/uL (4.30-5.70) Hemoglobin 10.4 g/dL (13.0-17.5) Hematocrit 31.9 % (39.0-53.0) Mean Corpuscular Volume 101 fL (79-100) Mean Corpuscular Hemoglobin 33 pg (25-35) Mean Corpuscular Hemoglobin Concent 33 g/dL (31-37) Red Cell Distribution Width 19.2 % (11.5-14.5) Platelet Count 169 x10^3/uL (140-400) Neutrophils (%) (Auto) 80 % (31-73) Lymphocytes (%) (Auto) 11 % (24-48) Monocytes (%) (Auto) 7 % (0-9) Eosinophils (%) (Auto) 2 % (0-3) Basophils (%) (Auto) 1 % (0-3) Neutrophils # (Auto) 8.3 x10^3uL (1.8-7.7) Lymphocytes # (Auto) 1.1 x10^3/uL (1.0-4.8) Monocytes # (Auto) 0.8 x10^3/uL (0.0-1.1) Eosinophils # (Auto) 0.2 x10^3/uL (0.0-0.7) Basophils # (Auto) 0.1 x10^3/uL (0.0-0.2) Segmented Neutrophils % 72 % (35-66) Band Neutrophils % 2 % (0-9) Lymphocytes % 13 % (24-48) Monocytes % 10 % (0-10) Eosinophils % 1 % (0-5) Basophils % 1 % (0-3) Metamyelocytes % 1 % (0-0) Toxic Vacuolation Slight Platelet Estimate Adequate (ADEQUATE) Anisocytosis Slight Sodium Level 140 mmol/L (136-145) Potassium Level 4.3 mmol/L (3.5-5.1) Chloride Level 105 mmol/L (98-107) Carbon Dioxide Level 25 mmol/L (21-32) Anion Gap 10 (6-14) Blood Urea Nitrogen 49 mg/dL (8-26) Creatinine 1.4 mg/dL (0.7-1.3) Estimated GFR (Cockcroft-Gault) 49.4 BUN/Creatinine Ratio 35 (6-20) Glucose Level 84 mg/dL (70-99) Lactic Acid Level 2.2 mmol/L (0.4-2.0) Calcium Level 8.8 mg/dL (8.5-10.1) Total Bilirubin 0.2 mg/dL (0.2-1.0) Aspartate Amino Transf (AST/SGOT) 18 U/L (15-37) Alanine Aminotransferase (ALT/SGPT) 22 U/L (16-63) Alkaline Phosphatase 104 U/L (46-116) Troponin I Quantitative 0.041 ng/mL (0.000-0.055) Total Protein 6.5 g/dL (6.4-8.2) Albumin 3.5 g/dL (3.4-5.0) Albumin/Globulin Ratio 1.2 (1.0-1.7) Urine Collection Type Unknown Urine Color Yellow Urine Clarity Clear Urine pH 5.5 Urine Specific [place] 1.015 Urine Protein 30 mg/dL (NEG-TRACE) Urine Glucose (UA) Negative mg/dL (NEG) Urine Ketones (Stick) Negative mg/dL (NEG) Urine Blood Negative (NEG) Urine Nitrite Negative (NEG) Urine Bilirubin Negative (NEG) Urine Urobilinogen Dipstick 0.2 mg/dL (0.2 mg/dL) Urine Leukocyte Esterase Negative (NEG) Urine RBC 0 /HPF (0-2) Urine WBC 0 /HPF (0-4) Urine Squamous Epithelial Cells None /LPF Urine Bacteria 0 /HPF (0-FEW) Urine Mucus Mod /LPF Test 08/04/18 21:33 08/04/18 22:42 08/05/18 00:07 08/05/18 04:06 Glucose (Fingerstick) 86 mg/dL (70-99) 120 mg/dL (70-99) 114 mg/dL (70-99) 109 mg/dL (70-99) Test 08/05/18 08:03 Glucose (Fingerstick) 202 mg/dL (70-99) VTE Prophylaxis Ordered VTE Prophylaxis Devices: Yes VTE Pharmacological Prophylaxi: Yes Assessment/Plan Assessment/Plan DM 2 with hypoglycemia without coma-on insulin at home with decent A1c per his account- Plan Heavy education counseling done Because he dropped blood sugar 50s at 5 PM, I did recommend to hold off giving himself the medium acting insulin. But can give himself the fast acting insulin but cut back maybe to 5 or 8 units mealtime breakfast lunch and dinner pending his sugar logs. We will see how he does throughout the day, if blood sugars are all over the place, we shall keep him. But if blood sugar is stable he can go home with the today Rx on chart MARLENA RAI MD August 05, 2018 10:13
[2018-08-05] MEDS: sulfaSALAzine 500 MG TABLET PO SCH ×2 (10:14→20:32)
[2018-08-05] MEDS: ZINC SULFATE 220 MG CAPSULE. PO SCH (10:14)
--- NOTE | 2018-08-05 10:14 | PDOC3 ---
Discharge Summary Visit Information Date of Admission: August 04, 2018 Date of Discharge: August 05, 2018 Admitting Diagnosis Comment: DM 2 with hypoglycemia without coma-with recent decent A1c Brief Hospital Course Allergies Allergies Coded Allergies Type Severity Reaction Last Updated Verified Iodinated Contrast- Oral and IV Dye Allergy Intermediate Hives 09/14/13 Yes pravastatin Allergy Intermediate 01/06/14 Yes Zjvlico-Mbl-Nbp Reductase Inhibitor Adverse Reaction Intermediate 02/03/17 Yes Vital Signs Vital Signs Date Time Temp Pulse Resp B/P (MAP) Pulse Ox O2 Delivery O2 Flow Rate FiO2 08/05/18 08:33 96 110/80 08/05/18 07:10 97.8 20 94 Room Air 97.8 Lab Results Laboratory Tests Test 08/04/18 18:07 08/04/18 18:31 08/04/18 20:36 08/04/18 20:39 Glucose (Fingerstick) 94 mg/dL (70-99) 77 mg/dL (70-99) White Blood Count 10.5 x10^3/uL (4.0-11.0) Red Blood Count 3.15 x10^6/uL (4.30-5.70) Hemoglobin 10.4 g/dL (13.0-17.5) Hematocrit 31.9 % (39.0-53.0) Mean Corpuscular Volume 101 fL (79-100) Mean Corpuscular Hemoglobin 33 pg (25-35) Mean Corpuscular Hemoglobin Concent 33 g/dL (31-37) Red Cell Distribution Width 19.2 % (11.5-14.5) Platelet Count 169 x10^3/uL (140-400) Neutrophils (%) (Auto) 80 % (31-73) Lymphocytes (%) (Auto) 11 % (24-48) Monocytes (%) (Auto) 7 % (0-9) Eosinophils (%) (Auto) 2 % (0-3) Basophils (%) (Auto) 1 % (0-3) Neutrophils # (Auto) 8.3 x10^3uL (1.8-7.7) Lymphocytes # (Auto) 1.1 x10^3/uL (1.0-4.8) Monocytes # (Auto) 0.8 x10^3/uL (0.0-1.1) Eosinophils # (Auto) 0.2 x10^3/uL (0.0-0.7) Basophils # (Auto) 0.1 x10^3/uL (0.0-0.2) Segmented Neutrophils % 72 % (35-66) Band Neutrophils % 2 % (0-9) Lymphocytes % 13 % (24-48) Monocytes % 10 % (0-10) Eosinophils % 1 % (0-5) Basophils % 1 % (0-3) Metamyelocytes % 1 % (0-0) Toxic Vacuolation Slight Platelet Estimate Adequate (ADEQUATE) Anisocytosis Slight Sodium Level 140 mmol/L (136-145) Potassium Level 4.3 mmol/L (3.5-5.1) Chloride Level 105 mmol/L (98-107) Carbon Dioxide Level 25 mmol/L (21-32) Anion Gap 10 (6-14) Blood Urea Nitrogen 49 mg/dL (8-26) Creatinine 1.4 mg/dL (0.7-1.3) Estimated GFR (Cockcroft-Gault) 49.4 BUN/Creatinine Ratio 35 (6-20) Glucose Level 84 mg/dL (70-99) Lactic Acid Level 2.2 mmol/L (0.4-2.0) Calcium Level 8.8 mg/dL (8.5-10.1) Total Bilirubin 0.2 mg/dL (0.2-1.0) Aspartate Amino Transf (AST/SGOT) 18 U/L (15-37) Alanine Aminotransferase (ALT/SGPT) 22 U/L (16-63) Alkaline Phosphatase 104 U/L (46-116) Troponin I Quantitative 0.041 ng/mL (0.000-0.055) Total Protein 6.5 g/dL (6.4-8.2) Albumin 3.5 g/dL (3.4-5.0) Albumin/Globulin Ratio 1.2 (1.0-1.7) Urine Collection Type Unknown Urine Color Yellow Urine Clarity Clear Urine pH 5.5 Urine Specific [place] 1.015 Urine Protein 30 mg/dL (NEG-TRACE) Urine Glucose (UA) Negative mg/dL (NEG) Urine Ketones (Stick) Negative mg/dL (NEG) Urine Blood Negative (NEG) Urine Nitrite Negative (NEG) Urine Bilirubin Negative (NEG) Urine Urobilinogen Dipstick 0.2 mg/dL (0.2 mg/dL) Urine Leukocyte Esterase Negative (NEG) Urine RBC 0 /HPF (0-2) Urine WBC 0 /HPF (0-4) Urine Squamous Epithelial Cells None /LPF Urine Bacteria 0 /HPF (0-FEW) Urine Mucus Mod /LPF Test 08/04/18 21:33 08/04/18 22:42 08/05/18 00:07 08/05/18 04:06 Glucose (Fingerstick) 86 mg/dL (70-99) 120 mg/dL (70-99) 114 mg/dL (70-99) 109 mg/dL (70-99) Test 08/05/18 08:03 Glucose (Fingerstick) 202 mg/dL (70-99) Laboratory Tests Test 08/04/18 18:07 08/04/18 18:31 08/04/18 20:36 08/04/18 20:39 Glucose (Fingerstick) 94 mg/dL (70-99) 77 mg/dL (70-99) White Blood Count 10.5 x10^3/uL (4.0-11.0) Red Blood Count 3.15 x10^6/uL (4.30-5.70) Hemoglobin 10.4 g/dL (13.0-17.5) Hematocrit 31.9 % (39.0-53.0) Mean Corpuscular Volume 101 fL (79-100) Mean Corpuscular Hemoglobin 33 pg (25-35) Mean Corpuscular Hemoglobin Concent 33 g/dL (31-37) Red Cell Distribution Width 19.2 % (11.5-14.5) Platelet Count 169 x10^3/uL (140-400) Neutrophils (%) (Auto) 80 % (31-73) Lymphocytes (%) (Auto) 11 % (24-48) Monocytes (%) (Auto) 7 % (0-9) Eosinophils (%) (Auto) 2 % (0-3) Basophils (%) (Auto) 1 % (0-3) Neutrophils # (Auto) 8.3 x10^3uL (1.8-7.7) Lymphocytes # (Auto) 1.1 x10^3/uL (1.0-4.8) Monocytes # (Auto) 0.8 x10^3/uL (0.0-1.1) Eosinophils # (Auto) 0.2 x10^3/uL (0.0-0.7) Basophils # (Auto) 0.1 x10^3/uL (0.0-0.2) Segmented Neutrophils % 72 % (35-66) Band Neutrophils % 2 % (0-9) Lymphocytes % 13 % (24-48) Monocytes % 10 % (0-10) Eosinophils % 1 % (0-5) Basophils % 1 % (0-3) Metamyelocytes % 1 % (0-0) Toxic Vacuolation Slight Platelet Estimate Adequate (ADEQUATE) Anisocytosis Slight Sodium Level 140 mmol/L (136-145) Potassium Level 4.3 mmol/L (3.5-5.1) Chloride Level 105 mmol/L (98-107) Carbon Dioxide Level 25 mmol/L (21-32) Anion Gap 10 (6-14) Blood Urea Nitrogen 49 mg/dL (8-26) Creatinine 1.4 mg/dL (0.7-1.3) Estimated GFR (Cockcroft-Gault) 49.4 BUN/Creatinine Ratio 35 (6-20) Glucose Level 84 mg/dL (70-99) Lactic Acid Level 2.2 mmol/L (0.4-2.0) Calcium Level 8.8 mg/dL (8.5-10.1) Total Bilirubin 0.2 mg/dL (0.2-1.0) Aspartate Amino Transf (AST/SGOT) 18 U/L (15-37) Alanine Aminotransferase (ALT/SGPT) 22 U/L (16-63) Alkaline Phosphatase 104 U/L (46-116) Troponin I Quantitative 0.041 ng/mL (0.000-0.055) Total Protein 6.5 g/dL (6.4-8.2) Albumin 3.5 g/dL (3.4-5.0) Albumin/Globulin Ratio 1.2 (1.0-1.7) Urine Collection Type Unknown Urine Color Yellow Urine Clarity Clear Urine pH 5.5 Urine Specific [place] 1.015 Urine Protein 30 mg/dL (NEG-TRACE) Urine Glucose (UA) Negative mg/dL (NEG) Urine Ketones (Stick) Negative mg/dL (NEG) Urine Blood Negative (NEG) Urine Nitrite Negative (NEG) Urine Bilirubin Negative (NEG) Urine Urobilinogen Dipstick 0.2 mg/dL (0.2 mg/dL) Urine Leukocyte Esterase Negative (NEG) Urine RBC 0 /HPF (0-2) Urine WBC 0 /HPF (0-4) Urine Squamous Epithelial Cells None /LPF Urine Bacteria 0 /HPF (0-FEW) Urine Mucus Mod /LPF Test 08/04/18 21:33 08/04/18 22:42 08/05/18 00:07 08/05/18 04:06 Glucose (Fingerstick) 86 mg/dL (70-99) 120 mg/dL (70-99) 114 mg/dL (70-99) 109 mg/dL (70-99) Test 08/05/18 08:03 Glucose (Fingerstick) 202 mg/dL (70-99) Brief Hospital Course Mr. Bustos is a 73 old [sex] who presented with [ ] He is a very pleasant and very knowledgeable 73-year-old white male, lives at home with , known diabetic since the maintained on the following dane men. N Insulin 15 twice a day, and regular insulin 15 units, 4 times a day. He is also on metformin 1000 twice a day. He follows with [facility] for this. He was admitted because of persistent hypoglycemia needing multiple dextrose pushes and by mouth intake. His blood sugar is now 202, feeling well. I did explain the different kinds of insulin, the duration and onset of action. And what to do if his blood sugars are high or low pending blood sugar checks at home. He does have a glucometer and glucose reji's and he is checking his blood sugar. He claims he has a decent A1c/. This regimen of his he has been using for very long time. He did not miss a meal, he denies knowledge of overdosing inadvertently himself with insulin. In any case extensive education at least 35 minutes in the room done with this pleasant couple. If blood sugars remain stable throughout the day he can discharge home later with revisions of his insulin regimen as I have instructed pending on what his blood sugars are at home. I did advise him to see his PCP or whoever manages his DM in 2-4 weeks time regarding his recent sugar logs. He went As low as blood sugar 50s at home Discharge Information Condition at Discharge: Improved, Stable Follow Up: Weeks (2-4 weeks PCP regarding DM) Disposition/Orders: D/C to Home Scheduled Allopurinol (Allopurinol) 300 Mg Tablet, 300 MG PO BID, (Reported) Entered as Reported by: HERO CONKLIN on 09/14/13 1217 Last Taken: Unknown Dose on 08/04/18899 Last Action: Continued on 08/05/18814 by MARLENA RAI Amlodipine Besylate (Amlodipine Besylate) 5 Mg Tablet, 10 MG PO DAILY, (Reported) Entered as Reported by: EBONIE MARTINEZ on 02/04/17 1453 Last Taken: Unknown Dose on 08/04/18899 Last Action: Continued on 08/05/18814 by MARLENA RAI Apixaban (Eliquis) 5 Mg Tablet, 5 MG PO BID, (Reported) Entered as Reported by: EBONIE MARTINEZ on 02/04/17 1441 Last Taken: Unknown Dose on 08/04/18899 Last Action: Continued on 08/05/18814 by MARLENA RAI Clopidogrel Bisulfate (Clopidogrel) 75 Mg Tablet, 75 MG PO DAILY for TO PREVENT BLOOD CLOTS, #30 Ref 0 (Reported) Entered as Reported by: KAREN PAK on 04/15/16 1113 Last Taken: Unknown Dose on 08/04/18899 Last Action: Continued on 08/05/18814 by MARLENA RAI Ergocalciferol (Vitamin D2) (Vitamin D2) 50,000 Unit Capsule, 50,000 UNIT PO WEEKLY, (Reported) Entered as Reported by: DONTA BE [facility] on 02/28/15 1534 Last Taken: Unknown Dose on 08/02/18 Last Action: Continued on 08/05/1810 29 by MARLENA RAI Evolocumab (Repatha Syringe) 140 Mg/1 Ml Syringe, 140 MG SQ Q2WKS for RX, (Reported) Entered as Reported by: RUSSELL HUNTLEY on 11/25/17 0657 Last Taken: Unknown Dose on 07/24/18 Last Action: Converted on 08/05/18814 by MARLENA RAI Famotidine (Pepcid) 20 Mg Tablet, 20 MG PO BID76, (Reported) Entered as Reported by: HERO CONKLIN on 09/14/13 1217 Last Taken: Unknown Dose on 08/04/18899 Last Action: Continued on 08/05/18814 by MARLENA RAI Furosemide (Lasix) 40 Mg Tablet, 1 TAB PO DAILY, #90 Ref 1 Prescribed by: MARLENA RAI on 04/17/16909 Last Taken: Unknown Dose on 08/04/18899 Last Action: Continued on 814 by MARLENA RAI Insulin Regular, Human (Novolin R) 100 Unit/1 Ml Vial, 8 UNIT SQ TIDWMEALS for diabetes for 30 Days hold if BS at home < 110 Prescribed by: MARLENA RAI on 08/05/18 1006 Krill/Om-3/Dha/Epa/Phospho/Ast (Megared Sullivan-3 Krill Oil Sfgl) 1 Each Capsule, 1 EACH PO DAILY, (Reported) Entered as Reported by: RUSSELL HUNTLEY on 11/25/17656 Last Taken: Unknown Dose on 08/04/18899 Last Action: Converted on 08/05/18814 by MARLENA RAI Levothyroxine Sodium (Levothyroxine Sodium) 25 Mcg Tablet, 25 MCG PO DAILYAC for THYROID SUPPLEMENT, #30 Ref 0 (Reported) Entered as Reported by: HERO CONKLIN on 09/14/13 1217 Last Taken: Unknown Dose on 08/04/18799 Last Action: Converted on 08/05/18814 by MARLENA RAI Lisinopril (Lisinopril) 5 Mg Tablet, 5 MG PO DAILY for FOR HYPERTENSION, #30 Ref 0 (Reported) Entered as Reported by: RUSSELL HUNTLEY on 11/25/17656 Last Taken: Unknown Dose on 08/04/18899 Last Action: Converted on 08/05/18814 by MARLENA RAI Metformin Hcl (Metformin Hcl Er) 500 Mg Tab.er.24h, 1 TAB PO BID76 for dm 2, #60 Ref 3 Prescribed by: MARLENA RAI on 08/05/18 1006 Metolazone (Metolazone) 2.5 Mg Tablet, 2.5 MG PO DAILY, #30 Ref 0 (Reported) Entered as Reported by: RUSSELL HUNTLEY on 11/25/17656 Last Taken: Unknown Dose on 08/04/18899 Last Action: Converted on 08/05/18814 by MARLENA RAI Metoprolol Succinate (Toprol Xl) 50 Mg Tab.er.24h, 1 TAB PO DAILY, #30 Ref 5 (Reported) Entered as Reported by: EBONIE MARTINEZ on 02/04/17 1441 Last Taken: Unknown Dose on 08/04/18899 Last Action: Converted on 08/05/18814 by MARLENA RAI Multivits-Min/Fa/Lycopene/Lut (Centrum Silver Tablet) 1 Each Tablet, 1 EACH PO DAILY, (Reported) Entered as Reported by: HERO CONKLIN on 09/14/13 1217 Last Taken: Unknown Dose on 08/04/18899 Last Action: Converted on 08/05/18814 by MARLENA RAI Nph, Human Insulin Isophane (Novolin N) 100 Unit/1 Ml Vial, 15 UNIT SQ BID for diabetes, (Reported) at breakfast and bedtime Entered as Reported by: LINDSEY WASHINGTON on 08/05/18 0106 Last Taken: Unknown Dose on 08/04/18899 Last Action: HELD on 08/05/18814 by MARLENA RAI Prednisone (Prednisone ) 10 Mg Tablet, 10 MG PO BID, (Reported) Entered as Reported by: OMSEL BANKS on 02/01/171824 Last Taken: Unknown Dose on 08/04/18899 Last Action: Continued on 08/05/18814 by MARLENA RAI Sulfasalazine (Sulfasalazine) 500 Mg Tablet, 1,000 MG PO BID, (Reported) Entered as Reported by: YOVANNY STAFFORD on 04/15/16 1504 Last Taken: Unknown Dose on 08/04/18899 Last Action: Converted on 08/05/18814 by MARLENA RAI Tamsulosin Hcl (Tamsulosin Hcl) 0.4 Mg Cap.er.24h, 0.8 MG PO HS for RX, (Reported) Entered as Reported by: HERO CONKLIN on 09/14/13 1217 Last Taken: Unknown Dose on 08/03/18 2100 Last Action: Continued on 08/05/18 0040 by LINDSEY WASHINGTON Vitamin E Mixed (Vitamin E) 400 Unit Capsule, 400 UNIT PO DAILY16, (Reported) Entered as Reported by: OSMEL BANKS on 02/01/17 182 Last Taken: Unknown Dose on 08/03/18 1700 Last Action: Converted on 08/05/18 0815 by MARLENA RAI Zinc (Zinc) 50 Mg Tablet, 50 MG PO DAILY08, (Reported) Entered as Reported by: OSMEL BANKS on 02/01/17 1829 Last Taken: Unknown Dose on 08/04/18 0900 Last Action: Converted on 08/05/18 0815 by MARLENA RAI Discontinued Medications Insulin Aspart (Novolog) 100 Unit/1 Ml Cartridge, 15 UNIT SQ TIDAC, (Reported) Entered as Reported by: ADAM HORN on 03/22/17 0848 Last Taken: Unknown Dose on 08/04/18 1200 Last Action: Discontinued on 08/05/18 010 by LINDSEY WASHINGTON Insulin Detemir (Levemir) 100 Unit/1 Ml Vial, 15 UNIT SQ BID (0800, 2100), (Reported) Entered as Reported by: ADAM HORN on 03/22/17 0848 Last Action: Discontinued on 08/05/18105 by MARLENA WHITE MD August 05, 2018 10:14
--- NOTE | 2018-08-05 10:55 | PDOC2 ---
DONTA CAMEJO PROBATION OFFICER 08/05/18 1055: CARDIAC CONSULT DATE OF CONSULT Date of Consult DATE: 08/05/18 TIME: 10:39 REASON FOR CONSULT Reason for Consult: SVT REFERRING PHYSICIAN Referring Physician: Dr. Alba SOURCE Source: Chart review, Patient HISTORY OF PRESENT ILLNESS HISTORY OF PRESENT ILLNESS This is a 73 yo male, with a history noted below, who presented secondary to weakness, confusion, and hypoglycemia. Was planned to be discharged today, but had some tachyarrhythmias on tele, which prompted this consult. Patient denies any chest pain, palpitations, dizziness, diaphoresis, SOA, or nausea. PAST MEDICAL HISTORY Cardiovascular: AFIB (PAFIB), CAD, CHF, HTN, Hyperlipidemia, Other (venous insufficiency ) Pulmonary: COPD CENTRAL NERVOUS SYSTEM: CVA Rheumatologic: Gout Endocrine: Diabetes PAST SURGICAL HISTORY Past Surgical History: Pacemaker (Bi-V AICD ), CABG SOCIAL HISTORY Smoke: No ALCOHOL: none Drugs: None Lives: with Family CURRENT MEDICATIONS CURRENT MEDICATIONS Current Medications Medications (Trade) Dose Ordered Sig/Nickie Route PRN Reason Start Time Stop Time Status Last Admin Dose Admin Sodium Chloride 500 ml @ 500 mls/hr 1X ONCE IV 08/04/18 20:15 08/04/18 21:14 DC 08/04/18 20:41 Tamsulosin HCl (Flomax) 0.8 mg HS PO 08/05/18 01:00 08/05/18 00:53 Allopurinol (Zyloprim) 300 mg BID PO 08/05/18 09:00 08/05/18 08:32 Amlodipine Besylate (Norvasc) 10 mg DAILY PO 08/05/18 09:00 08/05/18 08:32 Apixaban (Eliquis) 5 mg BID PO 08/05/18 09:00 08/05/18 08:33 Clopidogrel Bisulfate (Plavix) 75 mg DAILY PO 08/05/18 09:00 08/05/18 08:32 Famotidine (Pepcid) 20 mg BID76 PO 08/05/18 09:00 08/05/18 08:32 Furosemide (Lasix) 40 mg DAILY PO 08/05/18 09:00 08/05/18 08:32 Prednisone (Prednisone) 10 mg BID PO 08/05/18 09:00 08/05/18 08:33 Fish Oil (Fish Oil) 1,000 mg DAILY PO 08/05/18 09:00 08/05/18 08:35 Levothyroxine Sodium (Synthroid) 25 mcg DAILY06 PO 08/05/18 09:00 08/05/18 08:32 Lisinopril (Prinivil) 5 mg DAILY PO 08/05/18 09:00 08/05/18 08:33 Metolazone (Zaroxolyn) 2.5 mg DAILY PO 08/05/18 09:00 08/05/18 08:32 Metoprolol Succinate (Toprol Xl) 50 mg DAILY PO 08/05/18 09:00 08/05/18 08:33 Multivitamins (Thera M Plus) 1 tab DAILY PO 08/05/18 09:00 08/05/18 08:33 Sulfasalazine (Azulfidine) 1,000 mg BID PO 08/05/18 09:00 08/05/18 10:14 Zinc Sulfate (Orazinc) 220 mg DAILY PO 08/05/18 09:00 08/05/18 10:14 ALLERGIES ALLERGIES: Coded Allergies: Iodinated Contrast- Oral and IV Dye (Verified Allergy, Intermediate, Hives, 09/14/13) pravastatin (Verified Allergy, Intermediate, 01/06/14) Xmggepz-Xim-Bwc Reductase Inhibitor (Verified Adverse Reaction, Intermediate, 02/03/17) ROS Review of System 14 point ROS conducted with pertinent positives noted above in HPI. PHYSICAL EXAM General: Alert, Oriented X3, Cooperative, No acute distress HEENT: Atraumatic Lungs: Clear to auscultation, Normal air movement Heart: Regular rate, Normal S1, Normal S2, Other (presentely paced with underlying SR) Abdomen: Soft, No tenderness Extremities: Normal pulses, Other (LLE trace edema) Neuro: Normal speech, Sensation intact Psych/Mental Status: Mental status NL, Mood NL MUSCULOSKELETAL: Osteoarthritic changes both hands VITALS VITALS Vital Signs Date Time Temp Pulse Resp B/P (MAP) Pulse Ox O2 Delivery O2 Flow Rate FiO2 08/05/18 08:33 96 110/80 08/05/18 07:10 97.8 20 94 Room Air 97.8 LABS Lab: Laboratory Tests Test 08/04/18 18:07 08/04/18 18:31 08/04/18 20:36 08/04/18 20:39 Glucose (Fingerstick) 94 mg/dL (70-99) 77 mg/dL (70-99) White Blood Count 10.5 x10^3/uL (4.0-11.0) Red Blood Count 3.15 x10^6/uL (4.30-5.70) Hemoglobin 10.4 g/dL (13.0-17.5) Hematocrit 31.9 % (39.0-53.0) Mean Corpuscular Volume 101 fL (79-100) Mean Corpuscular Hemoglobin 33 pg (25-35) Mean Corpuscular Hemoglobin Concent 33 g/dL (31-37) Red Cell Distribution Width 19.2 % (11.5-14.5) Platelet Count 169 x10^3/uL (140-400) Neutrophils (%) (Auto) 80 % (31-73) Lymphocytes (%) (Auto) 11 % (24-48) Monocytes (%) (Auto) 7 % (0-9) Eosinophils (%) (Auto) 2 % (0-3) Basophils (%) (Auto) 1 % (0-3) Neutrophils # (Auto) 8.3 x10^3uL (1.8-7.7) Lymphocytes # (Auto) 1.1 x10^3/uL (1.0-4.8) Monocytes # (Auto) 0.8 x10^3/uL (0.0-1.1) Eosinophils # (Auto) 0.2 x10^3/uL (0.0-0.7) Basophils # (Auto) 0.1 x10^3/uL (0.0-0.2) Segmented Neutrophils % 72 % (35-66) Band Neutrophils % 2 % (0-9) Lymphocytes % 13 % (24-48) Monocytes % 10 % (0-10) Eosinophils % 1 % (0-5) Basophils % 1 % (0-3) Metamyelocytes % 1 % (0-0) Toxic Vacuolation Slight Platelet Estimate Adequate (ADEQUATE) Anisocytosis Slight Sodium Level 140 mmol/L (136-145) Potassium Level 4.3 mmol/L (3.5-5.1) Chloride Level 105 mmol/L (98-107) Carbon Dioxide Level 25 mmol/L (21-32) Anion Gap 10 (6-14) Blood Urea Nitrogen 49 mg/dL (8-26) Creatinine 1.4 mg/dL (0.7-1.3) Estimated GFR (Cockcroft-Gault) 49.4 BUN/Creatinine Ratio 35 (6-20) Glucose Level 84 mg/dL (70-99) Lactic Acid Level 2.2 mmol/L (0.4-2.0) Calcium Level 8.8 mg/dL (8.5-10.1) Total Bilirubin 0.2 mg/dL (0.2-1.0) Aspartate Amino Transf (AST/SGOT) 18 U/L (15-37) Alanine Aminotransferase (ALT/SGPT) 22 U/L (16-63) Alkaline Phosphatase 104 U/L (46-116) Troponin I Quantitative 0.041 ng/mL (0.000-0.055) Total Protein 6.5 g/dL (6.4-8.2) Albumin 3.5 g/dL (3.4-5.0) Albumin/Globulin Ratio 1.2 (1.0-1.7) Urine Collection Type Unknown Urine Color Yellow Urine Clarity Clear Urine pH 5.5 Urine Specific [place] 1.015 Urine Protein 30 mg/dL (NEG-TRACE) Urine Glucose (UA) Negative mg/dL (NEG) Urine Ketones (Stick) Negative mg/dL (NEG) Urine Blood Negative (NEG) Urine Nitrite Negative (NEG) Urine Bilirubin Negative (NEG) Urine Urobilinogen Dipstick 0.2 mg/dL (0.2 mg/dL) Urine Leukocyte Esterase Negative (NEG) Urine RBC 0 /HPF (0-2) Urine WBC 0 /HPF (0-4) Urine Squamous Epithelial Cells None /LPF Urine Bacteria 0 /HPF (0-FEW) Urine Mucus Mod /LPF Test 08/04/18 21:33 08/04/18 22:42 08/05/18 00:07 08/05/18 04:06 Glucose (Fingerstick) 86 mg/dL (70-99) 120 mg/dL (70-99) 114 mg/dL (70-99) 109 mg/dL (70-99) Test 08/05/18 08:03 Glucose (Fingerstick) 202 mg/dL (70-99) ECHOCARDIOGRAM ECHOCARDIOGRAM <Conclusion> The systolic function is moderately impaired. The Ejection Fraction is 30-35%. There is global hypokinesis with septal motion suggestive of conduction defect. The aortic valve is calcified and cannot rule out bicuspid valve. The ascending aorta is mildly dilated at 3.7 cm. DATE: 03/19/18 1243 STRESS TEST STRESS TEST Conclusion 1. No EKG evidence of stress-induced ischemia. 2. Nuclear imaging is positive for reversible ischemia in the apical septal wall. 3. Decreased ejection fraction at 38%. 4. Moderately high risk study. DATE: 05/13/16 1317 HEART CATH HEART CATH FINDINGS 1. Hemodynamics: Elevated left ventricle end-diastolic pressure of 27 mmHg. No pullback gradient across the aortic valve. 2. Coronary and bypass graft angiography: a. The left main coronary artery arose from the left sinus of Valsalva, gave rise to the left anterior descending, ramus intermedius and left circumflex arteries and did not show any significant stenosis. b. The left anterior descending artery showed 100% occlusion in the proximal segment. c. The ramus intermedius artery showed 70% stenosis in the proximal segment and 90% stenosis in the midsegment. d. The left circumflex artery showed 100% chronic occlusion in the proximal to midsegment. There is distal reconstitution of obtuse marginal branches from left to left collaterals. e. The right coronary artery showed 90% stenosis in the proximal segment followed by 100% occlusion in the midsegment. f. The saphenous vein/left internal mammary artery 'Y' graft to ramus interm edius/LAD did not show any significant stenosis. The ramus intermedius artery distal to the anastomosis did not show any significant stenosis. The left anterior descending artery distal to the anastomosis showed moderate diffuse disease in the very distal/apical segment. g. The saphenous vein graft to the right coronary artery showed 60% in-stent restenosis in the proximal segment, 90% stenosis in the midsegment and 90-95% stenosis in the distal segment. Conclusion 1. Severe [place] vessel coronary artery disease s/p CABG with patent SVG/DON Y graft ramus intermedius/LAD and significant stenoses involving the saphenous vein graft to the right coronary artery as described above 2. Successful PCI/drug eluting stents placement to the mid and distal segments of the saphenous vein graft to the right coronary artery with distal embolic protection using filter wire Recommendations 1. Aspirin 325 mg daily 2. Plavix 75 mg daily for preferably one year 3. Cardiovascular risk factor modification 4. Repeat 2-D echo in 3 months to evaluate the need for biventricular ICD/POWDER MONKEY-D implantation Signed by : Corine Russo, Electronically Approved : 11/25/2017 13:07:56 DICTATED and SIGNED BY: CORINE RUSSO MD DATE: 11/25/17 0749 ASSESSMENT/PLAN ASSESSMENT/PLAN 1. Hypoglycemia 2. Tachyarrhythmia; appears atrial flutter 3. PAFIB; Presently paced with underlying SR. Eliquis for stroke prophylaxis 4. Chronic systolic HF; clinically compensated 5. ICM; s/p ICD/POWDER MONKEY-D (Biotronik) 6. CAD s/p CABG 1992 with redo in 2003 and more recent s/p PCI/stent to SVG to RCA (11/2017) 7. RACH 8. Hypertension 9. Hyperlipemia 10. Diabetes, II 11. Venous insufficiency; s/p RF ablation 12. Hypothyroidism Recommendations TSH, Mg level Device interrogation Metoprolol for rate control- increase if BP allows Continue Eliquis for stroke prophylaxis Secondary prevention measures Further recommendations pending device interrogation CORINE RUSSO MD 08/05/182052: CARDIAC CONSULT ASSESSMENT/PLAN ASSESSMENT/PLAN Patient seen and examined. Agree with [employer] CENTRE MANAGER's assessment and plan. Arrhythmia appears to be atrial flutter tracked rapid ventricular response Agree with device interrogation to confirm this CAD status clinically stable Continue current meds including Eliquis Continue current workup for hypoglycemia per IM Thank you for your consultation DONTA CAMEJO APRN August 05, 2018 10:55 CORINE RUSSO MD August 05, 2018 20:53
[2018-08-05 11:00] VITALS: BP 105/47
--- NOTE | 2018-08-05 11:24 | NUR ---
Spoke with a promotions representative at [employer]. They are sending a rep out to interrogate patient pacemaker. Will continue to monitor.
--- NOTE | 2018-08-05 11:43 | NUR ---
SW following pt for anticipated dc needs. Chart reviewed and discussed with RN. Pt lives at home with spouse. PT/OT pending. SW will await for PT/OT recommendation to assess skilled needs.
[2018-08-05 15:00] VITALS: BP 113/50
[2018-08-05] MEDS ORDERED: VITAMIN E 200 UNIT CAPSULE. PO SCH (16:00)
[2018-08-05 16:13] LABS: HEMOGLOBIN A1C 4.8 % (4.8-5.6)
[2018-08-05] MEDS ORDERED: METOPROLOL SUCC 24HR ER 25 MG TAB.ER.24H. PO ONE (17:30)
[2018-08-05] MEDS ORDERED: DEXTROSE 50% 25 GM / 50ML DISP.SYRIN. IV PRN (17:45)
--- NOTE | 2018-08-05 17:45 | NUR ---
Called [employer] regarding pacemaker interrogation, rep stated that they did not have this RN's message on file from this morning. Awaiting a rep to call back with more information about when the interrogation will occur. Will continue to monitor.
[2018-08-05 19:00] VITALS: BP 116/47
--- NOTE | 2018-08-05 19:00 | NUR ---
Rep has finished interrogating pacemaker and no complications noted. Rep turned pt pacemaker to 140. No complaints noted.
[2018-08-05] MEDS ORDERED: TAMSULOSIN 0.4 MG CAP.ER.24H. PO SCH (21:00)
[2018-08-05 23:00] VITALS: BP 111/62
[2018-08-06 03:00] VITALS: BP 124/63
[2018-08-06] MEDS: LEVOTHYROXINE 25 MCG TABLET. PO SCH (06:42)
[2018-08-06] MEDS: FAMOTIDINE 20 MG TABLET. PO SCH (06:42)
[2018-08-06 07:15] VITALS: BP 122/67
[2018-08-06] MEDS ORDERED: METOPROLOL SUCC 24HR ER 25 MG TAB.ER.24H. PO SCH (09:00)
[2018-08-06] MEDS ORDERED: ANTI-COAG MONITOR BY PHARMACY. MC PRN (09:00)
[2018-08-06] MEDS: APIXABAN 5 MG TABLET. PO SCH (09:21)
[2018-08-06] MEDS: ZINC SULFATE 220 MG CAPSULE. PO SCH (09:21)
[2018-08-06] MEDS: sulfaSALAzine 500 MG TABLET PO SCH (09:21)
[2018-08-06] MEDS: CLOPIDOGREL BISULFATE 75 MG TABLET PO SCH (09:22)
[2018-08-06] MEDS: metOLazone 2.5 MG TABLET PO SCH (09:22)
[2018-08-06] MEDS: FUROSEMIDE 40 MG TABLET. PO SCH (09:22)
[2018-08-06] MEDS: predniSONE 10 MG TABLET PO SCH (09:22)
[2018-08-06] MEDS: amLODIPine BESYLATE 10 MG TABLET PO SCH (09:22)
[2018-08-06] MEDS: ALLOPURINOL 300 MG TABLET. PO SCH (09:23)
[2018-08-06] MEDS: OMEGA-3 FATTY ACIDS/FISH OIL 1,000 MG CAPSULE. PO SCH (09:23)
[2018-08-06] MEDS: MULTIVITAMIN with MINERAL TABLET. PO SCH (09:23)
[2018-08-06] MEDS: LISINOPRIL 5 MG TABLET. PO SCH (09:23)
[2018-08-06 11:06] VITALS: BP 122/67
--- NOTE | 2018-08-06 11:13 | PDOC ---
DONTA CAMEJO BLANCA 08/06/18 1113: CARDIO Progress Notes Date and Time Date of Service 08/06/18 Time of Evaluation 1105 Subjective Subjective: No Chest Pain, No shortness of breath, No Palpitations Vitals Vitals Vital Signs Date Time Temp Pulse Resp B/P (MAP) Pulse Ox O2 Delivery O2 Flow Rate FiO2 08/06/18 11:06 97.8 69 18 122/67 (85) 96 Room Air 97.8 Weight Weight [ ] Input and Output Intake and Output Intake and Output 08/06/18 07:00 Intake Total 540 ml Output Total 0 ml Balance 540 ml Intake Oral 540 ml Output Urine Total 0 ml # Voids 3 Laboratory Labs Laboratory Tests Test 08/05/18 11:20 08/05/18 11:53 08/05/18 16:50 08/05/18 21:25 Magnesium Level 1.8 mg/dL (1.8-2.4) Thyroid Stimulating Hormone (TSH) 2.148 uIU/mL (0.358-3.74) Glucose (Fingerstick) 229 mg/dL (70-99) 260 mg/dL (70-99) 225 mg/dL (70-99) Test 08/06/18 07:08 08/06/18 11:01 Glucose (Fingerstick) 226 mg/dL (70-99) 217 mg/dL (70-99) Physical Exam HEENT: Neck Supple W Full Motion Chest: Symmetric LUNGS: Clear to Auscultation Heart: S1S2, RRR Abdomen: Soft N/T Neurology: alert, oriented, follow commands Assessment Assessment 1. Hypoglycemia 2. Tachyarrhythmia; d/w Biotronik rep; device interrogation revealed atrial tachycardia. No atrial flutter was noted. BB increased. None further overnight. 3. PAFIB; Presently paced with underlying SR. Eliquis for stroke prophylaxis 4. Chronic systolic HF; clinically compensated 5. ICM; s/p ICD/[employer]-D (Biotronik). Normal function 6. CAD s/p CABG 1992 with redo in 2003 and more recent s/p PCI/stent to SVG to RCA (11/2017) 7. RACH 8. Hypertension 9. Hyperlipemia 10. Diabetes, II 11. Venous insufficiency; s/p RF ablation 12. Hypothyroidism Recommendations Continue metoprolol at present dose Eliquis for stroke prophylaxis Secondary prevention measures May discharge from a CV standpoint and f/u in our office with Dr. Long as scheduled CORINE LONG MD 08/06/18 2139: CARDIO Progress Notes Assessment Assessment Patient seen and examined. Agree with COMPENSATION AND HRIS ANALYST's assessment and plan. Device interrogation showed normal function and atrial tachycardia and no VT/AF CAD status stable Follow up in one month DONTA CAMEJO APRN August 06, 2018 11:13 CORINE LONG MD August 06, 2018 21:39
[2018-08-06] MEDS ORDERED: METO-239 PO (11:19)
--- NOTE | 2018-08-06 11:21 | PDOC3 ---
Discharge Summary Visit Information Date of Admission: August 04, 2018 Date of Discharge: August 06, 2018 Admitting Diagnosis Comment: DM 2 with hypoglycemia without coma-with recent decent A1c Atrial flutter indwelling pacer Brief Hospital Course Allergies Allergies Coded Allergies Type Severity Reaction Last Updated Verified Iodinated Contrast- Oral and IV Dye Allergy Intermediate Hives 09/14/13 Yes pravastatin Allergy Intermediate 01/06/14 Yes Yddtmgz-Xyl-Gro Reductase Inhibitor Adverse Reaction Intermediate 02/03/17 Yes Vital Signs Vital Signs Date Time Temp Pulse Resp B/P (MAP) Pulse Ox O2 Delivery O2 Flow Rate FiO2 08/06/18 11:06 97.8 69 18 122/67 (85) 96 Room Air 97.8 Lab Results Laboratory Tests Test 08/04/18 18:07 08/04/18 18:31 08/04/18 20:36 08/04/18 20:39 Glucose (Fingerstick) 94 mg/dL (70-99) 77 mg/dL (70-99) White Blood Count 10.5 x10^3/uL (4.0-11.0) Red Blood Count 3.15 x10^6/uL (4.30-5.70) Hemoglobin 10.4 g/dL (13.0-17.5) Hematocrit 31.9 % (39.0-53.0) Mean Corpuscular Volume 101 fL (79-100) Mean Corpuscular Hemoglobin 33 pg (25-35) Mean Corpuscular Hemoglobin Concent 33 g/dL (31-37) Red Cell Distribution Width 19.2 % (11.5-14.5) Platelet Count 169 x10^3/uL (140-400) Neutrophils (%) (Auto) 80 % (31-73) Lymphocytes (%) (Auto) 11 % (24-48) Monocytes (%) (Auto) 7 % (0-9) Eosinophils (%) (Auto) 2 % (0-3) Basophils (%) (Auto) 1 % (0-3) Neutrophils # (Auto) 8.3 x10^3uL (1.8-7.7) Lymphocytes # (Auto) 1.1 x10^3/uL (1.0-4.8) Monocytes # (Auto) 0.8 x10^3/uL (0.0-1.1) Eosinophils # (Auto) 0.2 x10^3/uL (0.0-0.7) Basophils # (Auto) 0.1 x10^3/uL (0.0-0.2) Segmented Neutrophils % 72 % (35-66) Band Neutrophils % 2 % (0-9) Lymphocytes % 13 % (24-48) Monocytes % 10 % (0-10) Eosinophils % 1 % (0-5) Basophils % 1 % (0-3) Metamyelocytes % 1 % (0-0) Toxic Vacuolation Slight Platelet Estimate Adequate (ADEQUATE) Anisocytosis Slight Sodium Level 140 mmol/L (136-145) Potassium Level 4.3 mmol/L (3.5-5.1) Chloride Level 105 mmol/L (98-107) Carbon Dioxide Level 25 mmol/L (21-32) Anion Gap 10 (6-14) Blood Urea Nitrogen 49 mg/dL (8-26) Creatinine 1.4 mg/dL (0.7-1.3) Estimated GFR (Cockcroft-Gault) 49.4 BUN/Creatinine Ratio 35 (6-20) Glucose Level 84 mg/dL (70-99) Hemoglobin A1c 4.8 % (4.8-5.6) Lactic Acid Level 2.2 mmol/L (0.4-2.0) Calcium Level 8.8 mg/dL (8.5-10.1) Total Bilirubin 0.2 mg/dL (0.2-1.0) Aspartate Amino Transf (AST/SGOT) 18 U/L (15-37) Alanine Aminotransferase (ALT/SGPT) 22 U/L (16-63) Alkaline Phosphatase 104 U/L (46-116) Troponin I Quantitative 0.041 ng/mL (0.000-0.055) Total Protein 6.5 g/dL (6.4-8.2) Albumin 3.5 g/dL (3.4-5.0) Albumin/Globulin Ratio 1.2 (1.0-1.7) Urine Collection Type Unknown Urine Color Yellow Urine Clarity Clear Urine pH 5.5 Urine Specific [place] 1.015 Urine Protein 30 mg/dL (NEG-TRACE) Urine Glucose (UA) Negative mg/dL (NEG) Urine Ketones (Stick) Negative mg/dL (NEG) Urine Blood Negative (NEG) Urine Nitrite Negative (NEG) Urine Bilirubin Negative (NEG) Urine Urobilinogen Dipstick 0.2 mg/dL (0.2 mg/dL) Urine Leukocyte Esterase Negative (NEG) Urine RBC 0 /HPF (0-2) Urine WBC 0 /HPF (0-4) Urine Squamous Epithelial Cells None /LPF Urine Bacteria 0 /HPF (0-FEW) Urine Mucus Mod /LPF Test 08/04/18 21:33 08/04/18 22:42 08/05/18 00:07 08/05/18 04:06 Glucose (Fingerstick) 86 mg/dL (70-99) 120 mg/dL (70-99) 114 mg/dL (70-99) 109 mg/dL (70-99) Test 08/05/18 08:03 08/05/18 11:20 08/05/18 11:53 08/05/18 16:50 Glucose (Fingerstick) 202 mg/dL (70-99) 229 mg/dL (70-99) 260 mg/dL (70-99) Magnesium Level 1.8 mg/dL (1.8-2.4) Thyroid Stimulating Hormone (TSH) 2.148 uIU/mL (0.358-3.74) Test 08/05/18 21:25 08/06/18 07:08 08/06/18 11:01 Glucose (Fingerstick) 225 mg/dL (70-99) 226 mg/dL (70-99) 217 mg/dL (70-99) Laboratory Tests Test 08/05/18 11:53 08/05/18 16:50 08/05/18 21:25 08/06/18 07:08 Glucose (Fingerstick) 229 mg/dL (70-99) 260 mg/dL (70-99) 225 mg/dL (70-99) 226 mg/dL (70-99) Test 08/06/18 11:01 Glucose (Fingerstick) 217 mg/dL (70-99) Brief Hospital Course This is an addendum to discharge summary done yesterday August 05, 2018 About to discharge August 05, 2018 for just overnight stay for hypoglycemia which we have fixed, but went into atrial flutter with no symptoms. Has an indwelling pacer. Cards consulted and pacer interrogated and adjusted to 140 bpm. Cardiology has increased beta marion from 50 once a day to 75 once a day and I provided Rx Patient seen and examined, discussed with Discharge disposition home with New Rx increase metoprolol extended release from 50 mg 75mgs Discharge Information Condition at Discharge: Improved, Stable Disposition/Orders: D/C to Home Scheduled Allopurinol (Allopurinol) 300 Mg Tablet, 300 MG PO BID, (Reported) Entered as Reported by: HERO KATERIN on 09/14/13 1217 Last Taken: Unknown Dose on 08/04/18899 Last Action: Continued on 08/05/18814 by MARLENA RAI Amlodipine Besylate (Amlodipine Besylate) 5 Mg Tablet, 10 MG PO DAILY, (Reported) Entered as Reported by: EBONIE MARTINEZ on 02/04/17 1453 Last Taken: Unknown Dose on 08/04/18899 Last Action: Continued on 08/05/18814 by MARLENA RAI Apixaban (Eliquis) 5 Mg Tablet, 5 MG PO BID, (Reported) Entered as Reported by: EBONIE MARTINEZ on 02/04/17 1441 Last Taken: Unknown Dose on 08/04/18899 Last Action: Continued on 08/05/18814 by MARLENA RAI Clopidogrel Bisulfate (Clopidogrel) 75 Mg Tablet, 75 MG PO DAILY for TO PREVENT BLOOD CLOTS, #30 Ref 0 (Reported) Entered as Reported by: KAREN PAK on 04/15/16 1113 Last Taken: Unknown Dose on 08/04/18899 Last Action: Continued on 08/05/18814 by MARLENA RAI Ergocalciferol (Vitamin D2) (Vitamin D2) 50,000 Unit Capsule, 50,000 UNIT PO WEEKLY, (Reported) Entered as Reported by: DONTA BE RPH on 02/28/15 1534 Last Taken: Unknown Dose on 08/02/18 Last Action: Continued on 08/05/18814 by MARLENA RAI Evolocumab (Repatha Syringe) 140 Mg/1 Ml Syringe, 140 MG SQ Q2WKS for RX, (Reported) Entered as Reported by: RUSSELL HUNTLEY on 11/25/17 0657 Last Taken: Unknown Dose on 07/24/18 Last Action: Converted on 08/05/18814 by MARLENA RAI Famotidine (Pepcid) 20 Mg Tablet, 20 MG PO BID76, (Reported) Entered as Reported by: HERO CONKLIN on 09/14/137 Last Taken: Unknown Dose on 08/04/18899 Last Action: Continued on 08/05/18814 by MARLENA RAI Furosemide (Lasix) 40 Mg Tablet, 1 TAB PO DAILY, #90 Ref 1 Prescribed by: MARLENA RAI on 04/17/16909 Last Taken: Unknown Dose on 08/04/18899 Last Action: Continued on 08/05/18814 by MARLENA RAI Insulin Regular, Human (Novolin R) 100 Unit/1 Ml Vial, 8 UNIT SQ TIDWMEALS for diabetes for 30 Days hold if BS at home < 110 Prescribed by: MARLENA RAI on 08/05/18 1006 Krill/Om-3/Dha/Epa/Phospho/Ast (Meg[place]-3 Krill Oil Sfgl) 1 Each Capsule, 1 EACH PO DAILY, (Reported) Entered as Reported by: RUSSELL HUNTLEY on 11/25/17656 Last Taken: Unknown Dose on 08/04/18899 Last Action: Converted on 08/05/18814 by MARLENA RAI Levothyroxine Sodium (Levothyroxine Sodium) 25 Mcg Tablet, 25 MCG PO DAILYAC for THYROID SUPPLEMENT, #30 Ref 0 (Reported) Entered as Reported by: HERO CONKLIN on 09/14/131216 Last Taken: Unknown Dose on 08/04/18799 Last Action: Converted on 08/05 by MARLENA RAI Lisinopril (Lisinopril) 5 Mg Tablet, 5 MG PO DAILY for FOR HYPERTENSION, #30 Ref 0 (Reported) Entered as Reported by: RUSSELL HUNTLEY on 11/25/17656 Last Taken: Unknown Dose on 08/04/18899 Last Action: Converted on 08/05/18814 by MARLENA RAI Metformin Hcl (Metformin Hcl Er) 500 Mg Tab.er.24h, 1 TAB PO BID76 for dm 2, #60 Ref 3 Prescribed by: MARLENA RAI on 08/05/18 1006 Metolazone (Metolazone) 2.5 Mg Tablet, 2.5 MG PO DAILY, #30 Ref 0 (Reported) Entered as Reported by: RUSSELL HUNTLEY on 11/25/17 0657 Last Taken: Unknown Dose on 08/04/18899 Last Action: Converted on 08/05/18814 by MARLENA RAI Metoprolol Succinate (Toprol Xl) 50 Mg Tab.er.24h, 1 TAB PO DAILY, #30 Ref 5 (Reported) Entered as Reported by: EBONIE MARTINEZ on 02/04/17 1441 Last Taken: Unknown Dose on 08/04/18899 Last Action: Converted on 08/05/18814 by MARLENA RAI Metoprolol Succinate (Metoprolol Succinate ( Xl )) 25 Mg Tab.er.24h, 75 MG PO DAILY for hth wit flutter MDD 1 for 60 Days, #180 Prescribed by: MARLENA RAI on 08/06/18 1119 Multivits-Min/Fa/Lycopene/Lut (Centrum Silver Tablet) 1 Each Tablet, 1 EACH PO DAILY, (Reported) Entered as Reported by: HERO CONKLIN on 09/14/13 1217 Last Taken: Unknown Dose on 08/04/18899 Last Action: Converted on 08/05/18814 by MARLENA RAI Nph, Human Insulin Isophane (Novolin N) 100 Unit/1 Ml Vial, 15 UNIT SQ BID for diabetes, (Reported) at breakfast and bedtime Entered as Reported by: LINDSEY WASHINGTON on 08/05/18 0106 Last Taken: Unknown Dose on 08/04/18899 Last Action: HELD on 08/05/18814 by MARLENA RAI Prednisone (Prednisone ) 10 Mg Tablet, 10 MG PO BID, (Reported) Entered as Reported by: OSMEL BANKS on 02/01/17 1825 Last Taken: Unknown Dose on 08/04/18899 Last Action: Continued on 08/05/18814 by MARLENA RAI Sulfasalazine (Sulfasalazine) 500 Mg Tablet, 1,000 MG PO BID, (Reported) Entered as Reported by: YOVANNY STAFFORD on 04/15/16 1504 Last Taken: Unknown Dose on 08/04/18899 Last Action: Converted on 08/05/18814 by MARLENA RAI Tamsulosin Hcl (Tamsulosin Hcl) 0.4 Mg Cap.er.24h, 0.8 MG PO HS for RX, (Reported) Entered as Reported by: HERO CONKLIN on 09/14/13 1217 Last Taken: Unknown Dose on 08/03/18 2100 Last Action: Continued on 08/05/18 0040 by LINDSEY WASHINGTON Vitamin E Mixed (Vitamin E) 400 Unit Capsule, 400 UNIT PO DAILY16, (Reported) Entered as Reported by: OSMEL BANKS on 02/01/17 1825 Last Taken: Unknown Dose on 08/03/18 1700 Last Action: Converted on 08/05/18 0815 by MARLENA RAI Zinc (Zinc) 50 Mg Tablet, 50 MG PO DAILY08, (Reported) Entered as Reported by: OSMEL BANKS on 02/01/17 182 Last Taken: Unknown Dose on 08/04/18 0900 Last Action: Converted on 08/05/18 0815 by MARLENA RAI Discontinued Medications Insulin Aspart (Novolog) 100 Unit/1 Ml Cartridge, 15 UNIT SQ TIDAC, (Reported) Entered as Reported by: ADAM HORN on 03/22/17 0848 Last Taken: Unknown Dose on 08/04/18 1200 Last Action: Discontinued on 08/05/18 0106 by LINDSEY WASHINGTON Insulin Detemir (Levemir) 100 Unit/1 Ml Vial, 15 UNIT SQ BID (0800, 2100), (Reported) Entered as Reported by: ADAM HORN on 03/22/17 0848 Last Action: Discontinued on 08/05/18 0106 by MARLENA WHITE MD August 06, 2018 11:21
[2018-08-06] MEDS ORDERED: INSULIN LISPRO 300 UNITS/3 ML INSULN.PEN. SQ SCH (12:00)
--- NOTE | 2018-08-06 12:25 | NUR ---
Discharge Note: MAGALI PHAN [address] [place] [address] Discharge instructions and discharge home medications reviewed with Patient and a copy given. All questions have been answered and understanding verbalized. The following instructions and handouts were given: F/U with Dr. Long on 09/16 on 2:30pm. F/U with PCP within one week. Discontinued lines and drains: Peripheral IV intact. Patient discharged to Home or Self Care with Family Member via Wheelchair.
[2018-08-07] MEDS ORDERED: NON FORMULARY ITEM (Evolocumab (Repatha Syringe) 140 MG) SQ SCH (09:00)
[2018-08-09] MEDS ORDERED: ERGOCALCIFEROL (VITAMIN D2) 50,000 UNIT CAPSULE. PO SCH (09:00)
== END 2018-08-06 12:25 | disposition home or self-care (01) | DRG 637 ==
LOC: ER 17:16 → 6 SOUTH 21:15 → OBSVTOIN 08-05 10:23
PROVIDERS: ADMIT Family Medicine; ATTEND Family Medicine
DX: E11.649 Type 2 diabetes mellitus with hypoglycemia without coma (principal); G93.41 Metabolic encephalopathy; I50.22 Chronic systolic (congestive) heart failure; I13.0 Hypertensive heart and chronic kidney disease with heart failure and stage 1 through stage 4 chronic kidney disease, or unspecified chronic kidney disease; I47.1 Supraventricular tachycardia; I48.92 Unspecified atrial flutter; M10.9 Gout, unspecified; N18.9 Chronic kidney disease, unspecified; E11.22 Type 2 diabetes mellitus with diabetic chronic kidney disease; E03.9 Hypothyroidism, unspecified; E78.5 Hyperlipidemia, unspecified; I25.10 Atherosclerotic heart disease of native coronary artery without angina pectoris; I87.2 Venous insufficiency (chronic) (peripheral); J44.9 Chronic obstructive pulmonary disease, unspecified; K21.9 Gastro-esophageal reflux disease without esophagitis; I48.0 Paroxysmal atrial fibrillation; K58.9 Irritable bowel syndrome, unspecified; G89.29 Other chronic pain; M19.90 Unspecified osteoarthritis, unspecified site; M25.559 Pain in unspecified hip; I11.0 Hypertensive heart disease with heart failure; N17.9 Acute kidney failure, unspecified; Z95.810 Presence of automatic (implantable) cardiac defibrillator; Z95.5 Presence of coronary angioplasty implant and graft; Z90.49 Acquired absence of other specified parts of digestive tract; Z95.1 Presence of aortocoronary bypass graft; Z79.01 Long term (current) use of anticoagulants; Z79.02 Long term (current) use of antithrombotics/antiplatelets; Z79.4 Long term (current) use of insulin; Z79.899 Other long term (current) drug therapy; Z82.49 Family history of ischemic heart disease and other diseases of the circulatory system; Z82.3 Family history of stroke; Z86.73 Personal history of transient ischemic attack (TIA), and cerebral infarction without residual deficits; Z88.8 Allergy status to other drugs, medicaments and biological substances; Z91.041 Radiographic dye allergy status
CPT/HCPCS: 36415; 71046; 80053; 81001; 82962; 83036; 83605; 83735; 84443; 84484; 85007; 85025; 93005; 96360; G0378; G0379; J1815; J7040; J7512; 99285-25

== ENCOUNTER → 2018-08-26 | Day surgery (SDC) | payer OTHER ==
[~2018-08-26] MED LIST changes: +HYDROmorphone 2 MG/ML VIAL IV PRN; +INSU100V11 SQ; +IV RINGERS,LACTATED 1000ML 1,000 ML IV SCH; +LIDO700A21 TD; -LIDO700A39 TD; +METO-239 PO; +MORPHINE SULFATE 2 MG/ML VIAL. IV PRN; +NPH,100V5 SQ; +ONDANSETRON PF 4 MG/2 ML VIAL. IV PRN; +PROCHLORPERAZINE 10 MG/2 ML VIAL. IV PRN; +PROPOFOL 40 ML IV ONE; -TIZA2TAB PO; +TIZA2TAB2 PO; +fentaNYL PF VIAL 100 MCG/2 ML VIAL IV PRN
[2018-08-26 09:15] VITALS: BP 107/53
--- NOTE | 2018-08-27 18:05 | PATHOLOGY ---
[facility] Accession Number: [id number] . 01 Material submitted: . PART A: esophagus - DISTAL ESOPHAGUS BIOPSY, GE JUNCTION. Modifiers: distal PART B: cecum - CECAL POLYP PART C: colon - RIGHT COLON BIOPSY. Modifiers: right PART D: colon - TRANSVERSE COLON BIOPSY. Modifiers: transverse PART E: colon - LEFT COLON BIOPSY. Modifiers: left . 01 Clinical history: . Anemia, VC . 02 Diagnosis: A. Esophageal biopsies, distal esophagus/gastroesophageal junction: - Segments of mildly hyperplastic squamous esophageal mucosa and gastroesophageal junction mucosa showing chronic inflammation, consistent with reflux esophagitis. . B. Colon biopsy, cecal polyp: - Tubular adenoma. . C. Right colon biopsies: - Segments of colonic mucosa negative for active chronic destructive colitis or dysplasia. . D. Transverse colon biopsies: - Segments of colonic mucosa negative for active chronic destructive colitis or dysplasia. . E. Left colon biopsies: - Segments of colonic mucosa negative for active chronic destructive colitis or dysplasia. (JPM/db; 08/27/2018) LBQ/08/27/2018 . 02 Electronically signed: . Jamal Matt MD, Pathologist NPI- [id number] . 01 Gross description: . A. Received in formalin labeled "Juli Jonatan, distal esophagus biopsy," are 3 segments of pérez soft tissue measuring 1.1 x 0.6 x 0.2 cm in aggregate dimensions and ranging from 0.3 to 0.6 cm in maximum dimension. The specimen is submitted entirely in cassette A1. . B. Received in formalin labeled "Berve, Jonatan, cecal polyp," is a 0.8 x 0.5 x 0.5 cm polypoid piece of pérez soft tissue. The margin is inked and the tissue is sectioned perpendicular to the margin and submitted in its entirely in cassette B1. . C. Received in formalin labeled "Jonatan Bustos, right colon biopsy," are multiple segments of pérez soft tissue measuring 1.1 x 0.7 x 0.1 cm in aggregate dimensions. The specimen is filtered and entirely submitted in cassette C1. . D. Received in formalin labeled "Jonatan Bustos, transverse colon biopsy," are multiple segments of pérez soft tissue measuring 1.3 x 0.7 x 0.1 cm in aggregate dimensions. The specimen is filtered and entirely submitted in cassette D1. . E. Received in formalin labeled "Jonatan Bustos, left colon biopsy," are multiple segments of pérez soft tissue measuring 1.7 x 0.5 x 0.1 cm in aggregate dimensions. The specimen is filtered and entirely submitted in cassette E1. (TSD; 08/26/2018) TOB/TOB . 02 Pathologist provided ICD-10: K21.0, D12.0, K52.9 . 02 CPT . 058860, 364232, 938208, 108704, 632319 Specimen Comment: A courtesy copy of this report has been sent to Specimen Comment: [phone], . Specimen Comment: Report sent to / DR CONTI Performed at: [address] [facility], [place] [id number] MD James Das MD Phone: [phone] Performed at: 02 [facility] [address] [place], [place] [id number] MD Jamal Matt MD Phone: [phone]
== END ==
LOC: ENDOS 06:59
PROVIDERS: ATTEND Internal Medicine Gastroenterology
DX: K21.0 Gastro-esophageal reflux disease with esophagitis (principal); D12.0 Benign neoplasm of cecum; K31.7 Polyp of stomach and duodenum; K64.0 First degree hemorrhoids; E11.9 Type 2 diabetes mellitus without complications; I25.2 Old myocardial infarction; E78.5 Hyperlipidemia, unspecified; I11.0 Hypertensive heart disease with heart failure; I50.9 Heart failure, unspecified; K51.90 Ulcerative colitis, unspecified, without complications; Z79.4 Long term (current) use of insulin; Z88.8 Allergy status to other drugs, medicaments and biological substances; Z86.73 Personal history of transient ischemic attack (TIA), and cerebral infarction without residual deficits; Z80.0 Family history of malignant neoplasm of digestive organs; Z72.89 Other problems related to lifestyle; Z95.810 Presence of automatic (implantable) cardiac defibrillator; Z95.1 Presence of aortocoronary bypass graft; Z90.49 Acquired absence of other specified parts of digestive tract; Z98.52 Vasectomy status; Z98.49 Cataract extraction status, unspecified eye; Z98.890 Other specified postprocedural states; Z96.1 Presence of intraocular lens
CPT/HCPCS: 43239; 45380; 45385; 82962; 88305; J2704

== ENCOUNTER → 2019-09-06 | Outpatient (CLI) | payer MEDICARE ==
[2019-03-27 11:46] VITALS: BP 135/63
[~2019-09-06] MED LIST changes: +CEPH-264 PO; -COD1CAPS2 PO; +COD1CAPS6 PO; -EVOL140S SQ; +EVOL140S2 SQ; -EZET10TA18 PO; +EZET10TA20 PO; -HYDROmorphone 2 MG/ML VIAL IV PRN; -INSU100V SQ; +INSU100V11 IJ; +INSU100V6 SQ; -IV RINGERS,LACTATED 1000ML 1,000 ML IV SCH; +METF-658 PO; -METF500T9 PO; -MORPHINE SULFATE 2 MG/ML VIAL. IV PRN; -ONDANSETRON PF 4 MG/2 ML VIAL. IV PRN; -PROCHLORPERAZINE 10 MG/2 ML VIAL. IV PRN; -PROPOFOL 40 ML IV ONE; +REGADENOSON 0.4 MG/5 ML DISP.SYRIN. IV ONE; +SIMV40TA18 PO; -SIMV40TA3 PO; -TIZA2TAB2 PO; +TIZA2TAB4 PO; -VALA500T PO; +VALA500T9 PO; +VITA-8 PO; -VITA400C36 PO; +ZINC50TA10 PO; -ZINC50TA2 PO; +ZOLP10TA PO; -fentaNYL PF VIAL 100 MCG/2 ML VIAL IV PRN
--- NOTE | 2019-09-06 13:01 | RAD ---
MR#: [id number] Date of Study: 09/06/2019 Ordering Physician: CORINE RUSSO Referring Physician: CARLOS A HERBERT Tech: RT Al (R) (N) APPROVED REPORT Test Type: Pharmacological Stress Nurse/Tech: Nupur Wellington R.N. Test Indications: chronic systolic heart failure Cardiac History: CABG 5 vessel,htn, ICD, DM, TIA Medications: see ehr Medical History: see ehr Resting ECG: paced Resting Heart Rate: 52 bpm Resting Blood Pressure: 112/50mmHg Pretest Chest Pain: No chest pain Nurse/Tech Notes lungs cta Consent: The procedure was explained to the patient in lay terms. Informed consent was witnessed. Claudio eout was entered into [employer]. History and Stress Test performed by CORY Martínez Pharm. Details Pharmacologic stress testing was performed using 0.4mg per 5ml of regadenoson given intravenously ove r 7-10 seconds. Stress Symptoms No chest pain or symptoms. POST EXERCISE Reason for Termination: Infusion complete Target HR: No Max HR: 63 bpm Max Blood Pressure: 102/42mmHg Chest Pain: No. Arrhythmia: No. ST Change: No. INTERPRETATION Stress EKG Conclusion: Baseline EKG showed ventricular paced rhythm. Nondiagnostic changes at peak s tress. No other arrhythmias. Imaging Protocol IMAGE PROTOCOL: Rest Tc-99m/stress Tc-99m 1 day Rest: Stress: Viability: Radiopharm.Tc99m IgpzbdjomFs31c Sestamibi Vsxz48xPx 33mCi Duration 13.5min. 13.5min. Img Date 09/06/2019 09/06/2019 Inj-Img Owwo75wqc. 60min. Rest Admin Site:IV - Right ForearmAdministrator:RT Romario (Gio)(N) Stress Admin Site: IV - Right ForearmAdministrator: CORY Martínez STRESS DATA End Diast. Vol.172.0mlLVEDV index BSA80.0ml End Syst. Vol.75.0mlLVESV index BSA35.0ml Myocardial Vglx139.0gEject. Yvwdrqqf96.0% Stress Scores Regional WT0.00Summed WT10.00 Regional WM0.00Summed WM14.00 LV Perfusion Scintigraphic images showed moderate predominantly fixed defect involving the basal to mid inferior, inferolateral and lateral chapin consistent with previous myocardial infarction with small amount of r eversibility consistent with lizzy-infarct ischemia. Wall Motion Basal inferior wall hypokinesis with ejection fraction calculated at 56%. LV Perf. Quant 17 Seg. SSS17.00 17 Seg. SRS9.00 17 Seg. SDS8.00 Stress Defect Extent (% LAD)2.50Rest Defect Extent (% LAD)0.00Rev. Defect Extent (% LAD)2.50 Stress Defect Extent (% LCX) 97.50Rest Defect Extent (% LCX)66.30Rev. Defect Extent (% LCX)28.80 Stress Defect Extent (% RCA)6.70Rest Defect Extent (% RCA)3.30Rev. Defect Extent (% RCA)0.00 Stress Defect Extent (% CARLO)31.70Rest Defect Extent (% CARLO)17.00Rev. Defect Extent (% CARLO)12.00 Conclusion 1. Regadenoson cardioisotope stress test showed moderate infarct involving the basal to mid inferior, inferolateral and lateral chapin with small amount of lizzy-infarct ischemia. 2. Basal inferior wall hypokinesis with ejection fraction calculated at 56%. 3. Low risk for cardiac events. Signed by : Corine Russo, Electronically Approved : 09/06/2019 13:01:34
== END | disposition home or self-care (01) ==
LOC: NM 09:55
PROVIDERS: ATTEND Internal Medicine Cardiovascular Disease
DX: I11.0 Hypertensive heart disease with heart failure (principal); I50.22 Chronic systolic (congestive) heart failure; I99.8 Other disorder of circulatory system; E11.9 Type 2 diabetes mellitus without complications; Z95.1 Presence of aortocoronary bypass graft; Z86.73 Personal history of transient ischemic attack (TIA), and cerebral infarction without residual deficits
CPT/HCPCS: 78452; 93017; A9500; J2785

== ENCOUNTER → 2020-03-21 | Outpatient (CLI) | payer MEDICARE ==
[2019-03-27 11:46] VITALS: BP 135/63
[~2020-03-21] MED LIST changes: +AMLO-186 PO; -AMLO5TAB10 PO; -REGADENOSON 0.4 MG/5 ML DISP.SYRIN. IV ONE; +TIZA-58 PO; -TIZA2TAB4 PO
[2020-03-21 09:29] LABS: CHOLESTEROL/HDL RATIO 7.1
--- NOTE | 2020-03-21 10:21 | RAD ---
MR#: [id number] Date of Study: 03/21/2020 Ordering Physician: CORINE RUSSO, Referring Physician: CORINE RUSSO, Tech: Thor Moses MBA, RDMS, RVT, RDCS, RTR APPROVED REPORT Patient Location: OUT-PATIENT Laterality:Bilateral Indications systolic heart failure Doppler Spectral Velocity Analysis Right Left pCCA 73/7 cm/spCCA 126/14 cm/s mCCA 82/13 cm/smCCA 73/14 cm/s dCCA 63/10 cm/sdCCA 71/14 cm/s Bulb 48/10 cm/sBulb 61/16 cm/s ECA 116/ cm/sECA 98/ cm/s pICA 57/17 cm/spICA 135/37 cm/s Helder 70/24 cm/smICA 129/39 cm/s dICA 80/21 cm/sdICA 134/37 cm/s Vert. 40/ cm/sVert. 43/ cm/s Subcl. 168/ cm/sSubcl. 117/ cm/s ICA/CCA 0.98ICA/CCA 1.07 Findings Grayscale images demonstrate mild diffuse intimal hyperplasia, moderate bilateral carotid plaque. On the right side based on spectral waveforms, velocities and color Doppler there is overall 0 to les s than 50% stenosis with normal ICA to CCA ratios and antegrade and normal vertebral velocities. On the left side there is likely moderate based on velocity criteria 50 to 69% stenosis in the proxim al internal carotid artery. Normal antegrade vertebral velocities. Normal bilateral ICA to CCA rati os. No significant subclavian stenosis is identified. Critical Notification Critical Value: No <Conclusion> 1. Mild to moderate left-sided carotid disease. Signed by : Roberto Sethi, Electronically Approved : 03/21/2020 10:21:19
--- NOTE | 2020-03-22 10:10 | CARD ---
MR#: [id number] Date of Study: 03/21/2020 Ordering Physician: CORINE RUSSO, Referring Physician: CORINE RUSSO Tech: Ila Green RDCS APPROVED REPORT EXAM: Two-dimensional and M-mode echocardiogram with Doppler and color Doppler. Other Information Quality : Good INDICATION Congestive Heart Failure 2D DIMENSIONS RVDd2.7 (2.9-3.5cm)Left Atrium(2D)4.5 (1.6-4.0cm) IVSd1.3 (0.7-1.1cm)Aortic Root(2D)3.4 (2.0-3.7cm) LVDd5.8 (3.9-5.9cm)LVOT Diameter2.4 (1.8-2.4cm) PWd1.1 (0.7-1.1cm)LVDs4.3 (2.5-4.0cm) FS (%) 21.8 %SV65.3 ml Aortic Valve AoV Peak Emile.143.0cm/sAoV VTI30.9cm AO Peak GR.8.2mmHgLVOT VTI 16.60cm AO Mean GR.4mmHgAVA (VMAX)2.80cm2 MARIELLA (VTI)3.10cm2 Mitral Valve MV E Oqwvuqrc985.0cm/sMV DECEL HOBQ199mc MV A Frnlvvzs70.0cm/sE/A Ratio1.6 TDI E/Lateral E'8.1E/Medial E'11.4 Tricuspid Valve TR P. Hbrmjzip337bc/sRAP IDTKZLAU9ieMf TR Peak Gr.44zkXtQKZL82ifRv Pulmonary Vein S1 Akzofbzp23.2cm/sD2 Ulsotxpt50.9cm/s LEFT VENTRICLE The left ventricle is normal size. There is mild concentric left ventricular hypertrophy. Left ventri lea systolic function is mildly decreased. The ejection fraction is estimated at 45%. There is mild global hypokinesis of the left ventricle. Transmitral Doppler flow pattern is Grade II-pseudonormal filling dynamics. RIGHT VENTRICLE The right ventricle is normal size. The right ventricular systolic function is normal. There are violeta ce leads in the right ventricle and atrium. ATRIA The left atrium is mildly dilated. The right atrium is mildly dilated. The interatrial septum is inta ct with no evidence for an atrial septal defect or patent foramen ovale as noted on 2-D or Doppler im aging. AORTIC VALVE The aortic valve is calcified but opens well. Doppler and Color Flow revealed no significant aortic r egurgitation. There is no significant aortic valvular stenosis. MITRAL VALVE The mitral valve is calcified but opens well. Mitral annular calcification is mild. There is no evide nce of mitral valve prolapse. There is no mitral valve stenosis. Doppler and Color-flow revealed mild mitral regurgitation. TRICUSPID VALVE The tricuspid valve is normal in structure and function. Doppler and Color Flow revealed mild tricusp id regurgitation. The PA pressure was estimated at 46 mmHg. There is no tricuspid valve stenosis. PULMONIC VALVE The pulmonic valve is not well visualized. Doppler and Color Flow revealed trace to mild pulmonic lucy vular regurgitation. There is no pulmonic valvular stenosis. GREAT VESSELS The aortic root is normal in size. The ascending aorta is mildly dilated at 3.5 cm. The IVC is normal in size and collapses >50% with inspiration. PERICARDIAL EFFUSION There is no evidence of significant pericardial effusion. Critical Notification Critical Value: No <Conclusion> The left ventricle is normal size. Left ventricle systolic function is mildly decreased. The ejection fraction is estimated at 45%. There is mild global hypokinesis of the left ventricle. There is mild concentric left ventricular hypertrophy. There are device leads in the right ventricle and atrium. Doppler and Color Flow revealed no significant aortic regurgitation. There is no significant aortic valvular stenosis. Doppler and Color-flow revealed mild mitral regurgitation. Doppler and Color Flow revealed mild tricuspid regurgitation. The PA pressure was estimated at 46 mmHg. The ascending aorta is mildly dilated at 3.5 cm. Signed by : Anastacio Whittington MD Electronically Approved : 03/22/2020 10:10:04
== END ==
LOC: US 08:15
PROVIDERS: ATTEND Internal Medicine Cardiovascular Disease
DX: I08.8 Other rheumatic multiple valve diseases (principal); I65.23 Occlusion and stenosis of bilateral carotid arteries; I11.0 Hypertensive heart disease with heart failure
CPT/HCPCS: 36415; 80061; 93306; 93880

== ENCOUNTER → 2021-04-05 | Outpatient (CLI) | payer MEDICARE ==
[2019-03-27 11:46] VITALS: BP 135/63
[~2021-04-05] MED LIST changes: +GEMF600T20 PO; -GEMF600T8 PO; -LISI-334 PO; -LISI-338 PO; +LISI20TA18 PO; +LISI5TAB15 PO; +REGADENOSON 0.4 MG/5 ML DISP.SYRIN. IV ONE; +VITA-47 PO; -VITA400C6 PO
--- NOTE | 2021-04-06 10:51 | CARD ---
MR#: [id number] Date of Study: 04/05/2021 Ordering Physician: CORINE RUSSO, Referring Physician: CORINE RUSSO Tech: Ana Hutchinson [facility] APPROVED REPORT EXAM: Two-dimensional and M-mode echocardiogram with Doppler and color Doppler. Other Information Quality : Technically LimitedHR: 98bpm Rhythm : NSR INDICATION Murmur Surgery/Intervention ICD/Pacemaker: RISK FACTORS Hypertension Obesity Hyperlipidemia Diabetes 2D DIMENSIONS Left Atrium(2D)5.7 (1.6-4.0cm)IVSd0.8 (0.7-1.1cm) LVDd6.3 (3.9-5.9cm)LVOT Diameter3.1 (1.8-2.4cm) PWd1.1 (0.7-1.1cm)IVSs2.0 (0.8-1.2cm) LVDs4.6 (2.5-4.0cm)FS (%) 26.8 % PWs1.0 (0.8-1.2cm)SV102.3 ml Aortic Valve AoV Peak Emile.140.4cm/sAoV VTI22.6cm AO Peak GR.7.9mmHgLVOT Peak Emile.106.6cm/s LVOT VTI 18.48cmAO Mean GR.5mmHg MARIELLA (VMAX)4.68mf6TRE (VTI)6.31cm2 Mitral Valve MV E Pvaavdwo89.3cm/sMV DECEL [id number] MV A Bwioseux85.5cm/sMV YDW34ff E/A Ratio1.1MVA (PHT)3.52cm2 Pulmonary Valve PV Peak Inqtcpgj414.4cm/sPV Peak Grad.7mmHg Tricuspid Valve TR P. Emwxmjel750tp/sTR Peak Gr.44mmHg LEFT VENTRICLE The left ventricle is normal size. There is normal left ventricular wall thickness. The left ventricu lar systolic function is normal and the ejection fraction is within normal range. LV ejection fractio n of 50 to 55%. There is normal LV segmental wall motion. RIGHT VENTRICLE The right ventricle is normal size. There is normal right ventricular wall thickness. The right ventr icular systolic function is normal. ATRIA The left atrium is mildly dilated. The right atrium size is normal. The interatrial septum is intact with no evidence for an atrial septal defect or patent foramen ovale as noted on 2-D or Doppler imagi ng. AORTIC VALVE The aortic valve is normal in structure and function. Doppler and Color Flow revealed trace aortic re gurgitation. There is no significant aortic valvular stenosis. MITRAL VALVE The mitral valve is normal in structure and function. There is no evidence of mitral valve prolapse. There is no mitral valve stenosis. Doppler and Color-flow revealed trace to mild mitral regurgitation . TRICUSPID VALVE The tricuspid valve is normal in structure and function. Doppler and Color Flow revealed trace to mil d tricuspid regurgitation. Estimated PAP 45 mmHg. There is no tricuspid valve stenosis. PULMONIC VALVE The pulmonary valve is normal in structure and function. Doppler and Color Flow revealed no pulmonic valvular regurgitation. GREAT VESSELS The aortic root is normal in size. The ascending aorta is normal in size. The IVC is dilated and gustavo apses >50% with inspiration. PERICARDIAL EFFUSION There is no evidence of significant pericardial effusion. Critical Notification Critical Value: No <Conclusion> The left ventricle is normal size. The left ventricular systolic function is normal and the ejection fraction is within normal range. LV ejection fraction of 50 to 55%. Doppler and Color Flow revealed trace aortic regurgitation. There is no significant aortic valvular stenosis. Doppler and Color-flow revealed trace to mild mitral regurgitation. Doppler and Color Flow revealed trace to mild tricuspid regurgitation. Estimated PAP 45 mmHg. Signed by : Anastacio Whittington MD Electronically Approved : 04/06/2021 10:50:59
--- NOTE | 2021-04-06 13:08 | RAD ---
MR#: [id number] Date of Study: 04/05/2021 Ordering Physician: CORINE RUSSO, Referring Physician: CARLOS A HERBERT Tech: RT Al (R) (N) APPROVED REPORT Test Type: Pharmacological Stress Nurse/Tech: RIC DISLA Test Indications: CAD Cardiac History: CAD, CABG, PPM/AICD, HTN- SEE EMR Medications: SEE EMR Medical History: SEE EMR Resting ECG: V-PACED Resting Heart Rate: 97 bpm Resting Blood Pressure: 143/70mmHg Pretest Chest Pain: No chest pain Nurse/Tech Notes RRR, V-PACER SPIKES NOTED ON EKG, VSS, DENIED CHEST PAIN OR SHORTNESS OF BREATH. Consent: The procedure was explained to the patient in lay terms. Informed consent was witnessed. Claudio eout was entered into [employer]. History and Stress Test performed by CORY Martínez Pharm. Details Pharmacologic stress testing was performed using 0.4mg per 5ml of regadenoson given intravenously ove r 7-10 seconds. Stress Symptoms PT DENIED ANY SYMPTOMS DURING TESTING. VSS. NO SIGNIFICANT CHANGES NOTED. POST EXERCISE Reason for Termination: Infusion complete Max HR: 102 bpm Max Blood Pressure: 141/70mmHg Blood Pressure response to exercise: Normal blood pressure response during stress. Heart Rate response to exercise: WNL Chest Pain: No. Arrhythmia: . EKG ESSENTIALLY UNCHANGED, V-PACED ST Change: No. INTERPRETATION Stress EKG Conclusion: The baseline EKG showed AV paced rhythm. The patient remained V-paced throughout the study. Imaging Protocol IMAGE PROTOCOL: Rest Tc-99m/stress Tc-99m 1 day Rest: Stress: Viability: Radiopharm.Tc99m LvcrfihcvIx16i Sestamibi Dose10.3mCi 33mCi Duration 15min. 15min. Img Date 04/05/2021 04/05/2021 Inj-Img Ldcd40owm. 60min. Rest Admin Site:IV - Left AntecubitalAdministrator:RT Al (R)(N) Stress Admin Site: IV - Left AntecubitalAdministrator: CORY Martínez STRESS DATA End Diast. Vol.201.0mlAv. Heart Kiwu272.0bpm End Syst. Vol.106.0mlCO Index BSA0.0L/min Myocardial Repw639.0gEject. Xjgaviwn86.0% Stress Rates Pk. Fill Rate2.57EDV/secLVtime Pk. Fill 80.53msec Pk. Empty Rate2.84ESV/secLVtime Pk. Veoie862.29msec 3 Pk. Fill1.77EDV/sec Stress Scores Regional WT1.00Summed WT33.00 Regional WM0.00Summed WM12.00 LV Perfusion The stress scans showed an inferior lateral wall defect. The rest scans showed an inferior lateral wall defect. Nuclear imaging shows no reversible ischemia. Nuclear imaging shows a fixed inferior lateral wall defect most consistent with a previous infarct. Wall Motion LV function is mildly reduced with an ejection fraction of 47%. LV Perf. Quant 17 Seg. SSS12.00 17 Seg. SRS15.00 17 Seg. SDS0.00 Stress Defect Extent (% LAD)8.80Rest Defect Extent (% LAD)9.40Rev. Defect Extent (% LAD)1.90 Stress Defect Extent (% LCX) 72.50Rest Defect Extent (% LCX)80.00Rev. Defect Extent (% LCX)10.00 Stress Defect Extent (% RCA)3.30Rest Defect Extent (% RCA)13.30Rev. Defect Extent (% RCA)0.00 Stress Defect Extent (% CARLO)20.40Rest Defect Extent (% CARLO)30.90Rev. Defect Extent (% CARLO)2.40 Conclusion 1. V paced rhythm throughout the study. 2. Nuclear imaging shows no reversible ischemia. 3. Nuclear imaging shows a fixed inferior lateral defect consistent with a prior infarct. 4. LV systolic function is mildly reduced with an ejection fraction of 47%. 5. Moderate to moderately low risk Lexiscan nuclear stress test. Signed by : Anastacio Whittington MD Electronically Approved : 04/06/2021 13:08:19
== END ==
LOC: ECHO 08:48
PROVIDERS: ATTEND Internal Medicine Cardiovascular Disease
DX: I08.1 Rheumatic disorders of both mitral and tricuspid valves (principal); I50.22 Chronic systolic (congestive) heart failure; I25.10 Atherosclerotic heart disease of native coronary artery without angina pectoris
CPT/HCPCS: 78452; 93017; 93306; A9500; J2785; C8929

== ENCOUNTER 2021-04-21 22:57 | Inpatient (IN) | payer MEDICARE ==
[~2021-04-21] VITALS: Ht 185.4 cm; Wt 105.2 kg
[~2021-04-21 22:57] MED LIST changes: -REGADENOSON 0.4 MG/5 ML DISP.SYRIN. IV ONE
[2021-04-21 23:33] LABS: BASO # 0.1 x10^3/uL (0.0-0.2); BASO % 1 % (0-3); EOS # 0.1 x10^3/uL (0.0-0.7); EOS % 1 % (0-3); HEMATOCRIT 30.8 % (39.0-53.0); HEMOGLOBIN 9.8 g/dL (13.0-17.5); LYMPH # 0.7 x10^3/uL (1.0-4.8); LYMPH % 6 % (24-48); MEAN CORPUSCULAR HEMOGLOBIN 30 pg (25-35); MEAN CORPUSCULAR HGB CONC 32 g/dL (31-37); MEAN CORPUSCULAR VOLUME 95 fL (79-100); MONO % 9 % (0-9); NEUT # 9.4 x10^3/uL (1.8-7.7); NEUT % 83 % (31-73); PLATELET COUNT 281 x10^3/uL (140-400); RED BLOOD COUNT 3.23 x10^6/uL (4.30-5.70); RED CELL DISTRIBUTION WIDTH 18.4 % (11.5-14.5); WHITE BLOOD COUNT 11.3 x10^3/uL (4.0-11.0)
[2021-04-21 23:59] LABS: ALBUMIN 2.6 g/dL (3.4-5.0); ALBUMIN/GLOBULIN RATIO 0.6 (1.0-1.7); CALCIUM 8.2 mg/dL (8.5-10.1); CREATININE 4.4 mg/dL (0.7-1.3); GFR 13.1; POTASSIUM 5.4 mmol/L (3.5-5.1); TOTAL BILIRUBIN 0.3 mg/dL (0.2-1.0); TOTAL PROTEIN 6.7 g/dL (6.4-8.2)
[2021-04-22] VITALS (7 sets, daily range): BP systolic 100–127; BP diastolic 40–59
--- NOTE | 2021-04-22 00:14 | RAD ---
XR CHEST 1V Clinical History: Reason: hypoxic / Spl. Instructions: / History: Technique: AP view of the chest was obtained at 04/21/2021 11:36 PM. Comparison: March 23, 2019. Findings: The heart is mildly enlarged. The pulmonary appears somewhat cephalized. There is patchy perihilar an d basilar opacities and obscuration left hemidiaphragm and density of the costophrenic angles. Left-sided defibrillator and median sternotomy wires are again seen. Impression: 1. Chronically. 2. New mild effusions and bilateral infiltrates likely secondary to CHF. Electronically signed by: Hakeem Caraballo III, MD (04/22/2021 12:11 AM) [facility]
[2021-04-22 00:33] LABS: INFLUENZA A PATIENT NEGATIVE (NEGATIVE); INFLUENZA B PATIENT NEGATIVE (NEGATIVE)
[2021-04-22] MEDS ORDERED: fentaNYL PF VIAL 100 MCG/2 ML VIAL IVP PRN (00:45)
[2021-04-22] MEDS ORDERED: ONDANSETRON PF 4 MG/2 ML VIAL. IVP PRN (00:45)
[2021-04-22] MEDS ORDERED: ACETAMINOPHEN 325 MG TABLET. PO PRN (00:45)
[2021-04-22] MEDS: IV NORMAL SALINE 1000ML BAG 1,000 ML IV SCH ×2 (01:05→09:22)
--- NOTE | 2021-04-22 01:19 | ED.ADGEN ---
Past Medical History Past Medical History: Diabetes-Type II, Hypertension Additional Past Medical Histor: ULCERTIVE COLITIS, GOUT, SHINGES Past Surgical History: Coronary Bypass Surgery Additional Past Surgical Histo: hemorrohoidsx 2, OHSx2 Smoking Status: Former Smoker Additional Information: for 50 years Alcohol Use: Heavy Additional Information: 50 years Drug Use: None General Adult EDM: Chief Complaint: DYSPNEA/RESPIRATORY DISTRESS HPI: HPI: Patient is a 76 year old male brought in by EMS from home for shortness of breath. Patient initially was going to refuse transport by EMS but he was conv inced to come when they saw his oxygen saturation on room air was 69%. Patient denies any history of pulmonary disease or home oxygen use. Patient is a history of 2 bypass surgeries totaling 5 grafts, and 4 stents. Patient states he has had his Covid vaccines. History limited as patient is a poor historian Review of Systems: Review of Systems: All other systems within normal limits except for as noted in the HPI Allergies: Allergies: Allergies Coded Allergies Type Severity Reaction Last Updated Verified Iodinated Contrast Media Allergy Intermediate Hives 04/21/21 Yes pravastatin Allergy Intermediate 04/21/21 Yes Udubbxz-GLH-JfW Reductase Inhibitor Adverse Reaction Intermediate 04/21/21 Yes Physical Exam: PE: Constitutional: Well developed, well nourished, no acute distress, non-toxic appearance. [] HENT: Normocephalic, atraumatic, bilateral external ears normal, nose normal. [] Eyes: PERRLA, conjunctiva normal, no discharge. [] Neck: No rigidity, supple, no stridor. [] Cardiovascular: Regular rate and rhythm, brisk cap refill [] Lungs & Thorax: Non labored symmetric respirations, no tachypnea or respiratory distress, bilateral crackles [] Abdomen: Soft, nondistended. Skin: Warm, dry, no erythema, no rash. [] Back: Unremarkable Extremities: No deformities, range of motion grossly intact, no lower extremity edema [] Neurologic: Alert and oriented X 3, no focal deficits noted. [] Psychologic: Affect normal, judgement normal, mood normal. [] Current Patient Data: Labs: Laboratory Tests Test 04/21/21 23:20 04/22/21 00:11 White Blood Count 11.3 x10^3/uL (4.0-11.0) H Red Blood Count 3.23 x10^6/uL (4.30-5.70) L Hemoglobin 9.8 g/dL (13.0-17.5) L Hematocrit 30.8 % (39.0-53.0) L Mean Corpuscular Volume 95 fL (79-100) Mean Corpuscular Hemoglobin 30 pg (25-35) Mean Corpuscular Hemoglobin Concent 32 g/dL (31-37) Red Cell Distribution Width 18.4 % (11.5-14.5) H Platelet Count 281 x10^3/uL (140-400) Neutrophils (%) (Auto) 83 % (31-73) H Lymphocytes (%) (Auto) 6 % (24-48) L Monocytes (%) (Auto) 9 % (0-9) Eosinophils (%) (Auto) 1 % (0-3) Basophils (%) (Auto) 1 % (0-3) Neutrophils # (Auto) 9.4 x10^3/uL (1.8-7.7) H Lymphocytes # (Auto) 0.7 x10^3/uL (1.0-4.8) L Monocytes # (Auto) 1.0 x10^3/uL (0.0-1.1) Eosinophils # (Auto) 0.1 x10^3/uL (0.0-0.7) Basophils # (Auto) 0.1 x10^3/uL (0.0-0.2) Sodium Level 138 mmol/L (136-145) Potassium Level 5.4 mmol/L (3.5-5.1) H Chloride Level 104 mmol/L (98-107) Carbon Dioxide Level 24 mmol/L (21-32) Anion Gap 10 (6-14) Blood Urea Nitrogen 130 mg/dL (8-26) H Creatinine 4.4 mg/dL (0.7-1.3) H Estimated GFR (Cockcroft-Gault) 13.1 BUN/Creatinine Ratio 30 (6-20) H Glucose Level 239 mg/dL (70-99) H Lactic Acid Level 0.7 mmol/L (0.4-2.0) Calcium Level 8.2 mg/dL (8.5-10.1) L Total Bilirubin 0.3 mg/dL (0.2-1.0) Aspartate Amino Transferase (AST) 17 U/L (15-37) Alanine Aminotransferase (ALT) 29 U/L (16-63) Alkaline Phosphatase 226 U/L (46-116) H Troponin I High Sensitivity 32 ng/L (4-75) VP-Diz-X-Type Natriuretic Peptide 28091 pg/mL (0-449) H Total Protein 6.7 g/dL (6.4-8.2) Albumin 2.6 g/dL (3.4-5.0) L Albumin/Globulin Ratio 0.6 (1.0-1.7) L Influenza Type A Antigen Negative (NEGATIVE) Influenza Type B Antigen Negative (NEGATIVE) SARS-CoV-2 Antigen (Rapid) Negative (NEGATIVE) Laboratory Tests 04/21/21 23:20 Laboratory Tests 04/21/21 23:20 Vital Signs: Vital Signs Date Time Temp Pulse Resp B/P (MAP) Pulse Ox O2 Delivery O2 Flow Rate FiO2 04/22/21 00:12 88 18 112/56 (74) 91 Nasal Cannula 5.0 04/21/21 23:37 98.1 98.1 EKG: EKG: Paced rhythm, wide complex, no STEMI [] Heart Score: C/O Chest Pain: No HEART Score for Chest Pain: HEART Score for Chest Pain Response (Comments) Value History Slighlty/Non-Suspicious 0 ECG Nonspecific Repolarizatio 1 Age > 65 2 Risk Factors >3 Risk Factors or Hx CAD 2 Troponin < Normal Limit 0 Total 5 Risk Factors: Risk Factors: DM, Current or recent (<one month) smoker, HTN, HLP, family history of CAD, obesity. Risk Scores: Score 0 - 3: 2.5% MACE over next 6 weeks - Discharge Home Score 4 - 6: 20.3% MACE over next 6 weeks - Admit for Clinical Observation Score 7 - 10: 72.7% MACE over next 6 weeks - Early Invasive Strategies Radiology/Procedures: Radiology/Procedures: [facility] [address] [place] [address] IMAGING REPORT Signed PATIENT: MAGALI PHAN ACCOUNT: [id number] : 1945 LOCATION: ER AGE: 76 SEX: M EXAM STATUS: REG ER ORD. PHYSICIAN: PRADIP OCONNOR MD REASON: hypoxic PROCEDURE: CHEST AP ONLY XR CHEST 1V Clinical History: Reason: hypoxic / Spl. Instructions: / History: Technique: AP view of the chest was obtained at 04/21/2021 11:36 PM. Comparison: March 23, 2019. Findings: The heart is mildly enlarged. The pulmonary appears somewhat cephalized. There is patchy perihilar and basilar opacities and obscuration left hemidiaphragm and density of the costophrenic angles. Left-sided defibrillator and median sternotomy wires are again seen. Impression: 1. Chronically. 2. New mild effusions and bilateral infiltrates likely secondary to CHF. Electronically signed by: Cristofer Jewell III, MD (04/22/2021 12:11 AM) [facility] DICTATED and SIGNED BY: CRISTOFER JEWELL III, MD DATE: 04/22/21 [id number] [] Course & Med Decision Making: Course & Med Decision Making Pertinent Labs and Imaging studies reviewed. (See chart for details) Patient with worsening CHF but is clinically dry. Blood pressure in the 1 teens, will start on BiPAP to no fluid for the lungs but will hold on nitro or Lasix at the moment [] Dragon Disclaimer: Dragon Disclaimer: This electronic medical record was generated, in whole or in part, using a voice recognition dictation system. Departure Departure Impression: Primary Impression: Hypoxia Additional Impressions: CHF exacerbation Person under investigation for COVID-19 Renal insufficiency Disposition: ADMITTED INPATIENT Admitting Physician: AHSAN Condition: GUARDED Referrals: MONTY NECARNACION MD (PCP) Problem Qualifiers PRADIP OCONNOR MD Apr 22, 2021 01:19
[2021-04-22] MEDS ORDERED: HALOPERIDOL LACTATE 5 MG/ML VIAL. IVP ONE (02:00)
[2021-04-22] MEDS ORDERED: diphenhydrAMINE 50 MG/ML VIAL IVP ONE (02:00)
[2021-04-22] MEDS ORDERED: CALC625T PO (03:29)
[2021-04-22] MEDS ORDERED: BUME1TAB3 PO (03:29)
[2021-04-22] MEDS ORDERED: BACI1CAP6 PO (03:29)
[2021-04-22] MEDS ORDERED: ASPI-630 PO (03:29)
--- NOTE | 2021-04-22 08:58 | PDOC2 ---
CONSULT Date of Consult Date of Consult DATE: 04/22/21 TIME: 08:54 Reason for Consult Reason for Consult: Acute on chronic renal insufficiency Referring Physician Referring Physician: Farhad Identification/Chief Complaint Chief Complaint Hypoxia Source Source: Chart review History of Present Illness Reason for Visit: Patient is a 76-year-old gentleman followed by Dr. Escoto in our practice. He was last seen in November 2020 with a creatinine of 1.76 corresponding to a GFR of 36. He is known to have an enlarged prostate besides history of longstanding type 2 diabetes hypertension tobaccoism/smoking ulcerative colitis gout coronary artery disease with bypass x2 as well as CAD with stenting. He has had episodes where his creatinine has been running in the 2-2.2 range in the past. He is now noted to have a potassium of 5.4 BUN of 130 and a creatinine of 4.4 with a NT proBNP of 16,000. We were asked to see him for the same. Patient has apparently not urinated much. A bladder scan has been ordered This time he was brought from home to the ER by EMS due to hypoxemia. Patient apparently did not want to come to the hospital to get as documented in the ER. He remains hypoxemic with an ABGs not available Patient remains in respiratory isolation pending COVID-19 PCR. He is currently a PUI Chest x-ray report below does show some CHF. Past Medical History Cardiovascular: AFIB, CAD, CHF, HTN, Hyperlipidemia, Other Pulmonary: COPD CENTRAL NERVOUS SYSTEM: CVA GI: GERD, Irritable bowel disease Heme/Onc: No pertinent hx Hepatobiliary: No pertinent hx Psych: No pertinent hx Rheumatologic: Gout Infectious disease: No pertinent hx Renal/: Chronic renal insuff Endocrine: Diabetes Past Surgical History Past Surgical History: Pacemaker, CABG Family History Family History: Coronary Artery Disease, Hypertension Social History ALCOHOL: none Drugs: None Lives: with Family Domestic Violence: Neg Current Problem List Problem List Problems Medical Problems: (1) CHF exacerbation Status: Acute (2) Person under investigation for COVID-19 Status: Acute (3) Renal insufficiency Status: Acute Current Medications Current Medications Current Medications Ondansetron HCl (Zofran) 4 mg PRN Q8HRS PRN IVP NAUSEA/VOMITING; Start 04/22/21 at 00:45; Stop 04/23/21 at 00:44 Fentanyl Citrate (Fentanyl 2ml Vial) 50 mcg PRN Q1HR PRN IVP PAIN; Start 04/22/21 at 00:45; Stop 04/23/21 at 00:44 Sodium Chloride 1,000 ml @ 75 mls/hr [id number] IV Last administered on 04/22/21at 01:05; Start 04/22/21 at 00:45; Stop 04/23/21 at 00:44 Acetaminophen (Tylenol) 650 mg PRN Q4HRS PRN PO FEVER > 100.3'F; Start 04/22/21 at 00:45; Stop 04/23/21 at 00:44 Haloperidol Lactate (Haldol Inj) 5 mg 1X ONCE IVP ; Start 04/22/21 at 02:00; Stop 04/22/21 at 02:01; Status DC Diphenhydramine HCl (Benadryl) 50 mg 1X ONCE IVP ; Start 04/22/21 at 02:00; Stop 04/22/21 at 02:01; Status DC Active Scripts Active Keflex (Cephalexin) 500 Mg Capsule 1 Cap PO TID 10 Days Metoprolol Succinate ( Xl ) (Metoprolol Succinate) 25 Mg Tab.er.24h 75 Mg PO DAILY MDD 1 60 Days Lasix (Furosemide) 40 Mg Tablet 1 Tab PO DAILY Reported Aspirin 81 Mg Tab.chew 81 Mg PO DAILY Probiotic (Bacillus Coagulans) 1 Each Capsule.dr 1 Each PO DAILY Fibercon (Calcium Polycarbophil) 625 Mg Tablet 625 Mg PO DAILY Bumetanide 1 Mg Tablet 1 Mg PO QAM Ambien (Zolpidem Tartrate) 10 Mg Tablet 10 Mg PO HS Novolin R (Insulin Regular, Human) 100 Unit/1 Ml Vial 12 Unit IJ TIDWMEALS Novolin N (Nph, Human Insulin Isophane) 100 Unit/1 Ml Vial 10 Unit SQ HS Repatha Syringe (Evolocumab) 140 Mg/1 Ml Syringe 140 Mg SQ Q2WKS [place]-3 Krill Oil Sfgl (Krill/Om-3/Dha/Epa/Phospho/Ast) 1 Each Capsule 1 Each PO DAILY Metolazone 2.5 Mg Tablet 2.5 Mg PO DAILY Lisinopril 5 Mg Tablet 5 Mg PO DAILY Amlodipine Besylate 5 Mg Tablet 10 Mg PO DAILY Eliquis (Apixaban) 5 Mg Tablet 5 Mg PO BID Zinc 50 Mg Tablet 50 Mg PO DAILY08 Vitamin E (Vitamin E Mixed) 400 Unit Capsule 400 Unit PO DAILY16 Sulfasalazine 500 Mg Tablet 1,000 Mg PO BID Clopidogrel (Clopidogrel Bisulfate) 75 Mg Tablet 75 Mg PO DAILY Vitamin D2 (Ergocalciferol (Vitamin D2)) 50,000 Unit Capsule 50,000 Unit PO WEEKLY Centrum Silver Tablet (Multivits-Min/Fa/Lycopene/Lut) 1 Each Tablet 1 Each PO DAILY Pepcid (Famotidine) 20 Mg Tablet 20 Mg PO BID76 Tamsulosin Hcl 0.4 Mg Cap.er.24h 0.8 Mg PO HS Allopurinol 300 Mg Tablet 300 Mg PO BID Levothyroxine Sodium 25 Mcg Tablet 25 Mcg PO DAILYAC Allergies Allergies: Coded Allergies: Iodinated Contrast Media (Verified Allergy, Intermediate, Hives, 04/21/21) pravastatin (Verified Allergy, Intermediate, 04/21/21) Bacevgg-IOF-KvH Reductase Inhibitor (Verified Adverse Reaction, Intermediate, 04/21/21) ROS Review of System Review of systems unable to be conducted with the patient running remains in COVID-19 isolation as a PUI Physical Exam Physical Exam Physical exam is unable to be conducted at this time due to COVID-19 respiratory isolation. Patient remains in PUI status pending PCR testing. Physical exam as documented by other providers were reviewed and corroborated with the patient's nurse Vital Signs Vital Signs Date Time Temp Pulse Resp B/P (MAP) Pulse Ox O2 Delivery O2 Flow Rate FiO2 04/22/21 07:00 97.5 91 18 127/59 (81) 89 Nasal Cannula 5.0 97.5 Assessment & Plan Acute kidney injury: Patient's chest x-ray suggestive of pleural effusion and possible mild CHF. In the setting of ongoing hypoxemia, I will discontinue IV fluids at this time. Bladder scan will be checked. Progression of underlying CKD cannot be ruled out. Renal sonogram will be rechecked current FLuid and E- lyte status does not necessitate emergent need for Dialysis. Will re-evaluate for Dialysis in am. If anything he may need diuresis Pleural effusion/possible CHF: This is despite him being on significant diuretic cardiology consult was requested. Most recent echocardiogram was nonrevealing. Cannot rule out cardiorenal state. History of BPH: Bladder scan will be ordered. May need Charlton catheter. May need urology consultation since he is maxed out on Flomax at this time. Hypoxemia: May require pulmonary input. If required from the pulmonary status, diuretics would be appropriate Anemia: Check iron B12 folate Hyperkalemia: One-time IV Lasix will be ordered HTN: Continue present regimen Patient remains in COVID-19 respiratory isolation as a PUI currently. Labs Labs Laboratory Tests Test 04/21/21 23:20 04/22/21 00:11 04/22/21 08:00 White Blood Count 11.3 x10^3/uL (4.0-11.0) Red Blood Count 3.23 x10^6/uL (4.30-5.70) Hemoglobin 9.8 g/dL (13.0-17.5) Hematocrit 30.8 % (39.0-53.0) Mean Corpuscular Volume 95 fL (79-100) Mean Corpuscular Hemoglobin 30 pg (25-35) Mean Corpuscular Hemoglobin Concent 32 g/dL (31-37) Red Cell Distribution Width 18.4 % (11.5-14.5) Platelet Count 281 x10^3/uL (140-400) Neutrophils (%) (Auto) 83 % (31-73) Lymphocytes (%) (Auto) 6 % (24-48) Monocytes (%) (Auto) 9 % (0-9) Eosinophils (%) (Auto) 1 % (0-3) Basophils (%) (Auto) 1 % (0-3) Neutrophils # (Auto) 9.4 x10^3/uL (1.8-7.7) Lymphocytes # (Auto) 0.7 x10^3/uL (1.0-4.8) Monocytes # (Auto) 1.0 x10^3/uL (0.0-1.1) Eosinophils # (Auto) 0.1 x10^3/uL (0.0-0.7) Basophils # (Auto) 0.1 x10^3/uL (0.0-0.2) Sodium Level 138 mmol/L (136-145) Potassium Level 5.4 mmol/L (3.5-5.1) Chloride Level 104 mmol/L (98-107) Carbon Dioxide Level 24 mmol/L (21-32) Anion Gap 10 (6-14) Blood Urea Nitrogen 130 mg/dL (8-26) Creatinine 4.4 mg/dL (0.7-1.3) Estimated GFR (Cockcroft-Gault) 13.1 BUN/Creatinine Ratio 30 (6-20) Glucose Level 239 mg/dL (70-99) Lactic Acid Level 0.7 mmol/L (0.4-2.0) Calcium Level 8.2 mg/dL (8.5-10.1) Total Bilirubin 0.3 mg/dL (0.2-1.0) Aspartate Amino Transf (AST/SGOT) 17 U/L (15-37) Alanine Aminotransferase (ALT/SGPT) 29 U/L (16-63) Alkaline Phosphatase 226 U/L (46-116) Troponin I High Sensitivity 32 ng/L (4-75) SM-Xoy-Q-Type Natriuretic Peptide 66532 pg/mL (0-449) Total Protein 6.7 g/dL (6.4-8.2) Albumin 2.6 g/dL (3.4-5.0) Albumin/Globulin Ratio 0.6 (1.0-1.7) Influenza Type A Antigen Negative (NEGATIVE) Influenza Type B Antigen Negative (NEGATIVE) SARS-CoV-2 Antigen (Rapid) Negative (NEGATIVE) Glucose (Fingerstick) 261 mg/dL (70-99) Laboratory Tests Test 04/21/21 23:20 04/22/21 00:11 04/22/21 08:00 White Blood Count 11.3 x10^3/uL (4.0-11.0) Red Blood Count 3.23 x10^6/uL (4.30-5.70) Hemoglobin 9.8 g/dL (13.0-17.5) Hematocrit 30.8 % (39.0-53.0) Mean Corpuscular Volume 95 fL (79-100) Mean Corpuscular Hemoglobin 30 pg (25-35) Mean Corpuscular Hemoglobin Concent 32 g/dL (31-37) Red Cell Distribution Width 18.4 % (11.5-14.5) Platelet Count 281 x10^3/uL (140-400) Neutrophils (%) (Auto) 83 % (31-73) Lymphocytes (%) (Auto) 6 % (24-48) Monocytes (%) (Auto) 9 % (0-9) Eosinophils (%) (Auto) 1 % (0-3) Basophils (%) (Auto) 1 % (0-3) Neutrophils # (Auto) 9.4 x10^3/uL (1.8-7.7) Lymphocytes # (Auto) 0.7 x10^3/uL (1.0-4.8) Monocytes # (Auto) 1.0 x10^3/uL (0.0-1.1) Eosinophils # (Auto) 0.1 x10^3/uL (0.0-0.7) Basophils # (Auto) 0.1 x10^3/uL (0.0-0.2) Sodium Level 138 mmol/L (136-145) Potassium Level 5.4 mmol/L (3.5-5.1) Chloride Level 104 mmol/L (98-107) Carbon Dioxide Level 24 mmol/L (21-32) Anion Gap 10 (6-14) Blood Urea Nitrogen 130 mg/dL (8-26) Creatinine 4.4 mg/dL (0.7-1.3) Estimated GFR (Cockcroft-Gault) 13.1 BUN/Creatinine Ratio 30 (6-20) Glucose Level 239 mg/dL (70-99) Lactic Acid Level 0.7 mmol/L (0.4-2.0) Calcium Level 8.2 mg/dL (8.5-10.1) Total Bilirubin 0.3 mg/dL (0.2-1.0) Aspartate Amino Transf (AST/SGOT) 17 U/L (15-37) Alanine Aminotransferase (ALT/SGPT) 29 U/L (16-63) Alkaline Phosphatase 226 U/L (46-116) Troponin I High Sensitivity 32 ng/L (4-75) VJ-Nwe-W-Type Natriuretic Peptide 25406 pg/mL (0-449) Total Protein 6.7 g/dL (6.4-8.2) Albumin 2.6 g/dL (3.4-5.0) Albumin/Globulin Ratio 0.6 (1.0-1.7) Influenza Type A Antigen Negative (NEGATIVE) Influenza Type B Antigen Negative (NEGATIVE) SARS-CoV-2 Antigen (Rapid) Negative (NEGATIVE) Glucose (Fingerstick) 261 mg/dL (70-99) Review All relevant outside records, renal labs, imaging studies, telemetry/EKG's were reviewed. Images Images Most recent renal ultrasound: From 03/24/2019 FINDINGS: The kidneys are normal in size. There is a 2.6 cm cyst within the superior left kidney. No solid renal lesion is seen. There is no hydronephrosis. The bladder is unremarkable. IMPRESSION: 1. 2.6 cm left renal cyst. 2. Otherwise, sonographically unremarkable kidneys. Chest x-ray in the ER: Findings: The heart is mildly enlarged. The pulmonary appears somewhat cephalized. There is patchy perihilar and basilar opacities and obscuration left hemidiaphragm and density of the costophrenic angles. Left-sided defibrillator and median sternotomy wires are again seen. Impression: 1. Chronically. 2. New mild effusions and bilateral infiltrates likely secondary to CHF. Most recent echocardiogram from 04/05/2021: The left ventricle is normal size. The left ventricular systolic function is normal and the ejection fraction is within normal range. LV ejection fraction of 50 to 55%. Doppler and Color Flow revealed trace aortic regurgitation. There is no significant aortic valvular stenosis. Doppler and Color-flow revealed trace to mild mitral regurgitation. Doppler and Color Flow revealed trace to mild tricuspid regurgitation. Estimated PAP 45 mmHg. ANNA GOMEZ MD Apr 22, 2021 08:58
[2021-04-22] MEDS ORDERED: MAGNESIUM SULFATE 2GM 50 ML IV PRN (09:15)
[2021-04-22] MEDS ORDERED: [UNRECOGNIZED DRUG - CODE] PO (09:37)
[2021-04-22] MEDS ORDERED: COD1CAPS6 PO (09:37)
[2021-04-22] MEDS: FUROSEMIDE 40 MG/4 ML VIAL. IVP SCH ×2 (11:12→15:48)
--- NOTE | 2021-04-22 12:15 | NUR ---
Patient was bladder scanned around 0930 patient had 205mls in bladder, patient not needing to void at the moment. Patient voided 400mls of tea colored urine at 1209. Post void bladder scan showed 75mls in bladder.
[2021-04-22 12:21] LABS: CLARITY,URINE TURBID; COLOR,URINE RED
[2021-04-22 12:37] LABS: BACTERIA,URINE FEW /HPF (0-FEW); RBC,URINE TNTC /HPF (0-2); WBC,URINE 20-40 /HPF (0-4)
--- NOTE | 2021-04-22 13:00 | HP ---
DATE OF SERVICE: 04/22/2021 ADMIT DATE: 04/22/2021 CHIEF COMPLAINT: Shortness of breath. HISTORY OF PRESENT ILLNESS: The patient is a pleasant 76-year-old male who presented to the ER last night with shortness of breath. He really did not want to come to the hospital because he does not want to be away from his . He states he is unvaccinated. Clinically, he seems like he could possibly have COVID, but his COVID testing is actually negative. He seems to be perhaps volume overloaded. He has got acute kidney injury. His creatinine has bumped up to 4.4. His baseline is closer to 2. He does follow with Nephrology as an outpatient. He does have a history of BPH. I suspect he might have worsening BPH with an acute kidney injury and secondary volume overload. We are going to admit the patient and consult Nephrology, Cardiology and Urology. PAST MEDICAL HISTORY: BPH, previous tobacco abuse, hemorrhoids, diabetes, hypertension, ulcerative colitis, gout, shingles, pacemaker, coronary artery bypass surgery, heavy alcohol use, chronic anticoagulation, polypharmacy, insomnia, GERD, hypothyroidism. ALLERGIES: IODINE, STATINS. FAMILY HISTORY: Diabetes. SOCIAL HISTORY: He drinks heavily, according to the record. He used to smoke. He is . He wants to go back home to his . Does not take drugs. He is retired. MEDICATIONS: Reviewed, please refer to the MRAD. REVIEW OF SYSTEMS: GENERAL: No history of weight change, weakness or fevers. SKIN: No bruising, hair changes or rashes. EYES: No blurred, double or loss of vision. NOSE AND THROAT: No history of nosebleeds, hoarseness or sore throat. HEART: No history of palpitations, chest pain or shortness of breath on exertion. LUNGS: He complains of shortness of breath. GASTROINTESTINAL: Denies changes in appetite, nausea, vomiting, diarrhea or constipation. GENITOURINARY: No history of frequency, urgency, hesitancy or nocturia. NEUROLOGIC: Denies history of numbness, tingling, tremor or weakness. PSYCHIATRIC: No history of panic, anxiety or depression. ENDOCRINE: No history of heat or cold intolerance, polyuria or polydipsia. EXTREMITIES: Denies muscle weakness, joint pain, pain on walking or stiffness. PHYSICAL EXAMINATION: VITALS: Within normal limits and are stable. GENERAL: No apparent distress. Alert and oriented. HEENT: Normal cephalic atraumatic, external auditory canals are patent. Eyes: Extraocular muscles are intact, pupils are equally round and reactive to light and accommodation. MUSCULOSKELETAL: Well developed, well nourished, good range of motion. ENDOCRINE: No thyromegaly was palpated. LYMPHATICS: No cervical chain or axillary nodes were noted. HEMATOPOIETIC: No bruising. NECK: Supple, no JVD, no thyromegaly was noted. LUNGS: He has bibasilar crackles. HEART: RRR, S1, S2 present. Peripheral pulses intact, no obvious murmurs were noted. ABDOMEN: Soft, nontender. Positive bowel sounds, no organomegaly, normal bowel sounds. EXTREMITIES: Without any cyanosis, clubbing, or edema. Pedal pulses intact, Homans sign is negative. NEUROLOGIC: He is weak. PSYCHIATRIC: He appears depressed and wants to go home to his . SKIN: No ulcerations or rashes, good skin turgor, no jaundice. VASCULAR: Good capillary refill, neurovascular bundle appears to be intact. LABORATORY DATA: White count 11, hemoglobin 10, platelets 281. Electrolytes: Sodium 138, potassium is little high at 5.4, BUN is very high at 130, creatinine high at 4.4. Troponin 32. BNP 15,866. Chest x-ray reviewed by me, shows some slight vascular congestion. He has got some small pleural effusions. There is a pacemaker present. There is some sternal wires in place. The heart is little enlarged. COVID testing is negative. ASSESSMENT AND PLAN: Volume overload with acute kidney injury, suspect this could be from worsening benign prostatic hyperplasia with a possible bladder outlet obstruction, question margarita. For now, we have consulted Urology, Nephrology and Cardiology. We will try to resume his home meds. Deep venous thrombosis prophylaxis. Full code. Trend labs. ONEIDA/WELLINGTON DR: ONEIDA/dave TID: [id number]
[2021-04-22] MEDS ORDERED: ALLOPURINOL 300 MG TABLET. PO SCH (13:30)
[2021-04-22] MEDS ORDERED: DEXTROSE 50% 25 GM / 50ML DISP.SYRIN. IV PRN (14:00)
[2021-04-22] MEDS ORDERED: IV DEXTROSE 5% 250 ML BAG. IV PRN (14:00)
--- NOTE | 2021-04-22 14:21 | PDOC2 ---
UROLOGY CONSULT DOS: DATE: 04/22/21 TIME: 14:10 Reason for Consult: BPH, RACH, volume overload Chief Complaint GLENN Patient in bed and is confused. Per nursing, has been confused since admission and this was a reason his family brought him to ER. History gathered by chart review and nursing. Patient admitted last night for hypoxia, concern was for COVID as patient is unvaccinated. Rapid test is negative. PCR pending. Patient requiring 5L. Patient with Creat of 4.4, with apparent baseline of 2. Follows with nephrology. Concern for bladder outlet obstruction per primary causing some RACH. Per nursing, patient urinated 400mL of tea colored urine with 75mL on PVR. Chest xray completed with concern for CHF, cardiology consulted. ROS ROS: GLENN due to patients confusion Current Medications Current Medications Ondansetron HCl (Zofran) 4 mg PRN Q8HRS PRN IVP NAUSEA/VOMITING; Start 04/22/21 at 00:45; Stop 04/23/21 at 00:44 Fentanyl Citrate (Fentanyl 2ml Vial) 50 mcg PRN Q1HR PRN IVP PAIN; Start 04/22/21 at 00:45; Stop 04/23/21 at 00:44 Sodium Chloride 1,000 ml @ 75 mls/hr [id number] IV Last administered on 04/22/21at 01:05; Start 04/22/21 at 00:45; Stop 04/23/21 at 00:44 Acetaminophen (Tylenol) 650 mg PRN Q4HRS PRN PO FEVER > 100.3'F; Start 04/22/21 at 00:45; Stop 04/23/21 at 00:44 Haloperidol Lactate (Haldol Inj) 5 mg 1X ONCE IVP ; Start 04/22/21 at 02:00; Stop 04/22/21 at 02:01; Status DC Diphenhydramine HCl (Benadryl) 50 mg 1X ONCE IVP ; Start 04/22/21 at 02:00; Stop 04/22/21 at 02:01; Status DC Magnesium Sulfate 50 ml @ 25 mls/hr PRN DAILY PRN IV for Mag < 1.7 on am labs; Start 04/22/21 at 09:15 Furosemide (Lasix) 40 mg [id number] IVP Last administered on 04/22/21at 11:12; Start 04/22/21 at 10:00 Allopurinol (Zyloprim) 300 mg BID PO ; Start 04/22/21 at 13:30; Stop 04/22/21 at 13:03; Status DC Amlodipine Besylate (Norvasc) 10 mg DAILY PO ; Start 04/23/21 at 09:00 Apixaban (Eliquis) 5 mg BID PO ; Start 04/22/21 at 13:30 Aspirin (Aspirin Chewable) 81 mg DAILY PO ; Start 04/22/21 at 13:30 Bumetanide (Bumex) 1 mg QAM PO ; Start 04/23/21 at 09:00 Calcium Polycarbophil (Fibercon) 625 mg DAILY PO ; Start 04/23/21 at 09:00 Ergocalciferol (Vitamin D2) 50,000 unit WEEKLY PO ; Start 04/29/21 at 09:00 Famotidine (Pepcid) 20 mg DAILY PO ; Start 04/22/21 at 13:30 Insulin Human Lispro (HumaLOG) 12 units TIDWMEALS SQ ; Start 04/22/21 at 17:00 Levothyroxine Sodium (Synthroid) 25 mcg DAILYAC PO ; Start 04/23/21 at 07:30 Lisinopril (Prinivil) 5 mg DAILY PO ; Start 04/23/21 at 09:00; Status UNV Metolazone (Zaroxolyn) 2.5 mg QMWF PO ; Start 04/23/21 at 16:00 Metoprolol Succinate (Toprol Xl) 75 mg DAILY PO ; Start 04/23/21 at 09:00 Sulfasalazine (Azulfidine) 1,000 mg BID PO ; Start 04/22/21 at 21:00 Tamsulosin HCl (Flomax) 0.8 mg HS PO ; Start 04/22/21 at 21:00 Vitamin A (Vitamin A) 10,000 unit DAILY PO ; Start 04/23/21 at 09:00 Lactobacillus Rhamnosus (Culturelle) 1 cap DAILY PO ; Start 04/23/21 at 09:00 Non-Formulary Medication (Cod Liver Oil ) 1 each DAILY PO ; Start 04/23/21 at 09:00; Status UNV Fish Oil (Fish Oil) 1,000 mg DAILY PO ; Start 04/23/21 at 09:00 Multivitamins (Thera M Plus) 1 tab DAILY PO ; Start 04/23/21 at 09:00 Insulin Glargine (Lantus Syringe) 10 unit QHS SQ ; Start 04/22/21 at 21:00 Vitamin E (Vitamin E) 400 unit DAILY PO ; Start 04/23/21 at 09:00 Zinc Sulfate (Orazinc) 220 mg DAILY PO ; Start 04/23/21 at 09:00 Zolpidem Tartrate (Ambien) 5 mg PRN QHS PRN PO INSOMNIA, MAY REPEAT X1; Start 04/22/21 at 13:15 Allopurinol (Zyloprim) 200 mg DAILY PO ; Start 04/23/21 at 09:00 Insulin Human Lispro (HumaLOG) 0-7 UNITS TIDWMEALS SQ ; Start 04/22/21 at 17:00; Stop 04/22/21 at 13:59; Status DC Dextrose (Dextrose 50%-Water Syringe) 12.5 gm PRN Q15MIN PRN IV SEE COMMENTS; Start 04/22/21 at 14:00 Dextrose (Iv Dextrose 5%) 250 ml PRN Q15MIN PRN IV SEE COMMENTS; Start 04/22/21 at 14:00 Insulin Human Lispro (HumaLOG) 0-7 UNITS TIDWMEALS SQ ; Start 04/22/21 at 14:00 Active Scripts Active Metoprolol Succinate ( Xl ) (Metoprolol Succinate) 25 Mg Tab.er.24h 75 Mg PO DAILY MDD 1 60 Days Reported Vitamin A 10,000 Unit Capsule 10,000 Unit PO DAILY Cod Liver Oil 1 Each Capsule 1 Each PO DAILY Aspirin 81 Mg Tab.chew 81 Mg PO DAILY Probiotic (Bacillus Coagulans) 1 Each Capsule.dr 1 Each PO DAILY Fibercon (Calcium Polycarbophil) 625 Mg Tablet 625 Mg PO DAILY Bumetanide 1 Mg Tablet 1 Mg PO QAM Ambien (Zolpidem Tartrate) 10 Mg Tablet 10 Mg PO HS Novolin R (Insulin Regular, Human) 100 Unit/1 Ml Vial 12 Unit IJ TIDWMEALS Novolin N (Nph, Human Insulin Isophane) 100 Unit/1 Ml Vial 10 Unit SQ HS Megared [place]-3 Krill Oil Sfgl (Krill/Om-3/Dha/Epa/Phospho/Ast) 1 Each Capsule 1 Each PO DAILY Metolazone 2.5 Mg Tablet 2.5 Mg PO QMWF Lisinopril 5 Mg Tablet 5 Mg PO DAILY Amlodipine Besylate 5 Mg Tablet 10 Mg PO DAILY Eliquis (Apixaban) 5 Mg Tablet 5 Mg PO BID Zinc 50 Mg Tablet 50 Mg PO DAILY08 Vitamin E (Vitamin E Mixed) 400 Unit Capsule 400 Unit PO DAILY16 Sulfasalazine 500 Mg Tablet 1,000 Mg PO BID Vitamin D2 (Ergocalciferol (Vitamin D2)) 50,000 Unit Capsule 50,000 Unit PO WEEKLY Centrum Silver Tablet (Multivits-Min/Fa/Lycopene/Lut) 1 Each Tablet 1 Each PO DAILY Pepcid (Famotidine) 20 Mg Tablet 20 Mg PO BID76 Tamsulosin Hcl 0.4 Mg Cap.er.24h 0.8 Mg PO HS Allopurinol 300 Mg Tablet 300 Mg PO BID Levothyroxine Sodium 25 Mcg Tablet 25 Mcg PO DAILYAC Allergies: Coded Allergies: Iodinated Contrast Media (Verified Allergy, Intermediate, Hives, 04/21/21) pravastatin (Verified Allergy, Intermediate, 04/21/21) [id number] Reductase Inhibitor (Verified Adverse Reaction, Intermediate, 04/21/21) Physical Examination PHYSICAL EXAMINATION: GENERAL: Confused HEENT: Head: Normocephalic, atraumatic. Respiratory: 5L of O2. CHEST: Shape and expansion: Normal. SKIN: General: Warm. Color: Good. GENITOURINARY:External genitalia - wnl. NEUROLOGICAL: Mental status: confused Extremities: lower extremity edema VITALS Vital Signs Date Time Temp Pulse Resp B/P (MAP) Pulse Ox O2 Delivery O2 Flow Rate FiO2 04/22/21 11:00 97.8 89 18 110/50 (70) 93 Nasal Cannula 5.0 97.8 Labs Laboratory Tests Test 04/21/21 23:20 04/22/21 00:01 04/22/21 00:11 04/22/21 08:00 White Blood Count 11.3 x10^3/uL (4.0-11.0) Red Blood Count 3.23 x10^6/uL (4.30-5.70) Hemoglobin 9.8 g/dL (13.0-17.5) Hematocrit 30.8 % (39.0-53.0) Mean Corpuscular Volume 95 fL (79-100) Mean Corpuscular Hemoglobin 30 pg (25-35) Mean Corpuscular Hemoglobin Concent 32 g/dL (31-37) Red Cell Distribution Width 18.4 % (11.5-14.5) Platelet Count 281 x10^3/uL (140-400) Neutrophils (%) (Auto) 83 % (31-73) Lymphocytes (%) (Auto) 6 % (24-48) Monocytes (%) (Auto) 9 % (0-9) Eosinophils (%) (Auto) 1 % (0-3) Basophils (%) (Auto) 1 % (0-3) Neutrophils # (Auto) 9.4 x10^3/uL (1.8-7.7) Lymphocytes # (Auto) 0.7 x10^3/uL (1.0-4.8) Monocytes # (Auto) 1.0 x10^3/uL (0.0-1.1) Eosinophils # (Auto) 0.1 x10^3/uL (0.0-0.7) Basophils # (Auto) 0.1 x10^3/uL (0.0-0.2) Sodium Level 138 mmol/L (136-145) Potassium Level 5.4 mmol/L (3.5-5.1) Chloride Level 104 mmol/L (98-107) Carbon Dioxide Level 24 mmol/L (21-32) Anion Gap 10 (6-14) Blood Urea Nitrogen 130 mg/dL (8-26) Creatinine 4.4 mg/dL (0.7-1.3) Estimated GFR (Cockcroft-Gault) 13.1 BUN/Creatinine Ratio 30 (6-20) Glucose Level 239 mg/dL (70-99) Lactic Acid Level 0.7 mmol/L (0.4-2.0) Calcium Level 8.2 mg/dL (8.5-10.1) Total Bilirubin 0.3 mg/dL (0.2-1.0) Aspartate Amino Transf (AST/SGOT) 17 U/L (15-37) Alanine Aminotransferase (ALT/SGPT) 29 U/L (16-63) Alkaline Phosphatase 226 U/L (46-116) Troponin I High Sensitivity 32 ng/L (4-75) CY-Npi-Q-Type Natriuretic Peptide 43438 pg/mL (0-449) Total Protein 6.7 g/dL (6.4-8.2) Albumin 2.6 g/dL (3.4-5.0) Albumin/Globulin Ratio 0.6 (1.0-1.7) Iron Level 15 ug/dL (65-175) Total Iron Binding Capacity 243 ug/dL (250-450) Iron Saturation 6 % (15-34) Ferritin 20 ng/mL (26-388) Creatine Kinase 100 U/L (39-308) Influenza Type A Antigen Negative (NEGATIVE) Influenza Type B Antigen Negative (NEGATIVE) SARS-CoV-2 Antigen (Rapid) Negative (NEGATIVE) Glucose (Fingerstick) 261 mg/dL (70-99) Test 04/22/21 12:09 04/22/21 12:18 Urine Collection Type Unknown Urine Color Red Urine Clarity Turbid Urine pH (<5.0-8.0) Urine Specific [place] (1.000-1.030) Urine Protein mg/dL (NEG-TRACE) Urine Glucose (UA) mg/dL (NEG) Urine Ketones (Stick) mg/dL (NEG) Urine Blood (NEG) Urine Nitrite (NEG) Urine Bilirubin (NEG) Urine Urobilinogen Dipstick mg/dL (0.2 mg/dL) Urine Leukocyte Esterase Large (NEG) Urine RBC Tntc /HPF (0-2) Urine WBC 20-40 /HPF (0-4) Urine Bacteria Few /HPF (0-FEW) Glucose (Fingerstick) 350 mg/dL (70-99) Laboratory Tests Test 04/21/21 23:20 04/22/21 00:01 04/22/21 00:11 04/22/21 08:00 White Blood Count 11.3 x10^3/uL (4.0-11.0) Red Blood Count 3.23 x10^6/uL (4.30-5.70) Hemoglobin 9.8 g/dL (13.0-17.5) Hematocrit 30.8 % (39.0-53.0) Mean Corpuscular Volume 95 fL (79-100) Mean Corpuscular Hemoglobin 30 pg (25-35) Mean Corpuscular Hemoglobin Concent 32 g/dL (31-37) Red Cell Distribution Width 18.4 % (11.5-14.5) Platelet Count 281 x10^3/uL (140-400) Neutrophils (%) (Auto) 83 % (31-73) Lymphocytes (%) (Auto) 6 % (24-48) Monocytes (%) (Auto) 9 % (0-9) Eosinophils (%) (Auto) 1 % (0-3) Basophils (%) (Auto) 1 % (0-3) Neutrophils # (Auto) 9.4 x10^3/uL (1.8-7.7) Lymphocytes # (Auto) 0.7 x10^3/uL (1.0-4.8) Monocytes # (Auto) 1.0 x10^3/uL (0.0-1.1) Eosinophils # (Auto) 0.1 x10^3/uL (0.0-0.7) Basophils # (Auto) 0.1 x10^3/uL (0.0-0.2) Sodium Level 138 mmol/L (136-145) Potassium Level 5.4 mmol/L (3.5-5.1) Chloride Level 104 mmol/L (98-107) Carbon Dioxide Level 24 mmol/L (21-32) Anion Gap 10 (6-14) Blood Urea Nitrogen 130 mg/dL (8-26) Creatinine 4.4 mg/dL (0.7-1.3) Estimated GFR (Cockcroft-Gault) 13.1 BUN/Creatinine Ratio 30 (6-20) Glucose Level 239 mg/dL (70-99) Lactic Acid Level 0.7 mmol/L (0.4-2.0) Calcium Level 8.2 mg/dL (8.5-10.1) Total Bilirubin 0.3 mg/dL (0.2-1.0) Aspartate Amino Transf (AST/SGOT) 17 U/L (15-37) Alanine Aminotransferase (ALT/SGPT) 29 U/L (16-63) Alkaline Phosphatase 226 U/L (46-116) Troponin I High Sensitivity 32 ng/L (4-75) OD-Pjk-L-Type Natriuretic Peptide 27875 pg/mL (0-449) Total Protein 6.7 g/dL (6.4-8.2) Albumin 2.6 g/dL (3.4-5.0) Albumin/Globulin Ratio 0.6 (1.0-1.7) Iron Level 15 ug/dL (65-175) Total Iron Binding Capacity 243 ug/dL (250-450) Iron Saturation 6 % (15-34) Ferritin 20 ng/mL (26-388) Creatine Kinase 100 U/L (39-308) Influenza Type A Antigen Negative (NEGATIVE) Influenza Type B Antigen Negative (NEGATIVE) SARS-CoV-2 Antigen (Rapid) Negative (NEGATIVE) Glucose (Fingerstick) 261 mg/dL (70-99) Test 04/22/21 12:09 04/22/21 12:18 Urine Collection Type Unknown Urine Color Red Urine Clarity Turbid Urine pH (<5.0-8.0) Urine Specific [place] (1.000-1.030) Urine Protein mg/dL (NEG-TRACE) Urine Glucose (UA) mg/dL (NEG) Urine Ketones (Stick) mg/dL (NEG) Urine Blood (NEG) Urine Nitrite (NEG) Urine Bilirubin (NEG) Urine Urobilinogen Dipstick mg/dL (0.2 mg/dL) Urine Leukocyte Esterase Large (NEG) Urine RBC Tntc /HPF (0-2) Urine WBC 20-40 /HPF (0-4) Urine Bacteria Few /HPF (0-FEW) Glucose (Fingerstick) 350 mg/dL (70-99) Assessment/Plan ---BPH Continue tamsulosin daily. Bladder scan of 75mL PVR. Will have nursing repeat bladder scans. Low likelihood of bladder outlet obstruction causing RACH. 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 Baseline of 2. Nephrology following. Renal ultrasound ordered. UA ordered. Collected earlier but not resulted. Concern for UTI as patient is confused and WBC 11. Per nursing, no blood in urine. Will continue to follow. D/w Dr. Isaac. VARSHA MALONEY APRN Apr 22, 2021 14:21
[2021-04-22] MEDS: ASPIRIN CHEWABLE 81 MG TABLET. PO SCH (14:35)
[2021-04-22] MEDS: FAMOTIDINE 20 MG TABLET. PO SCH (14:35)
[2021-04-22] MEDS: APIXABAN 5 MG TABLET. PO SCH ×2 (14:35→20:35)
[2021-04-22] MEDS: INSULIN LISPRO 300 UNITS/3 ML VIAL. SQ SCH ×3 (14:37→17:00)
--- NOTE | 2021-04-22 16:41 | PDOC2 ---
CONSULT Date of Consult Date of Consult DATE: 04/22/21 TIME: 16:33 Reason for Consult Reason for Consult: Heart failure and AICD Referring Physician Referring Physician: Dr. Llamas Identification/Chief Complaint Chief Complaint Shortness of breath Source Source: Chart review, Patient History of Present Illness Reason for Visit: The patient is a 77-year-old male who was admitted through the emergency room for several days of increasing shortness of breath. Apparently he initially refused transport to the ER by EMS but later consented. Initial findings included a paced EKG and a chest x-ray with mild effusions and bilateral infiltrates consistent with probable heart failure. His initial troponin was normal at 32 but BNP was elevated at 15,866. Additionally his BUN and and creatinine were elevated. The patient has a history of 2 previous bypass surgeries, chronic kidney disease, pulmonary disease with home oxygen and diabetes. Post treatment he reports feeling mildly better today. Past Medical History Cardiovascular: AFIB, CAD, CHF, HTN, Hyperlipidemia, Other Pulmonary: COPD CENTRAL NERVOUS SYSTEM: CVA GI: GERD, Irritable bowel disease Heme/Onc: No pertinent hx Hepatobiliary: No pertinent hx Psych: No pertinent hx Rheumatologic: Gout Infectious disease: No pertinent hx Renal/: Chronic renal insuff Endocrine: Diabetes Past Surgical History Past Surgical History: CABG, Hernia Repair, Other (AICD, 2 bypass operations) Family History Family History: Coronary Artery Disease, Hypertension Social History Quit ALCOHOL: heavy Drugs: None Lives: with Family Domestic Violence: Neg Current Problem List Problem List Problems Medical Problems: (1) CHF exacerbation Status: Acute (2) Person under investigation for COVID-19 Status: Acute (3) Renal insufficiency Status: Acute Current Medications Current Medications Current Medications Ondansetron HCl (Zofran) 4 mg PRN Q8HRS PRN IVP NAUSEA/VOMITING; Start 04/22/21 at 00:45; Stop 04/23/21 at 00:44 Fentanyl Citrate (Fentanyl 2ml Vial) 50 mcg PRN Q1HR PRN IVP PAIN; Start 04/22/21 at 00:45; Stop 04/23/21 at 00:44 Sodium Chloride 1,000 ml @ 75 mls/hr [id number] IV Last administered on 04/22/21at 01:05; Start 04/22/21 at 00:45; Stop 04/23/21 at 00:44 Acetaminophen (Tylenol) 650 mg PRN Q4HRS PRN PO FEVER > 100.3'F; Start 04/22/21 at 00:45; Stop 04/23/21 at 00:44 Haloperidol Lactate (Haldol Inj) 5 mg 1X ONCE IVP ; Start 04/22/21 at 02:00; Stop 04/22/21 at 02:01; Status DC Diphenhydramine HCl (Benadryl) 50 mg 1X ONCE IVP ; Start 04/22/21 at 02:00; Stop 04/22/21 at 02:01; Status DC Magnesium Sulfate 50 ml @ 25 mls/hr PRN DAILY PRN IV for Mag < 1.7 on am labs; Start 04/22/21 at 09:15 Furosemide (Lasix) 40 mg [id number] IVP Last administered on 04/22/21at 15:48; Start 04/22/21 at 10:00 Allopurinol (Zyloprim) 300 mg BID PO ; Start 04/22/21 at 13:30; Stop 04/22/21 at 13:03; Status DC Amlodipine Besylate (Norvasc) 10 mg DAILY PO ; Start 04/23/21 at 09:00 Apixaban (Eliquis) 5 mg BID PO Last administered on 04/22/21at 14:35; Start 04/22/21 at 13:30 Aspirin (Aspirin Chewable) 81 mg DAILY PO Last administered on 04/22/21at 14:35; Start 04/22/21 at 13:30 Bumetanide (Bumex) 1 mg QAM PO ; Start 04/23/21 at 09:00 Calcium Polycarbophil (Fibercon) 625 mg DAILY PO ; Start 04/23/21 at 09:00 Ergocalciferol (Vitamin D2) 50,000 unit WEEKLY PO ; Start 04/29/21 at 09:00 Famotidine (Pepcid) 20 mg DAILY PO Last administered on 04/22/21at 14:35; Start 04/22/21 at 13:30 Insulin Human Lispro (HumaLOG) 12 units TIDWMEALS SQ ; Start 04/22/21 at 17:00 Levothyroxine Sodium (Synthroid) 25 mcg DAILYAC PO ; Start 04/23/21 at 07:30 Lisinopril (Prinivil) 5 mg DAILY PO ; Start 04/23/21 at 09:00; Status UNV Metolazone (Zaroxolyn) 2.5 mg QMWF PO ; Start 04/23/21 at 16:00 Metoprolol Succinate (Toprol Xl) 75 mg DAILY PO ; Start 04/23/21 at 09:00 Sulfasalazine (Azulfidine) 1,000 mg BID PO ; Start 04/22/21 at 21:00 Tamsulosin HCl (Flomax) 0.8 mg HS PO ; Start 04/22/21 at 21:00 Vitamin A (Vitamin A) 10,000 unit DAILY PO ; Start 04/23/21 at 09:00 Lactobacillus Rhamnosus (Culturelle) 1 cap DAILY PO ; Start 04/23/21 at 09:00 Non-Formulary Medication (Cod Liver Oil ) 1 each DAILY PO ; Start 04/23/21 at 09:00; Status UNV Fish Oil (Fish Oil) 1,000 mg DAILY PO ; Start 04/23/21 at 09:00 Multivitamins (Thera M Plus) 1 tab DAILY PO ; Start 04/23/21 at 09:00 Insulin Glargine (Lantus Syringe) 10 unit QHS SQ ; Start 04/22/21 at 21:00 Vitamin E (Vitamin E) 400 unit DAILY PO ; Start 04/23/21 at 09:00 Zinc Sulfate (Orazinc) 220 mg DAILY PO ; Start 04/23/21 at 09:00 Zolpidem Tartrate (Ambien) 5 mg PRN QHS PRN PO INSOMNIA, MAY REPEAT X1; Start 04/22/21 at 13:15 Allopurinol (Zyloprim) 200 mg DAILY PO ; Start 04/23/21 at 09:00 Insulin Human Lispro (HumaLOG) 0-7 UNITS TIDWMEALS SQ ; Start 04/22/21 at 17:00; Stop 04/22/21 at 13:59; Status DC Dextrose (Dextrose 50%-Water Syringe) 12.5 gm PRN Q15MIN PRN IV SEE COMMENTS; Start 04/22/21 at 14:00 Dextrose (Iv Dextrose 5%) 250 ml PRN Q15MIN PRN IV SEE COMMENTS; Start 04/22/21 at 14:00 Insulin Human Lispro (HumaLOG) 0-7 UNITS TIDWMEALS SQ Last administered on 04/22/21at 14:37; Start 04/22/21 at 14:00 Active Scripts Active Metoprolol Succinate ( Xl ) (Metoprolol Succinate) 25 Mg Tab.er.24h 75 Mg PO DAILY MDD 1 60 Days Reported Vitamin A 10,000 Unit Capsule 10,000 Unit PO DAILY Cod Liver Oil 1 Each Capsule 1 Each PO DAILY Aspirin 81 Mg Tab.chew 81 Mg PO DAILY Probiotic (Bacillus Coagulans) 1 Each Capsule.dr 1 Each PO DAILY Fibercon (Calcium Polycarbophil) 625 Mg Tablet 625 Mg PO DAILY Bumetanide 1 Mg Tablet 1 Mg PO QAM Ambien (Zolpidem Tartrate) 10 Mg Tablet 10 Mg PO HS Novolin R (Insulin Regular, Human) 100 Unit/1 Ml Vial 12 Unit IJ TIDWMEALS Novolin N (Nph, Human Insulin Isophane) 100 Unit/1 Ml Vial 10 Unit SQ HS Megared [place]-3 Krill Oil Sfgl (Krill/Om-3/Dha/Epa/Phospho/Ast) 1 Each Capsule 1 Each PO DAILY Metolazone 2.5 Mg Tablet 2.5 Mg PO QMWF Lisinopril 5 Mg Tablet 5 Mg PO DAILY Amlodipine Besylate 5 Mg Tablet 10 Mg PO DAILY Eliquis (Apixaban) 5 Mg Tablet 5 Mg PO BID Zinc 50 Mg Tablet 50 Mg PO DAILY08 Vitamin E (Vitamin E Mixed) 400 Unit Capsule 400 Unit PO DAILY16 Sulfasalazine 500 Mg Tablet 1,000 Mg PO BID Vitamin D2 (Ergocalciferol (Vitamin D2)) 50,000 Unit Capsule 50,000 Unit PO WEEKLY Centrum Silver Tablet (Multivits-Min/Fa/Lycopene/Lut) 1 Each Tablet 1 Each PO DAILY Pepcid (Famotidine) 20 Mg Tablet 20 Mg PO BID76 Tamsulosin Hcl 0.4 Mg Cap.er.24h 0.8 Mg PO HS Allopurinol 300 Mg Tablet 300 Mg PO BID Levothyroxine Sodium 25 Mcg Tablet 25 Mcg PO DAILYAC Allergies Allergies: Coded Allergies: Iodinated Contrast Media (Verified Allergy, Intermediate, Hives, 04/21/21) pravastatin (Verified Allergy, Intermediate, 04/21/21) Eoiznom-KWY-SpS Reductase Inhibitor (Verified Adverse Reaction, Interme diate, 04/21/21) ROS General: YES: Fatigue Respiratory: YES: Shortness of breath, SOB with excertion Physical Exam Physical Exam Visual examination secondary to COVID status. Vitals VITALS Vital Signs Date Time Temp Pulse Resp B/P (MAP) Pulse Ox O2 Delivery O2 Flow Rate FiO2 04/22/21 15:00 97.4 70 17 103/45 (64) 93 Nasal Cannula 5.0 97.4 Labs Labs Laboratory Tests Test 04/21/21 23:20 04/22/21 00:01 04/22/21 00:11 04/22/21 08:00 White Blood Count 11.3 x10^3/uL (4.0-11.0) Red Blood Count 3.23 x10^6/uL (4.30-5.70) Hemoglobin 9.8 g/dL (13.0-17.5) Hematocrit 30.8 % (39.0-53.0) Mean Corpuscular Volume 95 fL (79-100) Mean Corpuscular Hemoglobin 30 pg (25-35) Mean Corpuscular Hemoglobin Concent 32 g/dL (31-37) Red Cell Distribution Width 18.4 % (11.5-14.5) Platelet Count 281 x10^3/uL (140-400) Neutrophils (%) (Auto) 83 % (31-73) Lymphocytes (%) (Auto) 6 % (24-48) Monocytes (%) (Auto) 9 % (0-9) Eosinophils (%) (Auto) 1 % (0-3) Basophils (%) (Auto) 1 % (0-3) Neutrophils # (Auto) 9.4 x10^3/uL (1.8-7.7) Lymphocytes # (Auto) 0.7 x10^3/uL (1.0-4.8) Monocytes # (Auto) 1.0 x10^3/uL (0.0-1.1) Eosinophils # (Auto) 0.1 x10^3/uL (0.0-0.7) Basophils # (Auto) 0.1 x10^3/uL (0.0-0.2) Sodium Level 138 mmol/L (136-145) Potassium Level 5.4 mmol/L (3.5-5.1) Chloride Level 104 mmol/L (98-107) Carbon Dioxide Level 24 mmol/L (21-32) Anion Gap 10 (6-14) Blood Urea Nitrogen 130 mg/dL (8-26) Creatinine 4.4 mg/dL (0.7-1.3) Estimated GFR (Cockcroft-Gault) 13.1 BUN/Creatinine Ratio 30 (6-20) Glucose Level 239 mg/dL (70-99) Lactic Acid Level 0.7 mmol/L (0.4-2.0) Calcium Level 8.2 mg/dL (8.5-10.1) Total Bilirubin 0.3 mg/dL (0.2-1.0) Aspartate Amino Transf (AST/SGOT) 17 U/L (15-37) Alanine Aminotransferase (ALT/SGPT) 29 U/L (16-63) Alkaline Phosphatase 226 U/L (46-116) Troponin I High Sensitivity 32 ng/L (4-75) XE-Lyj-Q-Type Natriuretic Peptide 44300 pg/mL (0-449) Total Protein 6.7 g/dL (6.4-8.2) Albumin 2.6 g/dL (3.4-5.0) Albumin/Globulin Ratio 0.6 (1.0-1.7) Iron Level 15 ug/dL (65-175) Total Iron Binding Capacity 243 ug/dL (250-450) Iron Saturation 6 % (15-34) Ferritin 20 ng/mL (26-388) Creatine Kinase 100 U/L (39-308) Influenza Type A Antigen Negative (NEGATIVE) Influenza Type B Antigen Negative (NEGATIVE) SARS-CoV-2 RNA (NAWAF) Negative (Negative) SARS-CoV-2 Antigen (Rapid) Negative (NEGATIVE) Glucose (Fingerstick) 261 mg/dL (70-99) Test 04/22/21 12:09 04/22/21 12:18 Urine Collection Type Unknown Urine Color Red Urine Clarity Turbid Urine pH (<5.0-8.0) Urine Specific [place] (1.000-1.030) Urine Protein mg/dL (NEG-TRACE) Urine Glucose (UA) mg/dL (NEG) Urine Ketones (Stick) mg/dL (NEG) Urine Blood (NEG) Urine Nitrite (NEG) Urine Bilirubin (NEG) Urine Urobilinogen Dipstick mg/dL (0.2 mg/dL) Urine Leukocyte Esterase Large (NEG) Urine RBC Tntc /HPF (0-2) Urine WBC 20-40 /HPF (0-4) Urine Bacteria Few /HPF (0-FEW) Glucose (Fingerstick) 350 mg/dL (70-99) Laboratory Tests Test 04/21/21 23:20 04/22/21 00:01 04/22/21 00:11 04/22/21 08:00 White Blood Count 11.3 x10^3/uL (4.0-11.0) Red Blood Count 3.23 x10^6/uL (4.30-5.70) Hemoglobin 9.8 g/dL (13.0-17.5) Hematocrit 30.8 % (39.0-53.0) Mean Corpuscular Volume 95 fL (79-100) Mean Corpuscular Hemoglobin 30 pg (25-35) Mean Corpuscular Hemoglobin Concent 32 g/dL (31-37) Red Cell Distribution Width 18.4 % (11.5-14.5) Platelet Count 281 x10^3/uL (140-400) Neutrophils (%) (Auto) 83 % (31-73) Lymphocytes (%) (Auto) 6 % (24-48) Monocytes (%) (Auto) 9 % (0-9) Eosinophils (%) (Auto) 1 % (0-3) Basophils (%) (Auto) 1 % (0-3) Neutrophils # (Auto) 9.4 x10^3/uL (1.8-7.7) Lymphocytes # (Auto) 0.7 x10^3/uL (1.0-4.8) Monocytes # (Auto) 1.0 x10^3/uL (0.0-1.1) Eosinophils # (Auto) 0.1 x10^3/uL (0.0-0.7) Basophils # (Auto) 0.1 x10^3/uL (0.0-0.2) Sodium Level 138 mmol/L (136-145) Potassium Level 5.4 mmol/L (3.5-5.1) Chloride Level 104 mmol/L (98-107) Carbon Dioxide Level 24 mmol/L (21-32) Anion Gap 10 (6-14) Blood Urea Nitrogen 130 mg/dL (8-26) Creatinine 4.4 mg/dL (0.7-1.3) Estimated GFR (Cockcroft-Gault) 13.1 BUN/Creatinine Ratio 30 (6-20) Glucose Level 239 mg/dL (70-99) Lactic Acid Level 0.7 mmol/L (0.4-2.0) Calcium Level 8.2 mg/dL (8.5-10.1) Total Bilirubin 0.3 mg/dL (0.2-1.0) Aspartate Amino Transf (AST/SGOT) 17 U/L (15-37) Alanine Aminotransferase (ALT/SGPT) 29 U/L (16-63) Alkaline Phosphatase 226 U/L (46-116) Troponin I High Sensitivity 32 ng/L (4-75) JP-Hwr-E-Type Natriuretic Peptide 55224 pg/mL (0-449) Total Protein 6.7 g/dL (6.4-8.2) Albumin 2.6 g/dL (3.4-5.0) Albumin/Globulin Ratio 0.6 (1.0-1.7) Iron Level 15 ug/dL (65-175) Total Iron Binding Capacity 243 ug/dL (250-450) Iron Saturation 6 % (15-34) Ferritin 20 ng/mL (26-388) Creatine Kinase 100 U/L (39-308) Influenza Type A Antigen Negative (NEGATIVE) Influenza Type B Antigen Negative (NEGATIVE) SARS-CoV-2 RNA (NAWAF) Negative (Negative) SARS-CoV-2 Antigen (Rapid) Negative (NEGATIVE) Glucose (Fingerstick) 261 mg/dL (70-99) Test 04/22/21 12:09 04/22/21 12:18 Urine Collection Type Unknown Urine Color Red Urine Clarity Turbid Urine pH (<5.0-8.0) Urine Specific [place] (1.000-1.030) Urine Protein mg/dL (NEG-TRACE) Urine Glucose (UA) mg/dL (NEG) Urine Ketones (Stick) mg/dL (NEG) Urine Blood (NEG) Urine Nitrite (NEG) Urine Bilirubin (NEG) Urine Urobilinogen Dipstick mg/dL (0.2 mg/dL) Urine Leukocyte Esterase Large (NEG) Urine RBC Tntc /HPF (0-2) Urine WBC 20-40 /HPF (0-4) Urine Bacteria Few /HPF (0-FEW) Glucose (Fingerstick) 350 mg/dL (70-99) Images Images Chest x-ray as above. Echo from 04/05/2021 shows an ejection fraction of 50 to 55%, mild mitral regurgitation, mild tricuspid regurgitation and pulmonary artery pressure of 45 mmHg. Assessment/Plan Assessment/Plan 1. Respiratory failure. Probable component of heart failure as well as baseline COPD. Patient is feeling mildly better post treatment. Final Covid status is pending. Pulmonary evaluation is also pending. 2. Reported history of 2 previous bypass operations. Rhythm is paced. No significant elevation in troponin but his BNP is significantly elevated 15,866. Recent echo shows normal systolic function. We will continue present treatments. Will obtain old records. 3. Acute kidney injury. Patient being evaluated by the renal service. 4. COPD. Home O2. Continue present medications. Again I will attempt to obtain old records. 5. Hypertension. Continue to monitor. 6. Diabetes mellitus. As per the primary service. SONIA DAVIS MD Apr 22, 2021 16:41
--- NOTE | 2021-04-22 16:59 | RAD ---
EXAM: RENAL ULTRASOUND 04/22/2021 CLINICAL HISTORY: Reason: ARF/ CKD / Spl. Instructions: / History: . COMPARISON: None available. TECHNIQUE: Ultrasound examination of the bilateral kidneys and urinary bladder was performed. FINDINGS: Right kidney measures 11.7 cm in length. Left kidney measures 12.1 cm in length. No hydronephrosis. N o apparent renal mass or shadowing calculus. Urinary bladder is unremarkable. Ureteral jets are not seen. IMPRESSION: 1. No acute sonographic abnormality. No hydronephrosis. Electronically signed by: Seven Kim MD (04/22/2021 4:57 PM) [id number]
[2021-04-22] MEDS ORDERED: INSULIN LISPRO 300 UNITS/3 ML VIAL. SQ SCH (17:00)
[2021-04-22] MEDS: INSULIN GLARGINE SYRINGE. SQ SCH (20:35)
[2021-04-22] MEDS: TAMSULOSIN 0.4 MG CAP.ER.24H. PO SCH (20:35)
[2021-04-22] MEDS: sulfaSALAzine 500 MG TABLET PO SCH (20:35)
[2021-04-23 03:00] VITALS: BP 118/55
[2021-04-23 06:47] LABS: BASO # 0.1 x10^3/uL (0.0-0.2); BASO % 1 % (0-3); EOS # 0.1 x10^3/uL (0.0-0.7); EOS % 1 % (0-3); HEMATOCRIT 27.7 % (39.0-53.0); HEMOGLOBIN 8.6 g/dL (13.0-17.5); LYMPH # 0.4 x10^3/uL (1.0-4.8); LYMPH % 4 % (24-48); MEAN CORPUSCULAR HEMOGLOBIN 30 pg (25-35); MEAN CORPUSCULAR HGB CONC 31 g/dL (31-37); MEAN CORPUSCULAR VOLUME 97 fL (79-100); MONO # 1.1 x10^3/uL (0.0-1.1); MONO % 10 % (0-9); NEUT # 9.2 x10^3/uL (1.8-7.7); NEUT % 84 % (31-73); PLATELET COUNT 239 x10^3/uL (140-400); RED BLOOD COUNT 2.84 x10^6/uL (4.30-5.70); RED CELL DISTRIBUTION WIDTH 18.5 % (11.5-14.5); WHITE BLOOD COUNT 10.9 x10^3/uL (4.0-11.0)
[2021-04-23 07:00] VITALS: BP 98/54
[2021-04-23 07:17] LABS: ALBUMIN 2.3 g/dL (3.4-5.0); ALBUMIN/GLOBULIN RATIO 0.6 (1.0-1.7); CREATININE 4.9 mg/dL (0.7-1.3); GFR 11.5; MAGNESIUM 2.7 mg/dL (1.8-2.4); PHOSPHORUS 6.3 mg/dL (2.6-4.7); POTASSIUM 5.8 mmol/L (3.5-5.1); TOTAL BILIRUBIN 0.3 mg/dL (0.2-1.0); TOTAL PROTEIN 6.2 g/dL (6.4-8.2)
[2021-04-23] MEDS: LEVOTHYROXINE 25 MCG TABLET. PO SCH (07:31)
[2021-04-23] MEDS: INSULIN LISPRO 300 UNITS/3 ML VIAL. SQ SCH ×6 (08:00→16:53)
[2021-04-23] MEDS ORDERED: NON FORMULARY ITEM (Cod Liver Oil 1 EACH) PO SCH (09:00)
[2021-04-23] MEDS ORDERED: BUMETANIDE 1 MG TABLET. PO SCH (09:00)
[2021-04-23] MEDS ORDERED: LISINOPRIL 5 MG TABLET. PO SCH (09:00)
[2021-04-23] MEDS: FUROSEMIDE 40 MG/4 ML VIAL. IVP SCH ×2 (09:25→15:55)
[2021-04-23] MEDS: ZINC SULFATE 220 MG CAPSULE. PO SCH (09:26)
[2021-04-23] MEDS: APIXABAN 5 MG TABLET. PO SCH ×2 (09:26→20:42)
[2021-04-23] MEDS: VITAMIN A 10,000 UNIT CAPSULE. PO SCH (09:26)
[2021-04-23] MEDS: VITAMIN E 200 UNIT CAPSULE. PO SCH (09:26)
[2021-04-23] MEDS: ALLOPURINOL 100 MG TABLET. PO SCH (09:26)
[2021-04-23] MEDS: CALCIUM POLYCARBOPHIL 625 MG TABLET PO SCH (09:26)
[2021-04-23] MEDS: MULTIVITAMIN with MINERAL TABLET. PO SCH (09:26)
[2021-04-23] MEDS: LACTOBACILLUS RHAMNOSUS GG 1 CAPSULE. PO SCH (09:26)
[2021-04-23] MEDS: ASPIRIN CHEWABLE 81 MG TABLET. PO SCH (09:26)
[2021-04-23] MEDS: sulfaSALAzine 500 MG TABLET PO SCH ×2 (09:26→20:42)
[2021-04-23] MEDS: OMEGA-3 FATTY ACIDS/FISH OIL 1,000 MG CAPSULE. PO SCH (09:27)
[2021-04-23] MEDS: FAMOTIDINE 20 MG TABLET. PO SCH (09:27)
[2021-04-23] MEDS: METOPROLOL SUCC 24HR ER 25 MG TAB.ER.24H. PO SCH (09:31)
[2021-04-23 11:00] VITALS: BP 86/41
--- NOTE | 2021-04-23 11:08 | PDOC ---
[employer] PROGRESS NOTE Date of Service DOS: DATE: 04/23/21 TIME: 11:04 Chief Complaint Chief Complaint Multifactorial respiratory failure CHF COPD BPH, previous tobacco abuse, hemorrhoids, diabetes, hypertension, ulcerative colitis, gout, shingles, pacemaker, coronary artery bypass surgery, heavy alcohol use, chronic anticoagulation, polypharmacy, insomnia, GERD, hypothyroidism. History of Present Illness History of Present Illness 04/23/2021 Patient seen and examined He is pleasantly confused His is present Discussed with RN Chart reviewed His urine is extremely dark brown Vitals/I&O Vitals/I&O: Vital Signs Date Time Temp Pulse Resp B/P (MAP) Pulse Ox O2 Delivery O2 Flow Rate FiO2 04/23/21 09:31 102 98/54 04/23/21 07:38 Nasal Cannula 5.0 04/23/21 07:00 98.0 85 98.0 04/23/21 03:00 18 I & O 04/22/21 04/22/21 04/23/21 15:00 23:00 07:00 Intake Total 200 ml 0 ml 0 ml Output Total 400 ml 50 ml Balance -200 ml 0 ml -50 ml Physical Exam General: Other (Pleasantly confused) Heart: Other (Distant S1-S2) Lungs: Clear Abdomen: Normal bowel sounds Extremities: No clubbing Skin: No rashes Labs Labs: Laboratory Tests Test 04/22/21 12:09 04/22/21 12:18 04/22/21 17:42 04/22/21 19:29 Urine Collection Type Unknown Urine Color Red Urine Clarity Turbid Urine pH (<5.0-8.0) Urine Specific [place] (1.000-1.030) Urine Protein mg/dL (NEG-TRACE) Urine Glucose (UA) mg/dL (NEG) Urine Ketones (Stick) mg/dL (NEG) Urine Blood (NEG) Urine Nitrite (NEG) Urine Bilirubin (NEG) Urine Urobilinogen Dipstick mg/dL (0.2 mg/dL) Urine Leukocyte Esterase Large (NEG) Urine RBC Tntc /HPF (0-2) Urine WBC 20-40 /HPF (0-4) Urine Bacteria Few /HPF (0-FEW) Glucose (Fingerstick) 350 mg/dL (70-99) 223 mg/dL (70-99) 175 mg/dL (70-99) Test 04/23/21 05:20 04/23/21 08:06 White Blood Count 10.9 x10^3/uL (4.0-11.0) Red Blood Count 2.84 x10^6/uL (4.30-5.70) Hemoglobin 8.6 g/dL (13.0-17.5) Hematocrit 27.7 % (39.0-53.0) Mean Corpuscular Volume 97 fL (79-100) Mean Corpuscular Hemoglobin 30 pg (25-35) Mean Corpuscular Hemoglobin Concent 31 g/dL (31-37) Red Cell Distribution Width 18.5 % (11.5-14.5) Platelet Count 239 x10^3/uL (140-400) Neutrophils (%) (Auto) 84 % (31-73) Lymphocytes (%) (Auto) 4 % (24-48) Monocytes (%) (Auto) 10 % (0-9) Eosinophils (%) (Auto) 1 % (0-3) Basophils (%) (Auto) 1 % (0-3) Neutrophils # (Auto) 9.2 x10^3/uL (1.8-7.7) Lymphocytes # (Auto) 0.4 x10^3/uL (1.0-4.8) Monocytes # (Auto) 1.1 x10^3/uL (0.0-1.1) Eosinophils # (Auto) 0.1 x10^3/uL (0.0-0.7) Basophils # (Auto) 0.1 x10^3/uL (0.0-0.2) Sodium Level 140 mmol/L (136-145) Potassium Level 5.8 mmol/L (3.5-5.1) Chloride Level 105 mmol/L (98-107) Carbon Dioxide Level 23 mmol/L (21-32) Anion Gap 12 (6-14) Blood Urea Nitrogen 140 mg/dL (8-26) Creatinine 4.9 mg/dL (0.7-1.3) Estimated GFR (Cockcroft-Gault) 11.5 BUN/Creatinine Ratio 29 (6-20) Glucose Level 199 mg/dL (70-99) Calcium Level 8.0 mg/dL (8.5-10.1) Phosphorus Level 6.3 mg/dL (2.6-4.7) Magnesium Level 2.7 mg/dL (1.8-2.4) Total Bilirubin 0.3 mg/dL (0.2-1.0) Aspartate Amino Transf (AST/SGOT) 10 U/L (15-37) Alanine Aminotransferase (ALT/SGPT) 21 U/L (16-63) Alkaline Phosphatase 188 U/L (46-116) Total Protein 6.2 g/dL (6.4-8.2) Albumin 2.3 g/dL (3.4-5.0) Albumin/Globulin Ratio 0.6 (1.0-1.7) Glucose (Fingerstick) 179 mg/dL (70-99) Assessment and Plan Assessmemt and Plan Problems Medical Problems: (1) CHF exacerbation Status: Acute (2) Person under investigation for COVID-19 Status: Acute (3) Renal insufficiency Status: Acute Multifactorial respiratory failure CHF COPD Acute kidney injury with history of chronic renal insufficiency BPH, previous tobacco abuse, hemorrhoids, diabetes, hypertension, ulcerative colitis, gout, shingles, pacemaker, coronary artery bypass surgery, heavy alcohol use, chronic anticoagulation, polypharmacy, insomnia, GERD, hypothyroidism. Plan We are trending his labs + -- Lasix per nephrology and cardiology Appreciate urology input Accurate I's and O's Trend labs As needed O2 Steroids Nebulizers Home meds DVT prophylaxis Full code PT OT Suspect he might need to go to [facility] eventually Comment Review of Relevant I have reviewed the following items margarita (where applicable) has been applied. Medications: Current Medications Medications (Trade) Dose Ordered Sig/Nickie Route PRN Reason Start Time Stop Time Status Last Admin Dose Admin Apixaban (Eliquis) 5 mg BID PO 04/22/21 13:30 04/23/21 09:26 Aspirin (Aspirin Chewable) 81 mg DAILY PO 04/22/21 13:30 04/23/21 09:26 Bumetanide (Bumex) 1 mg QAM PO 04/23/21 09:00 04/23/21 09:26 Calcium Polycarbophil (Fibercon) 625 mg DAILY PO 04/23/21 09:00 04/23/21 09:26 Famotidine (Pepcid) 20 mg DAILY PO 04/22/21 13:30 04/23/21 09:27 Levothyroxine Sodium (Synthroid) 25 mcg DAILYAC PO 04/23/21 07:30 04/23/21 07:31 Metoprolol Succinate (Toprol Xl) 75 mg DAILY PO 04/23/21 09:00 04/23/21 09:31 Sulfasalazine (Azulfidine) 1,000 mg BID PO 04/22/21 21:00 04/23/21 09:26 Tamsulosin HCl (Flomax) 0.8 mg HS PO 04/22/21 21:00 04/22/21 20:35 Vitamin A (Vitamin A) 10,000 unit DAILY PO 04/23/21 09:00 04/23/21 09:26 Lactobacillus Rhamnosus (Culturelle) 1 cap DAILY PO 04/23/21 09:00 04/23/21 09:26 Fish Oil (Fish Oil) 1,000 mg DAILY PO 04/23/21 09:00 04/23/21 09:27 Multivitamins (Thera M Plus) 1 tab DAILY PO 04/23/21 09:00 04/23/21 09:26 Insulin Glargine (Lantus Syringe) 10 unit QHS SQ 04/22/21 21:00 04/22/21 20:35 Vitamin E (Vitamin E) 400 unit DAILY PO 04/23/21 09:00 04/23/21 09:26 Zinc Sulfate (Orazinc) 220 mg DAILY PO 04/23/21 09:00 04/23/21 09:26 Allopurinol (Zyloprim) 200 mg DAILY PO 04/23/21 09:00 04/23/21 09:26 Insulin Human Lispro (HumaLOG) 0-7 UNITS TIDWMEALS SQ 04/22/21 14:00 04/22/21 17:00 Justifications for Admission Other Justification RAFI KOHLER III DO Apr 23, 2021 11:08
[2021-04-23] MEDS ORDERED: ALBUTEROL SULFATE 2.5 MG/3 ML NEBU. NEB PRN (11:15)
[2021-04-23] MEDS: predniSONE 20 MG TABLET PO SCH (12:33)
--- NOTE | 2021-04-23 12:59 | NUR ---
SW following. Discussed with RN, pt from home with , 5L (does not use oxygen at home), ada diet, Flu and COVID-19 negative. Pt confused per RN. Urology, Cardiology and Nephrology following. PT/OT ordered. SW will continue to follow.
--- NOTE | 2021-04-23 13:02 | PDOC ---
SUBJECTIVE Subjective Pt trying to get out of bed OBJECTIVE Objective Per PCT, voided once this morning and it was tea colored Vital Signs Vital Signs Date Time Temp Pulse Resp B/P (MAP) Pulse Ox O2 Delivery O2 Flow Rate FiO2 04/23/21 09:31 102 98/54 04/23/21 07:38 Nasal Cannula 5.0 04/23/21 07:00 98.0 102 98/54 (69) 85 Nasal Cannula 98.0 04/23/21 03:00 66 18 118/55 (76) 97 Nasal Cannula 5.0 04/22/21 23:00 98.3 87 18 103/51 (68) 91 Nasal Cannula 5.0 98.3 04/22/21 20:00 Nasal Cannula 5.0 04/22/21 19:00 97.6 84 16 100/40 (60) 95 Nasal Cannula 5.0 97.6 04/22/21 15:00 97.4 70 17 103/45 (64) 93 Nasal Cannula 5.0 97.4 I & O Intake and Output 04/23/21 07:00 Intake Total 200 ml Output Total 450 ml Balance -250 ml Intake Oral 200 ml Output Urine Total 450 ml # Voids 1 PHYSICAL EXAM Physical Exam NAD, lays back in bed when asked nonlabored breathing nontender abdomen ASSESSMENT/PLAN Assessment/Plan ---BPH, RACH Continue tamsulosin. Bladder scan of 75mL PVR on 04/22. Renal ultrasound was normal--no hydronephrosis, and bladder volume at time of PATRICIA was 48mL. I bladder scanned patient during my visit and volume was 0mL. Do not suspect bladder outlet obstruction causing RACH as patient has no renal obstruction and is emptying his bladder well. Will sign off, please call with questions. COMMENT Lab Laboratory Tests Test 04/22/21 17:42 04/22/21 19:29 04/23/21 05:20 04/23/21 08:06 Glucose (Fingerstick) 223 mg/dL (70-99) 175 mg/dL (70-99) 179 mg/dL (70-99) White Blood Count 10.9 x10^3/uL (4.0-11.0) Red Blood Count 2.84 x10^6/uL (4.30-5.70) Hemoglobin 8.6 g/dL (13.0-17.5) Hematocrit 27.7 % (39.0-53.0) Mean Corpuscular Volume 97 fL (79-100) Mean Corpuscular Hemoglobin 30 pg (25-35) Mean Corpuscular Hemoglobin Concent 31 g/dL (31-37) Red Cell Distribution Width 18.5 % (11.5-14.5) Platelet Count 239 x10^3/uL (140-400) Neutrophils (%) (Auto) 84 % (31-73) Lymphocytes (%) (Auto) 4 % (24-48) Monocytes (%) (Auto) 10 % (0-9) Eosinophils (%) (Auto) 1 % (0-3) Basophils (%) (Auto) 1 % (0-3) Neutrophils # (Auto) 9.2 x10^3/uL (1.8-7.7) Lymphocytes # (Auto) 0.4 x10^3/uL (1.0-4.8) Monocytes # (Auto) 1.1 x10^3/uL (0.0-1.1) Eosinophils # (Auto) 0.1 x10^3/uL (0.0-0.7) Basophils # (Auto) 0.1 x10^3/uL (0.0-0.2) Sodium Level 140 mmol/L (136-145) Potassium Level 5.8 mmol/L (3.5-5.1) Chloride Level 105 mmol/L (98-107) Carbon Dioxide Level 23 mmol/L (21-32) Anion Gap 12 (6-14) Blood Urea Nitrogen 140 mg/dL (8-26) Creatinine 4.9 mg/dL (0.7-1.3) Estimated GFR (Cockcroft-Gault) 11.5 BUN/Creatinine Ratio 29 (6-20) Glucose Level 199 mg/dL (70-99) Calcium Level 8.0 mg/dL (8.5-10.1) Phosphorus Level 6.3 mg/dL (2.6-4.7) Magnesium Level 2.7 mg/dL (1.8-2.4) Total Bilirubin 0.3 mg/dL (0.2-1.0) Aspartate Amino Transf (AST/SGOT) 10 U/L (15-37) Alanine Aminotransferase (ALT/SGPT) 21 U/L (16-63) Alkaline Phosphatase 188 U/L (46-116) Total Protein 6.2 g/dL (6.4-8.2) Albumin 2.3 g/dL (3.4-5.0) Albumin/Globulin Ratio 0.6 (1.0-1.7) Test 04/23/21 12:22 Glucose (Fingerstick) 204 mg/dL (70-99) Justifications for Admission Other Justification HERI LOVELL Apr 23, 2021 13:02
--- NOTE | 2021-04-23 13:08 | PDOC ---
PROGRESS NOTES Date of Service: DATE: 04/23/21 TIME: 13:08 Subjective Subjective Confused, comfortable Objective Objective Vital Signs Date Time Temp Pulse Resp B/P (MAP) Pulse Ox O2 Delivery O2 Flow Rate FiO2 04/23/21 11:00 98.0 101 17 86/41 (56) 91 Nasal Cannula 6.0 98.0 Intake and Output 04/23/21 07:00 Intake Total 200 ml Output Total 450 ml Balance -250 ml Intake Oral 200 ml Output Urine Total 450 ml # Voids 1 Physical Exam Abdomen: Normal bowel sounds Heart: Regular rate, Other (Distant S1-S2) Extremities: No clubbing General: No acute distress, Other (Pleasantly confused) Lungs: Other (Scattered crepitations bilaterally) MUSCULOSKELETAL: No joint tenderness, No deformity Neck: Supple Skin: No rashes Assessment Assessment 1. Acute respiratory failure most probably secondary to combination of acute COPD exacerbation and congestive heart failure. Continue current treatment per primary team. 2. Acute on chronic systolic heart failure. He seems to be clinically better compensated after diuresis. Recent 2D echo 04/05/2021 showed normalized LV systolic function with EF 50 to 55%. 3. Coronary artery diseasevs/p coronary artery bypass surgery, clinically stable and chest pain-free. Recent Lexiscan nuclear stress test on 04/07/2021 di d not show any significant ischemia. Continue current secondary prevention measures. 4. Ischemic cardiomyopathy s/p biventricular ICD/SALES RE[employer]ENT[employer]IVE [employer]ING-D implantation in the past. Recent device check showed normal function. 5. Acute on chronic renal insufficiency: Treat per nephrology team 6. Paroxysmal atrial fibrillation and PSVT, presently sinus rhythm. Continue Eliquis for stroke prophylaxis. 7. Hypertension: Blood pressure borderline low. 8. Hypothyroidism: Continue levothyroxine 9. Diabetes mellitus type 2: Treat per IM Plan Plan of Care Problems Medical Problems: (1) CHF exacerbation Status: Acute (2) Person under investigation for COVID-19 Status: Acute (3) Renal insufficiency Status: Acute Comment Review of Relevant I have reviewed the following items margarita (where applicable) has been applied. Labs Laboratory Tests Test 04/22/21 17:42 04/22/21 19:29 04/23/21 05:20 04/23/21 08:06 Glucose (Fingerstick) 223 mg/dL (70-99) 175 mg/dL (70-99) 179 mg/dL (70-99) White Blood Count 10.9 x10^3/uL (4.0-11.0) Red Blood Count 2.84 x10^6/uL (4.30-5.70) Hemoglobin 8.6 g/dL (13.0-17.5) Hematocrit 27.7 % (39.0-53.0) Mean Corpuscular Volume 97 fL (79-100) Mean Corpuscular Hemoglobin 30 pg (25-35) Mean Corpuscular Hemoglobin Concent 31 g/dL (31-37) Red Cell Distribution Width 18.5 % (11.5-14.5) Platelet Count 239 x10^3/uL (140-400) Neutrophils (%) (Auto) 84 % (31-73) Lymphocytes (%) (Auto) 4 % (24-48) Monocytes (%) (Auto) 10 % (0-9) Eosinophils (%) (Auto) 1 % (0-3) Basophils (%) (Auto) 1 % (0-3) Neutrophils # (Auto) 9.2 x10^3/uL (1.8-7.7) Lymphocytes # (Auto) 0.4 x10^3/uL (1.0-4.8) Monocytes # (Auto) 1.1 x10^3/uL (0.0-1.1) Eosinophils # (Auto) 0.1 x10^3/uL (0.0-0.7) Basophils # (Auto) 0.1 x10^3/uL (0.0-0.2) Sodium Level 140 mmol/L (136-145) Potassium Level 5.8 mmol/L (3.5-5.1) Chloride Level 105 mmol/L (98-107) Carbon Dioxide Level 23 mmol/L (21-32) Anion Gap 12 (6-14) Blood Urea Nitrogen 140 mg/dL (8-26) Creatinine 4.9 mg/dL (0.7-1.3) Estimated GFR (Cockcroft-Gault) 11.5 BUN/Creatinine Ratio 29 (6-20) Glucose Level 199 mg/dL (70-99) Calcium Level 8.0 mg/dL (8.5-10.1) Phosphorus Level 6.3 mg/dL (2.6-4.7) Magnesium Level 2.7 mg/dL (1.8-2.4) Total Bilirubin 0.3 mg/dL (0.2-1.0) Aspartate Amino Transf (AST/SGOT) 10 U/L (15-37) Alanine Aminotransferase (ALT/SGPT) 21 U/L (16-63) Alkaline Phosphatase 188 U/L (46-116) Total Protein 6.2 g/dL (6.4-8.2) Albumin 2.3 g/dL (3.4-5.0) Albumin/Globulin Ratio 0.6 (1.0-1.7) Test 04/23/21 12:22 Glucose (Fingerstick) 204 mg/dL (70-99) Microbiology 04/22/21 Blood Culture - Preliminary, Resulted NO GROWTH AFTER 1 DAY Medications Current Medications Albuterol Sulfate (Ventolin Neb Soln) 2.5 mg PRN Q6HRS PRN NEB WHEEZING; Start 04/23/21 at 11:15 Allopurinol (Zyloprim) 200 mg DAILY PO Last administered on 04/23/21at 09:26; Start 04/23/21 at 09:00 Allopurinol (Zyloprim) 300 mg BID PO ; Start 04/22/21 at 13:30; Stop 04/22/21 at 13:03; Status DC Amlodipine Besylate (Norvasc) 10 mg DAILY PO ; Start 04/23/21 at 09:00 Apixaban (Eliquis) 5 mg BID PO Last administered on 04/23/21at 09:26; Start 04/22/21 at 13:30 Aspirin (Aspirin Chewable) 81 mg DAILY PO Last administered on 04/23/21at 09:26; Start 04/22/21 at 13:30 Bumetanide (Bumex) 1 mg QAM PO Last administered on 04/23/21at 09:26; Start 04/23/21 at 09:00 Calcium Polycarbophil (Fibercon) 625 mg DAILY PO Last administered on 04/23/21at 09:26; Start 04/23/21 at 09:00 Dextrose (Dextrose 50%-Water Syringe) 12.5 gm PRN Q15MIN PRN IV SEE COMMENTS; Start 04/22/21 at 14:00 Dextrose (Iv Dextrose 5%) 250 ml PRN Q15MIN PRN IV SEE COMMENTS; Start 04/22/21 at 14:00 Ergocalciferol (Vitamin D2) 50,000 unit WEEKLY PO ; Start 04/29/21 at 09:00 Famotidine (Pepcid) 20 mg DAILY PO Last administered on 04/23/21 09:27; Start 04/22/21 at 13:30 Fish Oil (Fish Oil) 1,000 mg DAILY PO Last administered on 04/23/21 09:27; Start 04/23/21 at 09:00 Insulin Glargine (Lantus Syringe) 10 unit QHS SQ Last administered on 04/22/21at 20:35; Start 04/22/21 at 21:00 Insulin Human Lispro (HumaLOG) 0-7 UNITS TIDWMEALS SQ Last administered on 04/23/21 12:31; Start 04/22/21 at 14:00 Insulin Human Lispro (HumaLOG) 0-7 UNITS TIDWMEALS SQ ; Start 04/22/21 at 17:00; Stop 04/22/21 at 13:59; Status DC Insulin Human Lispro (HumaLOG) 12 units TIDWMEALS SQ Last administered on 2at 12:32; Start 04/22/21 at 17:00 Lactobacillus Rhamnosus (Culturelle) 1 cap DAILY PO Last administered on 04/23/21 09:26; Start 04/23/21 at 09:00 Levothyroxine Sodium (Synthroid) 25 mcg DAILYAC PO Last administered on 04/23/21 07:31; Start 04/23/21 at 07:30 Lisinopril (Prinivil) 5 mg DAILY PO ; Start 04/23/21 at 09:00; Status UNV Metolazone (Zaroxolyn) 2.5 mg QMWF PO ; Start 04/23/21 at 16:00 Metoprolol Succinate (Toprol Xl) 75 mg DAILY PO Last administered on 04/23/21 09:31; Start 04/23/21 at 09:00 Multivitamins (Thera M Plus) 1 tab DAILY PO Last administered on 04/23/21at 09:26; Start 04/23/21 at 09:00 Non-Formulary Medication (Cod Liver Oil ) 1 each DAILY PO ; Start 04/23/21 at 09:00; Status UNV Prednisone (Prednisone) 20 mg DAILY PO Last administered on 2/7/22at 12:33; Start 04/23/21 at 12:00 Sulfasalazine (Azulfidine) 1,000 mg BID PO Last administered on 04/23/21at 09:26; Start 04/22/21 at 21:00 Tamsulosin HCl (Flomax) 0.8 mg HS PO Last administered on 04/22/21at 20:35; Start 04/22/21 at 21:00 Vitamin A (Vitamin A) 10,000 unit DAILY PO Last administered on 04/23/21at 09:26; Start 04/23/21 at 09:00 Vitamin E (Vitamin E) 400 unit DAILY PO Last administered on 04/23/21at 09:26; Start 04/23/21 at 09:00 Zinc Sulfate (Orazinc) 220 mg DAILY PO Last administered on 04/23/21at 09:26; Start 04/23/21 at 09:00 Zolpidem Tartrate (Ambien) 5 mg PRN QHS PRN PO INSOMNIA, MAY REPEAT X1; Start 04/22/21 at 13:15 Vitals/I & O Vital Sign - Last 24 Hours 04/22/21 04/22/21 04/22/21 04/22/21 15:00 19:00 20:00 23:00 Temp 97.4 97.6 98.3 97.4 97.6 98.3 Pulse 70 84 87 Resp 17 16 18 B/P (MAP) 103/45 (64) 100/40 (60) 103/51 (68) Pulse Ox 93 95 91 O2 Delivery Nasal Cannula Nasal Cannula Nasal Cannula Nasal Cannula O2 Flow Rate 5.0 5.0 5.0 5.0 04/23/21 04/23/21 04/23/21 04/23/21 03:00 07:00 07:38 09:31 Temp 98.0 98.0 Pulse 66 102 102 Resp 18 B/P (MAP) 118/55 (76) 98/54 (69) 98/54 Pulse Ox 97 85 O2 Delivery Nasal Cannula Nasal Cannula Nasal Cannula O2 Flow Rate 5.0 5.0 04/23/21 11:00 Temp 98.0 98.0 Pulse 101 Resp 17 B/P (MAP) 86/41 (56) Pulse Ox 91 O2 Delivery Nasal Cannula O2 Flow Rate 6.0 Intake and Output 04/22/21 04/22/21 04/23/21 15:00 23:00 07:00 Intake Total 200 ml 0 ml 0 ml Output Total 400 ml 50 ml Balance -200 ml 0 ml -50 ml CORINE RUSSO MD Apr 23, 2021 13:08
[2021-04-23 15:00] VITALS: BP 88/40
[2021-04-23] MEDS ORDERED: metOLazone 2.5 MG TABLET PO SCH (16:00)
--- NOTE | 2021-04-23 16:55 | PDOC ---
Renal-Progress Notes Subjective Notes Notes CONFUSED History of Present Illness Hx of present illness KIDNEY FUNCTION IS WORSE Vitals Vitals Vital Signs Date Time Temp Pulse Resp B/P (MAP) Pulse Ox O2 Delivery O2 Flow Rate FiO2 04/23/21 15:00 97.4 91 88/40 (56) 90 Nasal Cannula 97.4 04/23/21 11:00 17 6.0 Weight Weight [ ] I.O. Intake and Output Intake and Output 04/23/21 07:00 Intake Total 200 ml Output Total 450 ml Balance -250 ml Intake Oral 200 ml Output Urine Total 450 ml # Voids 1 Labs Labs Laboratory Tests Test 04/22/21 17:42 04/22/21 19:29 04/23/21 05:20 04/23/21 08:06 Glucose (Fingerstick) 223 mg/dL (70-99) 175 mg/dL (70-99) 179 mg/dL (70-99) White Blood Count 10.9 x10^3/uL (4.0-11.0) Red Blood Count 2.84 x10^6/uL (4.30-5.70) Hemoglobin 8.6 g/dL (13.0-17.5) Hematocrit 27.7 % (39.0-53.0) Mean Corpuscular Volume 97 fL (79-100) Mean Corpuscular Hemoglobin 30 pg (25-35) Mean Corpuscular Hemoglobin Concent 31 g/dL (31-37) Red Cell Distribution Width 18.5 % (11.5-14.5) Platelet Count 239 x10^3/uL (140-400) Neutrophils (%) (Auto) 84 % (31-73) Lymphocytes (%) (Auto) 4 % (24-48) Monocytes (%) (Auto) 10 % (0-9) Eosinophils (%) (Auto) 1 % (0-3) Basophils (%) (Auto) 1 % (0-3) Neutrophils # (Auto) 9.2 x10^3/uL (1.8-7.7) Lymphocytes # (Auto) 0.4 x10^3/uL (1.0-4.8) Monocytes # (Auto) 1.1 x10^3/uL (0.0-1.1) Eosinophils # (Auto) 0.1 x10^3/uL (0.0-0.7) Basophils # (Auto) 0.1 x10^3/uL (0.0-0.2) Sodium Level 140 mmol/L (136-145) Potassium Level 5.8 mmol/L (3.5-5.1) Chloride Level 105 mmol/L (98-107) Carbon Dioxide Level 23 mmol/L (21-32) Anion Gap 12 (6-14) Blood Urea Nitrogen 140 mg/dL (8-26) Creatinine 4.9 mg/dL (0.7-1.3) Estimated GFR (Cockcroft-Gault) 11.5 BUN/Creatinine Ratio 29 (6-20) Glucose Level 199 mg/dL (70-99) Calcium Level 8.0 mg/dL (8.5-10.1) Phosphorus Level 6.3 mg/dL (2.6-4.7) Magnesium Level 2.7 mg/dL (1.8-2.4) Total Bilirubin 0.3 mg/dL (0.2-1.0) Aspartate Amino Transf (AST/SGOT) 10 U/L (15-37) Alanine Aminotransferase (ALT/SGPT) 21 U/L (16-63) Alkaline Phosphatase 188 U/L (46-116) Total Protein 6.2 g/dL (6.4-8.2) Albumin 2.3 g/dL (3.4-5.0) Albumin/Globulin Ratio 0.6 (1.0-1.7) Test 04/23/21 12:22 Glucose (Fingerstick) 204 mg/dL (70-99) Micro Micro Microbiology 04/22/21 Blood Culture - Preliminary, Resulted NO GROWTH AFTER 1 DAY Review of Systems Constitutional: yes: weakness, alert Ears/Nose/Throat: Yes: no symptom reported Pulmonary: Yes dyspnea Cardiovascular: Yes no symptom reported Gastrointestional: Yes: no symptom reported Genitourinary: Yes: no symptom reported Musculoskeletal: Yes: no symptom reported Skin: Yes no symptom reported Psychiatric/Neurological: Yes: no symptom reported Physical Exam General Appearance: no apparent distress, alert Skin: warm Respiratory: decreased breath sounds Heart: S1S2 Abdomen: bowel sounds present Extremities: pulses present, no edema, atrophy Neurology: alert, oriented Assessment Assessment IMP RACH WITH CR OF 4.9 CKD STAGE 3 WITH CR OF 1.7 IN 12-05 ACUTE ON CHRONIC CHF-DIASTOLIC ACUTE COPD EXACERBATION P AFIB DM II HTN HX HYPOTENSION PLAN STOP HIS NORVASC ATTEMPT TO DIURESE MAY NEED TEMP HD WILL FOLLOW SHAUN BUSTILLOS MD Apr 23, 2021 16:55
[2021-04-23 19:00] VITALS: BP 107/72
[2021-04-23] MEDS: TAMSULOSIN 0.4 MG CAP.ER.24H. PO SCH (20:42)
[2021-04-23] MEDS: ZOLPIDEM 5 MG TABLET. PO PRN (20:42)
[2021-04-23 23:00] VITALS: BP 106/51
[2021-04-23] MEDS: INSULIN GLARGINE SYRINGE. SQ SCH (23:56)
[2021-04-24 03:00] VITALS: BP 80/32
[2021-04-24] MEDS ORDERED: IV NORMAL SALINE 1000ML BAG 1,000 ML IV ONE (04:30)
[2021-04-24 07:00] VITALS: BP 102/42
[2021-04-24] MEDS: LEVOTHYROXINE 25 MCG TABLET. PO SCH (07:36)
[2021-04-24] MEDS: INSULIN LISPRO 300 UNITS/3 ML VIAL. SQ SCH ×6 (08:00→17:00)
[2021-04-24 08:16] LABS: ALBUMIN 2.3 g/dL (3.4-5.0); CALCIUM 8.1 mg/dL (8.5-10.1); CREATININE 5.8 mg/dL (0.7-1.3); GFR 9.5; PHOSPHORUS 7.8 mg/dL (2.6-4.7)
[2021-04-24 08:41] LABS: POTASSIUM 6.7 mmol/L (3.5-5.1)
[2021-04-24] MEDS: APIXABAN 5 MG TABLET. PO SCH ×2 (09:00→20:44)
[2021-04-24] MEDS: METOPROLOL SUCC 24HR ER 25 MG TAB.ER.24H. PO SCH (09:00)
[2021-04-24] MEDS: OMEGA-3 FATTY ACIDS/FISH OIL 1,000 MG CAPSULE. PO SCH (09:00)
[2021-04-24] MEDS: ALLOPURINOL 100 MG TABLET. PO SCH (09:00)
[2021-04-24] MEDS: MULTIVITAMIN with MINERAL TABLET. PO SCH (09:00)
[2021-04-24] MEDS: VITAMIN A 10,000 UNIT CAPSULE. PO SCH (09:00)
[2021-04-24] MEDS: CALCIUM POLYCARBOPHIL 625 MG TABLET PO SCH (09:00)
[2021-04-24] MEDS: FAMOTIDINE 20 MG TABLET. PO SCH (09:00)
[2021-04-24] MEDS: LACTOBACILLUS RHAMNOSUS GG 1 CAPSULE. PO SCH (09:00)
[2021-04-24] MEDS: ZINC SULFATE 220 MG CAPSULE. PO SCH (09:00)
[2021-04-24] MEDS: ASPIRIN CHEWABLE 81 MG TABLET. PO SCH (09:00)
[2021-04-24] MEDS: sulfaSALAzine 500 MG TABLET PO SCH ×3 (09:00→21:00)
[2021-04-24] MEDS: predniSONE 20 MG TABLET PO SCH (09:00)
[2021-04-24] MEDS: VITAMIN E 200 UNIT CAPSULE. PO SCH (09:00)
[2021-04-24] MEDS: FUROSEMIDE 40 MG/4 ML VIAL. IVP SCH ×2 (09:20→15:48)
--- NOTE | 2021-04-24 09:26 | NUR ---
This RN nonadministered am medications, pt not following commands at this time. Pt unable to take PO, will reassess when alertness increases.
[2021-04-24] MEDS ORDERED: SODIUM POLYSTYRENE SULFON/SORB 15 GM/60 ML ORAL.SUSP. PO ONE (10:00)
--- NOTE | 2021-04-24 10:29 | PDOC ---
[facility] PROGRESS NOTE Date of Service DOS: DATE: 04/24/21 TIME: 10:25 Chief Complaint Chief Complaint Multifactorial respiratory failure Azotemia Toxic encephalopathy CHF COPD BPH, previous tobacco abuse, hemorrhoids, diabetes, hypertension, ulcerative colitis, gout, shingles, pacemaker, coronary artery bypass surgery, heavy alcohol use, chronic anticoagulation, polypharmacy, insomnia, GERD, hypothyroidism. History of Present Illness History of Present Illness 04/24/2021 Patient seen and examined Confused and in distress, asking for help. Patient not oriented and was not able to participate in care discussion was present and worried, requesting visit from nephrology. Children are coming into town later today and she would also like care plan discussed with them. Discussed likely need for dialysis. Urine output has continued to decreased Discussed with RN Chart reviewed 04/23/2021 Patient seen and examined He is pleasantly confused His is present Discussed with RN Chart reviewed His urine is extremely dark brown Vitals/I&O Vitals/I&O: Vital Signs Date Time Temp Pulse Resp B/P (MAP) Pulse Ox O2 Delivery O2 Flow Rate FiO2 04/24/21 07:38 Nasal Cannula 10.0 04/24/21 07:00 97.5 93 102/42 (62) 97.5 04/24/21 03:00 22 90 I & O 04/23/21 04/23/21 04/24/21 15:00 23:00 07:00 Intake Total 100 ml Output Total 200 ml 150 ml Balance -200 ml -50 ml Physical Exam General: No acute distress, Other (Pleasantly confused) Heart: Regular rate, Other (Distant S1-S2) Lungs: Clear Abdomen: Normal bowel sounds Extremities: No clubbing Skin: No rashes Labs Labs: Laboratory Tests Test 04/23/21 12:22 04/23/21 16:52 04/23/21 20:44 04/24/21 07:00 Glucose (Fingerstick) 204 mg/dL (70-99) 101 mg/dL (70-99) 192 mg/dL (70-99) Sodium Level 139 mmol/L (136-145) Potassium Level 6.7 mmol/L (3.5-5.1) Chloride Level 103 mmol/L (98-107) Carbon Dioxide Level 21 mmol/L (21-32) Anion Gap 15 (6-14) Blood Urea Nitrogen 176 mg/dL (8-26) Creatinine 5.8 mg/dL (0.7-1.3) Estimated GFR (Cockcroft-Gault) 9.5 Glucose Level 246 mg/dL (70-99) Calcium Level 8.1 mg/dL (8.5-10.1) Phosphorus Level 7.8 mg/dL (2.6-4.7) Magnesium Level 3.0 mg/dL (1.8-2.4) Albumin 2.3 g/dL (3.4-5.0) Test 04/24/21 07:56 Glucose (Fingerstick) 231 mg/dL (70-99) Assessment and Plan Assessmemt and Plan Problems Medical Problems: (1) CHF exacerbation Status: Acute (2) Person under investigation for COVID-19 Status: Acute (3) Renal insufficiency Status: Acute Assessment Multifactorial respiratory failure Azotemia Toxic encephalopathy CHF COPD BPH, previous tobacco abuse, hemorrhoids, diabetes, hypertension, ulcerative colitis, gout, shingles, pacemaker, coronary artery bypass surgery, heavy alcohol use, chronic anticoagulation, polypharmacy, insomnia, GERD, hypothyroidism. Plan We are trending his labs Given Kayexalate for potassium levels + -- Lasix per nephrology and cardiology Appreciate urology input on dialysis Accurate I's and O's Trend labs As needed O2 Steroids Nebulizers Home meds DVT prophylaxis Full code PT OT Suspect he might need to go to [place] [facility] eventually Comment Review of Relevant I have reviewed the following items margarita (where applicable) has been applied. Medications: Current Medications Medications (Trade) Dose Ordered Sig/Nickie Route PRN Reason Start Time Stop Time Status Last Admin Dose Admin Prednisone (Prednisone) 20 mg DAILY PO 04/23/21 12:00 04/23/21 12:33 Sodium Chloride 1,000 ml @ 1,000 mls/hr 1X ONCE IV 04/24/21 04:30 04/24/21 05:29 DC 04/24/21 04:34 Sodium Polystyrene Sulfonate (Kayexalate) 15 gm 1X ONCE PO 04/24/21 10:00 04/24/21 10:01 DC 04/24/21 10:13 Justifications for Admission Other Justification RAFI KOHLER III DO Apr 24, 2021 10:29
[2021-04-24 11:00] VITALS: BP 95/41
[2021-04-24] MEDS ORDERED: LIDOCAINE WITH 8.4% SOD BICARB 3 ML DISP.SYRIN. ONE (11:00)
[2021-04-24] MEDS ORDERED: LIDOCAINE WITH 8.4% SOD BICARB 3 ML DISP.SYRIN. INJ ONE (11:15)
--- NOTE | 2021-04-24 11:35 | PDOC ---
KESHIA FERNANDEZ CAMP MAINTENANCE SUPERVISOR 04/24/21 1135: CARDIO Progress Notes Date and Time Date of Service 04/24/2021 Time of Evaluation 1100 Subjective Subjective: No Chest Pain, No Palpitations Vitals Vitals Vital Signs Date Time Temp Pulse Resp B/P (MAP) Pulse Ox O2 Delivery O2 Flow Rate FiO2 04/24/21 07:38 Nasal Cannula 10.0 04/24/21 07:00 97.5 93 102/42 (62) 97.5 04/24/21 03:00 22 90 Weight Weight [ ] Input and Output Intake and Output Intake and Output 04/24/21 07:00 Intake Total 100 ml Output Total 350 ml Balance -250 ml Intake Oral 100 ml Output Urine Total 350 ml Laboratory Labs Laboratory Tests Test 04/23/21 12:22 04/23/21 16:52 04/23/21 20:44 04/24/21 07:00 Glucose (Fingerstick) 204 mg/dL (70-99) 101 mg/dL (70-99) 192 mg/dL (70-99) Sodium Level 139 mmol/L (136-145) Potassium Level 6.7 mmol/L (3.5-5.1) Chloride Level 103 mmol/L (98-107) Carbon Dioxide Level 21 mmol/L (21-32) Anion Gap 15 (6-14) Blood Urea Nitrogen 176 mg/dL (8-26) Creatinine 5.8 mg/dL (0.7-1.3) Estimated GFR (Cockcroft-Gault) 9.5 Glucose Level 246 mg/dL (70-99) Calcium Level 8.1 mg/dL (8.5-10.1) Phosphorus Level 7.8 mg/dL (2.6-4.7) Magnesium Level 3.0 mg/dL (1.8-2.4) Albumin 2.3 g/dL (3.4-5.0) Test 04/24/21 07:56 Glucose (Fingerstick) 231 mg/dL (70-99) Microbiology Micro Microbiology 04/22/21 Blood Culture - Preliminary, Resulted NO GROWTH AFTER 2 DAYS Review of Systems Constitutional: yes: weakness, alert Ears/Nose/Throat: Yes: no symptom reported Pulmonary: Yes dyspnea Cardiovascular: Yes no symptom reported Gastrointestional: Yes: no symptom reported Genitourinary: Yes: no symptom reported Musculoskeletal: Yes: no symptom reported Skin: Yes no symptom reported Psychiatric/Neurological: Yes: no symptom reported Physical Exam HEENT: Neck Supple W Full Motion Chest: Symmetric LUNGS: Other (diminished) Heart: RRR (Vpaced) Abdomen: Soft N/T, Other (obese) Extremities: Other (2-3+ bilateral LE pitting edema) Neurology: confused Assessment Assessment 1. Acute respiratory failure most probably secondary to combination AECOPD and Decompensated CHF 2. Acute on chronic systolic heart failure. fluid overloaded. Recent 2D echo 04/05/2021 showed normalized LV systolic function with EF 50 to 55%. 3. CAD: vs/p coronary artery bypass surgery, clinically stable and chest pain- free. Recent Lexiscan nuclear stress test on 04/07/2021 did not show any significant ischemia. 4. Ischemic cardiomyopathy s/p biventricular ICD/BUZZLE BUFFER-D implantation in the past. Recent device check showed normal function. 5. 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 Paroxysmal atrial fibrillation and PSVT, Sr with intermittent V pacing 7. Hypertension: controlled 8. Hypothyroidism: Continue levothyroxine 9. Diabetes mellitus type 2: Treat per IM 10. Metabolic encephalopathy Recommendations 1. Continue current pulmonary treatment 2. Secondary prevention measures. Avoid nephrotoxins. Resume BB after dialysis as BP allows 3. Temp dialysis catheter pending today, fluid off loading per HD. Kayexelate was given 4. Hold eliquis and resume once HD cath is in place Justicifation of Admission Dx: Justifications for Admission: Justification of Admission Dx: Yes CORINE RUSSO MD 04/24/211955: CARDIO Progress Notes Assessment Assessment Patient seen and examined. Agree with WEB CONTENT DEVELOPER's assessment and plan as stated above KESHIA FERNANDEZ APRN Apr 24, 2021 11:35 CORINE RUSSO MD Apr 24, 2021 19:56
[2021-04-24] MEDS: AMPICILLIN/SULBACTAM 1.5 GM in IV NORMAL SALINE 50ML 50 ML IV SCH ×2 (13:26→20:45)
--- NOTE | 2021-04-24 13:53 | PDOC ---
Renal-Progress Notes Subjective Notes Notes REMAINS CONFUSED History of Present Illness Hx of present illness STABLE Vitals Vitals Vital Signs Date Time Temp Pulse Resp B/P (MAP) Pulse Ox O2 Delivery O2 Flow Rate FiO2 04/24/21 11:00 97.3 91 24 95/41 (59) 98 Nasal Cannula 97.3 04/24/21 07:38 10.0 Weight Weight [ ] I.O. Intake and Output Intake and Output 04/24/21 07:00 Intake Total 100 ml Output Total 350 ml Balance -250 ml Intake Oral 100 ml Output Urine Total 350 ml Labs Labs Laboratory Tests Test 04/23/21 16:52 04/23/21 20:44 04/24/21 07:00 04/24/21 07:56 Glucose (Fingerstick) 101 mg/dL (70-99) 192 mg/dL (70-99) 231 mg/dL (70-99) Sodium Level 139 mmol/L (136-145) Potassium Level 6.7 mmol/L (3.5-5.1) Chloride Level 103 mmol/L (98-107) Carbon Dioxide Level 21 mmol/L (21-32) Anion Gap 15 (6-14) Blood Urea Nitrogen 176 mg/dL (8-26) Creatinine 5.8 mg/dL (0.7-1.3) Estimated GFR (Cockcroft-Gault) 9.5 Glucose Level 246 mg/dL (70-99) Calcium Level 8.1 mg/dL (8.5-10.1) Phosphorus Level 7.8 mg/dL (2.6-4.7) Magnesium Level 3.0 mg/dL (1.8-2.4) Albumin 2.3 g/dL (3.4-5.0) Hepatitis B Surface Antigen Nonreactive (Nonreactive) Hepatitis B Core Total Antibody Nonreactive (Nonreactive) Test 04/24/21 11:56 Glucose (Fingerstick) 243 mg/dL (70-99) Micro Micro Microbiology 04/22/21 Urine Culture - Preliminary, Resulted Enterococcus Faecalis 04/22/21 Blood Culture - Preliminary, Resulted NO GROWTH AFTER 2 DAYS Review of Systems Constitutional: yes: weakness, alert Ears/Nose/Throat: Yes: no symptom reported Pulmonary: Yes dyspnea Cardiovascular: Yes no symptom reported Gastrointestional: Yes: no symptom reported Genitourinary: Yes: no symptom reported Musculoskeletal: Yes: no symptom reported Skin: Yes no symptom reported Psychiatric/Neurological: Yes: no symptom reported Physical Exam General Appearance: no apparent distress, alert Skin: warm Respiratory: decreased breath sounds Heart: S1S2 Abdomen: bowel sounds present Extremities: pulses present, no edema, atrophy Neurology: confused Assessment Assessment IMP UREMIA RACH WITH CR UP TO 5.8-PROB ATN FROM LOW BP CKD STAGE 3 WITH CR OF 1.7 IN 12-05 ACUTE ON CHRONIC CHF-DIASTOLIC ACUTE COPD EXACERBATION P AFIB DM II HTN HX HYPOTENSION BPH UTI PLAN CONT ANTIBIOTICS CONT FLOMAX SUPPLEMENTAL OXYGEN WILL NEED HD LONG D/W WITH FAMILY WOULD NOT WISH [facility] HD BUT WANTS TO TRY HD NOW THEY ARE HOPING HE WILL WAKE UP ENOUGH TO BE PART OF DECISION MAKING WILL FOLLOW SHAUN BUSTILLOS MD Apr 24, 2021 13:53
[2021-04-24 15:00] VITALS: BP 91/47
[2021-04-24] MEDS ORDERED: IV NORMAL SALINE 1000ML BAG 1,000 ML IV PRN ×2 (18:15)
[2021-04-24] MEDS ORDERED: DIALYSIS PATIENT. MC PRN ×2 (18:15)
[2021-04-24 19:00] VITALS: BP 114/89
[2021-04-24] MEDS: ZOLPIDEM 5 MG TABLET. PO PRN (20:45)
[2021-04-24] MEDS: TAMSULOSIN 0.4 MG CAP.ER.24H. PO SCH ×2 (20:45→21:00)
[2021-04-24] MEDS ORDERED: INSULIN GLARGINE SYRINGE. SQ SCH (21:00)
--- NOTE | 2021-04-24 21:16 | NUR ---
This RN did not feel comfortably administering oral medications... Pt is too out of it and drowsy to take. Will continue to monitor throughout the night.
[2021-04-24 23:00] VITALS: BP 111/54
[2021-04-25] MEDS ORDERED: ZIPRASIDONE IM 20 MG VIAL. IM ONE (00:45)
[2021-04-25 03:00] VITALS: BP 86/48
[2021-04-25 07:00] VITALS: BP 95/41
[2021-04-25] MEDS: LEVOTHYROXINE 25 MCG TABLET. PO SCH (07:30)
[2021-04-25] MEDS ORDERED: PANTOPRAZOLE 40 MG TABLET.DR. PO SCH (07:30)
[2021-04-25 07:53] LABS: HEMATOCRIT 26.9 % (39.0-53.0); HEMOGLOBIN 8.2 g/dL (13.0-17.5); RED BLOOD COUNT 2.8 x10^6/uL (4.30-5.70); RED CELL DISTRIBUTION WIDTH 18.9 % (11.5-14.5); WHITE BLOOD COUNT 10.9 x10^3/uL (4.0-11.0)
[2021-04-25] MEDS: AMPICILLIN/SULBACTAM 1.5 GM in IV NORMAL SALINE 50ML 50 ML IV SCH (08:08)
[2021-04-25] MEDS: FUROSEMIDE 40 MG/4 ML VIAL. IVP SCH ×2 (08:08→09:00)
[2021-04-25] MEDS: INSULIN LISPRO 300 UNITS/3 ML VIAL. SQ SCH ×4 (08:09→12:00)
[2021-04-25] MEDS: OMEGA-3 FATTY ACIDS/FISH OIL 1,000 MG CAPSULE. PO SCH (08:10)
[2021-04-25] MEDS: ASPIRIN CHEWABLE 81 MG TABLET. PO SCH (08:10)
[2021-04-25] MEDS: CALCIUM POLYCARBOPHIL 625 MG TABLET PO SCH (08:10)
[2021-04-25] MEDS: sulfaSALAzine 500 MG TABLET PO SCH (08:10)
[2021-04-25] MEDS: APIXABAN 5 MG TABLET. PO SCH (08:10)
[2021-04-25] MEDS: VITAMIN E 200 UNIT CAPSULE. PO SCH (08:11)
[2021-04-25] MEDS: predniSONE 20 MG TABLET PO SCH (08:11)
[2021-04-25] MEDS: METOPROLOL SUCC 24HR ER 25 MG TAB.ER.24H. PO SCH (08:11)
[2021-04-25] MEDS: VITAMIN A 10,000 UNIT CAPSULE. PO SCH (08:11)
[2021-04-25] MEDS: MULTIVITAMIN with MINERAL TABLET. PO SCH (08:11)
[2021-04-25] MEDS: ZINC SULFATE 220 MG CAPSULE. PO SCH (08:11)
[2021-04-25 08:20] LABS: ALBUMIN 2.2 g/dL (3.4-5.0); CALCIUM 7.1 mg/dL (8.5-10.1); CREATININE 4.7 mg/dL (0.7-1.3); GFR 12.1; MAGNESIUM 2.3 mg/dL (1.8-2.4); PHOSPHORUS 6.9 mg/dL (2.6-4.7); POTASSIUM 5.7 mmol/L (3.5-5.1)
--- NOTE | 2021-04-25 08:24 | PDOC ---
[employer] PROGRESS NOTE Date of Service DOS: DATE: 04/25/21 TIME: 08:20 Chief Complaint Chief Complaint Multifactorial respiratory failure Azotemia Toxic encephalopathy CHF COPD BPH, previous tobacco abuse, hemorrhoids, diabetes, hypertension, ulcerative colitis, gout, shingles, pacemaker, coronary artery bypass surgery, heavy alcohol use, chronic anticoagulation, polypharmacy, insomnia, GERD, hypothyroidism. History of Present Illness History of Present Illness 04/25/2021 Patient seen and examined Chart reviewed Discussed with RN Discussed with case management Patient still confused and has now been placed in [place] Continue supplemental oxygen As per nephrology - patient needs HD; additionally, continue flomax, antibiotics, and supplemental oxygen 04/24/2021 Patient seen and examined Confused and in distress, asking for help. Patient not oriented and was not able to participate in care discussion was present and worried, requesting visit from nephrology. Children are coming into town later today and she would also like care plan discussed with them. Discussed likely need for dialysis. Urine output has continued to decreased Discussed with RN Chart reviewed 04/23/2021 Patient seen and examined He is pleasantly confused His is present Discussed with RN Chart reviewed His urine is extremely dark brown Vitals/I&O Vitals/I&O: Vital Signs Date Time Temp Pulse Resp B/P (MAP) Pulse Ox O2 Delivery O2 Flow Rate FiO2 04/25/21 03:00 97.8 117 24 86/48 (61) 90 Venturi Mask 10.0 97.8 I & O 04/24/21 04/24/21 04/25/21 15:00 23:00 07:00 Intake Total 50 ml Output Total 0 ml Balance 50 ml 0 ml Physical Exam General: No acute distress, Other (Pleasantly confused) Heart: Regular rate, Other (Distant S1-S2) Lungs: Clear Abdomen: Normal bowel sounds Extremities: No clubbing Skin: No rashes Labs Labs: Laboratory Tests Test 04/24/21 11:56 04/24/21 20:03 04/25/21 06:45 04/25/21 07:26 Glucose (Fingerstick) 243 mg/dL (70-99) 181 mg/dL (70-99) 245 mg/dL (70-99) White Blood Count 10.9 x10^3/uL (4.0-11.0) Red Blood Count 2.80 x10^6/uL (4.30-5.70) Hemoglobin 8.2 g/dL (13.0-17.5) Hematocrit 26.9 % (39.0-53.0) Mean Corpuscular Volume 96 fL (79-100) Mean Corpuscular Hemoglobin 29 pg (25-35) Mean Corpuscular Hemoglobin Concent 31 g/dL (31-37) Red Cell Distribution Width 18.9 % (11.5-14.5) Platelet Count 248 x10^3/uL (140-400) Assessment and Plan Assessmemt and Plan Problems Medical Problems: (1) CHF exacerbation Status: Acute (2) Person under investigation for COVID-19 Status: Acute (3) Renal insufficiency Status: Acute Assessment Multifactorial respiratory failure Azotemia Toxic encephalopathy CHF COPD BPH, previous tobacco abuse, hemorrhoids, diabetes, hypertension, ulcerative colitis, gout, shingles, pacemaker, coronary artery bypass surgery, heavy alcohol use, chronic anticoagulation, polypharmacy, insomnia, GERD, hypothyroidism. Plan Trend Labs Continue Kayexalate Appreciate nephrology input - patient should continue flomax, antibiotics, and supplemental oxygen; patient needs HD per nephrology Accurate I's and O's Continue supplemental oxygen as the patient needs Steroids Nebulizers Home meds DVT prophylaxis Full code PT/OT Suspect he might need to go to retirement eventually Comment Review of Relevant I have reviewed the following items margarita (where applicable) has been applied. Medications: Current Medications Medications (Trade) Dose Ordered Sig/Nickie Route PRN Reason Start Time Stop Time Status Last Admin Dose Admin Sodium Polystyrene Sulfonate (Kayexalate) 15 gm 1X ONCE PO 04/24/21 10:00 04/24/21 10:01 DC 04/24/21 10:13 Lidocaine HCl (Buffered Lidocaine 1%) 6 ml 1X ONCE INJ 04/24/21 11:15 04/24/21 11:16 DC 04/24/21 15:50 Ampicillin Sodium/ Sulbactam Sodium 1.5 gm/Sodium Chloride 50 ml @ 100 mls/hr Q12HR IV 04/24/21 12:30 04/25/21 08:08 Olanzapine (ZyPREXA ZYDIS) 5 mg PRN BID PRN PO ANXIETY / AGITATION 04/24/21 23:15 04/24/21 23:10 Ziprasidone (Geodon Im) 20 mg 1X ONCE IM 04/25/21 00:45 04/25/21 00:46 DC 04/25/21 00:48 Justifications for Admission Other Justification RAFI KOHLER III DO Apr 25, 2021 08:24
[2021-04-25] MEDS ORDERED: IV NORMAL SALINE 1000ML BAG 1,000 ML IV PRN ×2 (08:45)
[2021-04-25] MEDS ORDERED: DIALYSIS PATIENT. MC PRN (08:45)
--- NOTE | 2021-04-25 09:39 | PDOC ---
CARDIO Progress Notes Date and Time Date of Service 04/25/2021 Time of Evaluation 0930 Subjective Subjective: Other (lethargic) Vitals Vitals Vital Signs Date Time Temp Pulse Resp B/P (MAP) Pulse Ox O2 Delivery O2 Flow Rate FiO2 04/25/21 08:00 Venturi Mask 10.0 04/25/21 07:00 98.0 117 95/41 (59) 96 98.0 04/25/21 03:00 24 Weight Weight [ ] Input and Output Intake and Output Intake and Output 04/25/21 07:00 Intake Total 50 ml Output Total 0 ml Balance 50 ml IV Total 50 ml Output Urine Total 0 ml # Voids 2 Laboratory Labs Laboratory Tests Test 04/24/21 11:56 04/24/21 20:03 04/25/21 06:45 04/25/21 07:26 Glucose (Fingerstick) 243 mg/dL (70-99) 181 mg/dL (70-99) 245 mg/dL (70-99) White Blood Count 10.9 x10^3/uL (4.0-11.0) Red Blood Count 2.80 x10^6/uL (4.30-5.70) Hemoglobin 8.2 g/dL (13.0-17.5) Hematocrit 26.9 % (39.0-53.0) Mean Corpuscular Volume 96 fL (79-100) Mean Corpuscular Hemoglobin 29 pg (25-35) Mean Corpuscular Hemoglobin Concent 31 g/dL (31-37) Red Cell Distribution Width 18.9 % (11.5-14.5) Platelet Count 248 x10^3/uL (140-400) Sodium Level 137 mmol/L (136-145) Potassium Level 5.7 mmol/L (3.5-5.1) Chloride Level 100 mmol/L (98-107) Carbon Dioxide Level 22 mmol/L (21-32) Anion Gap 15 (6-14) Blood Urea Nitrogen 110 mg/dL (8-26) Creatinine 4.7 mg/dL (0.7-1.3) Estimated GFR (Cockcroft-Gault) 12.1 Glucose Level 195 mg/dL (70-99) Calcium Level 7.1 mg/dL (8.5-10.1) Phosphorus Level 6.9 mg/dL (2.6-4.7) Magnesium Level 2.3 mg/dL (1.8-2.4) Albumin 2.2 g/dL (3.4-5.0) Microbiology Micro Microbiology 04/22/21 Urine Culture - Final, Complete Enterococcus Faecalis 04/22/21 Blood Culture - Preliminary, Resulted NO GROWTH AFTER 3 DAYS Review of Systems Constitutional: yes: weakness, alert Ears/Nose/Throat: Yes: no symptom reported Pulmonary: Yes dyspnea Cardiovascular: Yes no symptom reported Gastrointestional: Yes: no symptom reported Genitourinary: Yes: no symptom reported Musculoskeletal: Yes: no symptom reported Skin: Yes no symptom reported Psychiatric/Neurological: Yes: no symptom reported Physical Exam HEENT: Neck Supple W Full Motion Chest: Symmetric LUNGS: Other (diminished) Heart: RRR (Vpaced tachycardia 120s) Abdomen: Soft N/T, Other (obese) Extremities: Other (2-3+ bilateral LE pitting edema) Neurology: confused Assessment Assessment 1. Acute respiratory failure most probably secondary to combination AECOPD and Decompensated CHF 2. Acute on chronic systolic heart failure. fluid overloaded. Recent 2D echo 04/05/2021 showed normalized LV systolic function with EF 50 to 55%. 3. CAD: vs/p coronary artery bypass surgery, clinically stable and chest pain- free. Recent Lexiscan nuclear stress test on 04/07/2021 did not show any significant ischemia. 4. Ischemic cardiomyopathy s/p biventricular ICD/EVENT PLANNING MANAGER-D implantation in the past. Recent device check showed normal function. 5. 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 Paroxysmal atrial fibrillation and PSVT, Sr with intermittent V pacing po ssibly underlying AFIB 120s 7. Hypertension: controlled 8. Hypothyroidism: Continue levothyroxine 9. Diabetes mellitus type 2: Treat per IM 10. Metabolic encephalopathy Recommendations 1. Continue current pulmonary treatment 2. Secondary prevention measures. Avoid nephrotoxins. Resume BB after dialysis as BP allows. IF unable to take PO then will transition to IV. digoxin after HD 3. Fluid off loading per HD 4. eliquis for stroke prevention Justicifation of Admission Dx: Justifications for Admission: Justification of Admission Dx: Yes KESHIA FERNANDEZ APRN Apr 25, 2021 09:39
--- NOTE | 2021-04-25 10:21 | RAD ---
Procedure: Temporary hemodialysis catheter placement Total fluoroscopy time: 0.2 Min Dose area product 0.2 mGycm2 Sterility: All elements of maximal sterile barrier technique including the use of a cap, mask, steril e gown, sterile gloves, large sterile sheet, appropriate hand hygiene, and 2% chlorhexidine for cutan eous antisepsis (or acceptable alternative antiseptic per current guidelines) were followed for this procedure. Consent: The procedure was explained in its entirety to the patient or the patients designated repres entative by a member of the treatment team, including a discussion of the risks, benefits and commonl y accepted alternatives to the procedure, as well as the expected consequences of no therapy whatsoev er. Discussion of the risks included, but was not limited to, those that are most frequent and thos e that are rare but possibly severe or life-threatening, as well as the possibility of unforeseen com plications. Technique and Findings: Following informed consent, the patient was prepped and draped in the usual s terile fashion. Ultrasound interrogation of the right neck revealed patency and compressibility of t he right internal jugular vein. A 21-gauge micropuncture was then used to gain access to this vein u nder ultrasound guidance. A hard copy ultrasound image was recorded. A guidewire was advanced centra lly over which, following dilatation, a temporary dialysis catheter was placed. The new catheter wa s found to flush and aspirate normally. The catheter was secured in place. Sterile dressings were linda lied. No immediate complications were identified. IMPRESSION: Placement of a temporary dialysis catheter Electronically signed by: Jose Angel Mohamud MD (04/25/2021 10:19 AM) [id number]
[2021-04-25] MEDS ORDERED: MORPHINE SULFATE 2 MG/ML INJ. IVP PRN (10:30)
--- NOTE | 2021-04-25 10:30 | NUR ---
pt family requesting pt to become a DNR, verified with [facility] nursing ferry terminal supervisor with family and Dr. Llamas via telephone, orders updated.
[2021-04-25 11:00] VITALS: BP 84/43
[2021-04-25] MEDS ORDERED: IV NORMAL SALINE 1000ML BAG 1,000 ML IV SCH (11:45)
[2021-04-25] MEDS ORDERED: NALOXONE 0.4 MG/ML VIAL. IV PRN (11:45)
[2021-04-25] MEDS: MORPHINE SULFATE 30 ML IV PRN ×2 (11:56→13:45)
[2021-04-25] MEDS ORDERED: ANTI-COAG MONITOR BY PHARMACY. MC PRN (12:00)
--- NOTE | 2021-04-25 12:04 | NUR ---
SW following. Discussed with RN, pt needing inpatient hospice and is being switched to a morphine drip. Per RN pt is close to passing. Referral given to [facility]. Awaiting further acceptance. SW will continue to follow.
[2021-04-25] MEDS ORDERED: LACTOBACILLUS RHAMNOSUS GG 1 CAPSULE. PO SCH (13:00)
--- NOTE | 2021-04-25 13:13 | PDOC ---
Renal-Progress Notes Subjective Notes Notes CONFUSED History of Present Illness Hx of present illness FAMILY AT BEDSIDE Vitals Vitals Vital Signs Date Time Temp Pulse Resp B/P (MAP) Pulse Ox O2 Delivery O2 Flow Rate FiO2 04/25/21 12:27 Room Air 04/25/21 11:56 10.0 04/25/21 11:00 122 84/43 (57) 04/25/21 07:00 98.0 96 98.0 04/25/21 03:00 24 Weight Weight [ ] I.O. Intake and Output Intake and Output 04/25/21 07:00 Intake Total 50 ml Output Total 0 ml Balance 50 ml IV Total 50 ml Output Urine Total 0 ml # Voids 2 Labs Labs Laboratory Tests Test 04/24/21 20:03 04/25/21 06:45 04/25/21 07:26 Glucose (Fingerstick) 181 mg/dL (70-99) 245 mg/dL (70-99) White Blood Count 10.9 x10^3/uL (4.0-11.0) Red Blood Count 2.80 x10^6/uL (4.30-5.70) Hemoglobin 8.2 g/dL (13.0-17.5) Hematocrit 26.9 % (39.0-53.0) Mean Corpuscular Volume 96 fL (79-100) Mean Corpuscular Hemoglobin 29 pg (25-35) Mean Corpuscular Hemoglobin Concent 31 g/dL (31-37) Red Cell Distribution Width 18.9 % (11.5-14.5) Platelet Count 248 x10^3/uL (140-400) Sodium Level 137 mmol/L (136-145) Potassium Level 5.7 mmol/L (3.5-5.1) Chloride Level 100 mmol/L (98-107) Carbon Dioxide Level 22 mmol/L (21-32) Anion Gap 15 (6-14) Blood Urea Nitrogen 110 mg/dL (8-26) Creatinine 4.7 mg/dL (0.7-1.3) Estimated GFR (Cockcroft-Gault) 12.1 Glucose Level 195 mg/dL (70-99) Calcium Level 7.1 mg/dL (8.5-10.1) Phosphorus Level 6.9 mg/dL (2.6-4.7) Magnesium Level 2.3 mg/dL (1.8-2.4) Albumin 2.2 g/dL (3.4-5.0) Micro Micro Microbiology 04/22/21 Urine Culture - Final, Complete Enterococcus Faecalis 04/22/21 Blood Culture - Preliminary, Resulted NO GROWTH AFTER 3 DAYS Review of Systems Constitutional: yes: weakness, alert Ears/Nose/Throat: Yes: no symptom reported Pulmonary: Yes dyspnea Cardiovascular: Yes no symptom reported Gastrointestional: Yes: no symptom reported Genitourinary: Yes: no symptom reported Musculoskeletal: Yes: no symptom reported Skin: Yes no symptom reported Psychiatric/Neurological: Yes: no symptom reported Physical Exam General Appearance: no apparent distress, alert Skin: warm Respiratory: decreased breath sounds Heart: S1S2 Abdomen: bowel sounds present Extremities: pulses present, no edema, atrophy Neurology: confused Assessment Assessment IMP UREMIA RACH WITH ATN CKD STAGE 3 WITH CR OF 1.7 IN 12-05 ACUTE ON CHRONIC CHF-DIASTOLIC ACUTE COPD EXACERBATION P AFIB DM II HTN HX HYPOTENSION BPH UTI PLAN PT UNABLE TO TOLERATED HD TODAY D/W FAMILY PT NOW DNR NO FURTHER HD PLANNED COMFORT MEASURES FAMILY AT BEDSIDE WILL SIGN OFF SHAUN BUSTILLOS MD Apr 25, 2021 13:13
--- NOTE | 2021-04-25 18:08 | DS ---
DATE OF DISCHARGE: 04/25/2021 SUMMARY DATE OF : He today on 04/25/2021. He was admitted on 04/22/2021. ADMITTING DIAGNOSES: Respiratory failure with worsening renal failure and congestive heart failure. CAUSE OF : Progression of multiorgan failure with severe heart failure and severe kidney failure, history of CAD, ischemic cardiomyopathy, RACH, paroxysmal atrial fibrillation, hypertension, hypothyroidism, diabetes and metabolic encephalopathy. 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 He was admitted. We consulted Cardiology and Nephrology. Over the past 2-3 days, his disease progressed. Today, when I saw and examined him, he was extremely short of breath, tachypneic. The family decided to go with inpatient hospice. We made him comfort care and he passed this evening comfortably. LG DR: Kavon TID: [id number]
[2021-04-29] MEDS ORDERED: ERGOCALCIFEROL (VITAMIN D2) 50,000 UNIT CAPSULE. PO SCH (09:00)
== END 2021-04-25 14:26 | disposition hospice, inpatient (51) | DRG 291 ==
LOC: ER 23:48 → 5 SOUTH 04-22 00:20
PROVIDERS: ADMIT Internal Medicine; ATTEND Internal Medicine
PROC: 05HY33Z Insertion of Infusion Device into Upper Vein, Percutaneous Approach (ICD-10-PCS; 2021-04-22)
PROC: B54MZZA Ultrasonography of Right Upper Extremity Veins, Guidance (ICD-10-PCS; 2021-04-22)
PROC: 5A1D70Z Performance of Urinary Filtration, Intermittent, Less than 6 Hours Per Day (ICD-10-PCS; 2021-04-24)
PROC: 5A1D70Z Performance of Urinary Filtration, Intermittent, Less than 6 Hours Per Day (ICD-10-PCS; principal; 2021-04-25)
DX: I13.0 Hypertensive heart and chronic kidney disease with heart failure and stage 1 through stage 4 chronic kidney disease, or unspecified chronic kidney disease (principal); I50.43 Acute on chronic combined systolic (congestive) and diastolic (congestive) heart failure; J96.01 Acute respiratory failure with hypoxia; G92.9 Unspecified toxic encephalopathy; N17.0 Acute kidney failure with tubular necrosis; J44.1 Chronic obstructive pulmonary disease with (acute) exacerbation; K51.90 Ulcerative colitis, unspecified, without complications; N39.0 Urinary tract infection, site not specified; E03.9 Hypothyroidism, unspecified; E11.22 Type 2 diabetes mellitus with diabetic chronic kidney disease; E78.5 Hyperlipidemia, unspecified; E87.5 Hyperkalemia; I25.10 Atherosclerotic heart disease of native coronary artery without angina pectoris; I25.5 Ischemic cardiomyopathy; I48.0 Paroxysmal atrial fibrillation; N18.30 Chronic kidney disease, stage 3 unspecified; N28.1 Cyst of kidney, acquired; N40.0 Benign prostatic hyperplasia without lower urinary tract symptoms; Z20.822 Contact with and (suspected) exposure to COVID-19; Z51.5 Encounter for palliative care; Z79.01 Long term (current) use of anticoagulants; Z82.49 Family history of ischemic heart disease and other diseases of the circulatory system; Z83.3 Family history of diabetes mellitus; Z86.73 Personal history of transient ischemic attack (TIA), and cerebral infarction without residual deficits; Z87.891 Personal history of nicotine dependence; Z95.1 Presence of aortocoronary bypass graft; Z95.5 Presence of coronary angioplasty implant and graft; K21.9 Gastro-esophageal reflux disease without esophagitis; M10.9 Gout, unspecified
CPT/HCPCS: 36415; 36556; 71045; 76770; 76937; 77001; 80053; 80069; 81001; 82550; 82728; 82962; 83540; 83550; 83605; 83735; 83880; 84100; 84484; 85025; 85027; 86317; 86704; 87040; 87077; 87086; 87186; 87340; 87428; 94640; C1892; J0295; J1815; J1940; J2060; J2270; J3486; J3490; J7030; J7512; U0003; U0005; 99285-25; G0378

== ENCOUNTER 2021-04-25 14:30 | Inpatient (IN) | payer OTHER ==
[2021-04-25 11:00] VITALS: BP 84/43
[~2021-04-25 14:30] MED LIST changes: +BACI1CAP6 PO; +BUME1TAB3 PO; +CALC625T PO; +[UNRECOGNIZED DRUG - CODE] PO
[2021-04-25] MEDS ORDERED: ATROPINE 1% OPHTH SOLUTION 5ML BOTTLE. SL PRN (14:45)
[2021-04-25] MEDS ORDERED: NALOXONE 0.4 MG/ML VIAL. IV PRN (14:45)
[2021-04-25] MEDS ORDERED: IV NORMAL SALINE 1000ML BAG 1,000 ML IV SCH (14:45)
[2021-04-25] MEDS ORDERED: MORPHINE SULFATE 30 ML IV PRN (14:45)
--- NOTE | 2021-04-25 15:59 | NUR ---
PT AT 1515. [employer] NOTIFIED AT 1535. PT NOT A CANIDATE FOR DONATION. NO FURTHER INTERVENTION NECESSARY AT THIS TIME. REFERRAL NUMBER IS [id number].
--- NOTE | 2021-04-25 16:27 | NUR ---
Discharge Note: PT AT 1515. DR. KOHLER NOTIFIED AT 1535. PT FAMILY PRESENT AT BEDSIDE UPON PASSING. DIALYSIS CATH PULLED FROM R EJ AND PIV PULLED FROM R FA WITHOUT COMPLICATIONS, PT CLEANED UP/SHAVED. PT FAMILY TOOK GOLD [place] RING HOME AND LEFT RUBBER [place] BAND ON PT WHEN [place] [facility] [place] [facility] [place] MAGALI PHAN[facility] [place]
== END 2021-04-25 16:35 | DRG 682 ==
LOC: 5 SOUTH 14:30
PROVIDERS: ADMIT Internal Medicine; ATTEND Internal Medicine
DX: N17.9 Acute kidney failure, unspecified (principal); J96.90 Respiratory failure, unspecified, unspecified whether with hypoxia or hypercapnia; G93.41 Metabolic encephalopathy; I25.10 Atherosclerotic heart disease of native coronary artery without angina pectoris; E11.9 Type 2 diabetes mellitus without complications; E03.9 Hypothyroidism, unspecified; I48.0 Paroxysmal atrial fibrillation; Z79.01 Long term (current) use of anticoagulants; I25.5 Ischemic cardiomyopathy; I11.0 Hypertensive heart disease with heart failure; I50.9 Heart failure, unspecified
CPT/HCPCS: J7030; G0378